=== PATIENT | male | born 1985 | race Caucasian/White ===

== ENCOUNTER 2018-03-02 07:46 | Inpatient (IN) | payer OTHER ==
[~2018-03-02] VITALS: Ht 165.1 cm; Wt 64.0 kg
--- NOTE | 2018-03-02 08:27 | ED GI/GU/ABDOMINAL COMPLAINT ---
See Addendum History of Present Illness General Chief Complaint: Abdominal Pain/Flank Pain Stated Complaint: L SIDED ABD PAIN X3DAYS Source: patient, family Exam Limitations: no limitations Vital Signs & Intake/Output Vital Signs & Intake/Output Vital Signs Date Time Temp Pulse Resp B/P B/P Pulse O2 O2 Flow FiO2 Mean Ox Delivery Rate 03/02 1228 98.3 106 18 120/83 98 Room Air 03/02 1059 98.7 95 18 128/74 98 Room Air 03/02 0846 98 Room Air 03/02 0748 98.8 126 18 140/91 95 Room Air Allergies Coded Allergies: NO KNOWN ALLERGIES (03/02/18) Reconcile Medications No Known Home Medications Triage Note: 32 YO MALE TO TRIAGE C/O L SIDED ABD PAIN X3 DAYS WITH +NVD. STATES HE IS A DAILY BEER DRINKER APPROX 6 BEERS. LBM THIS AM. DENIES URIANRY S/S. STATES HIS URINE HAS BEEN DARKER THEN USUAL. Triage Nurses Notes Reviewed? yes Onset: Abrupt Duration: week(s): Timing: recent history Quality/Severity: moderate, severe Location: epigastric, left lower quadrant Radiation: no radiation Activities at Onset: none HPI: 32-year-old male comes into the emergency room for further evaluation of upper abdominal pain that has now moved to the left side of his abdomen. He reports some excessive belching and burping and some associated vomiting. He reports that he drinks about 6 beers every other day. He reports that he's had some dark black stools recently. He denies any urinary symptoms. Denies any prior abdominal surgeries. Comes in for further evaluation. (Miguel Solitario) Past History Travel History Traveled to [place] past 21 day No Medical History Any Pertinent Medical History? see below for history Neurological: NONE EENT: NONE Cardiovascular: NONE Respiratory: NONE Gastrointestinal: NONE Hepatic: NONE Renal: NONE Musculoskeletal: NONE Psychiatric: NONE Endocrine: NONE Blood Disorders: NONE Cancer(s): NONE TURRET LATHE TENDER/Reproductive: NONE Surgical History Surgical History: NO ABDOMINAL SURGERIES Psychosocial History What is your primary language Macanese Tobacco Use: Current Daily Use Daily Tobacco Use Amount/Type: => 5 Cigarettes daily Family History Hx Contributory? No (Miguel Solitario) Review of Systems Review of Systems Constitutional: Reports: no symptoms. EENTM: Reports: no symptoms. Respiratory: Reports: no symptoms. Cardiovascular: Reports: no symptoms. GI: Reports: see HPI. Genitourinary: Reports: no symptoms. Musculoskeletal: Reports: no symptoms. Skin: Reports: no symptoms. Neurological/Psychological: Reports: no symptoms. Hematologic/Endocrine: Reports: no symptoms. Immunologic/Allergic: Reports: no symptoms. All Other Systems: Reviewed and Negative (Miguel Solitario) Physical Exam Physical Exam General Appearance: well developed/nourished, alert, awake, mild distress Head: atraumatic Eyes: Bilateral: normal appearance. Ears, Nose, Throat, Mouth: hearing grossly normal, moist mucous membrane Neck: normal inspection Respiratory: normal breath sounds, no respiratory distress Cardiovascular: regular rate/rhythm Gastrointestinal: soft, tenderness (LLQ) Rectal: heme positive stool, MINIMAL STOOL IN RECTAL VAULT BUT BLACKISH COLOR IN NATURE, Back: normal inspection Extremities: normal range of motion Neurologic/Psych: awake, alert, oriented x 3 Skin: intact, normal color Core Measures ACS in differential dx? No Sepsis Present: No Sepsis Focused Exam Completed? No (Miguel Solitario) Progress Differential Diagnosis: cholecystitis, diverticulitis, gastritis, hepatitis, pancreatitis, PUD/GERD, perforated viscous, ureterolithiasis Plan of Care: Orders Procedure Date/time Status Patient Data 03/02 1333 Active EKG 03/02 1254 Active Admit to inpatient 03/02 1248 Active LACTIC ACID 03/02 1125 Complete Add-on Test (ER Only) 03/02 0920 Active TRIGLYCERIDES 03/02 0852 Complete ETHANOL 03/02 0852 Complete MISTAKE 03/02 0832 Active URINE DRUGS OF ABUSE 03/02 0829 Complete URINALYSIS 03/02 0825 Complete LIPASE 03/02 0825 Complete LACTIC ACID 03/02 0825 Complete COMPREHENSIVE METABOLIC PANEL 03/02 0825 Complete CBC WITHOUT DIFFERENTIAL 03/02 0825 Complete AMYLASE 03/02 0825 Complete TYPE & SCREEN (NOT X-MATCH) 03/02 0825 Complete Current Medications Sig/Madelin Start time Last Medication Dose Stop Time Status Admin Lactated Ringer's 1,000 ML ONCE ONE 03/02 1230 AC 03/02 (Lactated Ringers) 03/02 1629 1228 Laboratory Tests 03/02/18 1204: Urine Opiates Screen 753.00, Methadone Screen < 40, Barbiturate Screen < 60, Ur Phencyclidine Scrn < 6.00, Amphetamines Screen < 100, U Benzodiazepines Scrn < 85, Urine Cocaine Screen < 50, Urine Cannabis Screen > 80.00 H, Urinalysis MOD H, Urine Color YEL, Urine Clarity HAZY H, Urine pH 6.0, Ur Specific [place] 1.010, Urine Protein TRACE H, Urine Ketones NEG, Urine Nitrite NEG, Urine Bilirubin POS@ICTO H, Urine Urobilinogen 1.0, Ur Leukocyte Esterase NEG, Ur Microscopic SEDIMENT EXAMINED, Urine RBC RARE, Urine WBC RARE, Ur Epithelial Cells FEW, Urine Bacteria FEW H, Granular Casts 1-3 H, Urine Mucus FEW, Urine Hemoglobin NEG, Urine Glucose NEG 03/02/18 1142: Lactic Acid 2.3 H 03/02/18 0852: Anion Gap 17 H, Estimated GFR > 60, BUN/Creatinine Ratio 15.7, Glucose 107 H, Lactic Acid 3.2 H, Calcium 5.7 *L, Total Bilirubin 3.4 H, AST 112 H, ALT 66, Alkaline Phosphatase 881 H, Total Protein 6.6, Albumin 2.8 L, Globulin 3.8, Albumin/Globulin Ratio 0.7 L, Triglycerides > 07247 H, Amylase 58, Lipase 1184 H, PT Cancelled, INR Cancelled, APTT Cancelled, CBC w Diff MAN DIFF ORDERED, RBC 3.70 L, MCV 101.3 H, MCH 35.0 H, MCHC 34.8, RDW 15.0 H, MPV 7.5, Segmented Neutrophils 71, Lymphocytes 24, Monocytes 5, Platelet Estimate VERIFIED BY SMEAR, Hypochromic-Microcytic 1+, Poikilocytosis 1+, Anisocytosis 1+ , Macrocytic Cells 1+, Target Cells FEW, Serum Alcohol 310.0 03/02/18 0829: Serum Alcohol Cancelled Diagnostic Imaging: Viewed by Me: CT Scan. Discussed w/RAD: CT Scan. Radiology Impression: PATIENT: ELIZABETH GUTIERRES PRESENT AGE: 32 PATIENT ACCOUNT NO: [id number] : 87 LOCATION: [facility] ORDERING PHYSICIAN: Miguel TRIPLETT SERVICE DATE: 03/02/18 EXAM TYPE: CAT - CT ABD & PELVIS W IV CONTRAST EXAMINATION: CT ABDOMEN AND PELVIS WITH CONTRAST CLINICAL INFORMATION: 32-year-old male patient with epigastric pain radiating to the left side of the abdomen. History of EtOH abuse. "Dark stool". COMPARISON: None available. TECHNIQUE: Multidetector volumetric imaging was performed of the abdomen and pelvis following IV administration of 95 mL of Optiray 320 intravenous contrast. Sagittal and coronal reformatted images were obtained on the technologist's workstation. DLP: 278 mGy-cm FINDINGS: Inspector Circuitry Negative: Gas filled loops of small and large bowel in the lower abdomen are consistent with an adynamic ileus. There is a paucity of gas in the left flank. LUNG BASES: The visualized lung bases are unremarkable. There are no pleural effusions. LIVER, GALLBLADDER, AND BILIARY TREE: There is normal in size and smooth in contour showing diffuse decrease in attenuation secondary to fatty infiltration. The bile ducts are not dilated. The gallbladder is unremarkable. PANCREAS: The significant findings are related to the pancreas. Pancreas is normal in size. However, a focal area of nonenhancement is located at the junction of the neck and body of the pancreas. This could represent a focal area of necrosis. There are significant peripancreatic effusions. A trace amount is seen in the lesser sac. Most of the pancreatic effusion dissects down the left anterior pararenal space to the left lower quadrant of the abdomen and lateral aspect of the pelvis. Gerota's fascia is intact resulting in the so-called "bare kidney" sign of acute pancreatitis. Some inflammatory reaction extends into the transverse mesocolon resulting in mild wall edema of the transverse colon. A trace amount of pancreatic effusion is located in the right pericolic gutter. Mild edema of the descending limb of the duodenum is a secondary effect of the acute pancreatitis. A small amount of pancreatic effusion is located in the right iliac fossa in communication with the pericolic gutter. SPLEEN: Unremarkable. ADRENAL GLANDS: Unremarkable. KIDNEYS AND URETERS: The kidneys are normal in size, shape, and attenuation. No hydronephrosis, hydroureter, or calculi seen. No perinephric stranding. BLADDER: Unremarkable. GASTROINTESTINAL TRACT: As mentioned above, there is mild wall edema of the transverse colon and mucosal enhancement of the descending limb the duodenum. The stomach is normal. The appendix is retrocecal in location and normal in appearance. ABDOMINAL WALL: No significant hernia is appreciated. LYMPH NODES: Normal. VASCULAR: The portal venous system is well patent. PELVIC VISCERA: Unremarkable. OSSEOUS STRUCTURES: Multiple Schmorl's nodes affect the vertebral bodies of the lower thoracic spine and L1-L2. Otherwise unremarkable. IMPRESSION: 1. Diffuse fatty infiltration of the liver. No biliary tract disease. 2. Acute pancreatitis associated with pancreatic enzymes/effusions primarily localized to the left anterior pararenal space. Secondary effects of the transverse colon and duodenum are appreciated. 3. Focal area of nonenhancement at the junction of the neck and body the pancreas could well represent early pancreatic necrosis. DICTATED BY: Balta Madrigal MD DATE/TIME DICTATED:03/02/181144 WELT EDGE ROUNDER:MOJGAN DATE/ TIME TRANSCRIBED:03/02/181144 CONFIDENTIAL, DO NOT COPY WITHOUT APPROPRIATE AUTHORIZATION. <Electronically signed in Other Vendor System> SIGNED BY: Balta Madrigal MD 03/02/18 1204 Initial ED EKG: normal sinus rhythm, rate (86) (Miguel Solitario) Comments: 03/02/2018 1:22:40 PM I have discussed this patient's case with Dr. Rizvi, covering the intensive care unit. He does not feel the patient requires ICU level care despite the low calcium level. I have notified Dr. Jimenez.. (Michelle MARTINEZ,Vinnie Jackson) Departure Departure Disposition: STILL A PATIENT Condition: Stable Clinical Impression Primary Impression: Acute pancreatitis Secondary Impressions: ETOH abuse, Hypertriglyceridemia, Hypocalcemia Referrals: Mike Smith DO (PCP/Family) Departure Forms: Customer Survey General Discharge Information Prescriptions: Current Visit Scripts No Known Home Medications Admission Note Spoke With: Tony MARTINEZ,Luisa Documentation of Exam: Documentation of any treatments & extenuating circumstances including Concerns Regarding Discharge (functional status, medication knowledge or non-compliance, living conditions, etc.) that warrant an admission rather than observation: IV fluids. IV pain control. GI consultation. Repeat labs. (Miguel Solitario) PA/REVENUE COORDINATOR Co-Sign Statement Statement: ED Attending supervision documentation- [X] I saw and evaluated the patient. I have also reviewed all the pertinent lab results and diagnostic results. I agree with the findings and the plan of care as documented in the PA's/REVENUE COORDINATOR's documentation. Patient presents for evaluation of worsening and severe abdominal pain. Physical examination reveals epigastric abdominal tenderness with brief voluntary guarding but no rebound. [] I have reviewed the ED Record and agree with the PA's/REVENUE COORDINATOR's documentation. [] Additions or exceptions (if any) to the PAs/REVENUE COORDINATOR's note and plan are summarized below: [] (Michelle MARTINEZ,Vinnie Jackson)
[2018-03-02 09:03] LABS: HEMATOCRIT 37.5 % (42-52); MEAN CORPUSCULAR VOLUME 101.3 FL (80.0-94.0); MEAN PLATELET VOLUME 7.5 FL (7.4-10.4); WHITE BLOOD CELL COUNT 7.7 /CUMM (4.8-10.8)
[2018-03-02 10:18] LABS: MEAN CORPUSCULAR HGB CONC 34.8 G/DL (33.0-37.0); PLATELET COUNT 141 /CUMM (130-400)
--- NOTE | 2018-03-02 12:04 | CT SCAN REPORT ---
EXAMINATION: CT ABDOMEN AND PELVIS WITH CONTRAST CLINICAL INFORMATION: 32-year-old male patient with epigastric pain radiating to the left side of the abdomen. History of EtOH abuse. "Dark stool". COMPARISON: None available. TECHNIQUE: Multidetector volumetric imaging was performed of the abdomen and pelvis following IV administration of 95 mL of Optiray 320 intravenous contrast. Sagittal and coronal reformatted images were obtained on the technologist's workstation. DLP: 278 mGy-cm FINDINGS: Car Groomer: Gas filled loops of small and large bowel in the lower abdomen are consistent with an adynamic ileus. There is a paucity of gas in the left flank. LUNG BASES: The visualized lung bases are unremarkable. There are no pleural effusions. LIVER, GALLBLADDER, AND BILIARY TREE: There is normal in size and smooth in contour showing diffuse decrease in attenuation secondary to fatty infiltration. The bile ducts are not dilated. The gallbladder is unremarkable. PANCREAS: The significant findings are related to the pancreas. Pancreas is normal in size. However, a focal area of nonenhancement is located at the junction of the neck and body of the pancreas. This could represent a focal area of necrosis. There are significant peripancreatic effusions. A trace amount is seen in the lesser sac. Most of the pancreatic effusion dissects down the left anterior pararenal space to the left lower quadrant of the abdomen and lateral aspect of the pelvis. Gerota's fascia is intact resulting in the so-called "bare kidney" sign of acute pancreatitis. Some inflammatory reaction extends into the transverse mesocolon resulting in mild wall edema of the transverse colon. A trace amount of pancreatic effusion is located in the right pericolic gutter. Mild edema of the descending limb of the duodenum is a secondary effect of the acute pancreatitis. A small amount of pancreatic effusion is located in the right iliac fossa in communication with the pericolic gutter. SPLEEN: Unremarkable. ADRENAL GLANDS: Unremarkable. KIDNEYS AND URETERS: The kidneys are normal in size, shape, and attenuation. No hydronephrosis, hydroureter, or calculi seen. No perinephric stranding. BLADDER: Unremarkable. GASTROINTESTINAL TRACT: As mentioned above, there is mild wall edema of the transverse colon and mucosal enhancement of the descending limb the duodenum. The stomach is normal. The appendix is retrocecal in location and normal in appearance. ABDOMINAL WALL: No significant hernia is appreciated. LYMPH NODES: Normal. VASCULAR: The portal venous system is well patent. PELVIC VISCERA: Unremarkable. OSSEOUS STRUCTURES: Multiple Schmorl's nodes affect the vertebral bodies of the lower thoracic spine and L1-L2. Otherwise unremarkable. IMPRESSION: 1. Diffuse fatty infiltration of the liver. No biliary tract disease. 2. Acute pancreatitis associated with pancreatic enzymes/effusions primarily localized to the left anterior pararenal space. Secondary effects of the transverse colon and duodenum are appreciated. 3. Focal area of nonenhancement at the junction of the neck and body the pancreas could well represent early pancreatic necrosis.
--- NOTE | 2018-03-02 13:52 | History & Physical ---
Jim MARTINEZ,[facility] 03/02/18 1351: General Information and HPI MD Statement: I have seen and personally examined ELIZABETH GUTIERRES and documented this H&P. The patient is a 32 year old M who presented with a patient stated chief complaint of [abdominal pain]. Source of Information: patient Exam Limitations: no limitations History of Present Illness: 32 yo M with no significant past medical history came in to the ED with complaints of severe abdominal pain for the past 2 days. The patient states that for the past 2 weeks he has been feeling ill. But for the past two days he has been experiencing periumbilical abdominal pain. This morning he woke up with severe pain in his abdomen localized to his left lower side of abdomen. He describes his pain as sharp, non-radiating, 10/10 in severity, aggravated with movement and improved with lying still. He has been experiencing nausea/vomiting with no hematemesis. Also been having dark loose stools for the past 3 days and denies any blood in stools. (Per ED data, the patient had heme positive dark stools) He is a heavy drinker using alcohol since he was 20. Consumes 6 beers or shots per night. Lately has been consuming rum. His last drink was last night. Smokes 1PPD for almost 15 years and occasionally uses marijuana. States his father has a lipid problem. Denies any similar problems in his siblings. Of note, he had an EGD with Dr Lea on which showed mild gastritis and duodenitis in 12/31 at [facility]. Allergies/Medications Allergies: Coded Allergies: NO KNOWN ALLERGIES (03/02/18) Home Med list No Known Home Medications Past History Travel History Traveled to [place] past 21 day No Medical History Neurological: NONE EENT: NONE Cardiovascular: NONE Respiratory: NONE Gastrointestinal: NONE Hepatic: NONE Renal: NONE Musculoskeletal: NONE Psychiatric: NONE Endocrine: NONE Blood Disorders: NONE Cancer(s): NONE JAIL GUARD/Reproductive: NONE Surgical History Surgical History: neck surgery, hernia repair Past Family/Social History Family History Relations & Conditions if any FATHER Relation not specified for: FH: hyperlipidemia Psychosocial History Smoking Status: Current Everyday Smoker ETOH Use: heavy use Illicit Drug Use: marijuana Review of Systems Review of Systems Constitutional: Reports: chills. Denies: fever. EENTM: Reports: no symptoms. Cardiovascular: Denies: chest pain. Respiratory: Denies: short of breath. GI: Reports: abdominal pain, diarrhea. Genitourinary: Reports: no symptoms. Musculoskeletal: Reports: no symptoms. Skin: Reports: no symptoms. Neurological/Psychological: Reports: no symptoms. Exam & Diagnostic Data Last 24 Hrs of Vital Signs/I&O Vital Signs Date Time Temp Pulse Resp B/P B/P Pulse O2 O2 Flow FiO2 Mean Ox Delivery Rate 03/02 1535 85 03/02 1412 98.0 104 18 116/77 96 Room Air 03/02 1228 98.3 106 18 120/83 98 Room Air 03/02 1059 98.7 95 18 128/74 98 Room Air 03/02 0846 98 Room Air 03/02 0748 98.8 126 18 140/91 95 Room Air Intake & Output 03/02 1600 03/02 0800 03/02 0000 Intake Total 2000 Output Total Balance 2000 Intake, IV 2000 Patient 120 lb Weight Weight Reported by Patient Measurement Method Physical Exam General Appearance Alert, Oriented X3, Cooperative, Moderate Distress Skin No Rashes, No Breakdown Skin Temp/Moisture Exam: Warm/Dry Sepsis Skin Exam (color): Normal for Ethnicity HEENT Atraumatic Cardiovascular Normal S1, Normal S2, No Murmurs Lungs Clear to Auscultation, Normal Air Movement Abdomen Soft, diffuse tenderness, rebound tenderness Neurological Normal Speech Extremities No Edema Last 24 Hrs of Labs/Fransico: Laboratory Tests 03/02/18 1557: Ionized Calcium Pending 03/02/18 1204: Urine Opiates Screen 753.00, Methadone Screen < 40, Barbiturate Screen < 60, Ur Phencyclidine Scrn < 6.00, Amphetamines Screen < 100, U Benzodiazepines Scrn < 85, Urine Cocaine Screen < 50, Urine Cannabis Screen > 80.00 H, Urinalysis MOD H, Urine Color YEL, Urine Clarity HAZY H, Urine pH 6.0, Ur Specific [place] 1.010, Urine Protein TRACE H, Urine Ketones NEG, Urine Nitrite NEG, Urine Bilirubin POS@ICTO H, Urine Urobilinogen 1.0, Ur Leukocyte Esterase NEG, Ur Microscopic SEDIMENT EXAMINED, Urine RBC RARE, Urine WBC RARE, Ur Epithelial Cells FEW, Urine Bacteria FEW H, Granular Casts 1-3 H, Urine Mucus FEW, Urine Hemoglobin NEG, Urine Glucose NEG 03/02/18 1142: Lactic Acid 2.3 H 03/02/18 0852: Anion Gap 17 H, Estimated GFR > 60, BUN/Creatinine Ratio 15.7, Glucose 107 H, Lactic Acid 3.2 H, Calcium 5.7 *L, Total Bilirubin 3.4 H, AST 112 H, ALT 66, Alkaline Phosphatase 881 H, Total Protein 6.6, Albumin 2.8 L, Globulin 3.8, Albumin/Globulin Ratio 0.7 L, Triglycerides > 43974 H, Amylase 58, Lipase 1184 H, PT Cancelled, INR Cancelled, APTT Cancelled, CBC w Diff MAN DIFF ORDERED, RBC 3.70 L, MCV 101.3 H, MCH 35.0 H, MCHC 34.8, RDW 15.0 H, MPV 7.5, Segmented Neutrophils 71, Lymphocytes 24, Monocytes 5, Platelet Estimate VERIFIED BY SMEAR, Hypochromic-Microcytic 1+, Poikilocytosis 1+, Anisocytosis 1+ , Macrocytic Cells 1+, Target Cells FEW, Serum Alcohol 310.0 03/02/18 0829: Serum Alcohol Cancelled Assessment/Plan Assessment: 32 yo M with no significant past medical history came in to the ED with complaints of severe abdominal pain for the past 2 days. Assessment: 1. Acute Pancreatitis with necrotizing features 2. Adynamic Ileus 3. Severe Hypertriglyceridemia 4. Alcohol Abuse 5. Cannabis Use 6. Severe Hypocalcemia 7. Elevated LFTs 8. Macrocytosis Plan: * Admit the patient to telemetry * Continue Lactated Ringers @150ml/hr. * Pain control with IV morphine 2mg q4. * Trend Lactic Acid * Monitor Electrolytes * Ionized Calcium level ordered - pending * Repeat TGs, Ca, Vit d, PTH. Will monitor TGs level. * IV 1g Calcium Gluconate x 1. * His Dallas score is 1, BISAP score of 0 and HAP of 1. * Ativan per CIWA * Banana bag * GI Consult. His ALP is elevated along with other liver enzymes. * Endo Consult * Diet: NPO * DVT Prophylaxis: SC Lovenox * Code Status: Full Code As Ranked By This Provider Problem List: 1. Acute pancreatitis Core Measures/Misc (07/10) Acute Coronary Syndrome ACS Diagnosis: No Congestive Heart Failure Congestive Heart Failure Diagnosis No Cerebrovascular Accident CVA/TIA Diagnosis: No VTE (View Protocol) VTE Risk Factors Age>40 No Mechanical VTE Prophylaxis d/t N/A MechProphylax Ordered No VTE Pharm Prophylaxis d/t NA PharmProphylax ordered Sepsis (View protocol) Sepsis Present: No Carmen MARTINEZ,[facility] 03/02/18 1436: General Information and HPI MD Statement: I have seen and personally examined ELIZABETH GUTIERRES and documented this H&P. The patient is a 32 year old M who presented with a patient stated chief complaint of []. Resident Review Statement Resident Statement: examined this patient, discussed with biology internship, agreed with biology internship Other Findings: 32-year-old male without significant PMHx and not on any medication, presented with severe epigastric abdominal pain. He start feeling sick about 2 weeks ago, but during last 2 days he develop progressive epigastric abdominal pain that was associated with nausea and vomiting. The pt has family hx of dyslipidemia. He reports drinking 6 beers or 6 shots every day. Assessment The patient presented with symptoms and signs suggestive of acute pancreatitis, he reports drinking since age 20, recently his binge drinking almost every day around 6 shots of vodka or rum. Triglyceride was found to be elevated up to 10, 500. He had a positive lactic acid and low calcium down to 6.2(corrected to albumin), which may indicate high risk of acute pancreatitis complication. CT showed pancreatitis with possible early signs of pancreatic necrosis. Problem list * Acute pancreatitis * Hypocalcemia * Hypertriglyceridemia * Macrocytic anemia * Alcohol use, marijuana use Plan * Admit to telemetry floor * Nothing by mouth * Continue ringer lactate at 200 * Morphine 2 mg every 4 when necessary * Zofran for nausea * Trend lactic acid * We'll order ionized calcium level * Order parathyroid hormone level * CIWA protocol, with Ativan as per protocol * We will start him on banana bag to be given at the same time with IV fluids * We'll repeat all blood workup including calcium and triglyceride * Consult endocrinology * Consult GI * Full code * DVT prophylaxis with subcutaneous heparin Jalyn Menchaca 03/02/18 1529: Attending MD Review Statement Attending Statement Attending MD Statement: examined this patient, discuss w/resident/PA/MEATCUTTER, agreed w/resident/PA/MEATCUTTER, discussed with family, reviewed EMR data (avail), discussed with nursing, discussed with case mgmt, reviewed images, amended to note Attending Assessment/Plan: Patient with pmh of alcohol abuse and hypertriglyceredemia comes with abdominal pain and acute pancreatitis with necrosis and hypocalcemia with lactic acidosis on admission with improvement. Patient hct 37. Patient received aggressive hydration in ER. Patient admit to inpatient medical services telemetry. Give aggressive hydration and keep him NPO, GI and endo consult. Pain control. IV thimaine, folic acid. CIWA protocol and iv ativan as per CIWA protocol. gi/dvt prophyalxis full code.
[2018-03-02 17:18] VITALS: BP 126/80
--- NOTE | 2018-03-02 19:15 | RADIOLOGY REPORT ---
EXAMINATION: XR PORTABLE CHEST CLINICAL INFORMATION: Effusion pancreatitis COMPARISON: Prior chest May 2008 TECHNIQUE: Portable frontal view of the chest was obtained. FINDINGS: No significant abnormality is noted involving the heart, lungs, mediastinum, bony thorax or soft tissues. Incidental note made of postsurgical changes across the cervical thoracic junction unchanged. IMPRESSION: No acute disease. No change no effusion
--- NOTE | 2018-03-02 19:23 | Cons- Endocrinology ---
See Addendum General Information and HPI Consulting Request Date of Consult: 03/02/18 Requested By: Medical team Reason for Consult: evaluation and management of severe hypertriglyeridemia and acute pancreatitis in the setting ETOH abuse and other substance abuse Source of Information: patient, old records Exam Limitations: no limitations History of Present Illness: 32 yo M with no significant past medical history came in to the ED with complaints of severe abdominal pain for the past 2 days. Patient stated that he was feeling ill for the past two weeks. In addition, he has been having nausea/vomiting. He eats fast food and has been drinking ETOH x 16 years. His last drink was last night. In addition, he occasionally uses marijuana. CT scan showed peripancreatic effusions, a focal areabof nonenhancement located at the junction of the neck and body of pancreas suggestive of a focal area of necrosis. Blood work on admission showed glucose 107, amylase 58, lipase 1184, calcium 5.7 , albumin 2.8 ( corrected calcium 6.6), TRIG > 35027, T.Bossman 3.4, ALKP 881, AST 112, ALT 66, ETOH level 310. Patient has been kept NPO and he is receiving LR 150 ml/hour. Repeat blood work done at 4 pm showed lipase 1409, calcium 5.2, TRIG 8970, PTH 165.1 and 25 OH vitamin D < 4.2. Allergies/Medications Allergies: Coded Allergies: NO KNOWN ALLERGIES (03/02/18) Home Med List: No Known Home Medications Review of Systems Review of Systems Constitutional: Reports: see HPI. Cardiovascular: Denies: chest pain. Respiratory: Denies: short of breath. GI: Reports: abdominal pain, nausea, vomiting. Genitourinary: Denies: dysuria. Hematologic/Endocrine: Denies: polyuria, polydipsia. Past History Travel History Traveled to [place] past 21 day No Medical History Neurological: NONE EENT: NONE Cardiovascular: NONE Respiratory: NONE Gastrointestinal: NONE Hepatic: NONE Renal: NONE Musculoskeletal: NONE Psychiatric: NONE Endocrine: NONE Blood Disorders: NONE Cancer(s): NONE COMPUTER ENGINEERING TECHNOLOGIST/Reproductive: NONE Surgical History Surgical History: neck surgery, hernia repair Family History Relations & Conditions If Any: FATHER Relation not specified for: FH: hyperlipidemia Psychosocial History Where Do You Live? Home Smoking Status: Current Everyday Smoker ETOH Use: heavy use Illicit Drug Use: marijuana Exam & Diagnostic Data Last 24 Hrs of Vital Signs/I&O Vital Signs Date Time Temp Pulse Resp B/P B/P Pulse O2 O2 Flow FiO2 Mean Ox Delivery Rate 03/02 1718 98.3 96 18 126/80 94 Room Air 03/02 1617 99.2 83 18 116/73 98 Room Air 03/02 1535 85 03/02 1412 98.0 104 18 116/77 96 Room Air 03/02 1228 98.3 106 18 120/83 98 Room Air 03/02 1059 98.7 95 18 128/74 98 Room Air 03/02 0846 98 Room Air 03/02 0748 98.8 126 18 140/91 95 Room Air Intake & Output 03/02 1600 03/02 0800 03/02 0000 Intake Total 2000 Output Total Balance 2000 Intake, IV 2000 Patient 120 lb Weight Weight Reported by Patient Measurement Method Physical Exam General Appearance: mild distress Neck: normal inspection Respiratory: lungs clear Cardiovascular: tachycardia (mild) Gastrointestinal: guarding, tenderness (LUQ) Extremities: no edema Labs/Fransico Results: Laboratory Tests 03/02 03/02 03/02 1607 1557 1204 Chemistry Sodium (137 - 145 mmol/L) 131 L Potassium (3.5 - 5.1 mmol/L) 4.3 Chloride (98 - 107 mmol/L) 99 Carbon Dioxide (22 - 30 mmol/L) 19 L Anion Gap (5 - 16) 13 BUN (9 - 20 mg/dL) 10 Creatinine (0.7 - 1.2 mg/dL) 0.6 L Estimated GFR (>60 ml/min) > 60 BUN/Creatinine Ratio (7 - 25 %) 16.7 Glucose (65 - 99 mg/dL) 76 Calcium (8.4 - 10.2 mg/dL) 5.2 *L Ionized Calcium Pending Lactate Dehydrogenase (313 - 618 U/L) 885 H Triglycerides (<150 mg/dL) 8970 H Amylase (30 - 110 U/L) 64 Lipase (23 - 300 U/L) 1409 H 25-OH Vitamin D Total (30 - 100 ng/ml) < 4.2 L PTH Intact (18.4 - 80.1 pg/ML) 165.1 H Toxicology Urine Opiates Screen (>2000 NG/ML) 753.00 Methadone Screen (>300 NG/ML) < 40 Barbiturate Screen (>200 NG/ML) < 60 Ur Phencyclidine Scrn (>25 NG/ML) < 6.00 Amphetamines Screen (>1000 NG/ML) < 100 U Benzodiazepines Scrn (>200 NG/ML) < 85 Urine Cocaine Screen (>300 NG/ML) < 50 Urine Cannabis Screen (>50 NG/ML) > 80.00 H Urines Urinalysis MOD H Urine Color (YEL,AMB,STR) YEL Urine Clarity (CLEAR) HAZY H Urine pH (5.0 - 8.0) 6.0 Ur Specific [place] (1.001 - 1.035) 1.010 Urine Protein (NEG,<30 MG/DL) TRACE H Urine Ketones (NEG) NEG Urine Nitrite (NEG) NEG Urine Bilirubin (NEG) POS@ICTO H Urine Urobilinogen (0.1 - 1.0 EU/dl) 1.0 Ur Leukocyte Esterase (NEG) NEG Ur Microscopic SEDIMENT EXAMINED Urine RBC (0 - 5 /HPF) RARE Urine WBC (0 - 2 /HPF) RARE Ur Epithelial Cells (NONE,FEW) FEW Urine Bacteria (NEG/NONE) FEW H Granular Casts (NONE /LPF) 1-3 H Urine Mucus (FEW,NONE) FEW Urine Hemoglobin (NEG) NEG Urine Glucose (N MG/DL) NEG 03/02 03/02 03/02 1142 0852 0829 Chemistry Sodium (137 - 145 mmol/L) 132 L Potassium (3.5 - 5.1 mmol/L) 4.1 Chloride (98 - 107 mmol/L) 97 L Carbon Dioxide (22 - 30 mmol/L) 18 L Anion Gap (5 - 16) 17 H BUN (9 - 20 mg/dL) 11 Creatinine (0.7 - 1.2 mg/dL) 0.7 Estimated GFR (>60 ml/min) > 60 BUN/Creatinine Ratio (7 - 25 %) 15.7 Glucose (65 - 99 mg/dL) 107 H Lactic Acid (0.7 - 2.1 mmol/L) 2.3 H 3.2 H Calcium (8.4 - 10.2 mg/dL) 5.7 *L Total Bilirubin (0.2 - 1.3 mg/dL) 3.4 H AST (17 - 59 U/L) 112 H ALT (21 - 72 U/L) 66 Alkaline Phosphatase (< 127 U/L) 881 H Total Protein (6.3 - 8.2 g/dL) 6.6 Albumin (3.5 - 5.0 g/dL) 2.8 L Globulin (1.9 - 4.2 gm/dL) 3.8 Albumin/Globulin Ratio (1.1 - 2.2 %) 0.7 L Triglycerides (<150 mg/dL) > 98486 H Amylase (30 - 110 U/L) 58 Lipase (23 - 300 U/L) 1184 H Coagulation PT Cancelled INR Cancelled APTT Cancelled Hematology CBC w Diff MAN DIFF ORDERED WBC (4.8 - 10.8 /CUMM) 7.7 RBC (4.70 - 6.10 /CUMM) 3.70 L Hgb (14.0 - 18.0 G/DL) 13.7 L Hct (42 - 52 %) 37.5 L MCV (80.0 - 94.0 FL) 101.3 H MCH (27.0 - 31.0 PG) 35.0 H MCHC (33.0 - 37.0 G/DL) 34.8 RDW (11.5 - 14.5 %) 15.0 H Plt Count (130 - 400 /CUMM) 141 MPV (7.4 - 10.4 FL) 7.5 Segmented Neutrophils (42.2 - 75.2 %) 71 Lymphocytes (20.5 - 51.1 %) 24 Monocytes (1.7 - 9.3 %) 5 Platelet Estimate (ADEQUATE) VERIFIED BY SMEAR Hypochromic-Microcytic 1+ Poikilocytosis 1+ Anisocytosis 1+ Macrocytic Cells 1+ Target Cells FEW Toxicology Serum Alcohol (<10 MG/DL) 310.0 Cancelled Assessment/Plan Assessment/Plan 32 y/o male hx of ETOH abuse, poor diet and other substance abuse, presented with abdominal pain x 2 weeks. It has been worse x 2 days. His TRIG on admission was > [address]. CT showed necrotizing acute pancreatitis. Blood work showed severe hypocalcemia. I have recommended that patient shoud be in ICU for close monitoring. 1. continue IVF; 2. keep patient NPO; 3. as his TRIG has been improving and his glucose level hasn't been elevated, I will hold off on insulin drip at this point; 4. continue monitoring TRIG level and glucose level; 5. recommend giving one dose of calcum gluconate; tele monitoring; repeat calcium level in 4 hours; might consider cacium drip at low rate if his calcium level remains low; 6. start calcitriol 0.5 mcg iv twice a day with first dose now; 7. will start oral vitamin D supplement if he is ready to take po medication. 8. continue monitoring electrolytes and vital signs; 9. continue other suportive treatment. will follow Consult Acknowledgment - Thank you for your consult request.
[2018-03-02 22:35] VITALS: BP 120/84; BP 158/98
[2018-03-03] VITALS (15 sets, daily range): BP systolic 123–156; BP diastolic 78–104
[2018-03-03 06:02] LABS: MEAN CORPUSCULAR VOLUME 101.2 FL (80.0-94.0); MEAN PLATELET VOLUME 7.8 FL (7.4-10.4); PLATELET COUNT 105 /CUMM (130-400); RBC DISTRIBUTION WIDTH 15.2 % (11.5-14.5); RED BLOOD CELL CT 2.93 /CUMM (4.70-6.10); WHITE BLOOD CELL COUNT 4.2 /CUMM (4.8-10.8)
[2018-03-03 06:28] LABS: HEMATOCRIT 29.6 % (42-52)
[2018-03-03 06:29] LABS: MEAN CORPUSCULAR HGB 33.5 PG (27.0-31.0); MEAN CORPUSCULAR HGB CONC 33.2 G/DL (33.0-37.0)
--- NOTE | 2018-03-03 08:34 | PN- Endocrinology ---
Assessment/Plan Endoscopy Assessment: 32 y/o male hx of ETOH abuse, poor diet and other substance abuse, presented with abdominal pain x 2 weeks. It has been worse x 2 days. His TRIG on admission was > [address]. CT showed necrotizing acute pancreatitis. Blood work showed severe hypocalcemia. His TRIG remained significantly elevated and calcium level remained low despite he received calcium gluconate 2 g iv overnight. Patient was transferred to the ICU. He was put on insulin drip. Mg was replaced. He was put on calcitriol 0.5 mcg iv twice a day. Currently he is on insulin drip at 2 units per hour, D5LR at 200 ml/hour. The most recent FSG was 202. Patient still has abdominal pain. His abdmen appears more distended this morning. Plan: 1. continue the current IVF and insulin drip for now; 2. monitor FSG every one hour; 3. adjust insulin drip rate according to the insulin drip protocol for non DKA patient to keep FSG between 140 and 180 mg/dl; 4. monitor vital signs, in and out and electrolytes; 5. initiate calcium drip ( 5 g calcium gluconate in NS of 500 ml) at 30 ml/hour; monitor calcium and albumin in 2 hours to look for a trend; then the calcium drip rate will be adjusted accordingly; I will recommend monitoring his calcium level every 4-6 hours while he is on the calcium drip; the target of corrected calcium is around 8.0 mg/dl. 6. continue calcitriol 0.5 mcg iv twice a day; 7. will start calcium oral supplement and vitamin D oral supplement when he is ready to take pills; 8. recommend GI consult. 9 continue other supportive treatment; will follow. please call if there are any questions. Subjective Subjective: He still has significant abdominal pain. Objective Last 24 Hrs of Vital Signs/I&O Vital Signs Date Time Temp Pulse Resp B/P B/P Pulse O2 O2 Flow FiO2 Mean Ox Delivery Rate 03/03 0600 102 17 137/88 03/03 0400 97.9 122 28 149/81 03/03 0400 98 Nasal 2.0L Cannula 03/03 0200 106 15 144/87 03/03 0130 99 25 154/94 03/03 0000 98.7 107 24 154/98 03/03 0000 94 Room Air Room Air 03/02 2235 98.7 80 22 158/98 94 Nasal 3.0L Cannula 03/02 2235 98.4 92 20 120/84 95 03/02 1718 98.3 96 18 126/80 94 Room Air 03/02 1617 99.2 83 18 116/73 98 Room Air 03/02 1535 85 03/02 1412 98.0 104 18 116/77 96 Room Air 03/02 1228 98.3 106 18 120/83 98 Room Air 03/02 1059 98.7 95 18 128/74 98 Room Air 03/02 0846 98 Room Air Intake & Output 03/03 1600 03/03 0800 03/03 0000 Intake Total 1200 1200 Output Total 250 200 Balance 950 1000 Intake, IV 1200 1200 Number 0 Bowel Movements Output, Urine 250 200 Patient 140 lb 144 lb Weight Weight Bed scale Bed scale Measurement Method Results Pertinent Lab/Fransico Results: Laboratory Tests 03/03 03/03 03/03 0600 0546 0546 Chemistry Sodium (137 - 145 mmol/L) 127 L Potassium (3.5 - 5.1 mmol/L) 3.6 Chloride (98 - 107 mmol/L) 98 Carbon Dioxide (22 - 30 mmol/L) 17 L Anion Gap (5 - 16) 13 BUN (9 - 20 mg/dL) 6 L Creatinine (0.7 - 1.2 mg/dL) 0.5 L Estimated GFR (>60 ml/min) > 60 Glucose (65 - 99 mg/dL) 155 H Lactic Acid (0.7 - 2.1 mmol/L) 2.5 H Calcium (8.4 - 10.2 mg/dL) Cancelled 5.4 *L Phosphorus (2.5 - 4.5 mg/dL) 2.5 Magnesium (1.6 - 2.3 mg/dL) Cancelled 1.9 Total Bilirubin (0.2 - 1.3 mg/dL) 3.8 H AST (17 - 59 U/L) 84 H ALT (21 - 72 U/L) 36 Albumin (3.5 - 5.0 g/dL) 2.3 L Triglycerides (<150 mg/dL) 7991 H Hematology CBC w Diff Cancelled MAN DIFF ORDERED WBC (4.8 - 10.8 /CUMM) Cancelled 4.2 L RBC (4.70 - 6.10 /CUMM) Cancelled 2.93 L Hgb (14.0 - 18.0 G/DL) Cancelled 9.9 L Hct (42 - 52 %) Cancelled 29.6 L MCV (80.0 - 94.0 FL) Cancelled 101.2 H MCH (27.0 - 31.0 PG) Cancelled 33.5 H MCHC (33.0 - 37.0 G/DL) Cancelled 33.2 RDW (11.5 - 14.5 %) Cancelled 15.2 H Plt Count (130 - 400 /CUMM) Cancelled 105 L MPV (7.4 - 10.4 FL) Cancelled 7.8 Segmented Neutrophils (42.2 - 75.2 %) 70 Band Neutrophils (0.0 - 5.0 %) 13 H Lymphocytes (20.5 - 51.1 %) 14 L Monocytes (1.7 - 9.3 %) 3 Platelet Estimate (ADEQUATE) ADEQUATE Polychromasia 1+ Anisocytosis 1+ Macrocytic Cells 1+ Ovalocytes FEW Other Body Source Fld Total RBCs Counted (%) 100 03/03 03/03 03/03 03/02 03/02 0043 0032 0032 2100 2100 Chemistry Sodium (137 - 145 mmol/L) 133 L Potassium (3.5 - 5.1 mmol/L) 4.0 Chloride (98 - 107 mmol/L) 100 Carbon Dioxide (22 - 30 mmol/L) 15 L Anion Gap (5 - 16) 18 H BUN (9 - 20 mg/dL) 8 L Creatinine (0.7 - 1.2 mg/dL) 0.5 L Estimated GFR (>60 ml/min) > 60 BUN/Creatinine Ratio (7 - 25 %) 16.0 Glucose (65 - 99 mg/dL) 77 Lactic Acid (0.7 - 2.1 mmol/L) 2.5 H 3.0 H Calcium (8.4 - 10.2 mg/dL) Cancelled 5.2 *L 5.2 *L Magnesium (1.6 - 2.3 mg/dL) 1.1 L Triglycerides (<150 mg/dL) 9397 H Amylase (30 - 110 U/L) 633 H Lipase (23 - 300 U/L) 1323 H 03/02 03/02 03/02 1607 1557 1204 Chemistry Sodium (137 - 145 mmol/L) 131 L Potassium (3.5 - 5.1 mmol/L) 4.3 Chloride (98 - 107 mmol/L) 99 Carbon Dioxide (22 - 30 mmol/L) 19 L Anion Gap (5 - 16) 13 BUN (9 - 20 mg/dL) 10 Creatinine (0.7 - 1.2 mg/dL) 0.6 L Estimated GFR (>60 ml/min) > 60 BUN/Creatinine Ratio (7 - 25 %) 16.7 Glucose (65 - 99 mg/dL) 76 Calcium (8.4 - 10.2 mg/dL) 5.2 *L Ionized Calcium Pending Lactate Dehydrogenase (313 - 618 U/L) 885 H Triglycerides (<150 mg/dL) 8970 H Amylase (30 - 110 U/L) 64 Lipase (23 - 300 U/L) 1409 H 25-OH Vitamin D Total (30 - 100 ng/ml) < 4.2 L PTH Intact (18.4 - 80.1 pg/ML) 165.1 H Toxicology Urine Opiates Screen (>2000 NG/ML) 753.00 Methadone Screen (>300 NG/ML) < 40 Barbiturate Screen (>200 NG/ML) < 60 Ur Phencyclidine Scrn (>25 NG/ML) < 6.00 Amphetamines Screen (>1000 NG/ML) < 100 U Benzodiazepines Scrn (>200 NG/ML) < 85 Urine Cocaine Screen (>300 NG/ML) < 50 Urine Cannabis Screen (>50 NG/ML) > 80.00 H Urines Urinalysis MOD H Urine Color (YEL,AMB,STR) YEL Urine Clarity (CLEAR) HAZY H Urine pH (5.0 - 8.0) 6.0 Ur Specific [place] (1.001 - 1.035) 1.010 Urine Protein (NEG,<30 MG/DL) TRACE H Urine Ketones (NEG) NEG Urine Nitrite (NEG) NEG Urine Bilirubin (NEG) POS@ICTO H Urine Urobilinogen (0.1 - 1.0 EU/dl) 1.0 Ur Leukocyte Esterase (NEG) NEG Ur Microscopic SEDIMENT EXAMINED Urine RBC (0 - 5 /HPF) RARE Urine WBC (0 - 2 /HPF) RARE Ur Epithelial Cells (NONE,FEW) FEW Urine Bacteria (NEG/NONE) FEW H Granular Casts (NONE /LPF) 1-3 H Urine Mucus (FEW,NONE) FEW Urine Hemoglobin (NEG) NEG Urine Glucose (N MG/DL) NEG 03/02 03/02 1142 0809 Chemistry Sodium (137 - 145 mmol/L) 132 L Potassium (3.5 - 5.1 mmol/L) 4.1 Chloride (98 - 107 mmol/L) 97 L Carbon Dioxide (22 - 30 mmol/L) 18 L Anion Gap (5 - 16) 17 H BUN (9 - 20 mg/dL) 11 Creatinine (0.7 - 1.2 mg/dL) 0.7 Estimated GFR (>60 ml/min) > 60 BUN/Creatinine Ratio (7 - 25 %) 15.7 Glucose (65 - 99 mg/dL) 107 H Lactic Acid (0.7 - 2.1 mmol/L) 2.3 H 3.2 H Calcium (8.4 - 10.2 mg/dL) 5.7 *L Total Bilirubin (0.2 - 1.3 mg/dL) 3.4 H AST (17 - 59 U/L) 112 H ALT (21 - 72 U/L) 66 Alkaline Phosphatase (< 127 U/L) 881 H Total Protein (6.3 - 8.2 g/dL) 6.6 Albumin (3.5 - 5.0 g/dL) 2.8 L Globulin (1.9 - 4.2 gm/dL) 3.8 Albumin/Globulin Ratio (1.1 - 2.2 %) 0.7 L Triglycerides (<150 mg/dL) > 67835 H Amylase (30 - 110 U/L) 58 Lipase (23 - 300 U/L) 1184 H Coagulation PT Cancelled INR Cancelled APTT Cancelled Hematology CBC w Diff MAN DIFF ORDERED WBC (4.8 - 10.8 /CUMM) 7.7 RBC (4.70 - 6.10 /CUMM) 3.70 L Hgb (14.0 - 18.0 G/DL) 13.7 L Hct (42 - 52 %) 37.5 L MCV (80.0 - 94.0 FL) 101.3 H MCH (27.0 - 31.0 PG) 35.0 H MCHC (33.0 - 37.0 G/DL) 34.8 RDW (11.5 - 14.5 %) 15.0 H Plt Count (130 - 400 /CUMM) 141 MPV (7.4 - 10.4 FL) 7.5 Segmented Neutrophils (42.2 - 75.2 %) 71 Lymphocytes (20.5 - 51.1 %) 24 Monocytes (1.7 - 9.3 %) 5 Platelet Estimate (ADEQUATE) VERIFIED BY SMEAR Hypochromic-Microcytic 1+ Poikilocytosis 1+ Anisocytosis 1+ Macrocytic Cells 1+ Target Cells FEW Toxicology Serum Alcohol (<10 MG/DL) 310.0
--- NOTE | 2018-03-03 08:43 | PN- Resident CRCU ---
Chucho MARTINEZ,[facility] 03/03/18 0842: Subjective HPI/CRCU Issues: Pt admitted to ICU for pancreatitis with ?necrosis secondary to hypertriglyceirdes/etoh. Pt has worsening edema/LLQ abd pain. Pt is constipated. SOB only when trying to sit up. Objective Vital Signs & I&O Last 8 Hrs of Vitals and I&O: Laboratory Tests 03/03 03/03 03/03 03/03 03/03 1053 0940 0940 0600 0546 Chemistry Lactic Acid (0.7 - 2.1 mmol/L) 3.0 H 2.5 H Calcium (8.4 - 10.2 mg/dL) 5.5 *L Cancelled Magnesium Cancelled Coagulation PT Pending INR Pending Hematology CBC w Diff Cancelled WBC Cancelled RBC Cancelled Hgb Cancelled Hct Cancelled MCV Cancelled MCH Cancelled MCHC Cancelled RDW Cancelled Plt Count Cancelled MPV Cancelled 03/03 03/03 03/03 0546 0043 0032 Chemistry Sodium (137 - 145 mmol/L) 127 L Potassium (3.5 - 5.1 mmol/L) 3.6 Chloride (98 - 107 mmol/L) 98 Carbon Dioxide (22 - 30 mmol/L) 17 L Anion Gap (5 - 16) 13 BUN (9 - 20 mg/dL) 6 L Creatinine (0.7 - 1.2 mg/dL) 0.5 L Estimated GFR (>60 ml/min) > 60 Glucose (65 - 99 mg/dL) 155 H Lactic Acid (0.7 - 2.1 mmol/L) 2.5 H Calcium (8.4 - 10.2 mg/dL) 5.4 *L Cancelled Phosphorus (2.5 - 4.5 mg/dL) 2.5 Magnesium (1.6 - 2.3 mg/dL) 1.9 Total Bilirubin (0.2 - 1.3 mg/dL) 3.8 H AST (17 - 59 U/L) 84 H ALT (21 - 72 U/L) 36 Albumin (3.5 - 5.0 g/dL) 2.3 L Triglycerides (<150 mg/dL) 7991 H Hematology CBC w Diff MAN DIFF ORDERED WBC (4.8 - 10.8 /CUMM) 4.2 L RBC (4.70 - 6.10 /CUMM) 2.93 L Hgb (14.0 - 18.0 G/DL) 9.9 L Hct (42 - 52 %) 29.6 L MCV (80.0 - 94.0 FL) 101.2 H MCH (27.0 - 31.0 PG) 33.5 H MCHC (33.0 - 37.0 G/DL) 33.2 RDW (11.5 - 14.5 %) 15.2 H Plt Count (130 - 400 /CUMM) 105 L MPV (7.4 - 10.4 FL) 7.8 Segmented Neutrophils (42.2 - 75.2 %) 70 Band Neutrophils (0.0 - 5.0 %) 13 H Lymphocytes (20.5 - 51.1 %) 14 L Monocytes (1.7 - 9.3 %) 3 Platelet Estimate (ADEQUATE) ADEQUATE Polychromasia 1+ Anisocytosis 1+ Macrocytic Cells 1+ Ovalocytes FEW Other Body Source Fld Total RBCs Counted (%) 100 03/03 03/02 03/02 03/02 03/02 0032 2100 2100 1607 1557 Chemistry Sodium (137 - 145 mmol/L) 133 L 131 L Potassium (3.5 - 5.1 mmol/L) 4.0 4.3 Chloride (98 - 107 mmol/L) 100 99 Carbon Dioxide (22 - 30 mmol/L) 15 L 19 L Anion Gap (5 - 16) 18 H 13 BUN (9 - 20 mg/dL) 8 L 10 Creatinine (0.7 - 1.2 mg/dL) 0.5 L 0.6 L Estimated GFR (>60 ml/min) > 60 > 60 BUN/Creatinine Ratio (7 - 25 %) 16.0 16.7 Glucose (65 - 99 mg/dL) 77 76 Lactic Acid (0.7 - 2.1 mmol/L) 3.0 H Calcium (8.4 - 10.2 mg/dL) 5.2 *L 5.2 *L 5.2 *L Ionized Calcium Pending Magnesium (1.6 - 2.3 mg/dL) 1.1 L Lactate Dehydrogenase (313 - 618 U/L) 885 H Triglycerides (<150 mg/dL) 9397 H 8970 H Amylase (30 - 110 U/L) 633 H 64 Lipase (23 - 300 U/L) 1323 H 1409 H 25-OH Vitamin D Total (30 - 100 ng/ml) < 4.2 L PTH Intact (18.4 - 80.1 pg/ML) 165.1 H 03/02 03/02 1204 1142 Chemistry Lactic Acid (0.7 - 2.1 mmol/L) 2.3 H Toxicology Urine Opiates Screen (>2000 NG/ML) 753.00 Methadone Screen (>300 NG/ML) < 40 Barbiturate Screen (>200 NG/ML) < 60 Ur Phencyclidine Scrn (>25 NG/ML) < 6.00 Amphetamines Screen (>1000 NG/ML) < 100 U Benzodiazepines Scrn (>200 NG/ML) < 85 Urine Cocaine Screen (>300 NG/ML) < 50 Urine Cannabis Screen (>50 NG/ML) > 80.00 H Urines Urinalysis MOD H Urine Color (YEL,AMB,STR) YEL Urine Clarity (CLEAR) HAZY H Urine pH (5.0 - 8.0) 6.0 Ur Specific [place] (1.001 - 1.035) 1.010 Urine Protein (NEG,<30 MG/DL) TRACE H Urine Ketones (NEG) NEG Urine Nitrite (NEG) NEG Urine Bilirubin (NEG) POS@ICTO H Urine Urobilinogen (0.1 - 1.0 EU/dl) 1.0 Ur Leukocyte Esterase (NEG) NEG Ur Microscopic SEDIMENT EXAMINED Urine RBC (0 - 5 /HPF) RARE Urine WBC (0 - 2 /HPF) RARE Ur Epithelial Cells (NONE,FEW) FEW Urine Bacteria (NEG/NONE) FEW H Granular Casts (NONE /LPF) 1-3 H Urine Mucus (FEW,NONE) FEW Urine Hemoglobin (NEG) NEG Urine Glucose (N MG/DL) NEG Vital Signs Date Time Temp Pulse Resp B/P B/P Pulse O2 O2 Flow FiO2 Mean Ox Delivery Rate 03/03 0600 102 17 137/88 03/03 0400 97.9 122 28 149/81 03/03 0400 98 Nasal 2.0L Cannula 03/03 0200 106 15 144/87 03/03 0130 99 25 154/94 03/03 0000 98.7 107 24 154/98 03/03 0000 94 Room Air Room Air 03/02 2235 98.7 80 22 158/98 94 Nasal 3.0L Cannula 03/02 2235 98.4 92 20 120/84 95 03/02 1718 98.3 96 18 126/80 94 Room Air 05 1617 99.2 83 18 116/73 98 Room Air 03/02 1535 85 05/ 1412 98.0 104 18 116/77 96 Room Air 03/02 1228 98.3 106 18 120/83 98 Room Air 03/02 1059 98.7 95 18 128/74 98 Room Air Intake & Output 03/03 1600 03/03 0800 03/03 0000 Intake Total 1200 1200 Output Total 250 200 Balance 950 1000 Intake, IV 1200 1200 Number 0 Bowel Movements Output, Urine 250 200 Patient 141 lb 140 lb 144 lb Weight Weight Bed scale Bed scale Measurement Method Intake & Output 03/03 1600 Intake Total Output Total Balance Patient 141 lb Weight Exam General Appearance: no apparent distress, alert, awake Neck: no JVD Respiratory: anterior chest sounds clear Cardiovascular: tachycardia Gastrointestinal: normal bowel sounds, distended abd. diffuse abd tenderness. worst in LLQ Extremities: 2+ radial pulses Skin: no bruising of abd or back Current Medications: Current Medications Sig/Madelin Start time Last Medication Dose Route Stop Time Status Admin Calcitriol 0.5 MCG BID 03/02 2100 AC 03/03 IV 0819 Calcium Gluconate 5 GM ONCE ONE 03/03 0715 AC 03/03 Sodium Chloride 450 ML IV 03/03 2354 0747 Calcium Gluconate 1 GM ONCE ONE 03/03 0100 DC 03/03 Sodium Chloride 100 ML IV 03/03 0159 0128 Calcium Gluconate 1 GM ONCE ONE 03/02 1700 DC 03/02 Sodium Chloride 100 ML IV 03/02 1759 2000 Chlordiazepoxide HCl 25 MG TID 03/03 1000 AC 03/03 PO 1031 Cyanocobalamin/ 1 BAG ONCE ONE 03/02 1700 DC 03/02 Thiamine/Pyridoxine IV 03/03 0059 2333 Dextrose/Water 1,000 ML Dextrose 25 GM ONCE ONE 03/03 0500 DC 03/03 IV 03/03 0501 0454 Dextrose/Lactated 1,000 ML Q6H 03/02 2345 AC 03/03 Ringer's IV 1012 Docusate Sodium 100 MG DAILY NEEDED PRN 03/03 1100 AC PO Heparin Sodium 5,000 UNIT Q8 03/02 2200 AC 03/03 (Porcine) SC 0624 Hydromorphone HCl 1 MG ONCE ONE 03/02 1230 DC 05/10 IV 03/02 1231 1228 Hydromorphone HCl 0 .STK-MED ONE 03/02 1228 DC .ROUTE Insulin Human Regular 100 UNIT Q24H 03/03 0100 AC 03/03 Sodium Chloride 100 ML IV 0123 Lactated Ringer's 1,000 ML .Q5H 03/02 1700 AC 03/02 IV 2000 Lactated Ringer's 1,000 ML ONCE ONE 03/02 1230 DC 03/02 IV 03/02 1629 1228 Lorazepam 0 Q1P PRN 03/02 1700 AC 03/03 IV 0951 Magnesium Sulfate 1 GM Q2H 03/03 0145 DC 03/03 Dextrose/Water 100 ML IV 03/03 0544 0400 Morphine Sulfate 1 MG ONCE ONE 03/03 0100 DC 03/03 IV 03/03 0101 0049 Morphine Sulfate 4 MG .STK-MED ONE 03/03 0047 DC IM 03/03 0048 Morphine Sulfate 0 .STK-MED ONE 03/02 1625 DC .ROUTE Morphine Sulfate 2 MG Q4P PRN 03/02 1600 AC 03/03 IV 0819 Morphine Sulfate 0 .STK-MED ONE 03/02 1109 DC .ROUTE Morphine Sulfate 4 MG ONCE ONE 03/02 1100 DC 03/02 IV 03/02 1101 1105 Polyethylene Glycol 17 GM DAILY NEEDED PRN 03/03 1100 AC PO Senna 187 MG AT BEDTIME NEED.. 03/03 1100 AC PO Sodium Chloride 500 ML .[id number] 03/03 0700 CAN IV Sodium Chloride 1,000 ML BOLUS ONE 03/02 1000 DC 03/02 IV 03/02 1059 1003 Impression/Plan Impression/Problem List Impression: A: 32 yo M with a past medical history of alcohol and cannabis abuse presenting to the ED for severe abdominal pain for 2 days found to have questionable necrotizing pancreatitis, hypertriglyceremia >10k and hypocalcemia. Problems: Respiratory: None Infection: #persistent lactic acidosis LA remains between 2.5 - 3.0 despite fluid resucitation. Patient is afebrile without leukocytosis. -WBC today 4.2 with bandermia. Unclear at this point but does not appear to be infectious. Contonue to monitor Cardiac: #tachycardia New onset tachycardia. Possibly due to pain or anxiety. Given lopressor 5mg IV before plasmapheresis -control anxiety with ativan and morphine for pain Heme onc: #H/H drop Initial H/H 13.7/37.5 Currently 9.9/29.6 -No acute signs of bleeding -Possibly due to dilution this patient has received 5+ L of fluids Metabolic: #hyponatremia Initial Na 132 -currently 127. Possibly diluation -continue monitor. #hypocalcemia Initial presenting calcium 5.7 Phos 2.5 Vitamin D <4.2 PTH elevated at 165.1 -current corrected calcium 6.96, f/u repeat triglycerides, icu bundle and calcium at 5pm -cont calcitrol -hypocalcemia probably secondary to saponifiaction of pancreatitis in addition to nutrition -contine calcium drip -cont endo recommendations #mag Pt presented with mag of 1.1 Given mag sulfate 1 g X2 -cont monitoring magnesium Alimentary: #Pancreatitis with ?necrotizing tissues more likley due to hypertriglycedemia vs etoh abuse The patient presented with severe abd pain x [address] abd revealed acute pancreatitis diffuse fatty infiltration of the liver with cocal area of nonenhancement at the junction of the neck and body the possibly representing early pancreatic necrosis. Initial labs triglycerides >10.5k, revealed lactic acid 3.2,calcium 5.7, albumin 2.3, phosphorus 2.5, magnesium 1.1, T bili 3.4, AST 112, ALT 36, ALP 881, LDH 885, albumin 2.8, amylase 58, lipase 1184, 25- hydroxy vit d <4.2, PTH 165.1. The patient received 2L NS, 2L LR, 1 banana bag thus far. -f/u workup : RUQ sono (although nl GB on CT). fractionated bilirubin, repeat alk phos with 5'NTD, hepatitis panel, HIV, MONIQUE, AMA, A1AT, ceruloplasmin, Fe, TIBC, ferritin, B12, RBC folate, & MMA. -Consider IR needle aspiration of pancreatic necrosis depending on clinical course -Monitor for signs of fluid overload and potential ARDS. Patinet may need echo for continued WARNER. Giving 10mg lasix trial (caution as it affects calcium) -cont monitoring lactic acid and triglycerides. Current triglycerides 7991 -cont monitoring amylase and lipase. currently amylase increased to 633, lipase increased to 1323 -Currently getting insulin drip for hypertriglycerides, monitor blood sugars and maintain 140-180 bloog sugar -will get nontunneled cath for plasmaphereisis -will obtain PICC line in anticipation of TPN -cont d5 LR -keep NPO #hepatitis with fatty liver dz on CT in the setting of etoh abuse, and pancreaitis Ast 112-> 84 ALT 66 -> 36 ALP 881 LDH 885 -cont to monitor and continue work up as stated above Neuro: None Psych: #hx of etoh abuse Utox positive for cannabis -Continue ativan prn agitation on CIWA and start on librium 25 TID -f/u psych and sw House keeping: NPO FULL CODE GETTING PICC AND CINTHIA LINE DVT prophylaxis - heparin subq Problem List: 1. Hepatitis 2. Necrotizing pancreatitis 3. Hypocalcemia 4. Hyponatremia 5. Anemia 6. Tachycardia 7. Lactic acidosis Pain Ratin Pain Location: abd Tomorrow's Labs & Rationales: crp lipid panel icu cbc mg ca Plan DVT/Prophylaxis: heparin Belkys MARTINEZ,[facility] 03/03/18 1303: Attending MD Review Statement Attending Sign Off Attending Cosign Statement: I have: examined this patient, reviewed [employer] [facility] EMR data, personally reviewd images, discussd w/resident/PA/SNOWSPORT INSTRUCTOR, discussed mgmt plan w/shiva, discussed mgmt plan w/CM, discussed mgmt plan w/pt, agreed w/resident/PA/SNOWSPORT INSTRUCTOR, amended to note. Other Findings: seen and examined This is a gentleman who is admitted to the ICU since last night with severe pancreatitis, significant alcoholism, cigarette smoker, previous history of multiple alcohol abuse, significant hypertriglyceridemia. Patient has been treated with intravenous insulin and D5 and his triglyceridemia still persists. Evaluation as above Issues include Significant pancreatitis with probable early necrosis, Westminster's criteria 1 elevated LDH. Severe hypertriglyceridemia needs apheresis which have arranged for after discussing with renal as he does not respond to insulin and D5 5 at this time Significant alcoholism pending DTs Alcoholic hepatitis probably with elevated bilirubin and altered LFTs Hypocalcemia being replaced Fatty liver Probable malnutrition from severe alcoholism RECOMMENDATION Due to significant hypertriglyceridemia I think it's important that he gets apheresis, I did discuss with Dr. Gutierrez fruit grader operator. And patient will be a good candidate for this and we will arrange for a Cuong catheter Continue intravenous fluid, get a PICC line in anticipation of aggressive care in the future Reduce IV fluids Ciwa protocol, banana bag, start chlordiazepoxide 25 every 8 DVT prophylaxis Replete electrolytes Hypocalcemia management per endocrine Intravenous PPI Further blood work per GI When necessary morphine Watch for fluid overload and ARDS NG tube in place abdominal distention were to get worse Patient is critically ill, discussed with all the attendings and house staff
--- NOTE | 2018-03-03 09:55 | Cons- Gastroenterology ---
See Addendum General Information and HPI Consulting Request Date of Consult: 03/03/18 Requested By: Jalyn Menchaca MD Reason for Consult: I was notified this morning of a request for a GI consult for pancreatitis (I took over the inpt GI service this a.m.). Source of Information: patient, old records Exam Limitations: no limitations History of Present Illness: 32 y/o male, non-HTN, non-DM, unaware of prior hx HLD (*subsequent admission 08/10: TG > 10.5K), 15 pk yr cigarette smoker, no illicit drugs or IVDA (except occasional cannabis), with long hx EtOH ("> 6 beers daily & occ shot of whiskey "), last drank 1 a.m. on 03/02/18, without known prior hx pancreatitis, PUD, or GBD (GB intact- no prior abdominal surgery except remote left groin hernia repair as child), who presented to the [place] ER 03/02/18 at 7:46 a.m., c/o diffuse left-sided abdominal pain for 3 days with nausea and vomiting, contents bilious. There was no hematemesis. He had mild GERD, without odynophagia or dysphagia. His stools were dark. He denied any rectal bleeding. There was minimal diarrhea, but no constipation, obstipation, or tenesmus. LBM on day of admission. He reportedly had OB+ stool on digital exam in the ER. Upon arrival, BP 140/91, P126, R 18, T 98.8 (Tm 99.2 in ER), O2 sat RA 95%. There was no positional component to his symptoms. There was perhaps minimal jaundice. His urine was slightly dark. He denied any light stools or pruritus. 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 He denied any chest pain or shortness of breath. There was some mild WARNER. He denied any history of DTs, seizures, or EtOH withdrawal. He denied any abdominal trauma, rash, or confusion. He denied any FHx GI Ca, GBD, PUD, inherited pancreatitis, additional GI disease, or inherited liver disease. He was not on any ASA, NSAIDS, Sulfa meds or thiazides. He denied any outpt rx meds, herbal meds, or OTC meds. 01/02/18: EGD per Dr. Lea for scant hematemesis- mild gastritis, duodenitis, with bxs: mild CAG/CFG. HP-neg. (The patient denied ever coming to the office for GI follow-up). He had never had a colonoscopy. The patient was given IV NS, MS, Dilaudid, f/b Ringer's Lactate in the ER (exact amount to be calculated-> reportedly + 5-6L overnight). His serum was lipemic. He was initially admitted to telemetry, but in view of multiple metabolic derangements, markedly elevated triglycerides, hypoCa2+, etc. he was transferred to the ICU for insulin drip, calcium gluconate infusion, and closer monitoring. Apparently, GI was called for an elective consult late in the afternoon on 03/02, but the GI service was never notifiied that the patient was transferred to the ICU. The patient was seen by critical care & endocrine. He is awaiting placement of additional lines & probable aphoresis for tx of his marked elevated TG. As of 03/03/18, the patient's abdominal pain was about the same. He had received narcotic analgesics a little over one hour prior to my initial exam. He was essentially NPO xc ice chips. He looked better clinically than his labs did. 03/02/18: 08:52- Admission labs- WBC 7.7 71S/24L/5M), H/H 13.7/37.5, MCV 101.3, RDW 15, PLT 141, glu 107, BUN/Cr 11/0.7, GFR > 60, Na 132, K 4.1, HCO3 18, AG 17 , lactate 3.2-> 2.3, amylase 58, lipase 1184, *Ca 5.7, albumin 2.8, globulin 3.8 , *TG > 10,500, TBil 3.4 (w/o fracs), *alk phos 881, AST 112, ALT 66, *[EtOH] 310 (*unable to do PT/PTT due to gross lipemia). 03/02/18: U/A- hazy, yellow, 1.010, 6.0, rare RBC, rare WBC, 1-3 gran casts, few bact, few epith mod amorph, + icto, 1.0 urobil 1.0, neg nitirite, neg esterase 03/02/18: Utox: + cannabis > 80. 03/02/18: 16:07- glu 76, BUN/Cr 10/0.6, GFR > 60, Na 131, K 4.3, HCO3 19, amylase 64, lipase 1409, *Ca 5.2, TG 8970, *LDH 885, PTH 165.1, Vit D 25OH < 4.2 03/02/18: 21:00- glu 77, BUN/Cr 8/0.5, GFR > 60, Na 133, K 4.0, HCO3 15, AG 18, amylase 633, lipase 1323, Mg 1.1, Ca 5.2, TG 9397 03/03/18: 05:46- WBC 4.2 (70S/13B/14L/3M), H/H 9.9/29.6, MCV 101.2, RDW 15.2, PLT 105, glu 155, BUN/Cr 6/0.5, GFR > 60, Na 127, K 3.6, HCO3 17, AG 13, Mg 1.9, *Ca 5.4, PO4 2.5, alb 2.3, TG 7991, TBil 3.8 (w/o fracs), AST 84, AST 36. 03/02/18: EKG- NSR @ 86, nl axis, nl int, flipped T in V1V2. 03/02/18: XRY-PORTABLE CHEST XRAY- No acute disease. No change. No effusion. Post C-fusion. 03/02/18: CT ABD & PELVIS W IV CONTRAST- 1. Diffuse fatty infiltration of the liver. No focal hepatic defect. No biliary tract disease. Normal GB. 2. Acute pancreatitis associated with pancreatic enzymes/effusions primarily localized to the left anterior pararenal space. Secondary effects of the transverse colon and duodenum are appreciated. 3. Focal 1 cm area of nonenhancement at the junction of the neck and body the pancreas could well represent early pancreatic necrosis. DICTATED BY: Balta Madrigal MD (*I personally reviewed the CT with Dr. Goldman, of [facility], on & a clinical/radiographic decision was made to defer needle aspirate of the focal region by IR for now to rule out infected necrosis, with consideration for repeat CT in short interval follow-up, depending on clinical course). Allergies/Medications Allergies: Coded Allergies: NO KNOWN ALLERGIES (03/02/18) Home Med List: No Known Home Medications Current Medications: Current Medications Sig/Madelin Start time Last Medication Dose Route Stop Time Status Admin Calcitriol 0.5 MCG BID 03/02 2100 AC 03/03 IV 0819 Calcium Gluconate 5 GM ONCE ONE 03/03 0715 AC 03/03 Sodium Chloride 450 ML IV 03/03 2354 0747 Calcium Gluconate 1 GM ONCE ONE 03/03 0100 ID 03/03 Sodium Chloride 100 ML IV 03/03 0159 0128 Calcium Gluconate 1 GM ONCE ONE 03/02 1700 ID 03/02 Sodium Chloride 100 ML IV 03/02 1759 2000 Chlordiazepoxide HCl 25 MG TID 03/03 1000 AC 03/03 PO 1031 Cyanocobalamin/ 1 BAG ONCE ONE 03/02 1700 ID 03/02 Thiamine/Pyridoxine IV 03/03 0059 2333 Dextrose/Water 1,000 ML Dextrose 25 GM ONCE ONE 03/03 0500 ID 03/03 IV 03/03 0501 0454 Dextrose/Lactated 1,000 ML Q6H 03/02 2345 03/03 Ringer's IV 1012 Docusate Sodium 100 MG DAILY NEEDED PRN 03/03 1100 AC PO Heparin Sodium 5,000 UNIT Q8 03/02 2200 AC 03/03 (Porcine) SC 0624 Hydromorphone HCl 1 MG ONCE ONE 03/02 1230 DC 03/02 IV 03/02 1231 1228 Hydromorphone HCl 0 .STK-MED ONE 03/02 1228 DC .ROUTE Insulin Human Regular 100 UNIT Q24H 03/03 0100 03/03 Sodium Chloride 100 ML IV 0123 Lactated Ringer's 1,000 ML .Q5H 03/02 1700 AC 03/02 IV 2000 Lactated Ringer's 1,000 ML ONCE ONE 03/02 1230 DC 03/02 IV 03/02 1629 1228 Lorazepam 0 Q1P PRN 03/02 1700 AC 03/03 IV 0951 Magnesium Sulfate 1 GM Q2H 03/03 0145 ID 03/03 Dextrose/Water 100 ML IV 03/03 0544 0400 Morphine Sulfate 1 MG ONCE ONE 03/03 0100 DC 03/03 IV 03/03 0101 0049 Morphine Sulfate 4 MG .STK-MED ONE 03/03 0047 DC IM 03/03 0048 Morphine Sulfate 0 .STK-MED ONE 03/02 1625 DC .ROUTE Morphine Sulfate 2 MG Q4P PRN 03/02 1600 AC 03/03 IV 1059 Morphine Sulfate 0 .STK-MED ONE 03/02 1109 DC .ROUTE Polyethylene Glycol 17 GM DAILY NEEDED PRN 03/03 1100 AC PO Senna 187 MG AT BEDTIME NEED.. 03/03 1100 AC PO Sodium Chloride 500 ML .[id number] 03/03 0700 CAN IV Past History Travel History Traveled to [place] past 21 day No Medical History Blood Transfusion Hx: No Neurological: NONE EENT: NONE Cardiovascular: NONE Respiratory: NONE Gastrointestinal: 01/02/10: EGD per Dr. Lea- HP-neg gastritis. Hepatic: fatty liver Renal: NONE Musculoskeletal: chronic neck pain post C-spine fusion Psychiatric: alcohol dependence Endocrine: NONE Blood Disorders: NONE Cancer(s): NONE DIRECTOR OF HOME ECONOMICS/Reproductive: NONE Surgical History Surgical History: C-spine fusion ; left groin hernia repair as child Family History Relations & Conditions If Any: FATHER (HLD). Age 54. MOTHER, , Age 50-60; Cause: Breast CA. Relation not specified for: FH: hyperlipidemia Psychosocial History Where Do You Live? Home Who Do You Live With? [facility] Services at Home: None Primary Language: Azeri Smoking Status: Current Everyday Smoker ETOH Use: alcoholic Illicit Drug Use: marijuana Living Will? no Power of Air Control/Anti Air Warfare Officer/HCP? no Other Social History: Single. Lives with [facility]. 1 son- 1 y/o & 1 dtr- 5 y/o; both [employer]. 15 pk yr cigarette smoker. > 6 beers & occ whiskey daily. + Cannabis. Denies other illicit drugs or IVDA. Old tattoos. Works in [employer]. Functional Ability ADLs Independent: dressing, eating, toileting, bathing. Ambulation: independent IADLs Independent: shopping, housework, finances, food prep, telephone, transportation , medication admin. Employment History Employment: Employed Profession/Employer: [employer] Review of Systems Review of Systems: Full 14 point review of systems otherwise noncontributory, and as above. Review of Systems Constitutional: Denies: chills, diaphoresis, fever, malaise, weakness, unexplained weight loss. EENTM: Reports: icterus. Denies: blurred vision, double vision, visual changes, eye pain, eye drainage, eye tearing, ear discharge, ear pain, ear redness, hearing changes, nasal congestion, epistaxis, nasal pain, throat pain, throat swelling, mouth pain, tooth pain. Cardiovascular: Denies: chest pain, edema, orthopena, palpitations, peripheral edema, syncope. Respiratory: Reports: short of breath (minimal WARNER). Denies: cough, hemoptysis, orthopnea, sputum production, stridor, wheezing. GI: Reports: abdominal pain, melena (possible-> OB+ in ER), nausea, vomiting. Denies: bloating, constipation, diarrhea, distention, bowel incontinence, bloody stool, changes in stool, steatorrhea. Genitourinary: Denies: discharge, dysuria, frequency, hematuria, hesitation, nocturia, pain, urgency. Musculoskeletal: Reports: neck pain (chronic post C-spine fusion). Denies: back pain, gout, joint pain, joint swelling, muscle pain, muscle stiffness. Skin: Reports: jaundice (minimal). Denies: cysts, change in skin color, change in hair/nails, dryness, erythema, lesions, lymphangitis, lumps, moles, rash. Neurological/Psychological: Denies: anxiety, ataxia, cognitive dysfunction, confusion, depressed, dementia, emotional problems, headache, numbness, paresthesia, pre-existing deficit, petit mal seizures, tingling, tremors, tonic-clonic seizures, unable to move lower ext , unable to move upper ext, weakness. Hematologic/Endocrine: Denies: bruising, bleeding, polyuria, polydipsia. Immunologic/Allergic: Denies: splenectomy, HIV/AIDS, lymphadenopathy. All Other Systems: Reviewed and Negative Exam & Diagnostic Data Vital Signs and I&O Vital Signs Date Time Temp Pulse Resp B/P B/P Pulse O2 O2 Flow FiO2 Mean Ox Delivery Rate 03/03 0600 102 17 137/88 03/03 040 97.9 122 28 149/81 03/03 0400 98 Nasal 2.0L Cannula 03/03 0200 106 15 144/87 03/03 0130 99 25 154/94 03/03 0000 98.7 107 24 154/98 03/03 0000 94 Room Air Room Air 05/10 2235 98.7 80 22 158/98 94 Nasal 3.0L Cannula 03/02 2235 98.4 92 20 120/84 95 03/02 1718 98.3 96 18 126/80 94 Room Air 03/02 1617 99.2 83 18 116/73 98 Room Air 03/02 1535 85 03/02 1412 98.0 104 18 116/77 96 Room Air 03/02 1228 98.3 106 18 120/83 98 Room Air Intake & Output 03/03 1600 03/03 0400 03/02 1600 03/02 0400 03/01 1600 03/01 0400 Intake Total 1200 1200 2000 Output Total 250 200 Balance 950 1000 2000 Intake, IV 1200 1200 2000 Number 0 Bowel Movements Output, Urine 250 200 Patient 141 lb 144 lb 120 lb Weight Weight Bed scale Bed scale Reported by Patient Measurement Method Physical Exam: Well-developed, well-nourished thin male, in no apparent distress. Sclera mildly icteric. Conjunctiva pink. Oropharynx clear. No oral thrush. No aphthous ulcers. Dry mucus membranes. There is no adenopathy, thyromegaly, JVD, or HJR. No peripheral stigmata of inflammatory bowel disease or chronic liver disease on exam. No spiders on the anterior chest wall. No gynecomastia. No CVA tenderness. No spine tenderness except mild chronic tenderness post C-sppine fusion (post scar) Lungs: clear to A&P. No wheezing, rales, or rhonchi. Heart exam: regular rate rhythm, S1 and S2, without any murmur. Abdominal exam: hypoactive bowel sounds, mildly distended belly, mild L-mid/LLQtenderness, without guarding or rebound. No mass. No organomegaly. No fluid shift. No pulsatile mass. No epigastric bruit. Digital rectal exam: reportedly OB+ in ER 03/02/18 (repeat digital exam deferred by pt). Extremities: without C, C, or E. No palpable cords. Multiple tattoos. No rash. No acute arthropathy. Distal pulses 2+ bilaterally. DTRs 2+ bilaterally. No palmar erythema. No Duuytren's contractures. Alert and oriented x 3. Motor 5/5 B/L. No tremor. No asterixis. Results Pertinent Lab Results: Laboratory Tests 03/03 03/03 03/03 03/03 03/03 1053 0940 0940 0600 0546 Chemistry Lactic Acid (0.7 - 2.1 mmol/L) 3.0 H 2.5 H Calcium (8.4 - 10.2 mg/dL) 5.5 *L Cancelled Magnesium Cancelled Coagulation PT (9.4 - 12.5 SEC) 11.4 INR (0.90 - 1.17) 1.05 Hematology CBC w Diff Cancelled WBC Cancelled RBC Cancelled Hgb Cancelled Hct Cancelled MCV Cancelled MCH Cancelled MCHC Cancelled RDW Cancelled Plt Count Cancelled MPV Cancelled 03/03 03/03 03/03 0546 0043 0032 Chemistry Sodium (137 - 145 mmol/L) 127 L Potassium (3.5 - 5.1 mmol/L) 3.6 Chloride (98 - 107 mmol/L) 98 Carbon Dioxide (22 - 30 mmol/L) 17 L Anion Gap (5 - 16) 13 BUN (9 - 20 mg/dL) 6 L Creatinine (0.7 - 1.2 mg/dL) 0.5 L Estimated GFR (>60 ml/min) > 60 Glucose (65 - 99 mg/dL) 155 H Lactic Acid (0.7 - 2.1 mmol/L) 2.5 H Calcium (8.4 - 10.2 mg/dL) 5.4 *L Cancelled Phosphorus (2.5 - 4.5 mg/dL) 2.5 Magnesium (1.6 - 2.3 mg/dL) 1.9 Total Bilirubin (0.2 - 1.3 mg/dL) 3.8 H AST (17 - 59 U/L) 84 H ALT (21 - 72 U/L) 36 Albumin (3.5 - 5.0 g/dL) 2.3 L Triglycerides (<150 mg/dL) 7991 H Hematology CBC w Diff MAN DIFF ORDERED WBC (4.8 - 10.8 /CUMM) 4.2 L RBC (4.70 - 6.10 /CUMM) 2.93 L Hgb (14.0 - 18.0 G/DL) 9.9 L Hct (42 - 52 %) 29.6 L MCV (80.0 - 94.0 FL) 101.2 H MCH (27.0 - 31.0 PG) 33.5 H MCHC (33.0 - 37.0 G/DL) 33.2 RDW (11.5 - 14.5 %) 15.2 H Plt Count (130 - 400 /CUMM) 105 L MPV (7.4 - 10.4 FL) 7.8 Segmented Neutrophils (42.2 - 75.2 %) 70 Band Neutrophils (0.0 - 5.0 %) 13 H Lymphocytes (20.5 - 51.1 %) 14 L Monocytes (1.7 - 9.3 %) 3 Platelet Estimate (ADEQUATE) ADEQUATE Polychromasia 1+ Anisocytosis 1+ Macrocytic Cells 1+ Ovalocytes FEW Other Body Source Fld Total RBCs Counted (%) 100 03/03 03/02 03/02 03/02 03/02 0032 2100 2100 1607 1557 Chemistry Sodium (137 - 145 mmol/L) 133 L 131 L Potassium (3.5 - 5.1 mmol/L) 4.0 4.3 Chloride (98 - 107 mmol/L) 100 99 Carbon Dioxide (22 - 30 mmol/L) 15 L 19 L Anion Gap (5 - 16) 18 H 13 BUN (9 - 20 mg/dL) 8 L 10 Creatinine (0.7 - 1.2 mg/dL) 0.5 L 0.6 L Estimated GFR (>60 ml/min) > 60 > 60 BUN/Creatinine Ratio (7 - 25 %) 16.0 16.7 Glucose (65 - 99 mg/dL) 77 76 Lactic Acid (0.7 - 2.1 mmol/L) 3.0 H Calcium (8.4 - 10.2 mg/dL) 5.2 *L 5.2 *L 5.2 *L Ionized Calcium Pending Magnesium (1.6 - 2.3 mg/dL) 1.1 L Lactate Dehydrogenase (313 - 618 U/L) 885 H Triglycerides (<150 mg/dL) 9397 H 8970 H Amylase (30 - 110 U/L) 633 H 64 Lipase (23 - 300 U/L) 1323 H 1409 H 25-OH Vitamin D Total (30 - 100 ng/ml) < 4.2 L PTH Intact (18.4 - 80.1 pg/ML) 165.1 H 03/02 03/02 1204 1142 Chemistry Lactic Acid (0.7 - 2.1 mmol/L) 2.3 H Toxicology Urine Opiates Screen (>2000 NG/ML) 753.00 Methadone Screen (>300 NG/ML) < 40 Barbiturate Screen (>200 NG/ML) < 60 Ur Phencyclidine Scrn (>25 NG/ML) < 6.00 Amphetamines Screen (>1000 NG/ML) < 100 U Benzodiazepines Scrn (>200 NG/ML) < 85 Urine Cocaine Screen (>300 NG/ML) < 50 Urine Cannabis Screen (>50 NG/ML) > 80.00 H Urines Urinalysis MOD H Urine Color (YEL,AMB,STR) YEL Urine Clarity (CLEAR) HAZY H Urine pH (5.0 - 8.0) 6.0 Ur Specific Chandler (1.001 - 1.035) 1.010 Urine Protein (NEG,<30 MG/DL) TRACE H Urine Ketones (NEG) NEG Urine Nitrite (NEG) NEG Urine Bilirubin (NEG) POS@ICTO H Urine Urobilinogen (0.1 - 1.0 EU/dl) 1.0 Ur Leukocyte Esterase (NEG) NEG Ur Microscopic SEDIMENT EXAMINED Urine RBC (0 - 5 /HPF) RARE Urine WBC (0 - 2 /HPF) RARE Ur Epithelial Cells (NONE,FEW) FEW Urine Bacteria (NEG/NONE) FEW H Granular Casts (NONE /LPF) 1-3 H Urine Mucus (FEW,NONE) FEW Urine Hemoglobin (NEG) NEG Urine Glucose (N MG/DL) NEG 03/02 03/02 0852 0829 Chemistry Sodium (137 - 145 mmol/L) 132 L Potassium (3.5 - 5.1 mmol/L) 4.1 Chloride (98 - 107 mmol/L) 97 L Carbon Dioxide (22 - 30 mmol/L) 18 L Anion Gap (5 - 16) 17 H BUN (9 - 20 mg/dL) 11 Creatinine (0.7 - 1.2 mg/dL) 0.7 Estimated GFR (>60 ml/min) > 60 BUN/Creatinine Ratio (7 - 25 %) 15.7 Glucose (65 - 99 mg/dL) 107 H Lactic Acid (0.7 - 2.1 mmol/L) 3.2 H Calcium (8.4 - 10.2 mg/dL) 5.7 *L Total Bilirubin (0.2 - 1.3 mg/dL) 3.4 H AST (17 - 59 U/L) 112 H ALT (21 - 72 U/L) 66 Alkaline Phosphatase (< 127 U/L) 881 H Total Protein (6.3 - 8.2 g/dL) 6.6 Albumin (3.5 - 5.0 g/dL) 2.8 L Globulin (1.9 - 4.2 gm/dL) 3.8 Albumin/Globulin Ratio (1.1 - 2.2 %) 0.7 L Triglycerides (<150 mg/dL) > 44409 H Amylase (30 - 110 U/L) 58 Lipase (23 - 300 U/L) 1184 H Coagulation PT Cancelled INR Cancelled APTT Cancelled Hematology CBC w Diff MAN DIFF ORDERED WBC (4.8 - 10.8 /CUMM) 7.7 RBC (4.70 - 6.10 /CUMM) 3.70 L Hgb (14.0 - 18.0 G/DL) 13.7 L Hct (42 - 52 %) 37.5 L MCV (80.0 - 94.0 FL) 101.3 H MCH (27.0 - 31.0 PG) 35.0 H MCHC (33.0 - 37.0 G/DL) 34.8 RDW (11.5 - 14.5 %) 15.0 H Plt Count (130 - 400 /CUMM) 141 MPV (7.4 - 10.4 FL) 7.5 Segmented Neutrophils (42.2 - 75.2 %) 71 Lymphocytes (20.5 - 51.1 %) 24 Monocytes (1.7 - 9.3 %) 5 Platelet Estimate (ADEQUATE) VERIFIED BY SMEAR Hypochromic-Microcytic 1+ Poikilocytosis 1+ Anisocytosis 1+ Macrocytic Cells 1+ Target Cells FEW Toxicology Serum Alcohol (<10 MG/DL) 310.0 Cancelled Imaging/Other Studies: 03/02/18: EKG- NSR @ 86, nl axis, nl int, flipped T in V1V2. 03/02/18: XRY-PORTABLE CHEST XRAY- No acute disease. No change. No effusion. Post C-fusion. 03/02/18: CT ABD & PELVIS W IV CONTRAST- 1. Diffuse fatty infiltration of the liver. No focal hepatic defect. No biliary tract disease. Normal GB. 2. Acute pancreatitis associated with pancreatic enzymes/effusions primarily localized to the left anterior pararenal space. Secondary effects of the transverse colon and duodenum are appreciated. 3. Focal 1 cm area of nonenhancement at the junction of the neck and body the pancreas could well represent early pancreatic necrosis. DICTATED BY: Balta Madrigal MD (*I personally reviewed the CT with Dr. Goldman, of [facility], on & a clinical/radiographic decision was made to defer needle aspirate of the focal region by IR for now to rule out infected necrosis, with consideration for repeat CT in short interval follow-up, depending on clinical course). Assessment/Plan Assessment/Recommendations: 32 y/o male, non-HTN, non-DM, unaware of prior hx HLD (*subsequent admission 08/10: TG > 10.5K), 15 pk yr cigarette smoker, no illicit drugs or IVDA (except occasional cannabis), with long hx EtOH ("> 6 beers daily & occ shot of whiskey "), last drank 1 a.m. on 03/02/18, without known prior hx pancreatitis, PUD, or GBD (GB intact- no prior abdominal surgery except remote left groin hernia repair as child), who presented to the [place] ER 03/02/18 at 7:46 a.m., c/o diffuse left-sided abdominal pain for 3 days with nausea and vomiting, contents bilious. There was no hematemesis. He had mild GERD, without odynophagia or dysphagia. His stools were dark. He denied any rectal bleeding. There was minimal diarrhea, but no constipation, obstipation, or tenesmus. LBM on day of admission. He reportedly had OB+ stool on digital exam in the ER. Upon arrival, BP 140/91, P126, R 18, T 98.8 (Tm 99.2 in ER), O2 sat RA 95%. There was no positional component to his symptoms. There was perhaps minimal jaundice. His urine was slightly dark. He denied any light stools or pruritus. 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 He denied any chest pain or shortness of breath. There was some mild WARNER. He denied any history of DTs, seizures, or EtOH withdrawal. He denied any abdominal trauma, rash, or confusion. He denied any FHx GI Ca, GBD, PUD, inherited pancreatitis, additional GI disease, or inherited liver disease. He was not on any ASA, NSAIDS, Sulfa meds or thiazides. He denied any outpt rx meds, herbal meds, or OTC meds. 01/02/18: EGD per Dr. Lea for scant hematemesis- mild gastritis, duodenitis, with bxs: mild CAG/CFG. HP-neg. (The patient denied ever coming to the office for GI follow-up). He had never had a colonoscopy. The patient was given IV NS, MS, Dilaudid, f/b Ringer's Lactate in the ER (exact amount to be calculated-> reportedly + 5-6L overnight). His serum was lipemic. He was initially admitted to telemetry, but in view of multiple metabolic derangements, markedly elevated triglycerides, hypoCa2+, etc. he was transferred to the ICU for insulin drip, calcium gluconate infusion, and closer monitoring. Apparently, GI was called for an elective consult late in the afternoon on 03/02, but the GI service was never notifiied that the patient was transferred to the ICU. The patient was seen by critical care & endocrine. He is awaiting placement of additional lines & probable aphoresis for tx of his marked elevated TG. As of 03/03/18, the patient's abdominal pain was about the same. He had received narcotic analgesics a little over one hour prior to my initial exam. He was essentially NPO xc ice chips. He looked better clinically than his labs did. 03/02/18: 08:52- Admission labs- WBC 7.7 71S/24L/5M), H/H 13.7/37.5, MCV 101.3, RDW 15, PLT 141, glu 107, BUN/Cr 11/0.7, GFR > 60, Na 132, K 4.1, HCO3 18, AG 17 , lactate 3.2-> 2.3, amylase 58, lipase 1184, *Ca 5.7, albumin 2.8, globulin 3.8 , *TG > 10,500, TBil 3.4 (w/o fracs), *alk phos 881, AST 112, ALT 66, *[EtOH] 310 (*unable to do PT/PTT due to gross lipemia). 03/02/18: U/A- hazy, yellow, 1.010, 6.0, rare RBC, rare WBC, 1-3 gran casts, few bact, few epith mod amorph, + icto, 1.0 urobil 1.0, neg nitirite, neg esterase 03/02/18: Utox: + cannabis > 80. 03/02/18: 16:07- glu 76, BUN/Cr 10/0.6, GFR > 60, Na 131, K 4.3, HCO3 19, amylase 64, lipase 1409, *Ca 5.2, TG 8970, *LDH 885, PTH 165.1, Vit D 25OH < 4.2 03/02/18: 21:00- glu 77, BUN/Cr 8/0.5, GFR > 60, Na 133, K 4.0, HCO3 15, AG 18, amylase 633, lipase 1323, Mg 1.1, Ca 5.2, TG 9397 03/03/18: 05:46- WBC 4.2 (70S/13B/14L/3M), H/H 9.9/29.6, MCV 101.2, RDW 15.2, PLT 105, glu 155, BUN/Cr 6/0.5, GFR > 60, Na 127, K 3.6, HCO3 17, AG 13, Mg 1.9, *Ca 5.4, PO4 2.5, alb 2.3, TG 7991, TBil 3.8 (w/o fracs), AST 84, AST 36. 03/02/18: EKG- NSR @ 86, nl axis, nl int, flipped T in V1V2. 03/02/18: XRY-PORTABLE CHEST XRAY- No acute disease. No change. No effusion. Post C-fusion. 03/02/18: CT ABD & PELVIS W IV CONTRAST- 1. Diffuse fatty infiltration of the liver. No focal hepatic defect. No biliary tract disease. Normal GB. 2. Acute pancreatitis associated with pancreatic enzymes/effusions primarily localized to the left anterior pararenal space. Secondary effects of the transverse colon and duodenum are appreciated. 3. Focal 1 cm area of nonenhancement at the junction of the neck and body the pancreas could well represent early pancreatic necrosis. DICTATED BY: Balta Madrigal MD (*I personally reviewed the CT with Dr. Goldman, of [facility], on & a clinical/radiographic decision was made to defer needle aspirate of the focal region by IR for now to rule out infected necrosis, with consideration for repeat CT in short interval follow-up, depending on clinical course). *As of 03/03/18, the patient looked better clinically than his labs did. His pancreatitis was undoubtedly from his markedly elevated TG (> 10.5K on 03/02/18: admission labs), superimposed on EtOH (actively drinking up until admission) & cigarette smoking. His LFTs were somewhat atypical for fatty liver, with a markedly elevated alkaline phosphatase. The gallbladder appeared normal on CT. There was a 1 cm region at the body/neck of pancreas that was suspicious for possible necrosis. He was somewhat malnourished. Although the liver did not look cirrhotic on CT, he had thrombocytopenia and reversal of albumin:globulin ratio, which could imply cirrhosis. His pancytopenia was probably secondary to bone marrow suppression from EtOH. He reportedly had dark, OB positive stool in the ER, it was not actively bleeding. He remotely had HP-negative gastritis on 01/02/10: EGD per Dr. Lea, without any varices or portal gastropathy then. On admission, 1 grave sign by Venita criteria (elevated LDH) & 1 grave sign by BiSAP criteria (+SIRS). There were no pleural effusions. *SUGGEST: NPO for now. Await PICC line. Follow-up with endocrine & ICU. Await renal input regarding fluid status & *aphoresis for hyperTG. Strict I/O's. Insulin drip and IV calcium gluconate drip per endocrine. Replete other lytes (i.e.- Mg). Current IVF: D5RL @ 200 cc/hr. If increased WARNER, consider echocardiogram (r/o EtOH cardiomyopathy). O2 prn. Banana bag (IV thiamine, B12, folate). CIWA protocol. Watch for impending DTs. Ativan as needed. Eventual tx of hyperTG with Lopid, etc, per endocrine, when po intake resumes. Eventual Vit E 800 IU po daily. Unless patient's clinical status changes, would wait [address] abdomen with pancreatic protocol to reassess area suspicious for necrosis (* depending on clinical course, may need needle aspirate by IR to r/o infxd necrosis). Check PT/PTT as lipemic serum allows. DVT prophylaxis. Watch for hemoconcentration (i.e.- rising Hgb or BUN, despite IVF), which would be a poor prognostic sign. Zofran as needed. Narcotic analgesics as needed. Defer PPI for now, with low Mg. No plans for endoscopic workup of OB positive stool at present, unless patient actively bleeds (multifactorial anemia & EtOH BM suppression), but the patient was given my office number for potential outpt EGD & possible colonoscopy. RUQ sono (although nl GB on CT). Please fractionate bilirubin, repeat alk phos with 5'NTD, check full Hep A, B, & C serologies, HIV, MONIQUE, AMA, A1AT, ceruloplasmin, Fe, TIBC, ferritin, B12, RBC folate, & MMA. The patient was told that further alcohol abuse could result in his . He was made aware of the fact that he was critically ill. Advise psych & SW input. The above was discussed with the medical house staff & with Dr. Rizvi. Further GI recommendations to follow, depending on clinical course. 80 minutes of ICU care was spent on the patient. Problem List: 1. Acute pancreatitis 2. ETOH abuse 3. Hypertriglyceridemia 4. Hypocalcemia 5. Abnormal LFTs 6. Malnutrition 7. Fatty liver 8. Guaiac positive stools 9. Pancytopenia Copies To: Bernarda MARTINEZ,Jalyn; Belkys MARTINEZ,Jonathan Cueto; Rigo MARTINEZ,Yesika; Mike Smith DO. Consult Acknowledgment - Thank you for your consult request.
[2018-03-03 11:11] LABS: PT 11.4 SEC (9.4-12.5)
--- NOTE | 2018-03-03 12:29 | Cons- Nephrology ---
General Information and HPI Consulting Request Date of Consult: 03/03/18 Requested By: Jalyn Menchaca MD History of Present Illness: Asked to see this 32 yo gentleman with hypertriglyceridemia for lipid pheresis. Mr. Becerra is a 32 yo gentleman with long ETOH history drinking. He has been drinking > 6 beers/day but has recently beend driking hard liquor (rum).He developed worsening abdominal pain for the past 2 days and was diagnosed with pancreatitis. Triglycerides were elevated at > 10,000. He was treated with IVF and insulin but triglycerides are still 8000 and I am asked to see him for pheresis. He is here with his fiance. Allergies/Medications Allergies: Coded Allergies: NO KNOWN ALLERGIES (03/02/18) Home Med List: No Known Home Medications Review of Systems Review of Systems: As in HPI abdominal and back pain now for 3 days Nausea/vomiting for same time periods Dark stools but no erasto blood (heme positve by ER) No SOB, CP Ohter systems negative. Past History Travel History Traveled to [place] past 21 day No Medical History Blood Transfusion Hx: No Neurological: NONE EENT: NONE Cardiovascular: NONE Respiratory: NONE Gastrointestinal: 01/02/10: EGD per Dr. Lea- HP-neg gastritis. Hepatic: fatty liver Renal: NONE Musculoskeletal: chronic neck pain post C-spine fusion Psychiatric: alcohol dependence Endocrine: NONE Blood Disorders: NONE Cancer(s): NONE LEADING FIREFIGHTER/Reproductive: NONE Surgical History Surgical History: C-spine fusion ; left groin hernia repair as child Family History Relations & Conditions If Any: FATHER (HLD). Age 54. MOTHER, , Age 50-60; Cause: Breast CA. Relation not specified for: FH: hyperlipidemia Psychosocial History Where Do You Live? Home Who Do You Live With? fiancee Services at Home: None Primary Language: Swedish Smoking Status: Current Everyday Smoker ETOH Use: alcoholic Illicit Drug Use: marijuana Living Will? no Power of Stained Glass Installer/HCP? no Other Social History: Single. Lives with eugenia. 1 son- 1 y/o & 1 dtr- 5 y/o; both A&W. 15 pk yr cigarette smoker. > 6 beers & occ whiskey daily. + Cannabis. Denies other illicit drugs or IVDA. Old tattoos. Works in [employer]. Functional Ability ADLs Independent: dressing, eating, toileting, bathing. Ambulation: independent IADLs Independent: shopping, housework, finances, food prep, telephone, transportation , medication admin. Employment History Employment: Employed Profession/Employer: [employer] Exam & Diagnostic Data Vital Signs and I&O Young M in ICU 134/80 114 98.9 Skin neg rash Eyes anicteric ENT moist LUngs clear Cor RRR Abd distended.positve ascites, mild tender to palp Ext 1-2+edema Results Pertinent Lab Results: Ca 5.5 127 / 98 /6 / 3.6 / 17 / 0.6] Hg 9.9 Plt 105 WBC 4.2 Initial Triglyceride > 10,500 , 7991 this morning. Amylase 55 -> 633 Lipase 1184 ->1323 Assessment/Plan Assessment/Recommendations Assessment: Asked by Dr. Rizvi to see patient for lipid pheresis for markedly elevated triglycerides in setting of severe pancreatitis. I spoke with patient about the procedure and spoke with Dr. Pedraza (IR) who kindly will arrange urgent placement of a dialysis/pheresis catheter. The patient is agreeable and I will arrange a 4L pheresis treatment today (1.5 plasma volumes) with the goal of decreasing triglycerides. This in theory would drop the triglycerides by about 75-80% but in practice may be a bit lower. Will reassess in AM for additional pheresis need. Please call our service ([phone]) with AM triglyceride level for Dr. Palacios who will be covering over the weekend. Would continue IVF/ calcium and support as you are doing. Mr. Becerra is critically ill. Will follow with you. Vania Gutierrez MD. Recommendations: .
--- NOTE | 2018-03-03 12:41 | RADIOLOGY REPORT ---
EXAMINATION: XR PORTABLE CHEST CLINICAL INFORMATION: PICC placement. COMPARISON: Chest radiograph 03/02/2018. TECHNIQUE: Portable frontal view of the chest was obtained. FINDINGS: There has been interval placement of right-sided PICC line which terminates approximately 2 to 3 cm below the terence, located within the distal SVC. The lungs are clear. No pleural effusion. Cardiomediastinal silhouette and pulmonary vasculature are within normal limits. Partially visualized posterior spinal fusion hardware in the lower cervical and upper thoracic spine. IMPRESSION: Right-sided PICC terminates in the distal SVC in satisfactory position.
[2018-03-03 15:06] LABS: PTT 63 SEC (25-37)
--- NOTE | 2018-03-03 16:14 | ULTRASOUND REPORT ---
PROCEDURE: ULTRASOUND AND FLUOROSCOPICALLY GUIDED RIGHT INTERNAL JUGULAR VEIN TEMPORARY HEMODIALYSIS CATHETER PLACEMENT INTERVENTIONAL RADIOLOGIST: Martin Pedraza M.D. CLINICAL HISTORY: 32-year-old male requiring tunneled hemodialysis catheter for emergent plasmapheresis. COMPARISON: Same day chest x-ray MEDICATION: 1% lidocaine was used for local anesthetic. FLUOROSCOPY TIME: 1.8 minutes DOSE AREA PRODUCT: 17.7 mGy-m2 (milligray-meter squared) TECHNIQUE: Informed consent was obtained from the patient prior to the procedure. During this process, the procedure and potential alternatives were explained along with the intended outcome and benefits. The risks of the procedure, including the possibility of an unsuccessful procedure, as well as the risk of not doing the procedure were discussed. The patient was given the opportunity to ask questions regarding the procedure and appeared competent to make medical decisions. A signed consent form which documents this discussion was placed in the medical record. A timeout procedure was performed. Following informed consent the patient was placed supine on the fluoroscopic table. The right neck and chest were prepped and draped in usual sterile fashion. All elements of maximal sterile barrier technique were followed including use of cap, mask, sterile gown, sterile gloves, a sterile full body drape and hand hygiene. The skin was prepared with 2% chlorhexidine for cutaneous antisepsis and sterile ultrasound preparation with sterile gel and probe cover was performed when applicable. Using ultrasound guidance the right internal jugular vein was localized. Ultrasound was utilized to assess the vascular structures for access. A standard puncture into the right internal jugular vein was performed with a Micro-Stick system. Over the wire dilatation was performed and a temporary hemodialysis catheter was advanced over the wire. Catheter terminates in the right atrium. Silk suture was utilized for catheter securement. Both lumens aspirated and flushed easily. The patient tolerated the procedure well. The patient was transferred back to the floor in stable condition. ULTRASOUND-GUIDED VASCULAR ACCESS: Ultrasound was used to identify the right internal jugular vein. The right internal jugular vein was confirmed to be patent. Real time imaging confirmed needle access into the right internal jugular vein. An image was saved for permanent recording in PACS. IMPRESSION: Successful placement of temporary hemodialysis catheter via the right internal jugular vein. Catheter ready to use at this time.
[2018-03-04] VITALS (14 sets, daily range): BP systolic 112–153; BP diastolic 70–91
[2018-03-04 04:54] LABS: ABSOLUTE BASOPHIL COUNT 0 /CUMM (0.0-0.2); ABSOLUTE EOSINOPHIL COUNT 0.1 /CUMM (0.0-0.7); ABSOLUTE GRANULOCYTE CT 3.9 /CUMM (1.4-6.5); ABSOLUTE LYMPH COUNT 0.8 /CUMM (1.2-3.4); ABSOLUTE MONOCYTE COUNT 0.2 /CUMM (0.10-0.60); BASOPHIL % 0.5 % (0.0-2.0); EOSINOPHIL % 1.3 % (0-5); GRANULOCYTE % 78.4 % (42.2-75.2); HEMATOCRIT 25.4 % (42-52); MEAN CORPUSCULAR HGB 34.3 PG (27.0-31.0); MEAN CORPUSCULAR HGB CONC 33.6 G/DL (33.0-37.0); MEAN CORPUSCULAR VOLUME 102.1 FL (80.0-94.0); MEAN PLATELET VOLUME 9.9 FL (7.4-10.4); RBC DISTRIBUTION WIDTH 15.8 % (11.5-14.5); RED BLOOD CELL CT 2.48 /CUMM (4.70-6.10); WHITE BLOOD CELL COUNT 4.9 /CUMM (4.8-10.8)
[2018-03-04 05:33] LABS: PLATELET COUNT 54 /CUMM (130-400)
--- NOTE | 2018-03-04 08:10 | PN- Nephrology ---
Assessment/Plan Nephrology Assessment: Alcoholic pancreatitis. Triglycerides now down to 387. No more need for plasmapheresis Supportive care as you are doing. Ok to D/C arabella catheter. I will sign off. call with questions. Lane Gutierrez MD Suggestion: . Subjective Subjective: s/p pheresis yesterday. plasma was milky from the triglycerides but cleared significantly by the end of Rx. Triglycerides down to 384. Objective Vital Signs and I&Os M comfortable 100.1 126 129/74 Lungs clear cor RRR Abd distended mild tender Ext 1+edema Results Pertinent Lab Results: 135 / 105 / <2 / 4.0 / 21 / 0.5\ Ca 7.7 Triglyceride 387
--- NOTE | 2018-03-04 08:16 | PN- Resident CRCU ---
Subjective HPI/CRCU Issues: Patient received plasmapheresis history. Mild grade fever Tmax 100.3. Continue speech tachycardic. Currently off calcium and insulin drip. Complaining of cough. States that he has abdominal pain with cough and movement. Objective Vital Signs & I&O Last 8 Hrs of Vitals and I&O: Laboratory Tests 03/04/18 0350: Anion Gap 8, Estimated GFR > 60, Glucose 120 H, Calcium 7.7 L, Phosphorus 1.5 L, Magnesium 1.7, Total Bilirubin 4.4 H, AST 56, ALT 34, C-Reactive Prot, Quant 7.5 H, C-React Prot High Sens , Albumin 2.9 L, Triglycerides 387 H, CBC w Diff NO MAN DIFF REQ, RBC 2.48 L, MCV 102.1 H, MCH 34.3 H, MCHC 33.6, RDW 15.8 H, MPV 9.9, Gran % 78.4 H, Lymphocytes % 16.6 L, Monocytes % 3.2, Eosinophils % 1.3, Basophils % 0.5, Absolute Granulocytes 3.9, Absolute Lymphocytes 0.8 L, Absolute Monocytes 0.2, Absolute Eosinophils 0.1, Absolute Basophils 0 03/03/18 1828: Troponin I 0.02 03/03/18 1828: Anion Gap 10, Estimated GFR > 60, Glucose 129 H, Calcium 8.0 L, Phosphorus 1.8 L, Magnesium 1.7, Total Bilirubin 2.9 H, AST 22, ALT 22, Albumin 3.4 L, Triglycerides 394 H 03/03/18 1800: Triglycerides Cancelled 03/03/18 1520: Iron 74, TIBC 106 L, Ferritin > 1000.0 H, Total Bilirubin 4.7 H, Direct Bilirubin 3.6 H, Alkaline Phosphatase 585 H, C-Reactive Prot, Quant 4.4 H, C- React Prot High Sens > 15.0 H, Vitamin B12 965 H, MONIQUE Titer Pending, Anti- Nuclear Antibody Pending 03/03/18 1520: [id number] Pending, Ceruloplasmin Pending, 5'-Nucleotidase Pending, Methylmalonic Acid Pending, RBC Folate Pending, Anti-Mitochondrial Ab Pending, Hepatitis A IgM Ab NONREACTIVE, Hep Bs Antigen NONREACTIVE, Hep B Core IgM Ab Conf NONREACTIVE, Hepatitis C Antibody NONREACTIVE, HIV 1&2 Ab Western Blot NONREACTIVE Vital Signs Date Time Temp Pulse Resp B/P B/P Pulse O2 O2 Flow FiO2 Mean Ox Delivery Rate 03/04 1147 99.3 122 20 138/82 03/04 1127 118 138/90 03/04 0800 99.1 130 20 136/76 05/ 0800 99.1 130 20 136/76 97 Room Air 03/04 0600 100.1 126 18 129/74 / 0400 Room Air 03/04 0400 100.1 132 14 126/74 03/04 0200 100.3 122 18 116/74 / 0144 100.3 154 28 153/81 05 0000 Room Air 03/04 0000 100.3 114 20 124/82 05 0000 100.3 116 20 124/82 98 Room Air 03/03 2200 99.1 124 18 123/80 03/03 2000 99.1 116 20 130/80 03/03 2000 98 Room Air 03/03 1800 110 22 133/80 03/03 1600 100.2 122 16 136/86 03/03 1600 95 Nasal 2.0L Cannula 03/03 1600 100.2 122 16 140/78 95 Nasal 2.0L Cannula 03/03 6735 117 9025/96 03/03 1400 130 22 134/95 Intake & Output 03/04 1600 03/04 0800 05 0000 Intake Total 1800 1265 Output Total 400 950 Balance 1400 315 Intake, IV 1800 1145 Intake, Oral 120 Number 2 1 Bowel Movements Output, Urine 400 950 Exam General Appearance: alert, awake Respiratory: clear anterior lung sounds Cardiovascular: tachycardia Gastrointestinal: distended abdomen, left lower quadrant pain Extremities: 2+ radial pulses, 1+ lower extremity edema Current Medications: Current Medications Sig/Madelin Start time Last Medication Dose Route Stop Time Status Admin Albumin Human 200 GM ONCE ONE 03/03 1430 DC 03/03 IV 03/03 1431 1820 Calcitriol 0.25 MCG BID 03/04 0900 AC IV Calcitriol 0.5 MCG BID 03/02 2100 DC 03/04 IV 0846 Calcium Gluconate 8 GM ONCE ONE 03/03 1430 DC 03/03 Sodium Chloride 170 ML IV 03/03 1431 1820 Calcium Gluconate 5 GM ONCE ONE 03/03 0715 DC 03/03 Sodium Chloride 450 ML IV 03/03 2354 0747 Chlordiazepoxide HCl 25 MG TID 03/03 1000 AC 03/04 PO 1330 Dextrose/Lactated 1,000 ML Q13H 03/04 1100 AC 03/04 Ringer's IV 1128 Dextrose/Lactated 1,000 ML Q6H 03/02 2345 DC 03/04 Ringer's IV 0848 Docusate Sodium 100 MG DAILY NEEDED PRN 03/03 1100 AC PO Folic Acid 1 MG DAILY 03/04 1058 AC 03/04 PO 1127 Furosemide 20 MG ONCE ONE 03/04 1100 DC 03/04 IV 03/04 1101 1126 Furosemide 10 MG ONCE ONE 03/03 1415 DC 03/03 IV 03/03 1416 1425 Heparin Sodium 5,000 UNIT Q8 03/02 2200 AC 03/03 (Porcine) SC 2126 Insulin Human Regular 100 UNIT Q24H 03/03 0100 DC 03/03 Sodium Chloride 100 ML IV 0123 Lactated Ringer's 1,000 ML .Q5H 03/02 1700 DC 05 IV 2000 Lorazepam 0 Q1P PRN 03/02 1700 03/04 IV 1143 Magnesium Sulfate 1 GM ONCE ONE 03/04 1415 UNVr Dextrose/Water 100 ML IV 03/04 1814 Magnesium Sulfate 1 GM ONCE ONE 03/04 1115 AC 03/04 Dextrose/Water 100 ML IV 03/04 1514 1127 Magnesium Sulfate 1 GM ONCE ONE 03/03 1245 DC 03/03 Dextrose/Water 100 ML IV 03/03 1644 1425 Metoprolol Tartrate 12.5 MG BID 03/04 1056 AC 03/04 PO 1127 Metoprolol Tartrate 5 MG ONCE ONE 03/03 1530 DC 03/03 IV 03/03 1531 1535 Morphine Sulfate 2 MG Q4P PRN 03/02 1600 AC 03/04 IV 1143 Pantoprazole Sodium 40 MG DAILY 03/04 1055 DC 03/04 IV 1127 Phosphate 250 MG PC AND AT BEDTIME 03/04 1300 AC 03/04 PO 03/04 2101 1330 Polyethylene Glycol 17 GM DAILY NEEDED PRN 03/03 1100 DC 03/03 PO 1425 Potassium Chloride 20 MEQ ONCE ONE 03/04 1115 DC 03/04 PO 03/04 1116 1127 Potassium Chloride 40 MEQ ONCE ONE 03/03 1445 DC 03/03 PO 03/03 1446 1755 Potassium Phosphate 15 mMol ONE ONE 05/11 2100 DC 03/03 Dextrose/Water 250 ML IV 03/04 0104 2150 Senna 187 MG AT BEDTIME NEED.. 03/03 1100 AC 03/03 PO 1426 Thiamine HCl 100 MG DAILY 03/04 1058 AC 03/04 PO 1127 Impression/Plan Impression/Problem List Impression: A: 32 yo M with a past medical history of alcohol and cannabis abuse presenting to the ED for severe abdominal pain for 2 days found to have questionable necrotizing pancreatitis, hypertriglyceremia >10k and hypocalcemia. Problems: Respiratory: None Infection: #lactic acidosis - resolved LA 2.5 - 3.0 and resolved after fluid resucitation. Continues to have mild fever -Monitor for signs of infection, possibly due to necrotic pancreas Cardiac: #tachycardia New onset tachycardia. Possibly due to pain or anxiety. Given lopressor 5mg IV before plasmapheresis -Well's score for PE: 1.5. Watch clinical signs and assess for possible PE -Start metoprololl 12.5 mg twice a day, can increase to 25 if needed -f/u tsh, free t4 -f/u echocardiogram -control anxiety with ativan and morphine for pain Heme onc: #Pancytopenia with ?GI bleed Initial H/H 13.7/37.5 Currently 8.5/25.4, plt 54 MCV>100 No acute signs of bleeding DIC panel reavealed: PTT 48 and D-dimer 2357, normal fibrinogen activity -elevated d-dimer but well's PE score 1.5. Will monitor for now. -Mostly multifactorial due to dilution 2/2 fluids and possibly BM alcoholic bone marrow suppression -Hemmooccult: positive with loose dark stools. Metabolic: #hyponatremia Initial Na 132 Currently: 135 -possibly dilutional -continue monitor. #hypocalcemia Initial presenting calcium 5.7 Phos 2.5 Vitamin D <4.2 PTH elevated at 165.1 -current corrected calcium 8.6 -reduce calcitrol to .25 BID -hypocalcemia probably secondary to saponifiaction of pancreatitis in addition to nutrition -STOPPED calcium drip -cont endo recommendations #hypomag Pt presented with mag of 1.1 Given mag sulfate 1 g X2 -cont monitoring magnesium and replnish as needed #hypophosphatemia Currently 1.7 -replenish as needed Alimentary: #Pancreatitis with ?necrotizing tissues more likley due to hypertriglycedemia vs etoh abuse The patient presented with severe abd pain x [address] abd revealed acute pancreatitis diffuse fatty infiltration of the liver with cocal area of nonenhancement at the junction of the neck and body the possibly representing early pancreatic necrosis. Initial labs triglycerides >10.5k, revealed lactic acid 3.2,calcium 5.7, albumin 2.3, phosphorus 2.5, magnesium 1.1, T bili 3.4, AST 112, ALT 36, ALP 881, LDH 885, albumin 2.8, amylase 58, lipase 1184, 25- hydroxy vit d <4.2, PTH 165.1. Patient received plasmapheresis yesterday. Triglycerides improved to 387. Currently off insulin drip. Repeat CRP increased from 4.4->7.5 B12 elevated 965, HIV negative, iron normal, TIBC 106, ferritin >1000, HIV negative T bili 4.4, Direct bili 3.6 -ok to dc barbara -f/u workup : RUQ sono (although nl GB on CT). repeat alk phos with 5'NTD, hepatitis panel, MONIQUE, AMA, A1AT, ceruloplasmin, RBC folate, & MMA. -Consider IR needle aspiration of pancreatic necrosis depending on clinical course -Monitor for signs of fluid overload and potential ARDS. Given 10mg lasix yday. -GIve 20mg lasix today. will check 4pm labs. keep K>4.5 -cont monitoring lactic acid and triglycerides. Current triglycerides 387 -Continue monitoring blood sugars. Once over 200 and restart insulin drip at 1 unit per hour -cont monitoring amylase and lipase. currently amylase increased to 633, lipase increased to 1323 -cont d5 LR. reduce from 200 to 75ml/hr -keep NPO, will need fibrate when he begins to eat -will hold off PPI until Mg replnished #hepatitis with fatty liver dz on CT in the setting of etoh abuse, and pancreaitis Ast 112-> 84 -> 50 ALT 66 -> 36 -> 34 ALP 881 LDH 885 -LFTs have normalized with treatment of pancreatitis -HIV negative -cont to monitor and continue work up as stated above Neuro: None Psych: #hx of etoh abuse Utox positive for cannabis -Continue ativan prn agitation on CIWA and librium 25 TID -nicotine patch -f/u psych and sw -cont thiamine and folate House keeping: NPO FULL CODE PICC LINE, BARBARA LINE DVT prophylaxis - holding heparin for low plt and pancytopnia Problem List: 1. Alcohol abuse 2. Alcoholic hepatitis 3. Hepatitis 4. Necrotizing pancreatitis 5. Hyponatremia 6. Hypocalcemia 7. Anemia 8. Tachycardia 9. Pancytopenia Pain Ratin Tomorrow's Labs & Rationales: icu bundle cbc Plan DVT/Prophylaxis: heparin
--- NOTE | 2018-03-04 08:47 | ULTRASOUND REPORT ---
EXAMINATION: US ABDOMEN LIMITED CLINICAL INFORMATION: Abnormal liver function tests. Pancreatitis. COMPARISON: CT scan of 03/02/18. TECHNIQUE: Real-time imaging of the right upper quadrant abdominal viscera. FINDINGS: PANCREAS: The pancreas is completely obscured by overlying bowel gas and not visible. LIVER: There is diffusely increased echogenicity consistent with pelvic steatosis. Visualization is otherwise limited. No focal lesion or other abnormality is demonstrated. GALLBLADDER: Normal. The gallbladder is physiologically distended without evidence of stones, sludge, polyps, wall thickening or pericholecystic fluid. COMMON BILE DUCT: Normal in caliber measuring 0.3 cm in diameter. RIGHT KIDNEY: Normal. No hydronephrosis. No renal calculi or focal parenchymal lesions. The kidney measures 10.5 cm in maximum dimension. FREE FLUID: None. IMPRESSION: 1. The pancreas is obscured and not assessed. 2. Stable appearance of hepatic steatosis. 3. No cholelithiasis.
--- NOTE | 2018-03-04 08:56 | PN- Endocrinology ---
Assessment/Plan Endoscopy Assessment: The patient still has abdominal pain. He is on lactated Ringer's. He underwent plasmapheresis yesterday. He received a calcium load prior to plasmapheresis. His labs this morning show that his triglycerides are down to 387. Serum calcium is 7.7 phosphorus 1.5 magnesium 1.7 and albumin 2.9. Corrected calcium is 8.4. The patient's blood sugars have been in a good range. Plan: Suggest decrease calcitriol to 0.25 mcg twice a day. We can check a fingerstick blood sugar every 6 hours to make sure his blood sugars are staying normal.. The patient needs no further intravenous calcium at this time but would continue to monitor his calcium albumin and magnesium as part of his blood work. The patient's triglycerides will stay down because he is n.p.o. When he begins a diet we will have to place him on a fibrate to help maintain his triglycerides in a normal range. Subjective Subjective: Complains of abdominal pain. Review of Systems Constitutional: Denies: chills. Cardiovascular: Denies: chest pain. Respiratory: Denies: short of breath. Gastrointestinal: Reports: abdominal pain, bloating. Genitourinary: Denies: dysuria. Skin: Reports: no symptoms. Objective Last 24 Hrs of Vital Signs/I&O Vital Signs Date Time Temp Pulse Resp B/P B/P Pulse O2 O2 Flow FiO2 Mean Ox Delivery Rate 03/04 0600 100.1 126 18 129/74 03/04 0400 Room Air 03/04 0400 100.1 132 14 126/74 03/04 0200 100.3 122 18 116/74 03/04 0144 100.3 154 28 153/81 03/04 0000 Room Air 03/04 0000 100.3 114 20 124/82 03/04 0000 100.3 116 20 124/82 98 Room Air 03/03 2200 99.1 124 18 123/80 03/03 2000 99.1 116 20 130/80 03/03 2000 98 Room Air 03/03 1800 110 22 133/80 03/03 1600 100.2 122 16 136/86 03/03 1600 95 Nasal 2.0L Cannula 03/03 1600 100.2 122 16 140/78 95 Nasal 2.0L Cannula 03/03 9123 919 8571/96 03/03 1400 130 22 134/95 05/11 1300 130 18 149/104 03/03 1200 99.6 128 20 139/85 03/03 1200 97 Nasal 2.0L Cannula 03/03 1100 99.6 144 18 155/97 03/03 1000 126 22 156/100 Intake & Output 03/04 1600 03/04 0800 03/04 0000 Intake Total 1800 1265 Output Total 400 950 Balance 1400 315 Intake, IV 1800 1145 Intake, Oral 120 Number 2 1 Bowel Movements Output, Urine 400 950 Vital Signs Date Time Temp Pulse Resp B/P B/P Pulse O2 O2 Flow FiO2 Mean Ox Delivery Rate 03/04 0600 100.1 126 18 129/74 03/04 0400 Room Air 03/04 0400 100.1 132 14 126/74 03/04 0200 100.3 122 18 116/74 03/04 0144 100.3 154 28 153/81 03/04 0000 Room Air 03/04 0000 100.3 114 20 124/82 03/04 0000 100.3 116 20 124/82 98 Room Air 03/03 2200 99.1 124 18 123/80 03/03 2000 99.1 116 20 130/80 03/03 2000 98 Room Air 03/03 1800 110 22 133/80 03/03 1600 100.2 122 16 136/86 03/03 1600 95 Nasal 2.0L Cannula 03/03 1600 100.2 122 16 140/78 95 Nasal 2.0L Cannula 03/03 0510 406 7830/96 03/03 1400 130 22 134/95 03/03 1300 130 18 149/104 03/03 1200 99.6 128 20 139/85 03/03 1200 97 Nasal 2.0L Cannula 03/03 1100 99.6 144 18 155/97 03/03 1000 126 22 156/100 Intake & Output 03/04 1600 03/04 0800 05 0000 Intake Total 1800 1265 Output Total 400 950 Balance 1400 315 Intake, IV 1800 1145 Intake, Oral 120 Number 2 1 Bowel Movements Output, Urine 400 950 Physical Exam General Appearance: alert, awake Head: normal appearance Cardiovascular: regular rate/rhythm Abdomen: distention, tenderness Extremities: normal inspection Current Medications: Current Medications Sig/Madelin Start time Last Medication Dose Route Stop Time Status Admin Albumin Human 200 GM ONCE ONE 03/03 1430 DC 03/03 IV 03/03 1431 1820 Calcitriol 0.5 MCG BID 03/02 2100 AC 05/12 IV 0846 Calcium Gluconate 8 GM ONCE ONE 03/03 1430 DC 03/03 Sodium Chloride 170 ML IV 03/03 1431 1820 Calcium Gluconate 5 GM ONCE ONE 03/03 0715 DC 03/03 Sodium Chloride 450 ML IV 03/03 2354 0747 Chlordiazepoxide HCl 25 MG TID 03/03 1000 AC 03/04 PO 0846 Dextrose/Lactated 1,000 ML Q6H 03/02 2345 AC 03/04 Ringer's IV 0848 Docusate Sodium 100 MG DAILY NEEDED PRN 03/03 1100 AC PO Furosemide 10 MG ONCE ONE 03/03 1415 DC 03/03 IV 03/03 1416 1425 Heparin Sodium 0 .STK-MED ONE 03/03 1254 DC (Porcine) IV Heparin Sodium 5,000 UNIT Q8 03/02 2200 AC 03/03 (Porcine) SC 2126 Insulin Human Regular 100 UNIT Q24H 03/03 0100 DC 03/03 Sodium Chloride 100 ML IV 0123 Lactated Ringer's 1,000 ML .Q5H 03/02 1700 KS 03/02 IV 2000 Lidocaine 0 .STK-MED ONE 03/03 1254 DC .ROUTE Lorazepam 0 Q1P PRN 03/02 1700 03/04 IV 0141 Magnesium Sulfate 1 GM ONCE ONE 03/03 1245 DC 03/03 Dextrose/Water 100 ML IV 03/03 1644 1425 Metoprolol Tartrate 5 MG ONCE ONE 03/03 1530 DC 03/03 IV 03/03 1531 1535 Morphine Sulfate 2 MG Q4P PRN 03/02 1600 AC 03/04 IV 0653 Polyethylene Glycol 17 GM DAILY NEEDED PRN 03/03 1100 AC 03/03 PO 1425 Potassium Chloride 40 MEQ ONCE ONE 03/03 1445 DC 03/03 PO 03/03 1446 1755 Potassium Phosphate 15 mMol ONE ONE 03/03 2100 DC 03/03 Dextrose/Water 250 ML IV 03/04 0104 2150 Senna 187 MG AT BEDTIME NEED.. 03/03 1100 AC 03/03 PO 1426 Laboratory Tests 03/04 03/03 03/03 0350 1828 1828 Chemistry Sodium (137 - 145 mmol/L) 135 L 135 L Potassium (3.5 - 5.1 mmol/L) 4.0 3.7 Chloride (98 - 107 mmol/L) 105 105 Carbon Dioxide (22 - 30 mmol/L) 21 L 20 L Anion Gap (5 - 16) 8 10 BUN (9 - 20 mg/dL) < 2 L 3 L Creatinine (0.7 - 1.2 mg/dL) 0.5 L 0.5 L Estimated GFR (>60 ml/min) > 60 > 60 Glucose (65 - 99 mg/dL) 120 H 129 H Calcium (8.4 - 10.2 mg/dL) 7.7 L 8.0 L Phosphorus (2.5 - 4.5 mg/dL) 1.5 L 1.8 L Magnesium (1.6 - 2.3 mg/dL) 1.7 1.7 Total Bilirubin (0.2 - 1.3 mg/dL) 4.4 H 2.9 H AST (17 - 59 U/L) 56 22 ALT (21 - 72 U/L) 34 22 Troponin I (<0.11 ng/ml) 0.02 C-Reactive Prot, Quant (<1.0 mg/dL) 7.5 H C-React Prot High Sens (1.0 - 3.0 mg/L) Albumin (3.5 - 5.0 g/dL) 2.9 L 3.4 L Triglycerides (<150 mg/dL) 387 H 394 H Hematology CBC w Diff NO MAN DIFF REQ WBC (4.8 - 10.8 /CUMM) 4.9 RBC (4.70 - 6.10 /CUMM) 2.48 L Hgb (14.0 - 18.0 G/DL) 8.5 L Hct (42 - 52 %) 25.4 L MCV (80.0 - 94.0 FL) 102.1 H MCH (27.0 - 31.0 PG) 34.3 H MCHC (33.0 - 37.0 G/DL) 33.6 RDW (11.5 - 14.5 %) 15.8 H Plt Count (130 - 400 /CUMM) 54 L MPV (7.4 - 10.4 FL) 9.9 Gran % (42.2 - 75.2 %) 78.4 H Lymphocytes % (20.5 - 51.1 %) 16.6 L Monocytes % (1.7 - 9.3 %) 3.2 Eosinophils % (0 - 5 %) 1.3 Basophils % (0.0 - 2.0 %) 0.5 Absolute Granulocytes (1.4 - 6.5 /CUMM) 3.9 Absolute Lymphocytes (1.2 - 3.4 /CUMM) 0.8 L Absolute Monocytes (0.10 - 0.60 /CUMM) 0.2 Absolute Eosinophils (0.0 - 0.7 /CUMM) 0.1 Absolute Basophils (0.0 - 0.2 /CUMM) 0 03/03 03/03 03/03 1800 1520 1520 Chemistry Iron (49 - 181 ug/dL) 74 TIBC (261 - 462 ug/dL) 106 L Ferritin (17.9 - 464 ng/mL) > 1000.0 H Total Bilirubin (0.2 - 1.3 mg/dL) 4.7 H Direct Bilirubin (< 0.4 mg/dL) 3.6 H Alkaline Phosphatase (< 127 U/L) 585 H C-Reactive Prot, Quant (<1.0 mg/dL) 4.4 H C-React Prot High Sens (1.0 - 3.0 mg/L) > 15.0 H [id number] Pending Ceruloplasmin Pending Triglycerides Cancelled 5'-Nucleotidase Pending Vitamin B12 (239 - 931 pg/mL) 965 H Methylmalonic Acid Pending RBC Folate Pending Immunology MONIQUE Titer Pending Anti-Nuclear Antibody Pending Anti-Mitochondrial Ab Pending Serology Hepatitis A IgM Ab (NONREACTIVE) Pending Hep Bs Antigen (NONREACTIVE) Pending Hep B Core IgM Ab Conf (NONREACTIVE) Pending Hepatitis C Antibody (NONREACTIVE) Pending HIV 1&2 Ab Western Blot (NONREACTIVE) NONREACTIVE 03/03 03/03 03/03 03/03 03/03 1257 1206 1206 1053 0940 Chemistry Lactic Acid (0.7 - 2.1 mmol/L) 1.5 3.0 H Calcium (8.4 - 10.2 mg/dL) 5.6 *L Triglycerides (<150 mg/dL) 6209 H Coagulation PT (9.4 - 12.5 SEC) 11.4 INR (0.90 - 1.17) 1.05 APTT (25 - 37 SEC) Cancelled 63 H 03/03 03/03 03/03 0940 0600 0546 Chemistry Lactic Acid (0.7 - 2.1 mmol/L) 2.5 H Calcium (8.4 - 10.2 mg/dL) 5.5 *L Cancelled Magnesium Cancelled Hematology CBC w Diff Cancelled WBC Cancelled RBC Cancelled Hgb Cancelled Hct Cancelled MCV Cancelled MCH Cancelled MCHC Cancelled RDW Cancelled Plt Count Cancelled MPV Cancelled 03/03 03/03 03/03 0546 0043 0032 Chemistry Sodium (137 - 145 mmol/L) 127 L Potassium (3.5 - 5.1 mmol/L) 3.6 Chloride (98 - 107 mmol/L) 98 Carbon Dioxide (22 - 30 mmol/L) 17 L Anion Gap (5 - 16) 13 BUN (9 - 20 mg/dL) 6 L Creatinine (0.7 - 1.2 mg/dL) 0.5 L Estimated GFR (>60 ml/min) > 60 Glucose (65 - 99 mg/dL) 155 H Lactic Acid (0.7 - 2.1 mmol/L) 2.5 H Calcium (8.4 - 10.2 mg/dL) 5.4 *L Cancelled Phosphorus (2.5 - 4.5 mg/dL) 2.5 Magnesium (1.6 - 2.3 mg/dL) 1.9 Total Bilirubin (0.2 - 1.3 mg/dL) 3.8 H AST (17 - 59 U/L) 84 H ALT (21 - 72 U/L) 36 Albumin (3.5 - 5.0 g/dL) 2.3 L Triglycerides (<150 mg/dL) 7991 H Hematology CBC w Diff MAN DIFF ORDERED WBC (4.8 - 10.8 /CUMM) 4.2 L RBC (4.70 - 6.10 /CUMM) 2.93 L Hgb (14.0 - 18.0 G/DL) 9.9 L Hct (42 - 52 %) 29.6 L MCV (80.0 - 94.0 FL) 101.2 H MCH (27.0 - 31.0 PG) 33.5 H MCHC (33.0 - 37.0 G/DL) 33.2 RDW (11.5 - 14.5 %) 15.2 H Plt Count (130 - 400 /CUMM) 105 L MPV (7.4 - 10.4 FL) 7.8 Segmented Neutrophils (42.2 - 75.2 %) 70 Band Neutrophils (0.0 - 5.0 %) 13 H Lymphocytes (20.5 - 51.1 %) 14 L Monocytes (1.7 - 9.3 %) 3 Platelet Estimate (ADEQUATE) ADEQUATE Polychromasia 1+ Anisocytosis 1+ Macrocytic Cells 1+ Ovalocytes FEW Other Body Source Fld Total RBCs Counted (%) 100 03/03 03/02 03/02 03/02 03/02 0032 2100 2100 1607 1557 Chemistry Sodium (137 - 145 mmol/L) 133 L 131 L Potassium (3.5 - 5.1 mmol/L) 4.0 4.3 Chloride (98 - 107 mmol/L) 100 99 Carbon Dioxide (22 - 30 mmol/L) 15 L 19 L Anion Gap (5 - 16) 18 H 13 BUN (9 - 20 mg/dL) 8 L 10 Creatinine (0.7 - 1.2 mg/dL) 0.5 L 0.6 L Estimated GFR (>60 ml/min) > 60 > 60 BUN/Creatinine Ratio (7 - 25 %) 16.0 16.7 Glucose (65 - 99 mg/dL) 77 76 Lactic Acid (0.7 - 2.1 mmol/L) 3.0 H Calcium (8.4 - 10.2 mg/dL) 5.2 *L 5.2 *L 5.2 *L Ionized Calcium Pending Magnesium (1.6 - 2.3 mg/dL) 1.1 L Lactate Dehydrogenase (313 - 618 U/L) 885 H Triglycerides (<150 mg/dL) 9397 H 8970 H Amylase (30 - 110 U/L) 633 H 64 Lipase (23 - 300 U/L) 1323 H 1409 H 25-OH Vitamin D Total (30 - 100 ng/ml) < 4.2 L PTH Intact (18.4 - 80.1 pg/ML) 165.1 H 03/02 03/02 1204 1142 Chemistry Lactic Acid (0.7 - 2.1 mmol/L) 2.3 H Toxicology Urine Opiates Screen (>2000 NG/ML) 753.00 Methadone Screen (>300 NG/ML) < 40 Barbiturate Screen (>200 NG/ML) < 60 Ur Phencyclidine Scrn (>25 NG/ML) < 6.00 Amphetamines Screen (>1000 NG/ML) < 100 U Benzodiazepines Scrn (>200 NG/ML) < 85 Urine Cocaine Screen (>300 NG/ML) < 50 Urine Cannabis Screen (>50 NG/ML) > 80.00 H Urines Urinalysis MOD H Urine Color (YEL,AMB,STR) YEL Urine Clarity (CLEAR) HAZY H Urine pH (5.0 - 8.0) 6.0 Ur Specific Stryker (1.001 - 1.035) 1.010 Urine Protein (NEG,<30 MG/DL) TRACE H Urine Ketones (NEG) NEG Urine Nitrite (NEG) NEG Urine Bilirubin (NEG) POS@ICTO H Urine Urobilinogen (0.1 - 1.0 EU/dl) 1.0 Ur Leukocyte Esterase (NEG) NEG Ur Microscopic SEDIMENT EXAMINED Urine RBC (0 - 5 /HPF) RARE Urine WBC (0 - 2 /HPF) RARE Ur Epithelial Cells (NONE,FEW) FEW Urine Bacteria (NEG/NONE) FEW H Granular Casts (NONE /LPF) 1-3 H Urine Mucus (FEW,NONE) FEW Urine Hemoglobin (NEG) NEG Urine Glucose (N MG/DL) NEG Results Pertinent Lab/Fransico Results: Laboratory Tests 03/04 03/03 03/03 0350 1828 1828 Chemistry Sodium (137 - 145 mmol/L) 135 L 135 L Potassium (3.5 - 5.1 mmol/L) 4.0 3.7 Chloride (98 - 107 mmol/L) 105 105 Carbon Dioxide (22 - 30 mmol/L) 21 L 20 L Anion Gap (5 - 16) 8 10 BUN (9 - 20 mg/dL) < 2 L 3 L Creatinine (0.7 - 1.2 mg/dL) 0.5 L 0.5 L Estimated GFR (>60 ml/min) > 60 > 60 Glucose (65 - 99 mg/dL) 120 H 129 H Calcium (8.4 - 10.2 mg/dL) 7.7 L 8.0 L Phosphorus (2.5 - 4.5 mg/dL) 1.5 L 1.8 L Magnesium (1.6 - 2.3 mg/dL) 1.7 1.7 Total Bilirubin (0.2 - 1.3 mg/dL) 4.4 H 2.9 H AST (17 - 59 U/L) 56 22 ALT (21 - 72 U/L) 34 22 Troponin I (<0.11 ng/ml) 0.02 C-Reactive Prot, Quant (<1.0 mg/dL) 7.5 H C-React Prot High Sens (1.0 - 3.0 mg/L) Albumin (3.5 - 5.0 g/dL) 2.9 L 3.4 L Triglycerides (<150 mg/dL) 387 H 394 H Hematology CBC w Diff NO MAN DIFF REQ WBC (4.8 - 10.8 /CUMM) 4.9 RBC (4.70 - 6.10 /CUMM) 2.48 L Hgb (14.0 - 18.0 G/DL) 8.5 L Hct (42 - 52 %) 25.4 L MCV (80.0 - 94.0 FL) 102.1 H MCH (27.0 - 31.0 PG) 34.3 H MCHC (33.0 - 37.0 G/DL) 33.6 RDW (11.5 - 14.5 %) 15.8 H Plt Count (130 - 400 /CUMM) 54 L MPV (7.4 - 10.4 FL) 9.9 Gran % (42.2 - 75.2 %) 78.4 H Lymphocytes % (20.5 - 51.1 %) 16.6 L Monocytes % (1.7 - 9.3 %) 3.2 Eosinophils % (0 - 5 %) 1.3 Basophils % (0.0 - 2.0 %) 0.5 Absolute Granulocytes (1.4 - 6.5 /CUMM) 3.9 Absolute Lymphocytes (1.2 - 3.4 /CUMM) 0.8 L Absolute Monocytes (0.10 - 0.60 /CUMM) 0.2 Absolute Eosinophils (0.0 - 0.7 /CUMM) 0.1 Absolute Basophils (0.0 - 0.2 /CUMM) 0 03/03 03/03 03/03 1800 1520 1520 Chemistry Iron (49 - 181 ug/dL) 74 TIBC (261 - 462 ug/dL) 106 L Ferritin (17.9 - 464 ng/mL) > 1000.0 H Total Bilirubin (0.2 - 1.3 mg/dL) 4.7 H Direct Bilirubin (< 0.4 mg/dL) 3.6 H Alkaline Phosphatase (< 127 U/L) 585 H C-Reactive Prot, Quant (<1.0 mg/dL) 4.4 H C-React Prot High Sens (1.0 - 3.0 mg/L) > 15.0 H [id number] Pending Ceruloplasmin Pending Triglycerides Cancelled 5'-Nucleotidase Pending Vitamin B12 (239 - 931 pg/mL) 965 H Methylmalonic Acid Pending RBC Folate Pending Immunology MONIQUE Titer Pending Anti-Nuclear Antibody Pending Anti-Mitochondrial Ab Pending Serology Hepatitis A IgM Ab (NONREACTIVE) Pending Hep Bs Antigen (NONREACTIVE) Pending Hep B Core IgM Ab Conf (NONREACTIVE) Pending Hepatitis C Antibody (NONREACTIVE) Pending HIV 1&2 Ab Western Blot (NONREACTIVE) NONREACTIVE 03/03 03/03 03/03 03/03 03/03 1257 1206 1206 1053 0940 Chemistry Lactic Acid (0.7 - 2.1 mmol/L) 1.5 3.0 H Calcium (8.4 - 10.2 mg/dL) 5.6 *L Triglycerides (<150 mg/dL) 6209 H Coagulation PT (9.4 - 12.5 SEC) 11.4 INR (0.90 - 1.17) 1.05 APTT (25 - 37 SEC) Cancelled 63 H 03/03 03/03 03/03 0940 0600 0546 Chemistry Lactic Acid (0.7 - 2.1 mmol/L) 2.5 H Calcium (8.4 - 10.2 mg/dL) 5.5 *L Cancelled Magnesium Cancelled Hematology CBC w Diff Cancelled WBC Cancelled RBC Cancelled Hgb Cancelled Hct Cancelled MCV Cancelled MCH Cancelled MCHC Cancelled RDW Cancelled Plt Count Cancelled MPV Cancelled 03/03 03/03 03/03 0546 0043 0032 Chemistry Sodium (137 - 145 mmol/L) 127 L Potassium (3.5 - 5.1 mmol/L) 3.6 Chloride (98 - 107 mmol/L) 98 Carbon Dioxide (22 - 30 mmol/L) 17 L Anion Gap (5 - 16) 13 BUN (9 - 20 mg/dL) 6 L Creatinine (0.7 - 1.2 mg/dL) 0.5 L Estimated GFR (>60 ml/min) > 60 Glucose (65 - 99 mg/dL) 155 H Lactic Acid (0.7 - 2.1 mmol/L) 2.5 H Calcium (8.4 - 10.2 mg/dL) 5.4 *L Cancelled Phosphorus (2.5 - 4.5 mg/dL) 2.5 Magnesium (1.6 - 2.3 mg/dL) 1.9 Total Bilirubin (0.2 - 1.3 mg/dL) 3.8 H AST (17 - 59 U/L) 84 H ALT (21 - 72 U/L) 36 Albumin (3.5 - 5.0 g/dL) 2.3 L Triglycerides (<150 mg/dL) 7991 H Hematology CBC w Diff MAN DIFF ORDERED WBC (4.8 - 10.8 /CUMM) 4.2 L RBC (4.70 - 6.10 /CUMM) 2.93 L Hgb (14.0 - 18.0 G/DL) 9.9 L Hct (42 - 52 %) 29.6 L MCV (80.0 - 94.0 FL) 101.2 H MCH (27.0 - 31.0 PG) 33.5 H MCHC (33.0 - 37.0 G/DL) 33.2 RDW (11.5 - 14.5 %) 15.2 H Plt Count (130 - 400 /CUMM) 105 L MPV (7.4 - 10.4 FL) 7.8 Segmented Neutrophils (42.2 - 75.2 %) 70 Band Neutrophils (0.0 - 5.0 %) 13 H Lymphocytes (20.5 - 51.1 %) 14 L Monocytes (1.7 - 9.3 %) 3 Platelet Estimate (ADEQUATE) ADEQUATE Polychromasia 1+ Anisocytosis 1+ Macrocytic Cells 1+ Ovalocytes FEW Other Body Source Fld Total RBCs Counted (%) 100 03/03 03/02 03/02 03/02 03/02 0032 2100 2100 1607 1557 Chemistry Sodium (137 - 145 mmol/L) 133 L 131 L Potassium (3.5 - 5.1 mmol/L) 4.0 4.3 Chloride (98 - 107 mmol/L) 100 99 Carbon Dioxide (22 - 30 mmol/L) 15 L 19 L Anion Gap (5 - 16) 18 H 13 BUN (9 - 20 mg/dL) 8 L 10 Creatinine (0.7 - 1.2 mg/dL) 0.5 L 0.6 L Estimated GFR (>60 ml/min) > 60 > 60 BUN/Creatinine Ratio (7 - 25 %) 16.0 16.7 Glucose (65 - 99 mg/dL) 77 76 Lactic Acid (0.7 - 2.1 mmol/L) 3.0 H Calcium (8.4 - 10.2 mg/dL) 5.2 *L 5.2 *L 5.2 *L Ionized Calcium Pending Magnesium (1.6 - 2.3 mg/dL) 1.1 L Lactate Dehydrogenase (313 - 618 U/L) 885 H Triglycerides (<150 mg/dL) 9397 H 8970 H Amylase (30 - 110 U/L) 633 H 64 Lipase (23 - 300 U/L) 1323 H 1409 H 25-OH Vitamin D Total (30 - 100 ng/ml) < 4.2 L PTH Intact (18.4 - 80.1 pg/ML) 165.1 H 0510 05 1204 1142 Chemistry Lactic Acid (0.7 - 2.1 mmol/L) 2.3 H Toxicology Urine Opiates Screen (>2000 NG/ML) 753.00 Methadone Screen (>300 NG/ML) < 40 Barbiturate Screen (>200 NG/ML) < 60 Ur Phencyclidine Scrn (>25 NG/ML) < 6.00 Amphetamines Screen (>1000 NG/ML) < 100 U Benzodiazepines Scrn (>200 NG/ML) < 85 Urine Cocaine Screen (>300 NG/ML) < 50 Urine Cannabis Screen (>50 NG/ML) > 80.00 H Urines Urinalysis MOD H Urine Color (YEL,AMB,STR) YEL Urine Clarity (CLEAR) HAZY H Urine pH (5.0 - 8.0) 6.0 Ur Specific Stryker (1.001 - 1.035) 1.010 Urine Protein (NEG,<30 MG/DL) TRACE H Urine Ketones (NEG) NEG Urine Nitrite (NEG) NEG Urine Bilirubin (NEG) POS@ICTO H Urine Urobilinogen (0.1 - 1.0 EU/dl) 1.0 Ur Leukocyte Esterase (NEG) NEG Ur Microscopic SEDIMENT EXAMINED Urine RBC (0 - 5 /HPF) RARE Urine WBC (0 - 2 /HPF) RARE Ur Epithelial Cells (NONE,FEW) FEW Urine Bacteria (NEG/NONE) FEW H Granular Casts (NONE /LPF) 1-3 H Urine Mucus (FEW,NONE) FEW Urine Hemoglobin (NEG) NEG Urine Glucose (N MG/DL) NEG
--- NOTE | 2018-03-04 09:42 | PN- CRCU ---
Subjective HPI/Critical Care Issues: Doing a little better Did undergo aphoresis yesterday States feels a little better Mildly tachypneic and significantly tachycardic, on room air saturating 97%. Does have mild abdominal discomfort. No nausea or vomiting. Patient did have a bowel movement yesterday. All the data reviewed Patient has had adequate urine output Positive for more than 3 L. SIGNIFICANT DATA BUN less than 2 creatinine 0.5 bicarbonate was increased to 21 and anion gap is normal lactic acid is normal amylase lipase pending Magnesium was low at 1.7 Phosphorus was low Calcium was up to 7.7 Total bilirubin continues to rise now at 4.4 Alkaline phosphatase is reduced from 81-585 AST ALT is within normal limits hepatitis panel pending ferritin level was significantly elevated at more than 1000 this needs to be repeated in the future PTH was appropriately elevated at 165 probably from his hypo-calcemic HIV was negative urine tox screen was positive for cannabis white count now down to 4.9 hemoglobin has dropped significantly to 8.5 patient has been positive by many liters he has 13% bands from yesterday INR was 1.05 the serologies pending B12 level was elevated His triglyceride was 387 down from more than 10,000 Objective Current Medications: Current Medications Sig/Madelin Start time Last Medication Dose Route Stop Time Status Admin Albumin Human 200 GM ONCE ONE 03/03 1430 DC 03/03 IV 03/03 1431 1820 Calcitriol 0.25 MCG BID 03/04 0900 AC IV Calcitriol 0.5 MCG BID 03/02 2100 DC 03/04 IV 0846 Calcium Gluconate 8 GM ONCE ONE 03/03 1430 DC 03/03 Sodium Chloride 170 ML IV 03/03 1431 1820 Calcium Gluconate 5 GM ONCE ONE 03/03 0715 DC 03/03 Sodium Chloride 450 ML IV 03/03 2354 0747 Chlordiazepoxide HCl 25 MG TID 03/03 1000 AC 03/04 PO 0846 Dextrose/Lactated 1,000 ML Q6H 03/02 2345 AC 03/04 Ringer's IV 0848 Docusate Sodium 100 MG DAILY NEEDED PRN 03/03 1100 AC PO Furosemide 10 MG ONCE ONE 03/03 1415 DC 03/03 IV 03/03 1416 1425 Heparin Sodium 0 .STK-MED ONE 03/03 1254 DC (Porcine) IV Heparin Sodium 5,000 UNIT Q8 03/02 2200 AC 03/03 (Porcine) SC 2126 Insulin Human Regular 100 UNIT Q24H 03/03 0100 DC 03/03 Sodium Chloride 100 ML IV 0123 Lactated Ringer's 1,000 ML .Q5H 03/02 1700 DC 03/02 IV 2000 Lidocaine 0 .STK-MED ONE 03/03 1254 DC .ROUTE Lorazepam 0 Q1P PRN 03/02 1700 AC 03/04 IV 0141 Magnesium Sulfate 1 GM ONCE ONE 03/03 1245 DC 03/03 Dextrose/Water 100 ML IV 03/03 1644 1425 Metoprolol Tartrate 5 MG ONCE ONE 03/03 1530 DC 03/03 IV 03/03 1531 1535 Morphine Sulfate 2 MG Q4P PRN 03/02 1600 AC 03/04 IV 0653 Polyethylene Glycol 17 GM DAILY NEEDED PRN 03/03 1100 AC 03/03 PO 1425 Potassium Chloride 40 MEQ ONCE ONE 03/03 1445 DC 03/03 PO 03/03 1446 1755 Potassium Phosphate 15 mMol ONE ONE 03/03 2100 DC 03/03 Dextrose/Water 250 ML IV 03/04 0104 2150 Senna 187 MG AT BEDTIME NEED.. 03/03 1100 AC 03/03 PO 1426 Vital Signs & I&O Last 24 Hrs of Vitals and I&O: Vital Signs Date Time Temp Pulse Resp B/P B/P Pulse O2 O2 Flow FiO2 Mean Ox Delivery Rate 03/04 0800 99.1 130 20 136/76 05/ 0800 99.1 130 20 136/76 97 Room Air 03/04 0600 100.1 126 18 129/74 / 0400 Room Air 03/04 0400 100.1 132 14 126/74 / 0200 100.3 122 18 116/74 / 0144 100.3 154 28 153/81 05 0000 Room Air 03/04 0000 100.3 114 20 124/82 05 0000 100.3 116 20 124/82 98 Room Air 03/03 2200 99.1 124 18 123/80 03/03 2000 99.1 116 20 130/80 05 2000 98 Room Air 03/03 1800 110 22 133/80 05 1600 100.2 122 16 136/86 03/03 1600 95 Nasal 2.0L Cannula 03/03 1600 100.2 122 16 140/78 95 Nasal 2.0L Cannula 03/03 9580 287 2945/96 03/03 1400 130 22 134/95 03/03 1300 130 18 149/104 03/03 1200 99.6 128 20 139/85 03/03 1200 97 Nasal 2.0L Cannula 03/03 1100 99.6 144 18 155/97 03/03 1000 126 22 156/100 Intake & Output 03/04 1600 03/04 0800 03/04 0000 Intake Total 1800 1265 Output Total 400 950 Balance 1400 315 Intake, IV 1800 1145 Intake, Oral 120 Number 2 1 Bowel Movements Output, Urine 400 950 Impression/Plan Impression/Plan Impression/Plan: This is a gentleman who is admitted to the ICU since last night with severe pancreatitis, significant alcoholism, cigarette smoker, previous history of multiple alcohol abuse, significant hypertriglyceridemia. Patient has been treated with intravenous insulin and D5 and subsequently plasma apheresis and his triglyceridemia is much better. His hypocalcemia is improving Issues include Significant pancreatitis with probable early necrosis, [place]'s criteria 1 elevated LDH upon admission Resolved Severe hypertriglyceridemia s/p apheresis, and now better Significant alcoholism pending DTs Alcoholic hepatitis probably with elevated bilirubin and altered LFTs Hypocalcemia being replaced now improving Fatty liver Probable malnutrition from severe alcoholism RECOMMENDATION Reduce ivf to 75 cc per hour Cont calcitriol per endo Cont chlordiazepoxide today Lasix 20 mg iv now Check lytes this pm and replace potassium to 4.5 Po kcl today Po neutraphos 2 packets today start metoprolol 12.5 mg bid po and can increase to 25 bid Check tsh and free t4 [place] protocol Po thiamine DVT prophylaxis IV mag one gram Hypocalcemia management per endocrine Intravenous PPI When necessary morphine Watch for fluid overload and ARDS Can hold miralax and cont kaylynn and docusate if needed Patient is critically ill, tts 36 mins Pt counselled Can kiah bell
--- NOTE | 2018-03-04 13:17 | PN- Gastroenterology ---
Assessment/Plan GI Assessment/Recommendations: 32 y/o male, non-HTN, non-DM, unaware of prior hx HLD (*subsequent admission 08/10: TG > 10.5K), 15 pk yr cigarette smoker, no illicit drugs or IVDA (except occasional cannabis), with long hx EtOH ("> 6 beers daily & occ shot of whiskey "), last drank 1 a.m. on 03/02/18, without known prior hx pancreatitis, PUD, or GBD (GB intact- no prior abdominal surgery except remote left groin hernia repair as child), who presented to the [facility] 03/02/18 at 7:46 a.m., c/o diffuse left-sided abdominal pain for 3 days with nausea and vomiting, contents bilious. There was no hematemesis. He had mild GERD, without odynophagia or dysphagia. His stools were dark. He denied any rectal bleeding. There was minimal diarrhea, but no constipation, obstipation, or tenesmus. LBM on day of admission. He reportedly had OB+ stool on digital exam in the ER. Upon arrival, BP 140/91, P126, R 18, T 98.8 (Tm 99.2 in ER), O2 sat RA 95%. There was no positional component to his symptoms. There was perhaps minimal jaundice. His urine was slightly dark. He denied any light stools or pruritus. He had decreased po intake x 2d [employer]. He denied any chest pain or shortness of breath. There was some mild WARNER. He denied any history of DTs, seizures, or EtOH withdrawal. He denied any abdominal trauma, rash, or confusion. He denied any FHx GI Ca, GBD, PUD, inherited pancreatitis, additional GI disease, or inherited liver disease. He was not on any ASA, NSAIDS, Sulfa meds or thiazides. He denied any outpt rx meds, herbal meds, or OTC meds. 01/02/18: EGD per Dr. Lea for scant hematemesis- mild gastritis, duodenitis, with bxs: mild CAG/CFG. HP-neg. (The patient denied ever coming to the office for GI follow-up). He had never had a colonoscopy. The patient was given IV NS, MS, Dilaudid, f/b Ringer's Lactate in the ER (exact amount to be calculated-> reportedly + 5-6L overnight). His serum was lipemic. He was initially admitted to telemetry, but in view of multiple metabolic derangements, markedly elevated triglycerides, hypoCa2+, etc. he was transferred to the ICU for insulin drip, calcium gluconate infusion, and closer monitoring. Apparently, GI was called for an elective consult late in the afternoon on 03/02, but the GI service was never notifiied that the patient was transferred to the ICU. The patient was seen by critical care & endocrine. He is awaiting placement of additional lines & probable aphoresis for tx of his marked elevated TG. As of 03/03/18, the patient's abdominal pain was about the same. He had received narcotic analgesics a little over one hour prior to my initial exam. He was essentially NPO xc ice chips. He looked better clinically than his labs did. 03/02/18: 08:52- Admission labs- WBC 7.7 71S/24L/5M), H/H 13.7/37.5, MCV 101.3, RDW 15, PLT 141, glu 107, BUN/Cr 11/0.7, GFR > 60, Na 132, K 4.1, HCO3 18, AG 17 , lactate 3.2-> 2.3, amylase 58, lipase 1184, *Ca 5.7, albumin 2.8, globulin 3.8 , *TG > 10,500, TBil 3.4 (w/o fracs), *alk phos 881, AST 112, ALT 66, *[EtOH] 310 (*unable to do PT/PTT due to gross lipemia). 03/02/18: U/A- hazy, yellow, 1.010, 6.0, rare RBC, rare WBC, 1-3 gran casts, few bact, few epith mod amorph, + icto, 1.0 urobil 1.0, neg nitirite, neg esterase 03/02/18: Utox: + cannabis > 80. 03/02/18: 16:07- glu 76, BUN/Cr 10/0.6, GFR > 60, Na 131, K 4.3, HCO3 19, amylase 64, lipase 1409, *Ca 5.2, TG 8970, *LDH 885, PTH 165.1, Vit D 25OH < 4.2 03/02/18: 21:00- glu 77, BUN/Cr 8/0.5, GFR > 60, Na 133, K 4.0, HCO3 15, AG 18, amylase 633, lipase 1323, Mg 1.1, Ca 5.2, TG 9397 03/03/18: 05:46- WBC 4.2 (70S/13B/14L/3M), H/H 9.9/29.6, MCV 101.2, RDW 15.2, PLT 105, glu 155, BUN/Cr 6/0.5, GFR > 60, Na 127, K 3.6, HCO3 17, AG 13, Mg 1.9, *Ca 5.4, PO4 2.5, alb 2.3, TG 7991, TBil 3.8 (w/o fracs), AST 84, AST 36. 03/02/18: EKG- NSR @ 86, nl axis, nl int, flipped T in V1V2. 03/02/18: XRY-PORTABLE CHEST XRAY- No acute disease. No change. No effusion. Post C-fusion. 03/02/18: CT ABD & PELVIS W IV CONTRAST- 1. Diffuse fatty infiltration of the liver. No focal hepatic defect. No biliary tract disease. Normal GB. 2. Acute pancreatitis associated with pancreatic enzymes/effusions primarily localized to the left anterior pararenal space. Secondary effects of the transverse colon and duodenum are appreciated. 3. Focal 1 cm area of nonenhancement at the junction of the neck and body the pancreas could well represent early pancreatic necrosis. DICTATED BY: Balta Madrigal MD (*I personally reviewed the CT with Dr. Goldman, of [facility], on & a clinical/radiographic decision was made to defer needle aspirate of the focal region by IR for now to rule out infected necrosis, with consideration for repeat CT in short interval follow-up, depending on clinical course). *As of 03/03/18, the patient looked better clinically than his labs did. His pancreatitis was undoubtedly from his markedly elevated TG (> 10.5K on 03/02/18: admission labs), superimposed on EtOH (actively drinking up until admission) & cigarette smoking. His LFTs were somewhat atypical for fatty liver, with a markedly elevated alkaline phosphatase. The gallbladder appeared normal on CT. There was a 1 cm region at the body/neck of pancreas that was suspicious for possible necrosis. He was somewhat malnourished. Although the liver did not look cirrhotic on CT, he had thrombocytopenia and reversal of albumin:globulin ratio, which could imply cirrhosis. His pancytopenia was probably secondary to bone marrow suppression from EtOH. He reportedly had dark, OB positive stool in the ER, it was not actively bleeding. He remotely had HP-negative gastritis on 01/02/10: EGD per Dr. Lea, without any varices or portal gastropathy then. On admission, 1 grave sign by [place] criteria (elevated LDH) & 1 grave sign by BiSAP criteria (+SIRS). There were no pleural effusions. 03/03/18: XRY-PORTABLE CHEST XRAY- Right-sided PICC terminates in the distal SVC in satisfactory position. Spinal fusion hardware in the lower cervical & upper thoracic spine. 03/03/18: ULTRASOUND AND FLUOROSCOPICALLY GUIDED RIGHT INTERNAL JUGULAR VEIN TEMPORARY HEMODIALYSIS CATHETER PLACEMENT- Successful placement of temporary hemodialysis catheter via the right internal jugular vein. Catheter ready to use at this time. 03/04/18: *US-LIMITED (RUQ) ABDOMEN- 1. The pancreas is obscured and not assessed. 2. Stable appearance of hepatic steatosis. No focal hepatic lesion. 3. No cholelithiasis. Normal GB. CBD 3 mm. No free fluid. 03/03/18: 1520: *Hep A Ab, Hep Bs Ag, Hep C Ab, & Hep B core Ab- all neg; *HIV- neg; TBil 4.7, DBil 3.6, alk phos 585, troponin .02, *CRP 4.4, Fe 74, TIBC 106, *Fe sat 69.8%, *ferritin > 1000 (? acute phase rx/EtOH > HHC), B12 965 03/03/18: *MONIQUE, AMA, ceruloplasmin, A1AT, 5'NTD, RBC folate, MMA- all pending. 03/03/18: glu 129, BUN/Cr 3/0.5, GFR > 60, Na 135, K 3.7, HCO3 20, AG 10, Mg 1.7 , Ca 8.0, *PO4 1.8, alb 3.4, TG 394, TBil 2.9, AST 22, ALT 22 03/03/18: PT 11.4, INR 1.05, PTT 63 (*serum still lipemic then) 03/04/18: 0350: WBC 4.9, H/H 8.5/25.4, MCV 102.1, RDW 15.8, PLT 54, glu 120, BUN /Cr < 2/0.5, GFR > 60, Na 135, K 4.0, HCO3 21, AG 8, Mg 1.7, Ca 7.7, PO4 1.5, alb 2.9, *TG 387, TBil 4.4 (*w/o fracs), AST 56, ALT 34, *CRP 7.5 *As of 03/04/18, the patient was seen by numerous consultants, including ICU, nephrology & endocrine. He had an urgent placement of dialysis/pheresis catheter by IR on 03/03/18. *Lipid pheresis was performed 03/03/18, with marked improvement in triglyceride levels, down to 387, from > 10.5K!! The patient remained in the ICU. Right neck Cuong catheter is to be D/C. His calcium, phosphorus, magnesium, insulin drip & glucose were monitored by endocrine & the ICU team. He was rxd Calcitriol. His fluid balance was + > 3L. There was no evidence of hemoconcentration. His anemia was multifactorial & in part, dilutional. His IVF were switched to D5 Lactated Ringers at 75 cc/hr. He did get Lasix prn. The IV banana bag was switched to po folate & thiamine. His insulin drip was DC'd. Toprol was added for tachycardia. He was awaiting an echocardiogram. At present, BP 138/82, P 122, R 20, T 99.3 (Tm 100.3), O2 sat RA 97%. He was mildly jaundiced. His abdominal pain was improved. He denied any nausea or vomiting, and was hungry. He was on ice chips, but was otherwise NPO. He had a BM today. He denied any fevers or chills. He had a mild cough. He denied any CP or SOB, but had mild WARNER. There was no overt GI bleeding, hematemesis, or melena. He noted minimal confusion, but was A & O x 3. *SUGGEST: NPO for now xc ice chips. Follow-up with endocrine, renal (post lipid pheresis) & ICU. Strict I/O's. Calcitriol & elctrolyte management per endocrine. Replete other lytes (i.e.- Mg). Current IVF: D5RL @ 75 cc/hr. Await echocardiogram (r/o EtOH cardiomyopathy)-> Toprol rx for tachycardia. O2 prn. Thiamine 100 mg po daily & folate. CIWA protocol. Watch for impending DTs. Ativan as needed. Eventual tx of hyperTG with Lopid, etc, per endocrine, when po intake resumes. Eventual Vit E 800 IU po daily. Unless patient's clinical status changes, would wait until tomorrow for repeat CT abdomen with pancreatic protocol to reassess area suspicious for necrosis (*depending on clinical course, may need needle aspirate by IR to r/o infxd necrosis). DVT prophylaxis. Continue to watch for hemoconcentration (i.e.- rising Hgb or BUN, despite IVF), which would be a poor prognostic sign. However, the pancytopenia is probably multifactorial (i.e.- EtOH effects on BM, malnutrition, dilutional, etc.). Consider DIC panel. Zofran as needed. Narcotic analgesics as needed. Defer PPI for now, with low Mg. No plans for endoscopic workup of OB positive stool at present, unless patient actively bleeds (multifactorial anemia & EtOH BM suppression), but the patient was given my office number for potential outpt EGD & possible colonoscopy. Await 5'NTD, MONIQUE, AMA, A1AT, ceruloplasmin, RBC folate, & MMA. *Elevated Fe sat/ ferritin probably acute phase rx, but *consider genetic markers for HHC. The patient & his fiancee were told on 03/04/18 that further alcohol abuse could result in his . They were made aware of the fact that he was critically ill. Advise psych & SW input. Further tx per ICU team.The above was discussed with the medical house staff & with Dr. Rizvi. Further GI recommendations to follow, depending on clinical course. 30 minutes of ICU care was spent on the patient. Problem List: 1. Acute pancreatitis 2. ETOH abuse 3. Hypertriglyceridemia 4. Hypocalcemia 5. Abnormal LFTs 6. Malnutrition 7. Fatty liver 8. Guaiac positive stools 9. Pancytopenia 10. Alcoholic hepatitis Subjective Subjective: 03/03/18: XRY-PORTABLE CHEST XRAY- Right-sided PICC terminates in the distal SVC in satisfactory position. Spinal fusion hardware in the lower cervical & upper thoracic spine. 03/03/18: ULTRASOUND AND FLUOROSCOPICALLY GUIDED RIGHT INTERNAL JUGULAR VEIN TEMPORARY HEMODIALYSIS CATHETER PLACEMENT- Successful placement of temporary hemodialysis catheter via the right internal jugular vein. Catheter ready to use at this time. 03/04/18: *US-LIMITED (RUQ) ABDOMEN- 1. The pancreas is obscured and not assessed. 2. Stable appearance of hepatic steatosis. No focal hepatic lesion. 3. No cholelithiasis. Normal GB. CBD 3 mm. No free fluid. 03/03/18: 1520: *Hep A Ab, Hep Bs Ag, Hep C Ab, & Hep B core Ab- all neg; *HIV- neg; TBil 4.7, DBil 3.6, alk phos 585, troponin .02, *CRP 4.4, Fe 74, TIBC 106, *Fe sat 69.8%, *ferritin > 1000 (? acute phase rx/EtOH > HHC), B12 965 03/03/18: *MONIQUE, AMA, ceruloplasmin, A1AT, 5'NTD, RBC folate, MMA- all pending. 03/03/18: glu 129, BUN/Cr 3/0.5, GFR > 60, Na 135, K 3.7, HCO3 20, AG 10, Mg 1.7 , Ca 8.0, *PO4 1.8, alb 3.4, TG 394, TBil 2.9, AST 22, ALT 22 03/03/18: PT 11.4, INR 1.05, PTT 63 (*serum still lipemic then) 03/04/18: 0350: WBC 4.9, H/H 8.5/25.4, MCV 102.1, RDW 15.8, PLT 54, glu 120, BUN /Cr < 2/0.5, GFR > 60, Na 135, K 4.0, HCO3 21, AG 8, Mg 1.7, Ca 7.7, PO4 1.5, alb 2.9, *TG 387, TBil 4.4 (*w/o fracs), AST 56, ALT 34, *CRP 7.5 *As of 03/04/18, the patient was seen by numerous consultants, including ICU, nephrology & endocrine. He had an urgent placement of dialysis/pheresis catheter by IR on 03/03/18. *Lipid pheresis was performed 03/03/18, with marked improvement in triglyceride levels, down to 387, from > 10.5K!! The patient remained in the ICU. Right neck Cuong catheter is to be D/C. His calcium, phosphorus, magnesium, insulin drip & glucose were monitored by endocrine & the ICU team. He was rxd Calcitriol. His fluid balance was + > 3L. There was no evidence of hemoconcentration. His anemia was multifactorial & in part, dilutional. His IVF were switched to D5 Lactated Ringers at 75 cc/hr. He did get Lasix prn. The IV banana bag was switched to po folate & thiamine. His insulin drip was DC'd. Toprol was added for tachycardia. He was awaiting an echocardiogram. At present, BP 138/82, P 122, R 20, T 99.3 (Tm 100.3), O2 sat RA 97%. He was mildly jaundiced. His abdominal pain was improved. He denied any nausea or vomiting, and was hungry. He was on ice chips, but was otherwise NPO. He had a BM today. He denied any fevers or chills. He had a mild cough. He denied any CP or SOB, but had mild WARNER. There was no overt GI bleeding, hematemesis, or melena. He noted minimal confusion, but was A & O x 3. Review of Systems: Full 14 point review of systems otherwise noncontributory, and as above. Review of Systems Constitutional: Denies: chills, diaphoresis, fever, malaise, weakness, unexplained weight loss. EENTM: Reports: icterus. Denies: blurred vision, double vision, visual changes, eye pain, eye drainage, eye tearing, ear discharge, ear pain, ear redness, hearing changes, nasal congestion, epistaxis, nasal pain, throat pain, throat swelling, mouth pain, tooth pain. Cardiovascular: Denies: chest pain, edema, orthopena, palpitations, peripheral edema, syncope. Respiratory: Reports: short of breath (minimal WARNER), mild dry cough. Denies: hemoptysis, orthopnea, sputum production, stridor, wheezing. GI: Reports: abdominal pain-> improving, melena-> resolved (possible-> OB+ in ER), nausea & vomiting-> resolved. Denies: bloating, constipation, diarrhea, distention, bowel incontinence, bloody stool, changes in stool, steatorrhea. Genitourinary: Denies: discharge, dysuria, frequency, hematuria, hesitation, nocturia, pain, urgency. Musculoskeletal: Reports: chronic neck pain (chronic post C-spine fusion). Denies: back pain, gout, joint pain, joint swelling, muscle pain, muscle stiffness. Skin: Reports: jaundice (minimal). Denies: cysts, change in skin color, change in hair/nails, dryness, erythema, lesions, lymphangitis, lumps, moles, rash. Neurological/Psychological: Denies: anxiety, ataxia, cognitive dysfunction, confusion, depressed, dementia, emotional problems, headache, numbness, paresthesia, pre-existing deficit, petit mal seizures, tingling, tremors, tonic-clonic seizures, unable to move lower ext , unable to move upper ext, weakness. Hematologic/Endocrine: Denies: bruising, bleeding, polyuria, polydipsia. Immunologic/Allergic: Denies: splenectomy, HIV/AIDS, lymphadenopathy. All Other Systems: Reviewed and Negative Objective Vital Signs and I&Os Vital Signs Date Time Temp Pulse Resp B/P B/P Pulse O2 O2 Flow FiO2 Mean Ox Delivery Rate 03/04 1147 99.3 122 20 138/82 03/04 1127 118 138/90 03/04 0800 99.1 130 20 136/76 05/ 0800 99.1 130 20 136/76 97 Room Air 03/04 0600 100.1 126 18 129/74 / 0400 Room Air 03/04 0400 100.1 132 14 126/74 03/04 0200 100.3 122 18 116/74 03/04 0144 100.3 154 28 153/81 05/ 0000 Room Air 03/04 0000 100.3 114 20 124/82 / 0000 100.3 116 20 124/82 98 Room Air 03/03 2200 99.1 124 18 123/80 03/03 2000 99.1 116 20 130/80 05/11 2000 98 Room Air 03/03 1800 110 22 133/80 03/03 1600 100.2 122 16 136/86 03/03 1600 95 Nasal 2.0L Cannula 03/03 1600 100.2 122 16 140/78 95 Nasal 2.0L Cannula 03/03 0177 352 2779/96 03/03 1400 130 22 134/95 03/03 1300 130 18 149/104 Intake & Output 03/04 0400 03/03 0400 03/02 0400 Intake Total 1800 1265 3162 1200 2000 Output Total 400 950 650 200 Balance 0524 210 7483 1000 1999 Intake, IV 1800 1145 3042 1200 1999 Intake, Oral 120 120 Number 2 1 1 Bowel Movements Output, Urine 400 950 650 200 Patient 141 lb 144 lb 120 lb Weight Weight Bed scale Bed scale Reported by Patient Measurement Method Physical Exam: Well-developed, well-nourished, thin male, in no apparent distress. Sclera mildly icteric. Conjunctiva pink. Oropharynx clear. No oral thrush. No aphthous ulcers. Dry mucus membranes. There is no adenopathy, thyromegaly, JVD, or HJR. Cuong cath site right neck-> clean. No peripheral stigmata of inflammatory bowel disease or chronic liver disease on exam. No spiders on the anterior chest wall. No gynecomastia. No CVA tenderness. No spine tenderness, except mild chronic tenderness post C-spine fusion (post scar) Lungs: clear to A&P. No wheezing, rales, or rhonchi. Heart exam: regular rate rhythm, S1 and S2, without any murmur. Abdominal exam: hypoactive bowel sounds, mildly distended belly, mild L-mid/epigastric tenderness, without guarding or rebound. No mass. No organomegaly. No fluid shift. No pulsatile mass. No epigastric bruit. Digital rectal exam: reportedly OB+ in ER 03/02/18 (repeat digital exam deferred by pt). Extremities: without C, C, or E. No palpable cords. Multiple tattoos. No rash. No acute arthropathy. Distal pulses 2+ bilaterally. DTRs 2+ bilaterally. No palmar erythema. No Duuytren's contractures. Alert and oriented x 3. Motor 5/5 B/L. No tremor. No asterixis. Current Medications: Current Medications Sig/Madelin Start time Last Medication Dose Route Stop Time Status Admin Albumin Human 200 GM ONCE ONE 03/03 1430 DC 03/03 IV 03/03 1431 1820 Calcitriol 0.25 MCG BID 03/04 0900 AC IV Calcitriol 0.5 MCG BID 03/02 2100 DC 03/04 IV 0846 Calcium Gluconate 8 GM ONCE ONE 03/03 1430 DC 03/03 Sodium Chloride 170 ML IV 03/03 1431 1820 Calcium Gluconate 5 GM ONCE ONE 03/03 0715 LA 03/03 Sodium Chloride 450 ML IV 03/03 2354 0747 Chlordiazepoxide HCl 25 MG TID 03/03 1000 03/04 PO 0846 Dextrose/Lactated 1,000 ML Q13H 03/04 1100 AC 03/04 Ringer's IV 1128 Dextrose/Lactated 1,000 ML Q6H 03/02 2345 LA 03/04 Ringer's IV 0848 Docusate Sodium 100 MG DAILY NEEDED PRN 03/03 1100 PO Folic Acid 1 MG DAILY 03/04 1058 03/04 PO 1127 Furosemide 20 MG ONCE ONE 03/04 1100 DC 03/04 IV 03/04 1101 1126 Furosemide 10 MG ONCE ONE 03/03 1415 DC 03/03 IV 03/03 1416 1425 Heparin Sodium 5,000 UNIT Q8 03/02 2200 03/03 (Porcine) SC 2126 Insulin Human Regular 100 UNIT Q24H 03/03 0100 LA 03/03 Sodium Chloride 100 ML IV 0123 Lactated Ringer's 1,000 ML .Q5H 03/02 1700 LA 03/02 IV 2000 Lorazepam 0 Q1P PRN 03/02 1700 03/04 IV 1143 Magnesium Sulfate 1 GM ONCE ONE 03/04 1115 03/04 Dextrose/Water 100 ML IV 03/04 1514 1127 Magnesium Sulfate 1 GM ONCE ONE 03/03 1245 LA 03/03 Dextrose/Water 100 ML IV 03/03 1644 1425 Metoprolol Tartrate 12.5 MG BID 03/04 1056 03/04 PO 1127 Metoprolol Tartrate 5 MG ONCE ONE 03/03 1530 DC 03/03 IV 03/03 1531 1535 Morphine Sulfate 2 MG Q4P PRN 03/02 1600 03/04 IV 1143 Pantoprazole Sodium 40 MG DAILY 03/04 1055 AC 03/04 IV 1127 Phosphate 250 MG PC AND AT BEDTIME 03/04 1300 AC PO 03/04 210 Polyethylene Glycol 17 GM DAILY NEEDED PRN 03/03 1100 DC 03/03 PO 1425 Potassium Chloride 20 MEQ ONCE ONE 03/04 1115 DC 03/04 PO 03/04 111 1127 Potassium Chloride 40 MEQ ONCE ONE 03/03 1445 DC 03/03 PO 03/03 1446 1755 Potassium Phosphate 15 mMol ONE ONE 03/03 2100 DC 03/03 Dextrose/Water 250 ML IV 03/04 0104 2150 Senna 187 MG AT BEDTIME NEED.. 03/03 1100 AC 03/03 PO 1426 Thiamine HCl 100 MG DAILY 03/04 1058 AC 03/04 PO 1127 Results Pertinent Lab Results: Laboratory Tests 03/04 03/03 03/03 0350 1828 1828 Chemistry Sodium (137 - 145 mmol/L) 135 L 135 L Potassium (3.5 - 5.1 mmol/L) 4.0 3.7 Chloride (98 - 107 mmol/L) 105 105 Carbon Dioxide (22 - 30 mmol/L) 21 L 20 L Anion Gap (5 - 16) 8 10 BUN (9 - 20 mg/dL) < 2 L 3 L Creatinine (0.7 - 1.2 mg/dL) 0.5 L 0.5 L Estimated GFR (>60 ml/min) > 60 > 60 Glucose (65 - 99 mg/dL) 120 H 129 H Calcium (8.4 - 10.2 mg/dL) 7.7 L 8.0 L Phosphorus (2.5 - 4.5 mg/dL) 1.5 L 1.8 L Magnesium (1.6 - 2.3 mg/dL) 1.7 1.7 Total Bilirubin (0.2 - 1.3 mg/dL) 4.4 H 2.9 H AST (17 - 59 U/L) 56 22 ALT (21 - 72 U/L) 34 22 Troponin I (<0.11 ng/ml) 0.02 C-Reactive Prot, Quant (<1.0 mg/dL) 7.5 H C-React Prot High Sens (1.0 - 3.0 mg/L) Albumin (3.5 - 5.0 g/dL) 2.9 L 3.4 L Triglycerides (<150 mg/dL) 387 H 394 H Hematology CBC w Diff NO MAN DIFF REQ WBC (4.8 - 10.8 /CUMM) 4.9 RBC (4.70 - 6.10 /CUMM) 2.48 L Hgb (14.0 - 18.0 G/DL) 8.5 L Hct (42 - 52 %) 25.4 L MCV (80.0 - 94.0 FL) 102.1 H MCH (27.0 - 31.0 PG) 34.3 H MCHC (33.0 - 37.0 G/DL) 33.6 RDW (11.5 - 14.5 %) 15.8 H Plt Count (130 - 400 /CUMM) 54 L MPV (7.4 - 10.4 FL) 9.9 Gran % (42.2 - 75.2 %) 78.4 H Lymphocytes % (20.5 - 51.1 %) 16.6 L Monocytes % (1.7 - 9.3 %) 3.2 Eosinophils % (0 - 5 %) 1.3 Basophils % (0.0 - 2.0 %) 0.5 Absolute Granulocytes (1.4 - 6.5 /CUMM) 3.9 Absolute Lymphocytes (1.2 - 3.4 /CUMM) 0.8 L Absolute Monocytes (0.10 - 0.60 /CUMM) 0.2 Absolute Eosinophils (0.0 - 0.7 /CUMM) 0.1 Absolute Basophils (0.0 - 0.2 /CUMM) 0 03/03 03/03 03/03 1800 1520 1520 Chemistry Iron (49 - 181 ug/dL) 74 TIBC (261 - 462 ug/dL) 106 L Ferritin (17.9 - 464 ng/mL) > 1000.0 H Total Bilirubin (0.2 - 1.3 mg/dL) 4.7 H Direct Bilirubin (< 0.4 mg/dL) 3.6 H Alkaline Phosphatase (< 127 U/L) 585 H C-Reactive Prot, Quant (<1.0 mg/dL) 4.4 H C-React Prot High Sens (1.0 - 3.0 mg/L) > 15.0 H [id number] Pending Ceruloplasmin Pending Triglycerides Cancelled 5'-Nucleotidase Pending Vitamin B12 (239 - 931 pg/mL) 965 H Methylmalonic Acid Pending RBC Folate Pending Immunology MONIQUE Titer Pending Anti-Nuclear Antibody Pending Anti-Mitochondrial Ab Pending Serology Hepatitis A IgM Ab (NONREACTIVE) NONREACTIVE Hep Bs Antigen (NONREACTIVE) NONREACTIVE Hep B Core IgM Ab Conf (NONREACTIVE) NONREACTIVE Hepatitis C Antibody (NONREACTIVE) NONREACTIVE HIV 1&2 Ab Western Blot (NONREACTIVE) NONREACTIVE 03/03 03/03 03/03 03/03 03/03 1257 1206 1206 1053 0940 Chemistry Lactic Acid (0.7 - 2.1 mmol/L) 1.5 3.0 H Calcium (8.4 - 10.2 mg/dL) 5.6 *L Triglycerides (<150 mg/dL) 6209 H Coagulation PT (9.4 - 12.5 SEC) 11.4 INR (0.90 - 1.17) 1.05 APTT (25 - 37 SEC) Cancelled 63 H 03/03 03/03 03/03 0940 0600 0546 Chemistry Lactic Acid (0.7 - 2.1 mmol/L) 2.5 H Calcium (8.4 - 10.2 mg/dL) 5.5 *L Cancelled Magnesium Cancelled Hematology CBC w Diff Cancelled WBC Cancelled RBC Cancelled Hgb Cancelled Hct Cancelled MCV Cancelled MCH Cancelled MCHC Cancelled RDW Cancelled Plt Count Cancelled MPV Cancelled 03/03 03/03 03/03 0546 0043 0032 Chemistry Sodium (137 - 145 mmol/L) 127 L Potassium (3.5 - 5.1 mmol/L) 3.6 Chloride (98 - 107 mmol/L) 98 Carbon Dioxide (22 - 30 mmol/L) 17 L Anion Gap (5 - 16) 13 BUN (9 - 20 mg/dL) 6 L Creatinine (0.7 - 1.2 mg/dL) 0.5 L Estimated GFR (>60 ml/min) > 60 Glucose (65 - 99 mg/dL) 155 H Lactic Acid (0.7 - 2.1 mmol/L) 2.5 H Calcium (8.4 - 10.2 mg/dL) 5.4 *L Cancelled Phosphorus (2.5 - 4.5 mg/dL) 2.5 Magnesium (1.6 - 2.3 mg/dL) 1.9 Total Bilirubin (0.2 - 1.3 mg/dL) 3.8 H AST (17 - 59 U/L) 84 H ALT (21 - 72 U/L) 36 Albumin (3.5 - 5.0 g/dL) 2.3 L Triglycerides (<150 mg/dL) 7991 H Hematology CBC w Diff MAN DIFF ORDERED WBC (4.8 - 10.8 /CUMM) 4.2 L RBC (4.70 - 6.10 /CUMM) 2.93 L Hgb (14.0 - 18.0 G/DL) 9.9 L Hct (42 - 52 %) 29.6 L MCV (80.0 - 94.0 FL) 101.2 H MCH (27.0 - 31.0 PG) 33.5 H MCHC (33.0 - 37.0 G/DL) 33.2 RDW (11.5 - 14.5 %) 15.2 H Plt Count (130 - 400 /CUMM) 105 L MPV (7.4 - 10.4 FL) 7.8 Segmented Neutrophils (42.2 - 75.2 %) 70 Band Neutrophils (0.0 - 5.0 %) 13 H Lymphocytes (20.5 - 51.1 %) 14 L Monocytes (1.7 - 9.3 %) 3 Platelet Estimate (ADEQUATE) ADEQUATE Polychromasia 1+ Anisocytosis 1+ Macrocytic Cells 1+ Ovalocytes FEW Other Body Source Fld Total RBCs Counted (%) 100 03/03 03/02 03/02 03/02 03/02 0032 2100 2100 1607 1557 Chemistry Sodium (137 - 145 mmol/L) 133 L 131 L Potassium (3.5 - 5.1 mmol/L) 4.0 4.3 Chloride (98 - 107 mmol/L) 100 99 Carbon Dioxide (22 - 30 mmol/L) 15 L 19 L Anion Gap (5 - 16) 18 H 13 BUN (9 - 20 mg/dL) 8 L 10 Creatinine (0.7 - 1.2 mg/dL) 0.5 L 0.6 L Estimated GFR (>60 ml/min) > 60 > 60 BUN/Creatinine Ratio (7 - 25 %) 16.0 16.7 Glucose (65 - 99 mg/dL) 77 76 Lactic Acid (0.7 - 2.1 mmol/L) 3.0 H Calcium (8.4 - 10.2 mg/dL) 5.2 *L 5.2 *L 5.2 *L Ionized Calcium Pending Magnesium (1.6 - 2.3 mg/dL) 1.1 L Lactate Dehydrogenase (313 - 618 U/L) 885 H Triglycerides (<150 mg/dL) 9397 H 8970 H Amylase (30 - 110 U/L) 633 H 64 Lipase (23 - 300 U/L) 1323 H 1409 H 25-OH Vitamin D Total (30 - 100 ng/ml) < 4.2 L PTH Intact (18.4 - 80.1 pg/ML) 165.1 H 03/02 03/02 1204 1142 Chemistry Lactic Acid (0.7 - 2.1 mmol/L) 2.3 H Toxicology Urine Opiates Screen (>2000 NG/ML) 753.00 Methadone Screen (>300 NG/ML) < 40 Barbiturate Screen (>200 NG/ML) < 60 Ur Phencyclidine Scrn (>25 NG/ML) < 6.00 Amphetamines Screen (>1000 NG/ML) < 100 U Benzodiazepines Scrn (>200 NG/ML) < 85 Urine Cocaine Screen (>300 NG/ML) < 50 Urine Cannabis Screen (>50 NG/ML) > 80.00 H Urines Urinalysis MOD H Urine Color (YEL,AMB,STR) YEL Urine Clarity (CLEAR) HAZY H Urine pH (5.0 - 8.0) 6.0 Ur Specific [place] (1.001 - 1.035) 1.010 Urine Protein (NEG,<30 MG/DL) TRACE H Urine Ketones (NEG) NEG Urine Nitrite (NEG) NEG Urine Bilirubin (NEG) POS@ICTO H Urine Urobilinogen (0.1 - 1.0 EU/dl) 1.0 Ur Leukocyte Esterase (NEG) NEG Ur Microscopic SEDIMENT EXAMINED Urine RBC (0 - 5 /HPF) RARE Urine WBC (0 - 2 /HPF) RARE Ur Epithelial Cells (NONE,FEW) FEW Urine Bacteria (NEG/NONE) FEW H Granular Casts (NONE /LPF) 1-3 H Urine Mucus (FEW,NONE) FEW Urine Hemoglobin (NEG) NEG Urine Glucose (N MG/DL) NEG 03/02 03/02 0852 0829 Chemistry Sodium (137 - 145 mmol/L) 132 L Potassium (3.5 - 5.1 mmol/L) 4.1 Chloride (98 - 107 mmol/L) 97 L Carbon Dioxide (22 - 30 mmol/L) 18 L Anion Gap (5 - 16) 17 H BUN (9 - 20 mg/dL) 11 Creatinine (0.7 - 1.2 mg/dL) 0.7 Estimated GFR (>60 ml/min) > 60 BUN/Creatinine Ratio (7 - 25 %) 15.7 Glucose (65 - 99 mg/dL) 107 H Lactic Acid (0.7 - 2.1 mmol/L) 3.2 H Calcium (8.4 - 10.2 mg/dL) 5.7 *L Total Bilirubin (0.2 - 1.3 mg/dL) 3.4 H AST (17 - 59 U/L) 112 H ALT (21 - 72 U/L) 66 Alkaline Phosphatase (< 127 U/L) 881 H Total Protein (6.3 - 8.2 g/dL) 6.6 Albumin (3.5 - 5.0 g/dL) 2.8 L Globulin (1.9 - 4.2 gm/dL) 3.8 Albumin/Globulin Ratio (1.1 - 2.2 %) 0.7 L Triglycerides (<150 mg/dL) > 12167 H Amylase (30 - 110 U/L) 58 Lipase (23 - 300 U/L) 1184 H Coagulation PT Cancelled INR Cancelled APTT Cancelled Hematology CBC w Diff MAN DIFF ORDERED WBC (4.8 - 10.8 /CUMM) 7.7 RBC (4.70 - 6.10 /CUMM) 3.70 L Hgb (14.0 - 18.0 G/DL) 13.7 L Hct (42 - 52 %) 37.5 L MCV (80.0 - 94.0 FL) 101.3 H MCH (27.0 - 31.0 PG) 35.0 H MCHC (33.0 - 37.0 G/DL) 34.8 RDW (11.5 - 14.5 %) 15.0 H Plt Count (130 - 400 /CUMM) 141 MPV (7.4 - 10.4 FL) 7.5 Segmented Neutrophils (42.2 - 75.2 %) 71 Lymphocytes (20.5 - 51.1 %) 24 Monocytes (1.7 - 9.3 %) 5 Platelet Estimate (ADEQUATE) VERIFIED BY SMEAR Hypochromic-Microcytic 1+ Poikilocytosis 1+ Anisocytosis 1+ Macrocytic Cells 1+ Target Cells FEW Toxicology Serum Alcohol (<10 MG/DL) 310.0 Cancelled Imaging/Other Studies: 03/02/18: EKG- NSR @ 86, nl axis, nl int, flipped T in V1V2. 03/02/18: XRY-PORTABLE CHEST XRAY- No acute disease. No change. No effusion. Post C-fusion. 03/02/18: CT ABD & PELVIS W IV CONTRAST- 1. Diffuse fatty infiltration of the liver. No focal hepatic defect. No biliary tract disease. Normal GB. 2. Acute pancreatitis associated with pancreatic enzymes/effusions primarily localized to the left anterior pararenal space. Secondary effects of the transverse colon and duodenum are appreciated. 3. Focal 1 cm area of nonenhancement at the junction of the neck and body the pancreas could well represent early pancreatic necrosis. DICTATED BY: Balta Madrigal MD (*I personally reviewed the CT with Dr. Goldman, of [facility], on & a clinical/radiographic decision was made to defer needle aspirate of the focal region by IR for now to rule out infected necrosis, with consideration for repeat CT in short interval follow-up, depending on clinical course). 03/03/18: XRY-PORTABLE CHEST XRAY- Right-sided PICC terminates in the distal SVC in satisfactory position. Spinal fusion hardware in the lower cervical & upper thoracic spine. 03/03/18: ULTRASOUND AND FLUOROSCOPICALLY GUIDED RIGHT INTERNAL JUGULAR VEIN TEMPORARY HEMODIALYSIS CATHETER PLACEMENT- Successful placement of temporary hemodialysis catheter via the right internal jugular vein. Catheter ready to use at this time. 03/04/18: *US-LIMITED (RUQ) ABDOMEN- 1. The pancreas is obscured and not assessed. 2. Stable appearance of hepatic steatosis. No focal hepatic lesion. 3. No cholelithiasis. Normal GB. CBD 3 mm. No free fluid.
[2018-03-04 17:24] LABS: PTT 48 SEC (25-37)
[2018-03-05] VITALS (11 sets, daily range): BP systolic 111–148; BP diastolic 65–88
[2018-03-05 04:42] LABS: ABSOLUTE BASOPHIL COUNT 0 /CUMM (0.0-0.2); ABSOLUTE EOSINOPHIL COUNT 0.1 /CUMM (0.0-0.7); ABSOLUTE GRANULOCYTE CT 4.7 /CUMM (1.4-6.5); ABSOLUTE LYMPH COUNT 1.2 /CUMM (1.2-3.4); ABSOLUTE MONOCYTE COUNT 0.2 /CUMM (0.10-0.60); BASOPHIL % 0.1 % (0.0-2.0); EOSINOPHIL % 1.1 % (0-5); GRANULOCYTE % 76.3 % (42.2-75.2); HEMATOCRIT 23.6 % (42-52); MEAN CORPUSCULAR HGB 34.3 PG (27.0-31.0); MEAN CORPUSCULAR HGB CONC 33.4 G/DL (33.0-37.0); MEAN CORPUSCULAR VOLUME 102.8 FL (80.0-94.0); MEAN PLATELET VOLUME 9.6 FL (7.4-10.4); RBC DISTRIBUTION WIDTH 15.4 % (11.5-14.5); RED BLOOD CELL CT 2.29 /CUMM (4.70-6.10); WHITE BLOOD CELL COUNT 6.1 /CUMM (4.8-10.8)
[2018-03-05 05:18] LABS: PLATELET COUNT 42 /CUMM (130-400)
--- NOTE | 2018-03-05 08:16 | PN- Resident CRCU ---
Subjective HPI/CRCU Issues: 1. Pancreatic necrosis 2. Severe hypertriglyceridemia status post pheresis - TG today 387 3. Hypo-calcemia - calcium today 8.7 (corrected alb-3) 4. Severe alcohol abuse 5. Alcohol hepatitis with elevated bilirubin 6. Macrocytic anemia 24 Hour Events: Patient remained stable overnight. Abdominal pain reduced and feels better. He had a single bowel movement. CIWA 0-16 overnight. (According for tremors, anxiety, sweating) Meds Started on D5 normal saline, Calcitriol reduced to once a day 0.25mcg daily, Metoprolol 12.5mg bid. Vital signs T-max 99.8, heart rate 110-120, blood pressure 110-140/80-90 mmHg, saturating well on room air. Significant lab data H&H 7.9/23.6, MCV 102, platelets 42. Total bilirubin 9.5, AST/ALT 100/47. Calcium 8.4, triglycerides 387, phosphorus 1.[address] abdomen and pelvis with contrast 1. Pancreatitis with increased pancreatic edema. Persistent small area of hypoattenuation at the neck of the pancreas undetermined significance. This could represent a small area of necrosis. Prior trauma is possible. There is increasing edema extending into the anterior pararenal space. Persistent mild edema in the transverse mesocolon. Associated secondary inflammatory changes in the duodenum. No walled off collection. Objective Vital Signs & I&O Last 8 Hrs of Vitals and I&O: Vital Signs Date Time Temp Pulse Resp B/P B/P Pulse O2 O2 Flow FiO2 Mean Ox Delivery Rate 03/05 0844 113 143/89 03/05 0800 99.4 110 20 132/78 03/05 0800 99.4 110 20 132/78 98 Room Air 03/05 0600 99.8 110 17 111/72 03/05 0400 99.8 104 26 122/78 03/05 0400 98 Room Air 03/05 0200 98.7 110 20 115/65 03/05 0000 98.7 108 21 126/88 03/05 0000 96 Room Air 03/05 0000 98.7 108 21 126/88 96 Room Air 03/04 2200 99.1 106 18 114/72 03/04 2046 110 117/79 03/04 2000 99.1 110 24 118/74 03/04 2000 97 Room Air 05/12 1800 98.4 116 20 122/70 03/04 1800 98.4 116 20 122/70 97 Room Air 03/04 1600 98.4 116 20 112/70 03/04 1400 138 18 146/86 03/04 1300 140 20 129/87 Intake & Output 03/05 1600 03/05 0800 03/05 0000 Intake Total 587 799 Output Total 800 600 Balance -213 199 Intake, IV 587 599 Intake, Oral 200 Number 3 2 Bowel Movements Output, Urine 800 600 Exam General Appearance: alert, awake, comfortable Head: atraumatic, normal appearance Ears, Nose, Throat: normal pharynx, normal ENT inspection, icteric sclera Neck: normal inspection, supple, full range of motion Respiratory: normal breath sounds, chest non-tender, no respiratory distress, quiet respiration, lungs clear Cardiovascular: regular rate/rhythm, normal peripheral pulses, tachycardia Gastrointestinal: normal bowel sounds, no organomegaly, distention, tenderness Extremities: normal inspection, normal capillary refill, normal range of motion, no edema Cranial Nerves: normal hearing, normal speech, PERRL Skin: intact, warm/dry, jaundice Skin Temp/Moisture Exam: Warm/Dry Sepsis Skin Exam (color): Normal for Ethnicity Back: normal inspection IV Drips IV Drips: D5NS @ 75ml/hr Nutrition Nutrition: NPO Current Medications: Current Medications Sig/Madelin Start time Last Medication Dose Route Stop Time Status Admin Calcitriol 0.25 MCG DAILY 03/06 0900 AC IV Calcitriol 0.25 MCG BID 03/04 0900 DC 03/05 IV 0844 Chlordiazepoxide HCl 25 MG BID 03/06 0900 AC PO Chlordiazepoxide HCl 25 MG TID 03/03 1000 AC 03/05 PO 03/05 2300 0844 Dextrose/Lactated 1,000 ML Q13H 03/04 1100 DC 03/05 Ringer's IV 1037 Dextrose/Sodium 1,000 ML Q13H 03/05 1100 AC 03/05 Chloride IV 1128 Docusate Sodium 100 MG DAILY NEEDED PRN 03/03 1100 AC PO Folic Acid 1 MG DAILY 03/04 1058 AC 03/05 PO 0844 Heparin Sodium 5,000 UNIT Q8 03/02 2200 DC 03/03 (Porcine) SC 2126 Lorazepam 0 Q1P PRN 03/02 1700 AC 03/05 IV 0755 Magnesium Sulfate 1 GM ONCE ONE 03/05 1115 AC 03/05 Dextrose/Water 100 ML IV 03/05 1514 1128 Magnesium Sulfate 1 GM ONCE ONE 03/04 1415 DC 03/04 Dextrose/Water 100 ML IV 03/04 1814 1428 Magnesium Sulfate 1 GM ONCE ONE 03/04 1115 DC 03/04 Dextrose/Water 100 ML IV 03/04 1514 1127 Metoprolol Tartrate 12.5 MG BID 03/04 1056 03/05 PO 0844 Morphine Sulfate 2 MG Q4P PRN 03/02 1600 AC 03/05 IV 0939 Nicotine 21 MG DAILY 03/04 1845 AC 03/05 TOP 0844 Pantoprazole Sodium 40 MG DAILY 03/04 1055 DC 03/04 IV 1127 Phosphate 250 MG BID 03/05 1059 AC PO Phosphate 500 MG ONCE ONE 03/04 1745 CAN PO 03/04 1746 Phosphate 250 MG PC AND AT BEDTIME 03/04 1300 DC 03/04 PO 03/04 2101 2045 Potassium Chloride 20 MEQ Q1H 03/04 1800 DC 03/04 IV 03/04 1901 1955 Potassium Chloride 40 MEQ ONCE ONE 03/04 1745 CAN PO 03/04 1746 Potassium Chloride 80 MEQ ONCE ONE 03/04 1745 CAN PO 03/04 1746 Senna 187 MG AT BEDTIME NEED.. 03/03 1100 03/03 PO 1426 Thiamine HCl 100 MG DAILY 03/04 1058 03/05 PO 0844 Antibiotics Antibiotics? none EKG Findings: Sinus tachycardia CT Scan Findings: IMPRESSION: 1. Pancreatitis with increased pancreatic edema. Persistent small area of hypoattenuation at the neck of the pancreas undetermined significance. This could represent a small area of necrosis. Prior trauma is possible. There is increasing edema extending into the anterior pararenal space. Persistent mild edema in the transverse mesocolon. Associated secondary inflammatory changes in the duodenum. No walled off collection. 2. Stable appearance of hepatic steatosis. Impression/Plan Impression/Problem List Impression: Patient is a young 32 yo M with a PMH significant for alcohol and cannabis abuse presenting to the ED with severe abdominal pain for the past few days [employer]. He is found to have pancreatic necrosis on CT scan, severe hypertriglyceridemia & hypocalcemia admitted [facility], transferred to ICU. Problems 1. Pancreatitis with early pancreatic necrosis 2. Severe hypertriglyceridemia status post pheresis - TG today 387 3. Hypo-calcemia - calcium today 8.7 (corrected) 4. Severe alcohol abuse 5. Alcohol hepatitis with elevated bilirubin 6. Macrocytic/Inflammatory anemia plan Continue in ICU Respiratory Stable on room air Infectious Pancreatic necrosis Tmax of 99.8 white count of 6.9. No signs of infection so far. Patient spiked a Temp of 100.3 a day ago. So far stable. High suspicion for infection if any spikes of fever. we will closely monitor for now. Cardiovascular Sinus tachycardia Patient remains at 110-120. Probable withdrawl related or adrenergic drive or Intravenous volume depletion. Free T4 elevated to 4.5 yesterday, returned to normal. * ECHO to rule out alcohol cardiomyopathy or tachy induced cardiomyopathy * Metoprolol 12.5mg bid -- can go upto 25mg bid if persistently high. * Thyroid funciton normal today. * Continue aggressive hydration. Hematology/Oncology Anemia - Macrocytic and Inflammatory Work up - MCV 102, H&H of 13.7/37 -->7.9/23. Ferritin >1000, TIBC - 106, Fe - 74. It is consistent with both alcohol intake and inflammation. MMA pending. Not symptomatic. * Cotinue to monitor. * Drop in H&H could be dilutional / inflammation related. * Treating pancreatic injury might help with inflammatory response. Thrombocytopenia Plt count of 141 at presentation dropping presistently - 42 today. DIC panel was negative except for elevated D-Dimer. Possibly dilutional. Low to begin with due to alcohol. * Continue to monitor * No blood thinner * No need to transfuse unless <20. * Lower extremity doppler to rule out clots - negative Metabolic Hypertriglyceridemia Not known to be HLD, no family history as well. It could be secondary to alcohol and diet. Intial level is 10.500 dropped down to 300's after apheresis. * TG today 387, likely remain low till NPO * Monitor for now * Needs to be started on fibrates once starts feeding. Hypocalcemia in the setting of vitamin D deficiency and acute pancreatitis Calcium - 5.2 at admission with elvated PTH 165, low vitamin D <4.2. Schmorl's nodes evident on imaging. Intially started on IV calcitriol (active vitamin D) and calcium drip. Improved now. * Corrected calcium today is 8.7 * Continue calcitriol 0.25mcg daily for now * Once starts feeding can start on with vitamin D high dose and calcium Hyponatremia Na of 127 at admission - hypertonic secondary to 10K TGs. Improved with apheresis. * Na today is 132 * Changed fluids to D5NS * continue to monitor Hypomagnesemia Mag 2.0 today Hypophosphatemia Persistent low phosphate levels - secondary to low vitamin D levels and malnutrition. Phos today is 1.7. * Continue neutraphos powder twice a day Alimentary Pancreatitis with early necrosis Patient did have elevated LDH with SIRS at presentation. He is improving but CT scan did show worseining of edema. Likley insults are alcohol and Triglycerides. Underwent pharesis of TG's. Intially on insulin and calcium drip, discontinued after apheresis and improved calcium levels. * NPO for now * Continue fluids * IV protonix * Awaiting immunologic work up like MONIQUE, AMA. Alcohol hepatitis in the setting of EtOH abuse and pancreatitis Patient drinks around 6 beers/day. AST/ALT improved from 112/66 to 100/47. ALP improved from 885/585, however 5'nucleotidase which differentiates bone vs liver related ALP is pending. Total bili elevated to 9.5 with elevated direct bili to 6.9. * Continue to monitor, not a candidate for steroids Neurology Alcohol withdrawl CIWA 0-16 and received 6mg ativan since yesterday. Currently on librium 25mg TID. * reduce librium to 25mg bid from tomorrow * continue CIWA * Social work consult DVT prophylaxis ALPS - thrombocytopenic ambulating Code status Full code Problem List: 1. Acute pancreatitis 2. Hypocalcemia 3. ETOH abuse 4. Hypertriglyceridemia 5. Abnormal LFTs 6. Malnutrition 7. Tachycardia 8. Hyponatremia Pain Ratin Tomorrow's Labs & Rationales: ICU bundle, CBC, LFTs Plan DVT/Prophylaxis: mechanical, early ambulation low risk
--- NOTE | 2018-03-05 08:48 | PN- Gastroenterology ---
Assessment/Plan GI Assessment/Recommendations: 32 y/o male, non-HTN, non-DM, unaware of prior hx HLD (*subsequent admission 08/10: TG > 10.5K), 15 pk yr cigarette smoker, no illicit drugs or IVDA (except occasional cannabis), with long hx EtOH ("> 6 beers daily & occ shot of whiskey "), last drank 1 a.m. on 03/02/18, without known prior hx pancreatitis, PUD, or GBD (GB intact- no prior abdominal surgery except remote left groin hernia repair as child), who presented to the [facility] ER 03/02/18 at 7:46 a.m., c/o diffuse left-sided abdominal pain for 3 days with nausea and vomiting, contents bilious. There was no hematemesis. He had mild GERD, without odynophagia or dysphagia. His stools were dark. He denied any rectal bleeding. There was minimal diarrhea, but no constipation, obstipation, or tenesmus. LBM on day of admission. He reportedly had OB+ stool on digital exam in the ER. Upon arrival, BP 140/91, P126, R 18, T 98.8 (Tm 99.2 in ER), O2 sat RA 95%. There was no positional component to his symptoms. There was perhaps minimal jaundice. His urine was slightly dark. He denied any light stools or pruritus. 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 He denied any chest pain or shortness of breath. There was some mild WARNER. He denied any history of DTs, seizures, or EtOH withdrawal. He denied any abdominal trauma, rash, or confusion. He denied any FHx GI Ca, GBD, PUD, inherited pancreatitis, additional GI disease, or inherited liver disease. He was not on any ASA, NSAIDS, Sulfa meds or thiazides. He denied any outpt rx meds, herbal meds, or OTC meds. 01/02/18: EGD per Dr. Lea for scant hematemesis- mild gastritis, duodenitis, with bxs: mild CAG/CFG. HP-neg. (The patient denied ever coming to the office for GI follow-up). He had never had a colonoscopy. The patient was given IV NS, MS, Dilaudid, f/b Ringer's Lactate in the ER (exact amount to be calculated-> reportedly + 5-6L overnight). His serum was lipemic. He was initially admitted to telemetry, but in view of multiple metabolic derangements, markedly elevated triglycerides, hypoCa2+, etc. he was transferred to the ICU for insulin drip, calcium gluconate infusion, and closer monitoring. Apparently, GI was called for an elective consult late in the afternoon on 03/02, but the GI service was never notifiied that the patient was transferred to the ICU. The patient was seen by critical care & endocrine. He is awaiting placement of additional lines & probable aphoresis for tx of his marked elevated TG. As of 03/03/18, the patient's abdominal pain was about the same. He had received narcotic analgesics a little over one hour prior to my initial exam. He was essentially NPO xc ice chips. He looked better clinically than his labs did. 03/02/18: 08:52- Admission labs- WBC 7.7 71S/24L/5M), H/H 13.7/37.5, MCV 101.3, RDW 15, PLT 141, glu 107, BUN/Cr 11/0.7, GFR > 60, Na 132, K 4.1, HCO3 18, AG 17 , lactate 3.2-> 2.3, amylase 58, lipase 1184, *Ca 5.7, albumin 2.8, globulin 3.8 , *TG > 10,500, TBil 3.4 (w/o fracs), *alk phos 881, AST 112, ALT 66, *[EtOH] 310 (*unable to do PT/PTT due to gross lipemia). 03/02/18: U/A- hazy, yellow, 1.010, 6.0, rare RBC, rare WBC, 1-3 gran casts, few bact, few epith mod amorph, + icto, 1.0 urobil 1.0, neg nitirite, neg esterase 03/02/18: Utox: + cannabis > 80. 03/02/18: 16:07- glu 76, BUN/Cr 10/0.6, GFR > 60, Na 131, K 4.3, HCO3 19, amylase 64, lipase 1409, *Ca 5.2, TG 8970, *LDH 885, PTH 165.1, Vit D 25OH < 4.2 03/02/18: 21:00- glu 77, BUN/Cr 8/0.5, GFR > 60, Na 133, K 4.0, HCO3 15, AG 18, amylase 633, lipase 1323, Mg 1.1, Ca 5.2, TG 9397 03/03/18: 05:46- WBC 4.2 (70S/13B/14L/3M), H/H 9.9/29.6, MCV 101.2, RDW 15.2, PLT 105, glu 155, BUN/Cr 6/0.5, GFR > 60, Na 127, K 3.6, HCO3 17, AG 13, Mg 1.9, *Ca 5.4, PO4 2.5, alb 2.3, TG 7991, TBil 3.8 (w/o fracs), AST 84, AST 36. 03/02/18: EKG- NSR @ 86, nl axis, nl int, flipped T in V1V2. 03/02/18: XRY-PORTABLE CHEST XRAY- No acute disease. No change. No effusion. Post C-fusion. 03/02/18: CT ABD & PELVIS W IV CONTRAST- 1. Diffuse fatty infiltration of the liver. No focal hepatic defect. No biliary tract disease. Normal GB. 2. Acute pancreatitis associated with pancreatic enzymes/effusions primarily localized to the left anterior pararenal space. Secondary effects of the transverse colon and duodenum are appreciated. 3. Focal 1 cm area of nonenhancement at the junction of the neck and body the pancreas could well represent early pancreatic necrosis. DICTATED BY: Balta Madrigal MD (*I personally reviewed the CT with Dr. Goldman, of [facility], on & a clinical/radiographic decision was made to defer needle aspirate of the focal region by IR for now to rule out infected necrosis, with consideration for repeat CT in short interval follow-up, depending on clinical course). *As of 03/03/18, the patient looked better clinically than his labs did. His pancreatitis was undoubtedly from his markedly elevated TG (> 10.5K on 03/02/18: admission labs), superimposed on EtOH (actively drinking up until admission) & cigarette smoking. His LFTs were somewhat atypical for fatty liver, with a markedly elevated alkaline phosphatase. The gallbladder appeared normal on CT. There was a 1 cm region at the body/neck of pancreas that was suspicious for possible necrosis. He was somewhat malnourished. Although the liver did not look cirrhotic on CT, he had thrombocytopenia and reversal of albumin:globulin ratio, which could imply cirrhosis. His pancytopenia was probably secondary to bone marrow suppression from EtOH. He reportedly had dark, OB positive stool in the ER, it was not actively bleeding. He remotely had HP-negative gastritis on 01/02/10: EGD per Dr. Lea, without any varices or portal gastropathy then. On admission, 1 grave sign by Le Mars criteria (elevated LDH) & 1 grave sign by BiSAP criteria (+SIRS). There were no pleural effusions. 03/03/18: XRY-PORTABLE CHEST XRAY- Right-sided PICC terminates in the distal SVC in satisfactory position. Spinal fusion hardware in the lower cervical & upper thoracic spine. 03/03/18: ULTRASOUND AND FLUOROSCOPICALLY GUIDED RIGHT INTERNAL JUGULAR VEIN TEMPORARY HEMODIALYSIS CATHETER PLACEMENT- Successful placement of temporary hemodialysis catheter via the right internal jugular vein. Catheter ready to use at this time. 03/04/18: *US-LIMITED (RUQ) ABDOMEN- 1. The pancreas is obscured and not assessed. 2. Stable appearance of hepatic steatosis. No focal hepatic lesion. 3. No cholelithiasis. Normal GB. CBD 3 mm. No free fluid. 03/03/18: 1520: *Hep A Ab, Hep Bs Ag, Hep C Ab, & Hep B core Ab- all neg; *HIV- neg; TBil 4.7, DBil 3.6, alk phos 585, troponin .02, *CRP 4.4, Fe 74, TIBC 106, *Fe sat 69.8%, *ferritin > 1000 (? acute phase rx/EtOH > HHC), B12 965 03/03/18: *MONIQUE, AMA, ceruloplasmin, A1AT, 5'NTD, RBC folate, MMA- all pending. 03/03/18: glu 129, BUN/Cr 3/0.5, GFR > 60, Na 135, K 3.7, HCO3 20, AG 10, Mg 1.7 , Ca 8.0, *PO4 1.8, alb 3.4, TG 394, TBil 2.9, AST 22, ALT 22 03/03/18: PT 11.4, INR 1.05, PTT 63 (*serum still lipemic then) 03/04/18: 0350: WBC 4.9, H/H 8.5/25.4, MCV 102.1, RDW 15.8, PLT 54, glu 120, BUN /Cr < 2/0.5, GFR > 60, Na 135, K 4.0, HCO3 21, AG 8, Mg 1.7, Ca 7.7, PO4 1.5, alb 2.9, *TG 387, TBil 4.4 (*w/o fracs), AST 56, ALT 34, *CRP 7.5 *As of 03/04/18, the patient was seen by numerous consultants, including ICU, nephrology & endocrine. He had an urgent placement of dialysis/pheresis catheter by IR on 03/03/18. *Lipid pheresis was performed 03/03/18, with marked improvement in triglyceride levels, down to 387, from > 10.5K!! The patient remained in the ICU. Right neck Cuong catheter is to be D/C. His calcium, phosphorus, magnesium, insulin drip & glucose were monitored by endocrine & the ICU team. He was rxd Calcitriol. His fluid balance was + > 3L. There was no evidence of hemoconcentration. His anemia was multifactorial & in part, dilutional. His IVF were switched to D5 Lactated Ringers at 75 cc/hr. He did get Lasix prn. The IV banana bag was switched to po folate & thiamine. His insulin drip was DC'd. Toprol was added for tachycardia. He was awaiting an echocardiogram. At present, BP 138/82, P 122, R 20, T 99.3 (Tm 100.3), O2 sat RA 97%. He was mildly jaundiced. His abdominal pain was improved. He denied any nausea or vomiting, and was hungry. He was on ice chips, but was otherwise NPO. He had a BM today. He denied any fevers or chills. He had a mild cough. He denied any CP or SOB, but had mild WARNER. There was no overt GI bleeding, hematemesis, or melena. He noted minimal confusion, but was A & O x 3. 03/04/18: 1620: glu 111, BUN/Cr < 2/0.5, Na 134, K 3.7, HCO3 27, AG 8, Mg 2.2, Ca 7.7, PO4 1.7, albn 2.8, TBil 6.5, AST 80, ALT 34, PT 12.0, INR 1.10, PTT 48, *elevated d-Dimer 2357, fibrinogen 275 (? no FDP sent). 03/05/18: 0405: WBC 6.1, H/H 7.9/23.6, MCV 102.8, RDW 15.4, PLT 42, glu 92, BUN/ Cr < 2/0.5, GFR > 60, Na 132, K 4.1, HCO3 26, AG 7, Mg 2.0, Ca 7.9, PO4 1.9, * TBil 9.5 (w/o fracs), AST 100, ALT 47. *As of 03/05/18, the patient was normotensive, but still somewhat tachycardic, despite Toprol, with Tm 99.8 & O2 sat RA 98%. He was NPO xc ice chips & awaiting a repeat CT AP with pancreatic protocol to follow up on the suspected area of necrosis & to rule out any hemorrhagic component. IVF: D% Lactated Ringers @ 75 cc/hr. He was known to have OB positive stool on admission, but his anemia was multifactorial, including bone marrow suppression from EtOH, with worsening thrombocytopenia & intermittent leukopenia. His LFTs worsened. There was no overt GI bleeding or hematemesis. He had a dark brown, OB+ BM the p.m. of 03/04/18, without fresh blood or melena. His abdominal pain was improving. There was minimal nausea, but no vomiting. He denied any CP or SOB. He denied any chills or sx UTI. He had a minimal dry cough. The elevated d-Dimer from yesterday afternoon, 03/04/18, was noted. CIWA have ranged anywhere from 0-16 over the past 24 hrs, most recently 4. 03/05/18: *CT ABDOMEN AND PELVIS WITHOUT AND WITH IV CONTRAST- 1. Pancreatitis with increased pancreatic edema. Persistent small area of hypoattenuation at the neck of the pancreas undetermined significance. This could represent a small area of necrosis. Prior trauma is possible. There is increasing edema extending into the anterior pararenal space. Persistent mild edema in the transverse mesocolon. Associated secondary inflammatory changes in the duodenum. No walled off collection. 2. Stable appearance of hepatic steatosis. No focal hepatic defects. No dilated ducts. Normal GB. 3. Small bilateral pleural effusions, L > R, with bibasilar atelectasis. *SUGGEST: NPO for now xc ice chips. Follow-up with endocrine, renal (post lipid pheresis) & ICU. Strict I/O's. Calcitriol & elctrolyte management per endocrine. Replete other lytes (i.e.- Mg/PO4). Current IVF: D5RL @ 75 cc/hr. *Await echocardiogram (r/o EtOH cardiomyopathy)-> Toprol rx for tachycardia. O2 prn. Thiamine 100 mg po daily & folate. CIWA protocol. Watch for impending DTs. Ativan as needed. Eventual tx of hyperTG with Lopid, etc, per endocrine, when po intake resumes. Eventual Vit E 800 IU po daily. *Await results of 03/05/18: repeat CT abdomen with pancreatic protocol to reassess area suspicious for necrosis (*depending on clinical course, may need needle aspirate by IR to r/o infxd necrosis); doubt hemorrhagic component to pancreatitis. Continue DVT prophylaxis with mechanical ALPS. Continue to watch for hemoconcentration (i.e.- rising Hgb or BUN, despite IVF), which would be a poor prognostic sign. However, the pancytopenia is probably multifactorial (i.e.- EtOH effects on BM, malnutrition, dilutional, etc.), plus probable minor component of OB+ stool. Zofran as needed. *Check FDP (fibin split products), but these can be elevated in liver disease. *Consider CTA chest regarding elevated d-Dimer (? if the latter was erroneously rxd in the first place). Repeat full LFTs, including alk phos & fractionate bilirubin. * Check haptoblobin & peripheral smear. Narcotic analgesics as needed. *Resume Protonix 40 mg IV daily, with the caveat that his low Mg is carefully followed on PPI. No plans for endoscopic workup of OB positive stool at present, unless patient actively bleeds (multifactorial anemia & EtOH BM suppression), but the patient was given my office number for potential outpt EGD & possible colonoscopy. Await 5'NTD, MONIQUE, AMA, A1AT, ceruloplasmin, RBC folate, & MMA. * Elevated Fe sat/ferritin probably acute phase rx, but *consider genetic markers for HHC. The patient & his fiancee were told on 03/04/18 that further alcohol abuse could result in his . They were made aware of the fact that he was critically ill. Advise psych & SW input. Further tx per ICU team.The above was again discussed with the medical house staff & with Dr. Rizvi. Further GI recommendations to follow, depending on clinical course. *30 minutes of ICU care was spent on the patient. *At the conclusion of my note, the 03/05/18: CT AP with pancreatic protocol report came back (*see above)- slightly worsening pancreatitis, but can try sips of clears, based on his abdominal exam. Problem List: 1. Acute pancreatitis 2. ETOH abuse 3. Hypertriglyceridemia 4. Hypocalcemia 5. Abnormal LFTs 6. Malnutrition 7. Fatty liver 8. Guaiac positive stools 9. Pancytopenia 10. Alcoholic hepatitis Subjective Subjective: 03/04/18: 1620: glu 111, BUN/Cr < 2/0.5, Na 134, K 3.7, HCO3 27, AG 8, Mg 2.2, Ca 7.7, PO4 1.7, albn 2.8, TBil 6.5, AST 80, ALT 34, PT 12.0, INR 1.10, PTT 48, *elevated d-Dimer 2357, fibrinogen 275 (? no FDP sent). 03/05/18: 0405: WBC 6.1, H/H 7.9/23.6, MCV 102.8, RDW 15.4, PLT 42, glu 92, BUN/ Cr < 2/0.5, GFR > 60, Na 132, K 4.1, HCO3 26, AG 7, Mg 2.0, Ca 7.9, PO4 1.9, * TBil 9.5 (w/o fracs), AST 100, ALT 47. *As of 03/05/18, the patient was normotensive, but still somewhat tachycardic, despite Toprol, with Tm 99.8 & O2 sat RA 98%. He was NPO xc ice chips & awaiting a repeat CT AP with pancreatic protocol to follow up on the suspected area of necrosis & to rule out any hemorrhagic component. IVF: D% Lactated Ringers @ 75 cc/hr. He was known to have OB positive stool on admission, but his anemia was multifactorial, including bone marrow suppression from EtOH, with worsening thrombocytopenia & intermittent leukopenia. His LFTs worsened. There was no overt GI bleeding or hematemesis. He had a dark brown, OB+ BM the p.m. of 03/04/18, without fresh blood or melena. His abdominal pain was improving. There was minimal nausea, but no vomiting. He denied any CP or SOB. He denied any chills or sx UTI. He had a minimal dry cough. The elevated d-Dimer from yesterday afternoon, 03/04/18, was noted. CIWA have ranged anywhere from 0-16 over the past 24 hrs, most recently 4. 03/05/18: CT ABDOMEN AND PELVIS WITHOUT AND WITH IV CONTRAST- 1. Pancreatitis with increased pancreatic edema. Persistent small area of hypoattenuation at the neck of the pancreas undetermined significance. This could represent a small area of necrosis. Prior trauma is possible. There is increasing edema extending into the anterior pararenal space. Persistent mild edema in the transverse mesocolon. Associated secondary inflammatory changes in the duodenum. No walled off collection. 2. Stable appearance of hepatic steatosis. No focal hepatic defects. No dilated ducts. Normal GB. 3. Small bilateral pleural effusions, L > R, with bibasilar atelectasis. Review of Systems: Full 14 point review of systems otherwise noncontributory, and as above. Review of Systems Constitutional: Denies: chills, diaphoresis, fever, malaise, weakness, unexplained weight loss. EENTM: Reports: icterus. Denies: blurred vision, double vision, visual changes, eye pain, eye drainage, eye tearing, ear discharge, ear pain, ear redness, hearing changes, nasal congestion, epistaxis, nasal pain, throat pain, throat swelling, mouth pain, tooth pain. Cardiovascular: Denies: chest pain, edema, orthopena, palpitations, peripheral edema, syncope. Respiratory: Reports: short of breath (minimal WARNER), mild dry cough. Denies: hemoptysis, orthopnea, sputum production, stridor, wheezing. GI: Reports: abdominal pain-> improving, ? melena-> resolved (OB+ in ER), nausea & vomiting-> resolved. Denies: bloating, constipation, diarrhea, distention, bowel incontinence, bloody stool, changes in stool, steatorrhea. Genitourinary: Denies: discharge, dysuria, frequency, hematuria, hesitation, nocturia, pain, urgency. Musculoskeletal: Reports: chronic neck pain (chronic post C-spine fusion). Denies: back pain, gout, joint pain, joint swelling, muscle pain, muscle stiffness. Skin: Reports: jaundice. Denies: cysts, change in skin color, change in hair/nails, dryness, erythema, lesions, lymphangitis, lumps, moles, rash. Neurological/Psychological: Denies: anxiety, ataxia, cognitive dysfunction, confusion, depressed, dementia, emotional problems, headache, numbness, paresthesia, pre-existing deficit, petit mal seizures, tingling, tremors, tonic-clonic seizures, unable to move lower ext , unable to move upper ext, weakness. Hematologic/Endocrine: Denies: bruising, bleeding, polyuria, polydipsia. Immunologic/Allergic: Denies: splenectomy, HIV/AIDS, lymphadenopathy. All Other Systems: Reviewed and Negative Objective Vital Signs and I&Os Vital Signs Date Time Temp Pulse Resp B/P B/P Pulse O2 O2 Flow FiO2 Mean Ox Delivery Rate 03/05 0844 113 143/89 03/05 0600 99.8 110 17 111/72 03/05 0400 99.8 104 26 122/78 03/05 0400 98 Room Air 03/05 0200 98.7 110 20 115/65 03/05 0000 98.7 108 21 126/88 03/05 0000 96 Room Air 03/05 0000 98.7 108 21 126/88 96 Room Air 03/04 2200 99.1 106 18 114/72 03/04 2046 110 117/79 03/04 2000 99.1 110 24 118/74 03/04 2000 97 Room Air 03/04 1800 98.4 116 20 122/70 03/04 1800 98.4 116 20 122/70 97 Room Air 03/04 1600 98.4 116 20 112/70 03/04 1400 138 18 146/86 03/04 1300 140 20 129/87 03/04 1147 99.3 122 20 138/82 03/04 1127 118 138/90 03/04 1000 140 18 143/91 Intake & Output 03/05 1600 03/05 0400 03/04 04003/03 040 Intake Total 892 700 7739 1265 3162 1200 Output Total 713 693 9778 950 650 200 Balance -489 639 0861 315 2512 1000 Intake, IV 801 193 4184 1145 3042 1200 Intake, Oral 200 240 120 120 Number 3 2 2 1 1 Bowel Movements Output, Urine 510 668 1842 950 650 200 Patient 141 lb 144 lb Weight Weight Bed scale Bed scale Measurement Method Physical Exam: Well-developed, well-nourished, thin male, in no apparent distress. Sclera * icteric. Conjunctiva slightly pale. Oropharynx clear. No oral thrush. No aphthous ulcers. Dry mucus membranes. There is no adenopathy, thyromegaly, JVD, or HJR. Cuong cath site right neck-> clean. No peripheral stigmata of inflammatory bowel disease or chronic liver disease on exam. No spiders on the anterior chest wall. No gynecomastia. No CVA tenderness. No spine tenderness, except mild chronic tenderness post C-spine fusion (post scar) Lungs: clear to A &P, with slight decreased BS at the bases B/L. No wheezing, rales, or rhonchi. Heart exam: regular rate rhythm, S1 and S2, without any murmur. Abdominal exam: slightly hypoactive bowel sounds, less distended belly, mild LUQ tenderness, without guarding or rebound. No mass. No organomegaly. No fluid shift. No pulsatile mass. No epigastric bruit. Digital rectal exam: reportedly OB+ in ER 03/02/18(dark broen, OB+ stool on p.m. of 03/04/18). Extremities: without C, C, or E. No palpable cords. Multiple tattoos. No rash. No acute arthropathy. Distal pulses 2+ bilaterally. DTRs 2+ bilaterally. No palmar erythema. No Duuytren's contractures. Alert and oriented x 3. Motor 5/5 B/L. No tremor. No asterixis. Current Medications: Current Medications Sig/Madelin Start time Last Medication Dose Route Stop Time Status Admin Calcitriol 0.25 MCG BID 03/04 0900 AC 03/05 IV 0844 Chlordiazepoxide HCl 25 MG TID 03/03 1000 AC 03/05 PO 0844 Dextrose/Lactated 1,000 ML Q13H 03/04 1100 AC 03/04 Ringer's IV 1128 Dextrose/Lactated 1,000 ML Q6H 03/02 2345 DC 03/04 Ringer's IV 0848 Docusate Sodium 100 MG DAILY NEEDED PRN 03/03 1100 AC PO Folic Acid 1 MG DAILY 03/04 1058 AC 03/05 PO 0844 Furosemide 20 MG ONCE ONE 03/04 1100 DC 03/04 IV 03/04 1101 1126 Heparin Sodium 5,000 UNIT Q8 03/02 2200 DC 03/03 (Porcine) SC 2126 Lorazepam 0 Q1P PRN 03/02 1700 AC 03/05 IV 0755 Magnesium Sulfate 1 GM ONCE ONE 03/04 1415 DC 03/04 Dextrose/Water 100 ML IV 03/04 1814 1428 Magnesium Sulfate 1 GM ONCE ONE 03/04 1115 DC 03/04 Dextrose/Water 100 ML IV 03/04 1514 1127 Metoprolol Tartrate 12.5 MG BID 03/04 1056 AC 03/05 PO 0844 Morphine Sulfate 2 MG Q4P PRN 03/02 1600 AC 03/05 IV 0524 Nicotine 21 MG DAILY 03/04 1845 AC 03/05 TOP 0844 Pantoprazole Sodium 40 MG DAILY 03/04 1055 DC 03/04 IV 1127 Phosphate 500 MG ONCE ONE 03/04 1745 CAN PO 03/04 1746 Phosphate 250 MG PC AND AT BEDTIME 03/04 1300 DC 03/04 PO 03/04 2101 2045 Polyethylene Glycol 17 GM DAILY NEEDED PRN 03/03 1100 DC 03/03 PO 1425 Potassium Chloride 20 MEQ Q1H 03/04 1800 DC 03/04 IV 03/04 1901 1955 Potassium Chloride 40 MEQ ONCE ONE 03/04 1745 CAN PO 03/04 1746 Potassium Chloride 80 MEQ ONCE ONE 03/04 1745 CAN PO 03/04 1746 Potassium Chloride 20 MEQ ONCE ONE 03/04 1115 DC 03/04 PO 03/04 1116 1127 Senna 187 MG AT BEDTIME NEED.. 03/03 1100 AC 03/03 PO 1426 Thiamine HCl 100 MG DAILY 03/04 1058 AC 03/05 PO 0844 Results Pertinent Lab Results: Laboratory Tests 03/05 03/04 0405 1620 Chemistry Sodium (137 - 145 mmol/L) 132 L 134 L Potassium (3.5 - 5.1 mmol/L) 4.1 3.7 Chloride (98 - 107 mmol/L) 99 99 Carbon Dioxide (22 - 30 mmol/L) 26 27 Anion Gap (5 - 16) 7 8 BUN (9 - 20 mg/dL) < 2 L < 2 L Creatinine (0.7 - 1.2 mg/dL) 0.5 L 0.5 L Estimated GFR (>60 ml/min) > 60 > 60 Glucose (65 - 99 mg/dL) 92 111 H Calcium (8.4 - 10.2 mg/dL) 7.9 L 7.7 L Phosphorus (2.5 - 4.5 mg/dL) 1.9 L 1.7 L Magnesium (1.6 - 2.3 mg/dL) 2.0 2.2 Total Bilirubin (0.2 - 1.3 mg/dL) 9.5 H 6.5 H AST (17 - 59 U/L) 100 H 80 H ALT (21 - 72 U/L) 47 34 Albumin (3.5 - 5.0 g/dL) 3.0 L 2.8 L Coagulation PT (9.4 - 12.5 SEC) 12.0 INR (0.90 - 1.17) 1.10 APTT (25 - 37 SEC) 48 H Fibrinogen Activity (200 - 393 MG/DL) 275 D-Dimer High Sensitivty (0 - 243 ng/ml) 2357 H Hematology CBC w Diff NO MAN DIFF REQ WBC (4.8 - 10.8 /CUMM) 6.1 RBC (4.70 - 6.10 /CUMM) 2.29 L Hgb (14.0 - 18.0 G/DL) 7.9 L Hct (42 - 52 %) 23.6 L MCV (80.0 - 94.0 FL) 102.8 H MCH (27.0 - 31.0 PG) 34.3 H MCHC (33.0 - 37.0 G/DL) 33.4 RDW (11.5 - 14.5 %) 15.4 H Plt Count (130 - 400 /CUMM) 42 L MPV (7.4 - 10.4 FL) 9.6 Gran % (42.2 - 75.2 %) 76.3 H Lymphocytes % (20.5 - 51.1 %) 19.1 L Monocytes % (1.7 - 9.3 %) 3.4 Eosinophils % (0 - 5 %) 1.1 Basophils % (0.0 - 2.0 %) 0.1 Absolute Granulocytes (1.4 - 6.5 /CUMM) 4.7 Absolute Lymphocytes (1.2 - 3.4 /CUMM) 1.2 Absolute Monocytes (0.10 - 0.60 /CUMM) 0.2 Absolute Eosinophils (0.0 - 0.7 /CUMM) 0.1 Absolute Basophils (0.0 - 0.2 /CUMM) 0 03/04 03/03 03/03 0350 1828 1828 Chemistry Sodium (137 - 145 mmol/L) 135 L 135 L Potassium (3.5 - 5.1 mmol/L) 4.0 3.7 Chloride (98 - 107 mmol/L) 105 105 Carbon Dioxide (22 - 30 mmol/L) 21 L 20 L Anion Gap (5 - 16) 8 10 BUN (9 - 20 mg/dL) < 2 L 3 L Creatinine (0.7 - 1.2 mg/dL) 0.5 L 0.5 L Estimated GFR (>60 ml/min) > 60 > 60 Glucose (65 - 99 mg/dL) 120 H 129 H Calcium (8.4 - 10.2 mg/dL) 7.7 L 8.0 L Phosphorus (2.5 - 4.5 mg/dL) 1.5 L 1.8 L Magnesium (1.6 - 2.3 mg/dL) 1.7 1.7 Total Bilirubin (0.2 - 1.3 mg/dL) 4.4 H 2.9 H AST (17 - 59 U/L) 56 22 ALT (21 - 72 U/L) 34 22 Troponin I (<0.11 ng/ml) 0.02 C-Reactive Prot, Quant (<1.0 mg/dL) 7.5 H C-React Prot High Sens (1.0 - 3.0 mg/L) Albumin (3.5 - 5.0 g/dL) 2.9 L 3.4 L Triglycerides (<150 mg/dL) 387 H 394 H TSH (0.270 - 4.200 uIU/mL) 3.510 Free T4 (0.79 - 2.35 ng/dL) 4.05 H Hematology CBC w Diff NO MAN DIFF REQ WBC (4.8 - 10.8 /CUMM) 4.9 RBC (4.70 - 6.10 /CUMM) 2.48 L Hgb (14.0 - 18.0 G/DL) 8.5 L Hct (42 - 52 %) 25.4 L MCV (80.0 - 94.0 FL) 102.1 H MCH (27.0 - 31.0 PG) 34.3 H MCHC (33.0 - 37.0 G/DL) 33.6 RDW (11.5 - 14.5 %) 15.8 H Plt Count (130 - 400 /CUMM) 54 L MPV (7.4 - 10.4 FL) 9.9 Gran % (42.2 - 75.2 %) 78.4 H Lymphocytes % (20.5 - 51.1 %) 16.6 L Monocytes % (1.7 - 9.3 %) 3.2 Eosinophils % (0 - 5 %) 1.3 Basophils % (0.0 - 2.0 %) 0.5 Absolute Granulocytes (1.4 - 6.5 /CUMM) 3.9 Absolute Lymphocytes (1.2 - 3.4 /CUMM) 0.8 L Absolute Monocytes (0.10 - 0.60 /CUMM) 0.2 Absolute Eosinophils (0.0 - 0.7 /CUMM) 0.1 Absolute Basophils (0.0 - 0.2 /CUMM) 0 03/03 03/03 03/03 1800 1520 1520 Chemistry Iron (49 - 181 ug/dL) 74 TIBC (261 - 462 ug/dL) 106 L Ferritin (17.9 - 464 ng/mL) > 1000.0 H Total Bilirubin (0.2 - 1.3 mg/dL) 4.7 H Direct Bilirubin (< 0.4 mg/dL) 3.6 H Alkaline Phosphatase (< 127 U/L) 585 H C-Reactive Prot, Quant (<1.0 mg/dL) 4.4 H C-React Prot High Sens (1.0 - 3.0 mg/L) > 15.0 H Wdekf-[id number]-Akvwdttduke Pending Ceruloplasmin Pending Triglycerides Cancelled 5'-Nucleotidase Pending Vitamin B12 (239 - 931 pg/mL) 965 H Methylmalonic Acid Pending RBC Folate Pending Immunology MONIQUE Titer Pending Anti-Nuclear Antibody Pending Anti-Mitochondrial Ab Pending Serology Hepatitis A IgM Ab (NONREACTIVE) NONREACTIVE Hep Bs Antigen (NONREACTIVE) NONREACTIVE Hep B Core IgM Ab Conf (NONREACTIVE) NONREACTIVE Hepatitis C Antibody (NONREACTIVE) NONREACTIVE HIV 1&2 Ab Western Blot (NONREACTIVE) NONREACTIVE 03/03 03/03 03/03 03/03 03/03 1257 1206 1206 1053 0940 Chemistry Lactic Acid (0.7 - 2.1 mmol/L) 1.5 3.0 H Calcium (8.4 - 10.2 mg/dL) 5.6 *L Triglycerides (<150 mg/dL) 6209 H Coagulation PT (9.4 - 12.5 SEC) 11.4 INR (0.90 - 1.17) 1.05 APTT (25 - 37 SEC) Cancelled 63 H 03/03 03/03 03/03 0940 0600 0546 Chemistry Lactic Acid (0.7 - 2.1 mmol/L) 2.5 H Calcium (8.4 - 10.2 mg/dL) 5.5 *L Cancelled Magnesium Cancelled Hematology CBC w Diff Cancelled WBC Cancelled RBC Cancelled Hgb Cancelled Hct Cancelled MCV Cancelled MCH Cancelled MCHC Cancelled RDW Cancelled Plt Count Cancelled MPV Cancelled 03/03 03/03 03/03 0546 0043 0032 Chemistry Sodium (137 - 145 mmol/L) 127 L Potassium (3.5 - 5.1 mmol/L) 3.6 Chloride (98 - 107 mmol/L) 98 Carbon Dioxide (22 - 30 mmol/L) 17 L Anion Gap (5 - 16) 13 BUN (9 - 20 mg/dL) 6 L Creatinine (0.7 - 1.2 mg/dL) 0.5 L Estimated GFR (>60 ml/min) > 60 Glucose (65 - 99 mg/dL) 155 H Lactic Acid (0.7 - 2.1 mmol/L) 2.5 H Calcium (8.4 - 10.2 mg/dL) 5.4 *L Cancelled Phosphorus (2.5 - 4.5 mg/dL) 2.5 Magnesium (1.6 - 2.3 mg/dL) 1.9 Total Bilirubin (0.2 - 1.3 mg/dL) 3.8 H AST (17 - 59 U/L) 84 H ALT (21 - 72 U/L) 36 Albumin (3.5 - 5.0 g/dL) 2.3 L Triglycerides (<150 mg/dL) 7991 H Hematology CBC w Diff MAN DIFF ORDERED WBC (4.8 - 10.8 /CUMM) 4.2 L RBC (4.70 - 6.10 /CUMM) 2.93 L Hgb (14.0 - 18.0 G/DL) 9.9 L Hct (42 - 52 %) 29.6 L MCV (80.0 - 94.0 FL) 101.2 H MCH (27.0 - 31.0 PG) 33.5 H MCHC (33.0 - 37.0 G/DL) 33.2 RDW (11.5 - 14.5 %) 15.2 H Plt Count (130 - 400 /CUMM) 105 L MPV (7.4 - 10.4 FL) 7.8 Segmented Neutrophils (42.2 - 75.2 %) 70 Band Neutrophils (0.0 - 5.0 %) 13 H Lymphocytes (20.5 - 51.1 %) 14 L Monocytes (1.7 - 9.3 %) 3 Platelet Estimate (ADEQUATE) ADEQUATE Polychromasia 1+ Anisocytosis 1+ Macrocytic Cells 1+ Ovalocytes FEW Other Body Source Fld Total RBCs Counted (%) 100 0503/02 0032 2100 2100 1607 1557 Chemistry Sodium (137 - 145 mmol/L) 133 L 131 L Potassium (3.5 - 5.1 mmol/L) 4.0 4.3 Chloride (98 - 107 mmol/L) 100 99 Carbon Dioxide (22 - 30 mmol/L) 15 L 19 L Anion Gap (5 - 16) 18 H 13 BUN (9 - 20 mg/dL) 8 L 10 Creatinine (0.7 - 1.2 mg/dL) 0.5 L 0.6 L Estimated GFR (>60 ml/min) > 60 > 60 BUN/Creatinine Ratio (7 - 25 %) 16.0 16.7 Glucose (65 - 99 mg/dL) 77 76 Lactic Acid (0.7 - 2.1 mmol/L) 3.0 H Calcium (8.4 - 10.2 mg/dL) 5.2 *L 5.2 *L 5.2 *L Ionized Calcium Pending Magnesium (1.6 - 2.3 mg/dL) 1.1 L Lactate Dehydrogenase (313 - 618 U/L) 885 H Triglycerides (<150 mg/dL) 9397 H 8970 H Amylase (30 - 110 U/L) 633 H 64 Lipase (23 - 300 U/L) 1323 H 1409 H 25-OH Vitamin D Total (30 - 100 ng/ml) < 4.2 L PTH Intact (18.4 - 80.1 pg/ML) 165.1 H 03/02 03/02 1204 1142 Chemistry Lactic Acid (0.7 - 2.1 mmol/L) 2.3 H Toxicology Urine Opiates Screen (>2000 NG/ML) 753.00 Methadone Screen (>300 NG/ML) < 40 Barbiturate Screen (>200 NG/ML) < 60 Ur Phencyclidine Scrn (>25 NG/ML) < 6.00 Amphetamines Screen (>1000 NG/ML) < 100 U Benzodiazepines Scrn (>200 NG/ML) < 85 Urine Cocaine Screen (>300 NG/ML) < 50 Urine Cannabis Screen (>50 NG/ML) > 80.00 H Urines Urinalysis MOD H Urine Color (YEL,AMB,STR) YEL Urine Clarity (CLEAR) HAZY H Urine pH (5.0 - 8.0) 6.0 Ur Specific [place] (1.001 - 1.035) 1.010 Urine Protein (NEG,<30 MG/DL) TRACE H Urine Ketones (NEG) NEG Urine Nitrite (NEG) NEG Urine Bilirubin (NEG) POS@ICTO H Urine Urobilinogen (0.1 - 1.0 EU/dl) 1.0 Ur Leukocyte Esterase (NEG) NEG Ur Microscopic SEDIMENT EXAMINED Urine RBC (0 - 5 /HPF) RARE Urine WBC (0 - 2 /HPF) RARE Ur Epithelial Cells (NONE,FEW) FEW Urine Bacteria (NEG/NONE) FEW H Granular Casts (NONE /LPF) 1-3 H Urine Mucus (FEW,NONE) FEW Urine Hemoglobin (NEG) NEG Urine Glucose (N MG/DL) NEG Imaging/Other Studies: 03/02/18: EKG- NSR @ 86, nl axis, nl int, flipped T in V1V2. 03/02/18: XRY-PORTABLE CHEST XRAY- No acute disease. No change. No effusion. Post C-fusion. 03/02/18: CT ABD & PELVIS W IV CONTRAST- 1. Diffuse fatty infiltration of the liver. No focal hepatic defect. No biliary tract disease. Normal GB. 2. Acute pancreatitis associated with pancreatic enzymes/effusions primarily localized to the left anterior pararenal space. Secondary effects of the transverse colon and duodenum are appreciated. 3. Focal 1 cm area of nonenhancement at the junction of the neck and body the pancreas could well represent early pancreatic necrosis. DICTATED BY: Balta Madrigal MD (*I personally reviewed the CT with Dr. Goldman, of [facility], on & a clinical/radiographic decision was made to defer needle aspirate of the focal region by IR for now to rule out infected necrosis, with consideration for repeat CT in short interval follow-up, depending on clinical course). 03/03/18: XRY-PORTABLE CHEST XRAY- Right-sided PICC terminates in the distal SVC in satisfactory position. Spinal fusion hardware in the lower cervical & upper thoracic spine. 03/03/18: ULTRASOUND AND FLUOROSCOPICALLY GUIDED RIGHT INTERNAL JUGULAR VEIN TEMPORARY HEMODIALYSIS CATHETER PLACEMENT- Successful placement of temporary hemodialysis catheter via the right internal jugular vein. Catheter ready to use at this time. 03/04/18: *US-LIMITED (RUQ) ABDOMEN- 1. The pancreas is obscured and not assessed. 2. Stable appearance of hepatic steatosis. No focal hepatic lesion. 3. No cholelithiasis. Normal GB. CBD 3 mm. No free fluid. 03/05/18: CT ABDOMEN AND PELVIS WITHOUT AND WITH IV CONTRAST- 1. Pancreatitis with increased pancreatic edema. Persistent small area of hypoattenuation at the neck of the pancreas undetermined significance. This could represent a small area of necrosis. Prior trauma is possible. There is increasing edema extending into the anterior pararenal space. Persistent mild edema in the transverse mesocolon. Associated secondary inflammatory changes in the duodenum. No walled off collection. 2. Stable appearance of hepatic steatosis. No focal hepatic defects. No dilated ducts. Normal GB. 3. Small bilateral pleural effusions, L > R, with bibasilar atelectasis.
--- NOTE | 2018-03-05 09:01 | PN- Endocrinology ---
Assessment/Plan Endoscopy Assessment: The patient feels a little better this morning. He had a bowel movement. He went down for CT scan of the abdomen and we are awaiting the results. The patient's blood sugars have been in a good range. In addition his corrected serum calcium is 8.64. Plan: Suggest reduce the calcitriol to 0.25 mcg once a day. Continue to monitor his calcium, albumin, magnesium, BUN/creatinine and electrolytes. Subjective Subjective: Feels a little better Review of Systems Constitutional: Denies: chills, fever. Cardiovascular: Denies: chest pain. Respiratory: Denies: cough, short of breath. Gastrointestinal: Reports: abdominal pain, bloating. Skin: Reports: no symptoms. Objective Last 24 Hrs of Vital Signs/I&O Vital Signs Date Time Temp Pulse Resp B/P B/P Pulse O2 O2 Flow FiO2 Mean Ox Delivery Rate 03/05 0844 113 143/89 03/05 0600 99.8 110 17 111/72 03/05 0400 99.8 104 26 122/78 03/05 0400 98 Room Air 03/05 0200 98.7 110 20 115/65 03/05 0000 98.7 108 21 126/88 03/05 0000 96 Room Air 03/05 0000 98.7 108 21 126/88 96 Room Air 03/04 2200 99.1 106 18 114/72 03/04 2046 110 117/79 03/04 2000 99.1 110 24 118/74 03/04 2000 97 Room Air 03/04 1800 98.4 116 20 122/70 03/04 1800 98.4 116 20 122/70 97 Room Air 03/04 1600 98.4 116 20 112/70 03/04 1400 138 18 146/86 03/04 1300 140 20 129/87 03/04 1147 99.3 122 20 138/82 03/04 1127 118 138/90 03/04 1000 140 18 143/91 Intake & Output 03/05 1600 03/05 0800 03/05 0000 Intake Total 587 799 Output Total 800 600 Balance -213 199 Intake, IV 587 599 Intake, Oral 200 Number 3 2 Bowel Movements Output, Urine 800 600 Vital Signs Date Time Temp Pulse Resp B/P B/P Pulse O2 O2 Flow FiO2 Mean Ox Delivery Rate 03/05 0844 113 143/89 03/05 0600 99.8 110 17 111/72 03/05 0400 99.8 104 26 122/78 03/05 0400 98 Room Air 03/05 0200 98.7 110 20 115/65 03/05 0000 98.7 108 21 126/88 03/05 0000 96 Room Air 03/05 0000 98.7 108 21 126/88 96 Room Air 03/04 2200 99.1 106 18 114/72 03/04 2046 110 117/79 03/04 2000 99.1 110 24 118/74 03/04 2000 97 Room Air 03/04 1800 98.4 116 20 122/70 03/04 1800 98.4 116 20 122/70 97 Room Air 03/04 1600 98.4 116 20 112/70 03/04 1400 138 18 146/86 03/04 1300 140 20 129/87 03/04 1147 99.3 122 20 138/82 03/04 1127 118 138/90 03/04 1000 140 18 143/91 Intake & Output 03/05 1600 03/05 0800 03/05 0000 Intake Total 587 799 Output Total 800 600 Balance -213 199 Intake, IV 587 599 Intake, Oral 200 Number 3 2 Bowel Movements Output, Urine 800 600 Physical Exam General Appearance: alert, awake, comfortable Head: normal appearance Neck: normal inspection Respiratory: normal breath sounds Cardiovascular: regular rate/rhythm Abdomen: normal bowel sounds Extremities: normal inspection Current Medications: Current Medications Sig/Madelin Start time Last Medication Dose Route Stop Time Status Admin Calcitriol 0.25 MCG BID 03/04 0900 AC 03/05 IV 0844 Calcitriol 0.5 MCG BID 03/02 2100 DC 03/04 IV 0846 Chlordiazepoxide HCl 25 MG TID 03/03 1000 AC 03/05 PO 0844 Dextrose/Lactated 1,000 ML Q13H 03/04 1100 AC 03/04 Ringer's IV 1128 Dextrose/Lactated 1,000 ML Q6H 03/02 2345 DC 03/04 Ringer's IV 0848 Docusate Sodium 100 MG DAILY NEEDED PRN 03/03 1100 AC PO Folic Acid 1 MG DAILY 03/04 1058 AC 03/05 PO 0844 Furosemide 20 MG ONCE ONE 03/04 1100 DC 03/04 IV 03/04 1101 1126 Heparin Sodium 5,000 UNIT Q8 03/02 2200 DC 03/03 (Porcine) SC 2126 Lorazepam 0 Q1P PRN 03/02 1700 AC 03/05 IV 0755 Magnesium Sulfate 1 GM ONCE ONE 03/04 1415 DC 03/04 Dextrose/Water 100 ML IV 03/04 1814 1428 Magnesium Sulfate 1 GM ONCE ONE 03/04 1115 DC 03/04 Dextrose/Water 100 ML IV 03/04 1514 1127 Metoprolol Tartrate 12.5 MG BID 03/04 1056 AC 03/05 PO 0844 Morphine Sulfate 2 MG Q4P PRN 03/02 1600 AC 03/05 IV 0524 Nicotine 21 MG DAILY 03/04 1845 AC 03/05 TOP 0844 Pantoprazole Sodium 40 MG DAILY 03/04 1055 DC 03/04 IV 1127 Phosphate 500 MG ONCE ONE 03/04 1745 CAN PO 03/04 1746 Phosphate 250 MG PC AND AT BEDTIME 03/04 1300 DC 03/04 PO 03/04 2101 2045 Polyethylene Glycol 17 GM DAILY NEEDED PRN 03/03 1100 DC 03/03 PO 1425 Potassium Chloride 20 MEQ Q1H 03/04 1800 DC 03/04 IV 03/04 1901 1955 Potassium Chloride 40 MEQ ONCE ONE 03/04 1745 CAN PO 03/04 1746 Potassium Chloride 80 MEQ ONCE ONE 03/04 1745 CAN PO 03/04 1746 Potassium Chloride 20 MEQ ONCE ONE 03/04 1115 DC 03/04 PO 03/04 1116 1127 Senna 187 MG AT BEDTIME NEED.. 03/03 1100 AC 03/03 PO 1426 Thiamine HCl 100 MG DAILY 03/04 1058 AC 03/05 PO 0844 Results Pertinent Lab/Fransico Results: Laboratory Tests 03/05 03/04 0405 1620 Chemistry Sodium (137 - 145 mmol/L) 132 L 134 L Potassium (3.5 - 5.1 mmol/L) 4.1 3.7 Chloride (98 - 107 mmol/L) 99 99 Carbon Dioxide (22 - 30 mmol/L) 26 27 Anion Gap (5 - 16) 7 8 BUN (9 - 20 mg/dL) < 2 L < 2 L Creatinine (0.7 - 1.2 mg/dL) 0.5 L 0.5 L Estimated GFR (>60 ml/min) > 60 > 60 Glucose (65 - 99 mg/dL) 92 111 H Calcium (8.4 - 10.2 mg/dL) 7.9 L 7.7 L Phosphorus (2.5 - 4.5 mg/dL) 1.9 L 1.7 L Magnesium (1.6 - 2.3 mg/dL) 2.0 2.2 Total Bilirubin (0.2 - 1.3 mg/dL) 9.5 H 6.5 H AST (17 - 59 U/L) 100 H 80 H ALT (21 - 72 U/L) 47 34 Albumin (3.5 - 5.0 g/dL) 3.0 L 2.8 L Coagulation PT (9.4 - 12.5 SEC) 12.0 INR (0.90 - 1.17) 1.10 APTT (25 - 37 SEC) 48 H Fibrinogen Activity (200 - 393 MG/DL) 275 D-Dimer High Sensitivty (0 - 243 ng/ml) 2357 H Hematology CBC w Diff NO MAN DIFF REQ WBC (4.8 - 10.8 /CUMM) 6.1 RBC (4.70 - 6.10 /CUMM) 2.29 L Hgb (14.0 - 18.0 G/DL) 7.9 L Hct (42 - 52 %) 23.6 L MCV (80.0 - 94.0 FL) 102.8 H MCH (27.0 - 31.0 PG) 34.3 H MCHC (33.0 - 37.0 G/DL) 33.4 RDW (11.5 - 14.5 %) 15.4 H Plt Count (130 - 400 /CUMM) 42 L MPV (7.4 - 10.4 FL) 9.6 Gran % (42.2 - 75.2 %) 76.3 H Lymphocytes % (20.5 - 51.1 %) 19.1 L Monocytes % (1.7 - 9.3 %) 3.4 Eosinophils % (0 - 5 %) 1.1 Basophils % (0.0 - 2.0 %) 0.1 Absolute Granulocytes (1.4 - 6.5 /CUMM) 4.7 Absolute Lymphocytes (1.2 - 3.4 /CUMM) 1.2 Absolute Monocytes (0.10 - 0.60 /CUMM) 0.2 Absolute Eosinophils (0.0 - 0.7 /CUMM) 0.1 Absolute Basophils (0.0 - 0.2 /CUMM) 0 03/04 03/03 03/03 0350 1828 1828 Chemistry Sodium (137 - 145 mmol/L) 135 L 135 L Potassium (3.5 - 5.1 mmol/L) 4.0 3.7 Chloride (98 - 107 mmol/L) 105 105 Carbon Dioxide (22 - 30 mmol/L) 21 L 20 L Anion Gap (5 - 16) 8 10 BUN (9 - 20 mg/dL) < 2 L 3 L Creatinine (0.7 - 1.2 mg/dL) 0.5 L 0.5 L Estimated GFR (>60 ml/min) > 60 > 60 Glucose (65 - 99 mg/dL) 120 H 129 H Calcium (8.4 - 10.2 mg/dL) 7.7 L 8.0 L Phosphorus (2.5 - 4.5 mg/dL) 1.5 L 1.8 L Magnesium (1.6 - 2.3 mg/dL) 1.7 1.7 Total Bilirubin (0.2 - 1.3 mg/dL) 4.4 H 2.9 H AST (17 - 59 U/L) 56 22 ALT (21 - 72 U/L) 34 22 Troponin I (<0.11 ng/ml) 0.02 C-Reactive Prot, Quant (<1.0 mg/dL) 7.5 H C-React Prot High Sens (1.0 - 3.0 mg/L) Albumin (3.5 - 5.0 g/dL) 2.9 L 3.4 L Triglycerides (<150 mg/dL) 387 H 394 H TSH (0.270 - 4.200 uIU/mL) 3.510 Free T4 (0.79 - 2.35 ng/dL) 4.05 H Hematology CBC w Diff NO MAN DIFF REQ WBC (4.8 - 10.8 /CUMM) 4.9 RBC (4.70 - 6.10 /CUMM) 2.48 L Hgb (14.0 - 18.0 G/DL) 8.5 L Hct (42 - 52 %) 25.4 L MCV (80.0 - 94.0 FL) 102.1 H MCH (27.0 - 31.0 PG) 34.3 H MCHC (33.0 - 37.0 G/DL) 33.6 RDW (11.5 - 14.5 %) 15.8 H Plt Count (130 - 400 /CUMM) 54 L MPV (7.4 - 10.4 FL) 9.9 Gran % (42.2 - 75.2 %) 78.4 H Lymphocytes % (20.5 - 51.1 %) 16.6 L Monocytes % (1.7 - 9.3 %) 3.2 Eosinophils % (0 - 5 %) 1.3 Basophils % (0.0 - 2.0 %) 0.5 Absolute Granulocytes (1.4 - 6.5 /CUMM) 3.9 Absolute Lymphocytes (1.2 - 3.4 /CUMM) 0.8 L Absolute Monocytes (0.10 - 0.60 /CUMM) 0.2 Absolute Eosinophils (0.0 - 0.7 /CUMM) 0.1 Absolute Basophils (0.0 - 0.2 /CUMM) 0 03/03 03/03 03/03 1800 1520 1520 Chemistry Iron (49 - 181 ug/dL) 74 TIBC (261 - 462 ug/dL) 106 L Ferritin (17.9 - 464 ng/mL) > 1000.0 H Total Bilirubin (0.2 - 1.3 mg/dL) 4.7 H Direct Bilirubin (< 0.4 mg/dL) 3.6 H Alkaline Phosphatase (< 127 U/L) 585 H C-Reactive Prot, Quant (<1.0 mg/dL) 4.4 H C-React Prot High Sens (1.0 - 3.0 mg/L) > 15.0 H Xnasv-[id number]-[id number] Pending Ceruloplasmin Pending Triglycerides Cancelled 5'-Nucleotidase Pending Vitamin B12 (239 - 931 pg/mL) 965 H Methylmalonic Acid Pending RBC Folate Pending Immunology MONIQUE Titer Pending Anti-Nuclear Antibody Pending Anti-Mitochondrial Ab Pending Serology Hepatitis A IgM Ab (NONREACTIVE) NONREACTIVE Hep Bs Antigen (NONREACTIVE) NONREACTIVE Hep B Core IgM Ab Conf (NONREACTIVE) NONREACTIVE Hepatitis C Antibody (NONREACTIVE) NONREACTIVE HIV 1&2 Ab Western Blot (NONREACTIVE) NONREACTIVE 03/03 03/03 03/03 03/03 03/03 1257 1206 1206 1053 0940 Chemistry Lactic Acid (0.7 - 2.1 mmol/L) 1.5 3.0 H Calcium (8.4 - 10.2 mg/dL) 5.6 *L Triglycerides (<150 mg/dL) 6209 H Coagulation PT (9.4 - 12.5 SEC) 11.4 INR (0.90 - 1.17) 1.05 APTT (25 - 37 SEC) Cancelled 63 H 03/03 0940 Chemistry Calcium (8.4 - 10.2 mg/dL) 5.5 *L
--- NOTE | 2018-03-05 09:05 | CT SCAN REPORT ---
EXAMINATION: CT ABDOMEN AND PELVIS WITHOUT AND WITH CONTRAST CLINICAL INFORMATION: Pancreatitis. COMPARISON: 03/02/18. TECHNIQUE: Multidetector volumetric imaging was performed of the abdomen and pelvis before and following IV administration of 95 mL of Optiray 320 intravenous contrast. Sagittal and coronal reformatted images were obtained on the technologist's workstation. DLP: 543.60 mGy-cm FINDINGS: LUNG BASES: There are small bilateral pleural effusions larger on the left with associated dependent atelectasis. LIVER, GALLBLADDER, AND BILIARY TREE: The liver shows diffuse low-attenuation consistent with hepatic steatosis unchanged from previous. No focal lesion is demonstrated. There is no intrahepatic ductal dilatation. Relatively high attenuation the gallbladder is consistent with excretion of contrast from the prior CT scan. No wall thickening or other abnormality is seen. PANCREAS: The pancreas is slightly more edematous than seen on the prior examination. A small focal area of decreased enhancement at the neck is unchanged. Peripancreatic fluid is again demonstrated with slightly increased fluid in the anterior pararenal space. Mild edema in the transverse mesocolon is unchanged. No walled off collection is demonstrated. SPLEEN: Unremarkable. ADRENAL GLANDS: Unremarkable. KIDNEYS AND URETERS: The kidneys are normal in size, shape, and attenuation. No hydronephrosis, hydroureter, or calculi seen. No perinephric stranding. BLADDER: Unremarkable. GASTROINTESTINAL TRACT: Secondary inflammatory changes in the duodenum are unchanged. The stomach and duodenum are otherwise unremarkable. There is mild prominence of small bowel loops with no obstruction demonstrated. There is mild gaseous distention of the transverse colon with no obstruction. The colon otherwise is decompressed and unremarkable. The appendix is normal. ABDOMINAL WALL: There is increasing edema in the abdominal wall. No hernia. LYMPH NODES: Normal. VASCULAR: Unremarkable. There is normal enhancement of the portal and splenic vein. PELVIC VISCERA: Unremarkable. OSSEOUS STRUCTURES: Schmorl's nodes are again seen at multiple levels in the lower thoracic and upper lumbar spine. Otherwise unremarkable. IMPRESSION: 1. Pancreatitis with increased pancreatic edema. Persistent small area of hypoattenuation at the neck of the pancreas undetermined significance. This could represent a small area of necrosis. Prior trauma is possible. There is increasing edema extending into the anterior pararenal space. Persistent mild edema in the transverse mesocolon. Associated secondary inflammatory changes in the duodenum. No walled off collection. 2. Stable appearance of hepatic steatosis.
--- NOTE | 2018-03-05 10:15 | PN- CRCU ---
Subjective HPI/Critical Care Issues: The patient feels a little better this morning. He had a bowel movement. He went down for CT scan of the abdomen IMPRESSION: 1. Pancreatitis with increased pancreatic edema. Persistent small area of hypoattenuation at the neck of the pancreas undetermined significance. This could represent a small area of necrosis. Prior trauma is possible. There is increasing edema extending into the anterior pararenal space. Persistent mild edema in the transverse mesocolon. Associated secondary inflammatory changes in the duodenum. No walled off collection. 2. Stable appearance of hepatic steatosis. corrected serum calcium is 8.64. Subjective Subjective: Feels a little better Review of Systems Constitutional: Denies: chills, fever. Cardiovascular: Denies: chest pain. Respiratory: Denies: cough, short of breath. Gastrointestinal: Reports: abdominal pain, bloating. Skin: Reports: no symptoms. Objective Current Medications: Current Medications Sig/Madelin Start time Last Medication Dose Route Stop Time Status Admin Calcitriol 0.25 MCG BID 03/04 0900 03/05 IV 0844 Chlordiazepoxide HCl 25 MG TID 03/03 1000 AC 03/05 PO 0844 Dextrose/Lactated 1,000 ML Q13H 03/04 1100 AC 03/04 Ringer's IV 1128 Dextrose/Lactated 1,000 ML Q6H 03/02 2345 DC 03/04 Ringer's IV 0848 Docusate Sodium 100 MG DAILY NEEDED PRN 03/03 1100 AC PO Folic Acid 1 MG DAILY 03/04 1058 AC 03/05 PO 0844 Furosemide 20 MG ONCE ONE 03/04 1100 DC 03/04 IV 03/04 1101 1126 Heparin Sodium 5,000 UNIT Q8 03/02 2200 DC 03/03 (Porcine) SC 2126 Lorazepam 0 Q1P PRN 03/02 1700 AC 03/05 IV 0755 Magnesium Sulfate 1 GM ONCE ONE 03/04 1415 DC 03/04 Dextrose/Water 100 ML IV 03/04 1814 1428 Magnesium Sulfate 1 GM ONCE ONE 03/04 1115 DC / Dextrose/Water 100 ML IV 03/04 1514 1127 Metoprolol Tartrate 12.5 MG BID 03/04 1056 AC 03/05 PO 0844 Morphine Sulfate 2 MG Q4P PRN 03/02 1600 03/05 IV 0524 Nicotine 21 MG DAILY 03/04 1845 05/13 TOP 0844 Pantoprazole Sodium 40 MG DAILY 03/04 1055 DC 03/04 IV 1127 Phosphate 500 MG ONCE ONE 03/04 1745 CAN PO 03/04 1746 Phosphate 250 MG PC AND AT BEDTIME 03/04 1300 DC 03/04 PO 03/04 210 204 Polyethylene Glycol 17 GM DAILY NEEDED PRN 03/03 1100 DC 03/03 PO 1425 Potassium Chloride 20 MEQ Q1H 03/04 1800 DC 03/04 IV 03/04 1901 1955 Potassium Chloride 40 MEQ ONCE ONE 03/04 1745 CAN PO 03/04 1746 Potassium Chloride 80 MEQ ONCE ONE 03/04 1745 CAN PO 03/04 1746 Potassium Chloride 20 MEQ ONCE ONE 03/04 1115 DC 03/04 PO 03/04 1116 1127 Senna 187 MG AT BEDTIME NEED.. 03/03 1100 AC 03/03 PO 1426 Thiamine HCl 100 MG DAILY 03/04 1058 AC 03/05 PO 0844 Vital Signs & I&O Last 24 Hrs of Vitals and I&O: Vital Signs Date Time Temp Pulse Resp B/P B/P Pulse O2 O2 Flow FiO2 Mean Ox Delivery Rate 03/05 0844 113 143/89 03/05 0600 99.8 110 17 111/72 03/05 0400 99.8 104 26 122/78 03/05 0400 98 Room Air 03/05 0200 98.7 110 20 115/65 03/05 0000 98.7 108 21 126/88 03/05 0000 96 Room Air 03/05 0000 98.7 108 21 126/88 96 Room Air 03/04 2200 99.1 106 18 114/72 03/04 2046 110 117/79 03/04 2000 99.1 110 24 118/74 03/04 2000 97 Room Air 03/04 1800 98.4 116 20 122/70 03/04 1800 98.4 116 20 122/70 97 Room Air 03/04 1600 98.4 116 20 112/70 03/04 1400 138 18 146/86 03/04 1300 140 20 129/87 03/04 1147 99.3 122 20 138/82 03/04 1127 118 138/90 03/04 1000 140 18 143/91 Intake & Output 03/05 1600 03/05 0800 03/05 0000 Intake Total 587 799 Output Total 800 600 Balance -213 199 Intake, IV 587 599 Intake, Oral 200 Number 3 2 Bowel Movements Output, Urine 800 600 Laboratory Tests 03/05 03/04 0405 1620 Chemistry Sodium (137 - 145 mmol/L) 132 L 134 L Potassium (3.5 - 5.1 mmol/L) 4.1 3.7 Chloride (98 - 107 mmol/L) 99 99 Carbon Dioxide (22 - 30 mmol/L) 26 27 Anion Gap (5 - 16) 7 8 BUN (9 - 20 mg/dL) < 2 L < 2 L Creatinine (0.7 - 1.2 mg/dL) 0.5 L 0.5 L Estimated GFR (>60 ml/min) > 60 > 60 Glucose (65 - 99 mg/dL) 92 111 H Calcium (8.4 - 10.2 mg/dL) 7.9 L 7.7 L Phosphorus (2.5 - 4.5 mg/dL) 1.9 L 1.7 L Magnesium (1.6 - 2.3 mg/dL) 2.0 2.2 Total Bilirubin (0.2 - 1.3 mg/dL) 9.5 H 6.5 H AST (17 - 59 U/L) 100 H 80 H ALT (21 - 72 U/L) 47 34 Albumin (3.5 - 5.0 g/dL) 3.0 L 2.8 L Coagulation PT (9.4 - 12.5 SEC) 12.0 INR (0.90 - 1.17) 1.10 APTT (25 - 37 SEC) 48 H Fibrinogen Activity (200 - 393 MG/DL) 275 D-Dimer High Sensitivty (0 - 243 ng/ml) 2357 H Hematology CBC w Diff NO MAN DIFF REQ WBC (4.8 - 10.8 /CUMM) 6.1 RBC (4.70 - 6.10 /CUMM) 2.29 L Hgb (14.0 - 18.0 G/DL) 7.9 L Hct (42 - 52 %) 23.6 L MCV (80.0 - 94.0 FL) 102.8 H MCH (27.0 - 31.0 PG) 34.3 H MCHC (33.0 - 37.0 G/DL) 33.4 RDW (11.5 - 14.5 %) 15.4 H Plt Count (130 - 400 /CUMM) 42 L MPV (7.4 - 10.4 FL) 9.6 Gran % (42.2 - 75.2 %) 76.3 H Lymphocytes % (20.5 - 51.1 %) 19.1 L Monocytes % (1.7 - 9.3 %) 3.4 Eosinophils % (0 - 5 %) 1.1 Basophils % (0.0 - 2.0 %) 0.1 Absolute Granulocytes (1.4 - 6.5 /CUMM) 4.7 Absolute Lymphocytes (1.2 - 3.4 /CUMM) 1.2 Absolute Monocytes (0.10 - 0.60 /CUMM) 0.2 Absolute Eosinophils (0.0 - 0.7 /CUMM) 0.1 Absolute Basophils (0.0 - 0.2 /CUMM) 0 03/04 03/03 03/03 0350 1828 1828 Chemistry Sodium (137 - 145 mmol/L) 135 L 135 L Potassium (3.5 - 5.1 mmol/L) 4.0 3.7 Chloride (98 - 107 mmol/L) 105 105 Carbon Dioxide (22 - 30 mmol/L) 21 L 20 L Anion Gap (5 - 16) 8 10 BUN (9 - 20 mg/dL) < 2 L 3 L Creatinine (0.7 - 1.2 mg/dL) 0.5 L 0.5 L Estimated GFR (>60 ml/min) > 60 > 60 Glucose (65 - 99 mg/dL) 120 H 129 H Calcium (8.4 - 10.2 mg/dL) 7.7 L 8.0 L Phosphorus (2.5 - 4.5 mg/dL) 1.5 L 1.8 L Magnesium (1.6 - 2.3 mg/dL) 1.7 1.7 Total Bilirubin (0.2 - 1.3 mg/dL) 4.4 H 2.9 H AST (17 - 59 U/L) 56 22 ALT (21 - 72 U/L) 34 22 Troponin I (<0.11 ng/ml) 0.02 C-Reactive Prot, Quant (<1.0 mg/dL) 7.5 H C-React Prot High Sens (1.0 - 3.0 mg/L) Albumin (3.5 - 5.0 g/dL) 2.9 L 3.4 L Triglycerides (<150 mg/dL) 387 H 394 H TSH (0.270 - 4.200 uIU/mL) 3.510 Free T4 (0.79 - 2.35 ng/dL) 4.05 H Hematology CBC w Diff NO MAN DIFF REQ WBC (4.8 - 10.8 /CUMM) 4.9 RBC (4.70 - 6.10 /CUMM) 2.48 L Hgb (14.0 - 18.0 G/DL) 8.5 L Hct (42 - 52 %) 25.4 L MCV (80.0 - 94.0 FL) 102.1 H MCH (27.0 - 31.0 PG) 34.3 H MCHC (33.0 - 37.0 G/DL) 33.6 RDW (11.5 - 14.5 %) 15.8 H Plt Count (130 - 400 /CUMM) 54 L MPV (7.4 - 10.4 FL) 9.9 Gran % (42.2 - 75.2 %) 78.4 H Lymphocytes % (20.5 - 51.1 %) 16.6 L Monocytes % (1.7 - 9.3 %) 3.2 Eosinophils % (0 - 5 %) 1.3 Basophils % (0.0 - 2.0 %) 0.5 Absolute Granulocytes (1.4 - 6.5 /CUMM) 3.9 Absolute Lymphocytes (1.2 - 3.4 /CUMM) 0.8 L Absolute Monocytes (0.10 - 0.60 /CUMM) 0.2 Absolute Eosinophils (0.0 - 0.7 /CUMM) 0.1 Absolute Basophils (0.0 - 0.2 /CUMM) 0 03/03 03/03 03/03 1800 1520 1520 Chemistry Iron (49 - 181 ug/dL) 74 TIBC (261 - 462 ug/dL) 106 L Ferritin (17.9 - 464 ng/mL) > 1000.0 H Total Bilirubin (0.2 - 1.3 mg/dL) 4.7 H Direct Bilirubin (< 0.4 mg/dL) 3.6 H Alkaline Phosphatase (< 127 U/L) 585 H C-Reactive Prot, Quant (<1.0 mg/dL) 4.4 H C-React Prot High Sens (1.0 - 3.0 mg/L) > 15.0 H [id number] Pending Ceruloplasmin Pending Triglycerides Cancelled 5'-Nucleotidase Pending Vitamin B12 (239 - 931 pg/mL) 965 H Methylmalonic Acid Pending RBC Folate Pending Immunology MONIQUE Titer Pending Anti-Nuclear Antibody Pending Anti-Mitochondrial Ab Pending Serology Hepatitis A IgM Ab (NONREACTIVE) NONREACTIVE Hep Bs Antigen (NONREACTIVE) NONREACTIVE Hep B Core IgM Ab Conf (NONREACTIVE) NONREACTIVE Hepatitis C Antibody (NONREACTIVE) NONREACTIVE HIV 1&2 Ab Western Blot (NONREACTIVE) NONREACTIVE 03/03 03/03 03/03 03/03 03/03 1257 1206 1206 1053 0940 Chemistry Lactic Acid (0.7 - 2.1 mmol/L) 1.5 3.0 H Calcium (8.4 - 10.2 mg/dL) 5.6 *L Triglycerides (<150 mg/dL) 6209 H Coagulation PT (9.4 - 12.5 SEC) 11.4 INR (0.90 - 1.17) 1.05 APTT (25 - 37 SEC) Cancelled 63 H 03/03 0940 Chemistry Calcium (8.4 - 10.2 mg/dL) 5.5 *L Microbiology Date/Time Procedure - Status Source Growth 03/03 0022 Surveillance Culture - RES UPPER RESP Impression/Plan Impression/Plan Impression/Plan: General Appearance: alert, awake Respiratory: clear anterior lung sounds Cardiovascular: tachycardia Gastrointestinal: distended abdomen, left lower quadrant pain Extremities: 2+ radial pulses, 1+ lower extremity edema This is a gentleman who is admitted to the ICU since last night with severe pancreatitis, significant alcoholism, cigarette smoker, previous history of multiple alcohol abuse, significant hypertriglyceridemia. Patient has been treated with intravenous insulin and D5 and subsequently plasma apheresis and his triglyceridemia is much better. His hypocalcemia is improving Issues include Significant pancreatitis with probable early necrosis, Venita's criteria 1 elevated LDH upon admission Resolved Severe hypertriglyceridemia s/p apheresis, and now better Significant alcoholism pending DTs Alcoholic hepatitis probably with elevated bilirubin and altered LFTs Hypocalcemia now better Fatty liver Probable malnutrition from severe alcoholism Anemia multifactorial and mild heme positive stool with hemodilution aswell Sinus tachy will need to rule out VTE later RECOMMENDATION Cont ivf change to d5 normal saline Cont calcitriol per endo Cont chlordiazepoxide today and reduce to bid in am Neutraphos 2 packets Metoprolol 12.5 mg bid Check free t4 again Po thiamine DVT prophylaxis IV mag one gram Hypocalcemia management per endocrine Intravenous PPI When necessary morphine Lower ext doppler/ to rule out dvt/ unlikely vte and his d-dimer is due to sig inflammatory process Can hold miralax and cont kaylynn and docusate Patient is critically ill, tts 36 mins Pt counselled Can kiah bell
--- NOTE | 2018-03-05 15:28 | ULTRASOUND REPORT ---
EXAMINATION: US TRIPLEX OF LOWER EXTREMITIES, BILATERAL CLINICAL INFORMATION: Lower extremity pain and swelling. Pancreatitis. Evaluate for deep vein thrombosis. COMPARISON: None TECHNIQUE: Color-flow triplex imaging with spectral analysis and compression Doppler were performed on the lower extremities. FINDINGS: The common femoral vein is compressible and exhibits a normal phasic waveform, bilaterally; this suggests that the iliac veins are widely patent above. Within each proximal thigh, the visualized profunda femoris vein is patent. The visualized greater saphenous veins and saphenofemoral junctions are normal. Superficial femoral vein is patent in the proximal, mid and distal aspect of each thigh. Popliteal vein appears normal to the level of the trifurcation, bilaterally, and the visualized calf veins are unremarkable. No evidence of Morillo's cyst. IMPRESSION: No evidence of deep vein thrombosis in either lower extremity.
[2018-03-06] VITALS (8 sets, daily range): BP systolic 100–132; BP diastolic 57–80
[2018-03-06 05:32] LABS: ABSOLUTE BASOPHIL COUNT 0 /CUMM (0.0-0.2); ABSOLUTE EOSINOPHIL COUNT 0.1 /CUMM (0.0-0.7); ABSOLUTE LYMPH COUNT 1.2 /CUMM (1.2-3.4); ABSOLUTE MONOCYTE COUNT 0.5 /CUMM (0.10-0.60); BASOPHIL % 0.4 % (0.0-2.0); EOSINOPHIL % 1.1 % (0-5); GRANULOCYTE % 69.4 % (42.2-75.2); HEMATOCRIT 20.5 % (42-52); MEAN CORPUSCULAR HGB 35.2 PG (27.0-31.0); MEAN CORPUSCULAR VOLUME 103.5 FL (80.0-94.0); MEAN PLATELET VOLUME 8.8 FL (7.4-10.4); PLATELET COUNT 54 /CUMM (130-400); RBC DISTRIBUTION WIDTH 15.8 % (11.5-14.5); RED BLOOD CELL CT 1.98 /CUMM (4.70-6.10); WHITE BLOOD CELL COUNT 5.8 /CUMM (4.8-10.8)
--- NOTE | 2018-03-06 07:31 | PN- Resident CRCU ---
Subjective HPI/CRCU Issues: No acute events overnight. Patient states that his pain is improved in the RLQ. Continues to have LLQ pain upond palpation and movement. Objective Vital Signs & I&O Last 8 Hrs of Vitals and I&O: Laboratory Tests 03/06/18 0511: Anion Gap 8, Estimated GFR > 60, Glucose 98, Calcium 7.8 L, Phosphorus 2.7, Magnesium 2.0, Total Bilirubin 11.0 H, Direct Bilirubin 8.9 H, AST 79 H, ALT 45, Alkaline Phosphatase 131 H, Total Protein 5.2 L, Albumin 2.7 L, Triglycerides 460 H, CBC w Diff MAN DIFF ORDERED, RBC 1.98 L, MCV 103.5 H, MCH 35.2 H, MCHC 34.0, RDW 15.8 H, MPV 8.8, Gran % 69.4, Lymphocytes % 20.2 L , Monocytes % 8.9, Eosinophils % 1.1, Basophils % 0.4, Absolute Granulocytes 4.0 , Segmented Neutrophils 70, Band Neutrophils 1, Absolute Lymphocytes 1.2, Lymphocytes 20 L, Monocytes 8, Absolute Monocytes 0.5, Absolute Eosinophils 0.1 , Basophils 1, Absolute Basophils 0, Platelet Estimate DECREASED, Polychromasia 1+, Poikilocytosis 1+, Anisocytosis 1+, Macrocytic Cells 1+, Ovalocytes FEW, Stomatocytes 1+, Retic Count Pending, Fld Total RBCs Counted 100 Vital Signs Date Time Temp Pulse Resp B/P B/P Pulse O2 O2 Flow FiO2 Mean Ox Delivery Rate 03/06 0800 99.1 114 20 132/76 03/06 0800 93 Room Air 03/06 0800 99.1 114 20 132/76 93 Room Air 03/06 0400 95 Room Air Exam General Appearance: no apparent distress, alert, awake Respiratory: normal breath sounds Cardiovascular: tachycardia Gastrointestinal: distended abdomen, decreased bowel sounds, diffuse abdominal pain worse in the left lower quadrant Extremities: 1+ LE edema b/l Skin: diffuse jaundice Current Medications: Current Medications Sig/Madelin Start time Last Medication Dose Route Stop Time Status Admin Calcitriol 0.25 MCG DAILY 03/06 900 AC IV Calcitriol 0.25 MCG BID 03/04 09 DC 03/05 IV 0844 Chlordiazepoxide HCl 25 MG BID 03/06 09 AC PO Chlordiazepoxide HCl 25 MG TID 03/03 1000 DC 03/05 PO 03/05 2300 2035 Dextrose/Lactated 1,000 ML Q13H 03/04 1100 DC 03/05 Ringer's IV 1037 Dextrose/Sodium 1,000 ML Q13H 03/05 1100 AC 03/06 Chloride IV 0105 Docusate Sodium 100 MG DAILY NEEDED PRN 03/03 1100 AC PO Folic Acid 1 MG DAILY 03/04 1058 AC 03/05 PO 0844 Lorazepam 0 Q1P PRN 03/02 1700 AC 03/06 IV 0304 Magnesium Sulfate 1 GM ONCE ONE 03/05 1115 DC 03/05 Dextrose/Water 100 ML IV 03/05 1514 1128 Metoprolol Tartrate 12.5 MG BID 03/04 1056 AC 03/05 PO 2035 Morphine Sulfate 2 MG Q4P PRN 03/02 1600 AC 03/06 IV 0615 Nicotine 21 MG DAILY 03/04 1845 AC 03/05 TOP 0844 Pantoprazole Sodium 40 MG DAILY 03/05 1815 AC 03/05 IV 1838 Phosphate 250 MG BID 03/05 1059 AC 03/05 PO 2035 Senna 187 MG AT BEDTIME NEED.. 03/03 1100 AC 03/03 PO 1426 Thiamine HCl 100 MG DAILY 03/04 1058 AC 03/05 PO 0844 Impression/Plan Impression/Problem List Impression: A: 32 yo M with a past medical history of alcohol and cannabis abuse presenting to the ED for severe abdominal pain for 2 days found to have questionable necrotizing pancreatitis, hypertriglyceremia >10k and hypocalcemia. Problems: Respiratory: None Infection: #lactic acidosis - resolved LA 2.5 - 3.0 and resolved after fluid resucitation. Continues to have mild fever -Monitor for signs of infection, possibly due to necrotic pancreas Cardiac: #tachycardia New onset tachycardia. Possibly due to pain or anxiety. Given lopressor 5mg IV before plasmapheresis Free t4 elevated with normal tsh which returned to normal Echocardiogram is normal -Well's score for PE: 1.5. Watch clinical signs and assess for possible PE -DVT negative -Start metoprololl 12.5 mg twice a day, can increase to 25 if needed -control anxiety with ativan and morphine for pain Heme onc: #Pancytopenia with ?GI bleed Initial H/H 13.7/37.5 Currently 8.5/25.4, plt 54 MCV>100 No acute signs of bleeding DIC panel reavealed: PTT 48 and D-dimer 2357, normal fibrinogen activity Retic count elevated 2.98 -Transfused 1 unit. monitor cbc -elevated d-dimer but well's PE score 1.5. Will monitor for now. -Mostly multifactorial due to dilution 2/2 fluids and possibly BM alcoholic bone marrow suppression -Hemmooccult: positive with loose dark stools. Metabolic: #hyponatremia Initial Na 132 Currently: 132 -possibly dilutional -continue monitor. #hypocalcemia Initial presenting calcium 5.7 Phos 2.5 Vitamin D <4.2 PTH elevated at 165.1 -current corrected calcium 8.8 -switch from calcitrol to po ergocalciferol 50kunits weekly once tolerating po -hypocalcemia probably secondary to saponifiaction of pancreatitis in addition to nutrition -STOPPED calcium drip -cont endo recommendations #hypomag Pt presented with mag of 1.1 -cont monitoring magnesium and replnish as needed #hypophosphatemia Currently 2.7 -replenish with neutraphos as needed Alimentary: #Pancreatitis with ?necrotizing tissues more likley due to hypertriglycedemia vs etoh abuse The patient presented with severe abd pain x [address] abd revealed acute pancreatitis diffuse fatty infiltration of the liver with cocal area of nonenhancement at the junction of the neck and body the possibly representing early pancreatic necrosis. Initial labs triglycerides >10.5k, revealed lactic acid 3.2,calcium 5.7, albumin 2.3, phosphorus 2.5, magnesium 1.1, T bili 3.4, AST 112, ALT 36, ALP 881, LDH 885, albumin 2.8, amylase 58, lipase 1184, 25- hydroxy vit d <4.2, PTH 165.1. Patient received plasmapheresis yesterday. Triglycerides improved to 460. Currently off insulin drip. Repeat CRP increased from 4.4->7.5. Gave lasix for fluid overload RUQ: US no gallstones Repeat ct abd: Pancreatitis with increased pancreatic edema. Persistent small area of hypoattenuation at the neck of the pancreas undetermined significance. Could represent a small area of necrosis. increasing edema extending into the anterior pararenal space. B12 elevated 965, HIV negative, iron normal, TIBC 106, ferritin >1000, HIV negative, Hepatitis panel negative T bili 11, Direct bili 8.9, -f/u workup : repeat alk phos with 5'NTD, MONIQUE, AMA, A1AT, ceruloplasmin, RBC folate, & MMA. -Consider IR needle aspiration of pancreatic necrosis depending on clinical course -Monitor for signs of fluid overload and potential ARDS -cont monitoring lactic acid and triglycerides. Current triglycerides 387 -Continue monitoring blood sugars. Once over 200 and restart insulin drip at 1 unit per hour -cont monitoring amylase and lipase. currently amylase increased to 633, lipase increased to 1323 -switched from d5 LR to D5NS @50ml/hr -will start full liquid diet, start fibrate when he begins to eat -cont IV PPI #hepatitis with fatty liver dz on CT in the setting of etoh abuse, and pancreaitis Ast 112-> 84 -> 50 -> 79 ALT 66 -> 36 -> 34 -> 79 ALP 881 -> 131 LDH 885 Tbili elevated 11.0, Direct 8.9 -?johnathan malinda vs rotor syndrome? -LFTs have normalized with treatment of pancreatitis -HIV negative -cont to monitor and continue work up as stated above Neuro: None Psych: #hx of etoh abuse Utox positive for cannabis -Continue ativan prn agitation on CIWA and librium 25 TID -nicotine patch -f/u psych and sw -cont thiamine and folate House keeping: FULL LIQUID DIET FULL CODE PICC LINE, DC'ed BARBARA LINE DVT prophylaxis - holding heparin for low plt and pancytopnia Problem List: 1. Alcoholic hepatitis 2. Hepatitis 3. Necrotizing pancreatitis 4. Hypocalcemia 5. Hyponatremia 6. Anemia 7. Tachycardia 8. Alcohol abuse 9. Guaiac positive stools Pain Ratin Tomorrow's Labs & Rationales: icu cbc Plan DVT/Prophylaxis: mechanical, early ambulation low risk
--- NOTE | 2018-03-06 08:08 | PN- Endocrinology ---
Assessment/Plan Endoscopy Assessment: 32 y/o male hx of ETOH abuse, poor diet and other substance abuse, presented with abdominal pain x 2 weeks. It was worse x 2 days. His TRIG on admission was > [address]. CT showed necrotizing acute pancreatitis. Blood work showed severe hypocalcemia. He was admitted for severe pancreatitis. He was treated with intravenous insulin and dextrose, calcium drip, intravenous calcitriol and subsequently plasma apheresis. His triglyceride level has been improving and hypocalcemia resolved. Currently he is still kept NPO; he is receiving D5NS at 75 ml/hour and calcitriol 0.25 mcg iv daily. He feels better. But he is slightly shaky and tachyardic, which could be due to ETOH withdrawal. His FSGs were 111, 104, 118 and 116. The am lab showed calcium 7.8, albumin 2.7, corrected calcium 8.8; T Bossman 11.0 and D. Bossman 8.9, TRIG 460. Plan: continue the current treatment monitor FSGs, electrolytes, calcium; will follow. Subjective Subjective: He still has abdominal pain. Objective Last 24 Hrs of Vital Signs/I&O Vital Signs Date Time Temp Pulse Resp B/P B/P Pulse O2 O2 Flow FiO2 Mean Ox Delivery Rate 03/06 0800 99.1 114 20 132/76 03/06 0800 93 Room Air 03/06 0800 99.1 114 20 132/76 93 Room Air 03/06 0400 95 Room Air 03/06 0000 96 Room Air 03/05 2300 99.5 109 17 148/88 96 Room Air 03/05 2035 117 123/76 03/05 2000 95 Room Air 03/05 1624 99.6 102 14 111/69 96 Room Air 03/05 1400 102 18 114/69 03/05 1200 99.5 105 18 126/74 03/05 1000 118 16 138/80 03/05 0900 112 18 121/83 03/05 0844 113 143/89 Intake & Output 03/06 1600 03/06 0800 03/06 0000 Intake Total 600 720 Output Total 1750 600 Balance -1150 120 Intake, IV 600 600 Intake, Oral 120 Number 1 Bowel Movements Output, Urine 1750 600 Results Pertinent Lab/Fransico Results: Laboratory Tests 03/06 0511 Chemistry Sodium (137 - 145 mmol/L) 132 L Potassium (3.5 - 5.1 mmol/L) 3.9 Chloride (98 - 107 mmol/L) 98 Carbon Dioxide (22 - 30 mmol/L) 26 Anion Gap (5 - 16) 8 BUN (9 - 20 mg/dL) < 2 L Creatinine (0.7 - 1.2 mg/dL) 0.6 L Estimated GFR (>60 ml/min) > 60 Glucose (65 - 99 mg/dL) 98 Calcium (8.4 - 10.2 mg/dL) 7.8 L Phosphorus (2.5 - 4.5 mg/dL) 2.7 Magnesium (1.6 - 2.3 mg/dL) 2.0 Total Bilirubin (0.2 - 1.3 mg/dL) 11.0 H Direct Bilirubin (< 0.4 mg/dL) 8.9 H AST (17 - 59 U/L) 79 H ALT (21 - 72 U/L) 45 Alkaline Phosphatase (< 127 U/L) 131 H Total Protein (6.3 - 8.2 g/dL) 5.2 L Albumin (3.5 - 5.0 g/dL) 2.7 L Triglycerides (<150 mg/dL) 460 H Hematology CBC w Diff MAN DIFF ORDERED WBC (4.8 - 10.8 /CUMM) 5.8 RBC (4.70 - 6.10 /CUMM) 1.98 L Hgb (14.0 - 18.0 G/DL) 7.0 *L Hct (42 - 52 %) 20.5 L MCV (80.0 - 94.0 FL) 103.5 H MCH (27.0 - 31.0 PG) 35.2 H MCHC (33.0 - 37.0 G/DL) 34.0 RDW (11.5 - 14.5 %) 15.8 H Plt Count (130 - 400 /CUMM) 54 L MPV (7.4 - 10.4 FL) 8.8 Gran % (42.2 - 75.2 %) 69.4 Lymphocytes % (20.5 - 51.1 %) 20.2 L Monocytes % (1.7 - 9.3 %) 8.9 Eosinophils % (0 - 5 %) 1.1 Basophils % (0.0 - 2.0 %) 0.4 Absolute Granulocytes (1.4 - 6.5 /CUMM) 4.0 Segmented Neutrophils (42.2 - 75.2 %) 70 Band Neutrophils (0.0 - 5.0 %) 1 Absolute Lymphocytes (1.2 - 3.4 /CUMM) 1.2 Lymphocytes (20.5 - 51.1 %) 20 L Monocytes (1.7 - 9.3 %) 8 Absolute Monocytes (0.10 - 0.60 /CUMM) 0.5 Absolute Eosinophils (0.0 - 0.7 /CUMM) 0.1 Basophils (0.0 - 2.0 %) 1 Absolute Basophils (0.0 - 0.2 /CUMM) 0 Platelet Estimate (ADEQUATE) DECREASED Polychromasia 1+ Poikilocytosis 1+ Anisocytosis 1+ Macrocytic Cells 1+ Ovalocytes FEW Stomatocytes 1+ Retic Count (0.5 - 2.0 %) Pending Other Body Source Fld Total RBCs Counted (%) 100
--- NOTE | 2018-03-06 09:40 | ECHOCARDIOGRAM REPORT ---
ELIZABETH GUTIERRES Age: 32 : 1985 Gender: M Exam Date: 03/05/2018 09:36 Exam Location: [facility] Ht (in): 65 Wt (lb): 141 BSA: 1.72 BP: 111 / 72 Ordering Physician: Gaby Rojas MD Referring Physician: Gaby Rojas MD Technologist: Chikis Logan SHAYNA Room Number: 106 Indications: SUPRAVENTRICULAR TACHYCARDIA Rhythm: Sinus Technical Quality: Good FINDINGS Left Ventricle Normal left ventricular size, wall thickness and systolic function with no obvious regional wall motion abnormalities. Normal left ventricular diastolic filling pattern for age. The ejection fraction is visually estimated at >65 %. Right Ventricle The right ventricle is normal in size and function. Right Atrium The right atrium is normal in size. Left Atrium The left atrium is normal in size. The interatrial septum is intact. Mitral Valve The mitral valve is normal in structure and function. There is trace mitral regurgitation. Aortic Valve Structurally normal aortic valve without significant sclerosis or stenosis. There is no aortic regurgitation. Tricuspid Valve The tricuspid valve is normal in structure and function. There is trace tricuspid regurgitation. Unable to estimate the right ventricular systolic pressure. Pulmonic Valve Structurally normal pulmonic valve. There is no pulmonic regurgitation. Pericardium Normal pericardium without effusion. No pleural effusion. Great Vessels Normal aortic root dimension. The aortic arch and great vessels are well seen and are normal. CONCLUSIONS No significant chamber abnormalities. No significant valve abnormalities. Normal transthoracic echocardiogram. Physiologic valvular regurgitation. Tachycardia noted throughout. Carlo Alcantara M.D. (Electronically Signed) Final Date: 06 Mar 2018 09:39 MEASUREMENTS (Male / Female) Normal Values 2D ECHO LV Diastolic Diameter PLAX 4.2 cm 4.2 - 5.9 / 3.9 - 5.3 cm LV Systolic Diameter PLAX 3.2 cm 2.1 - 4.0 cm LV Fractional Shortening PLAX 23.8 % 25 - 46 % LV Ejection Fraction 2D Teich 47.9 % IVS Diastolic Thickness 0.9 cm LVPW Diastolic Thickness 0.9 cm LV Relative Wall Thickness 0.4 RV Internal Dim ED PLAX 3.3 cm 1.9 - 3.8 cm LVOT Diameter 1.7 cm Aortic Root Diameter 2.4 cm LA Systolic Diameter LX 2.8 cm 3.0 - 4.0 / 2.7 - 3.8 cm LA Volume 30.0 cm 18 - 58 / 22 - 52 cm Ascending Aorta Diameter 2.4 cm DOPPLER AV Peak Velocity 152.0 cm/s AV Peak Gradient 9.2 mmHg AV Mean Velocity 109.0 cm/s AV Mean Gradient 5.0 mmHg AV Velocity Time Integral 23.9 cm LVOT Peak Velocity 126.0 cm/s LVOT Peak Gradient 6.4 mmHg LVOT Mean Velocity 87.8 cm/s LVOT Mean Gradient 4.0 mmHg LVOT Velocity Time Integral 20.2 cm LVOT Stroke Volume 45.9 cm AV Area Cont Eq vti 1.9 cm AV Area Cont Eq pk 1.9 cm MV Peak Velocity 95.0 cm/s MV Peak Gradient 3.6 mmHg MV Mean Velocity 60.9 cm/s MV Mean Gradient 2.0 mmHg Mitral E Point Velocity 80.0 cm/s Mitral A Point Velocity 67.6 cm/s Mitral E to A Ratio 1.2 MV PHT Velocity 99.9 cm/s MV Deceleration Porter 313.0 cm/s MV Pressure Half Time 95.8 ms MV Area PHT 2.3 cm MV Deceleration Time 174.0 ms PV Peak Velocity 148.0 cm/s PV Peak Gradient 8.8 mmHg PV Mean Velocity 88.7 cm/s PV Mean Gradient 4.0 mmHg PV Velocity Time Integral 21.3 cm LV E' Lateral Velocity 15.6 cm/s Mitral E to LV E' Lateral Ratio 5.1 LV E' Septal Velocity 10.9 cm/s Mitral E to LV E' Septal Ratio 7.3
--- NOTE | 2018-03-06 10:12 | PN- CRCU ---
Subjective HPI/Critical Care Issues: Doing well Less pain Hungry Wishes to eat Fatigue Objective Current Medications: Current Medications Sig/Madelin Start time Last Medication Dose Route Stop Time Status Admin Calcitriol 0.25 MCG DAILY 03/06 0900 03/06 IV 0839 Calcitriol 0.25 MCG BID 03/04 0900 DC 03/05 IV 0844 Chlordiazepoxide HCl 25 MG BID 03/06 0900 AC 03/06 PO 0835 Chlordiazepoxide HCl 25 MG TID 03/03 1000 DC 03/05 PO 03/05 2300 2035 Dextrose/Lactated 1,000 ML Q13H 03/04 1100 DC 03/05 Ringer's IV 1037 Dextrose/Sodium 1,000 ML Q13H 03/05 1100 AC 03/06 Chloride IV 0105 Docusate Sodium 100 MG DAILY NEEDED PRN 03/03 1100 AC PO Folic Acid 1 MG DAILY 03/04 1058 AC 03/06 PO 0837 Lorazepam 0 Q1P PRN 03/02 1700 AC 03/06 IV 0304 Magnesium Sulfate 1 GM ONCE ONE 03/05 1115 DC 03/05 Dextrose/Water 100 ML IV 03/05 1514 1128 Metoprolol Tartrate 12.5 MG BID 03/04 1056 03/06 PO 0838 Morphine Sulfate 2 MG Q4P PRN 03/02 1600 AC 03/06 IV 0615 Nicotine 21 MG DAILY 03/04 1845 03/06 TOP 0838 Pantoprazole Sodium 40 MG DAILY 03/05 1815 03/06 IV 0835 Phosphate 250 MG BID 03/05 1059 AC 03/06 PO 0836 Senna 187 MG AT BEDTIME NEED.. 03/03 1100 AC 03/03 PO 1426 Thiamine HCl 100 MG DAILY 03/04 1058 03/06 PO 0837 Vital Signs & I&O Last 24 Hrs of Vitals and I&O: Vital Signs Date Time Temp Pulse Resp B/P B/P Pulse O2 O2 Flow FiO2 Mean Ox Delivery Rate 03/06 0838 116 128/72 03/06 0800 99.1 114 20 132/76 03/06 0800 93 Room Air 03/06 0800 99.1 114 20 132/76 93 Room Air 03/06 0400 95 Room Air 03/06 0000 96 Room Air 03/05 2300 99.5 109 17 148/88 96 Room Air 03/05 2035 117 123/76 03/05 2000 95 Room Air 03/05 1624 99.6 102 14 111/69 96 Room Air 03/05 1400 102 18 114/69 03/05 1200 99.5 105 18 126/74 Intake & Output 03/06 1600 03/06 0800 03/06 0000 Intake Total 600 720 Output Total 1750 600 Balance -1150 120 Intake, IV 600 600 Intake, Oral 120 Number 1 Bowel Movements Output, Urine 1750 600 Laboratory Tests 03/06 03/05 0511 0405 Chemistry Sodium (137 - 145 mmol/L) 132 L Potassium (3.5 - 5.1 mmol/L) 3.9 Chloride (98 - 107 mmol/L) 98 Carbon Dioxide (22 - 30 mmol/L) 26 Anion Gap (5 - 16) 8 BUN (9 - 20 mg/dL) < 2 L Creatinine (0.7 - 1.2 mg/dL) 0.6 L Estimated GFR (>60 ml/min) > 60 Glucose (65 - 99 mg/dL) 98 Calcium (8.4 - 10.2 mg/dL) 7.8 L Phosphorus (2.5 - 4.5 mg/dL) 2.7 Magnesium (1.6 - 2.3 mg/dL) 2.0 Total Bilirubin (0.2 - 1.3 mg/dL) 11.0 H Direct Bilirubin (< 0.4 mg/dL) 8.9 H AST (17 - 59 U/L) 79 H ALT (21 - 72 U/L) 45 Alkaline Phosphatase (< 127 U/L) 131 H Total Protein (6.3 - 8.2 g/dL) 5.2 L Albumin (3.5 - 5.0 g/dL) 2.7 L Triglycerides (<150 mg/dL) 460 H Hematology CBC w Diff MAN DIFF ORDERED WBC (4.8 - 10.8 /CUMM) 5.8 RBC (4.70 - 6.10 /CUMM) 1.98 L Hgb (14.0 - 18.0 G/DL) 7.0 *L Hct (42 - 52 %) 20.5 L MCV (80.0 - 94.0 FL) 103.5 H MCH (27.0 - 31.0 PG) 35.2 H MCHC (33.0 - 37.0 G/DL) 34.0 RDW (11.5 - 14.5 %) 15.8 H Plt Count (130 - 400 /CUMM) 54 L MPV (7.4 - 10.4 FL) 8.8 Gran % (42.2 - 75.2 %) 69.4 Lymphocytes % (20.5 - 51.1 %) 20.2 L Monocytes % (1.7 - 9.3 %) 8.9 Eosinophils % (0 - 5 %) 1.1 Basophils % (0.0 - 2.0 %) 0.4 Absolute Granulocytes (1.4 - 6.5 /CUMM) 4.0 Segmented Neutrophils (42.2 - 75.2 %) 70 Band Neutrophils (0.0 - 5.0 %) 1 Absolute Lymphocytes (1.2 - 3.4 /CUMM) 1.2 Lymphocytes (20.5 - 51.1 %) 20 L Monocytes (1.7 - 9.3 %) 8 Absolute Monocytes (0.10 - 0.60 /CUMM) 0.5 Absolute Eosinophils (0.0 - 0.7 /CUMM) 0.1 Basophils (0.0 - 2.0 %) 1 Absolute Basophils (0.0 - 0.2 /CUMM) 0 Platelet Estimate (ADEQUATE) DECREASED Polychromasia 1+ Poikilocytosis 1+ Anisocytosis 1+ Macrocytic Cells 1+ Ovalocytes FEW Stomatocytes 1+ Retic Count (0.5 - 2.0 %) Pending Haptoglobin Pending Other Body Source Fld Total RBCs Counted (%) 100 03/05 05 0405 1620 Chemistry Sodium (137 - 145 mmol/L) 132 L 134 L Potassium (3.5 - 5.1 mmol/L) 4.1 3.7 Chloride (98 - 107 mmol/L) 99 99 Carbon Dioxide (22 - 30 mmol/L) 26 27 Anion Gap (5 - 16) 7 8 BUN (9 - 20 mg/dL) < 2 L < 2 L Creatinine (0.7 - 1.2 mg/dL) 0.5 L 0.5 L Estimated GFR (>60 ml/min) > 60 > 60 Glucose (65 - 99 mg/dL) 92 111 H Calcium (8.4 - 10.2 mg/dL) 7.9 L 7.7 L Phosphorus (2.5 - 4.5 mg/dL) 1.9 L 1.7 L Magnesium (1.6 - 2.3 mg/dL) 2.0 2.2 Total Bilirubin (0.2 - 1.3 mg/dL) 9.5 H 6.5 H Direct Bilirubin (< 0.4 mg/dL) 6.9 H AST (17 - 59 U/L) 100 H 80 H ALT (21 - 72 U/L) 47 34 Alkaline Phosphatase (< 127 U/L) 148 H Lactate Dehydrogenase (313 - 618 U/L) 799 H Albumin (3.5 - 5.0 g/dL) 3.0 L 2.8 L Free T4 (0.79 - 2.35 ng/dL) 1.52 Coagulation PT (9.4 - 12.5 SEC) 12.0 INR (0.90 - 1.17) 1.10 APTT (25 - 37 SEC) 48 H Fibrinogen Activity (200 - 393 MG/DL) 275 D-Dimer High Sensitivty (0 - 243 ng/ml) 2357 H Hematology CBC w Diff NO MAN DIFF REQ WBC (4.8 - 10.8 /CUMM) 6.1 RBC (4.70 - 6.10 /CUMM) 2.29 L Hgb (14.0 - 18.0 G/DL) 7.9 L Hct (42 - 52 %) 23.6 L MCV (80.0 - 94.0 FL) 102.8 H MCH (27.0 - 31.0 PG) 34.3 H MCHC (33.0 - 37.0 G/DL) 33.4 RDW (11.5 - 14.5 %) 15.4 H Plt Count (130 - 400 /CUMM) 42 L MPV (7.4 - 10.4 FL) 9.6 Gran % (42.2 - 75.2 %) 76.3 H Lymphocytes % (20.5 - 51.1 %) 19.1 L Monocytes % (1.7 - 9.3 %) 3.4 Eosinophils % (0 - 5 %) 1.1 Basophils % (0.0 - 2.0 %) 0.1 Absolute Granulocytes (1.4 - 6.5 /CUMM) 4.7 Absolute Lymphocytes (1.2 - 3.4 /CUMM) 1.2 Absolute Monocytes (0.10 - 0.60 /CUMM) 0.2 Absolute Eosinophils (0.0 - 0.7 /CUMM) 0.1 Absolute Basophils (0.0 - 0.2 /CUMM) 0 Impression/Plan Impression/Plan Impression/Plan: General Appearance: alert, awake Respiratory: clear anterior lung sounds Cardiovascular: tachycardia Gastrointestinal: distended abdomen, left lower quadrant pain Extremities: 2+ radial pulses, 1+ lower extremity edema This is a gentleman admitted with severe pancreatitis, significant alcoholism, cigarette smoker, previous history of multiple alcohol abuse, significant hypertriglyceridemia, hypocalcemia, DT, Sinus tachy, Etoh hepatitits Issues include Significant pancreatitis with probable early necrosis, little better Resolved Severe hypertriglyceridemia s/p apheresis, and initially rx with insulin and glucose. Now better Significant alcoholism with mild DTs Alcoholic hepatitis probably with elevated bilirubin and altered LFTs Hypocalcemia now better Fatty liver Malnutrition from severe alcoholism Anemia multifactorial and mild heme positive stool with hemodilution aswell Sinus tachy improving Thrombocytopenia due to etoh RECOMMENDATION Full liquid diet and advance as cristóbal today Cont ivf and reduce rate to 50 cc Cont calcitriol per endo Cont chlordiazepoxide bid Dc neutrophos after today Metoprolol 12.5 mg bid Po thiamine DVT prophylaxis IV mag one gram Hypocalcemia management per endocrine Intravenous PPI When necessary morphine Venodyne boots and oob to chair (thrombocytopenia and will hold heparin) PRbc one unit target hgb 7.5 g Patient is critically ill, tts 36 mins Pt counselled OOB to chair Reduce nicotine to 7 grams
[2018-03-06 14:55] LABS: ABSOLUTE BASOPHIL COUNT 0 /CUMM (0.0-0.2); ABSOLUTE EOSINOPHIL COUNT 0.1 /CUMM (0.0-0.7); ABSOLUTE GRANULOCYTE CT 4.7 /CUMM (1.4-6.5); ABSOLUTE LYMPH COUNT 0.9 /CUMM (1.2-3.4); ABSOLUTE MONOCYTE COUNT 0.8 /CUMM (0.10-0.60); BASOPHIL % 0.1 % (0.0-2.0); EOSINOPHIL % 0.9 % (0-5); GRANULOCYTE % 73.1 % (42.2-75.2); MEAN CORPUSCULAR HGB 33.2 PG (27.0-31.0); MEAN CORPUSCULAR HGB CONC 33.4 G/DL (33.0-37.0); MEAN CORPUSCULAR VOLUME 99.4 FL (80.0-94.0); MEAN PLATELET VOLUME 9.2 FL (7.4-10.4); PLATELET COUNT 69 /CUMM (130-400); RBC DISTRIBUTION WIDTH 19.5 % (11.5-14.5); WHITE BLOOD CELL COUNT 6.5 /CUMM (4.8-10.8)
[2018-03-06 14:58] LABS: RED BLOOD CELL CT 2.71 /CUMM (4.70-6.10)
--- NOTE | 2018-03-06 18:06 | PN- Gastroenterology ---
Assessment/Plan GI Assessment/Recommendations: 32 y/o male, non-HTN, non-DM, unaware of prior hx HLD (*subsequent admission 08/10: TG > 10.5K), 15 pk yr cigarette smoker, no illicit drugs or IVDA (except occasional cannabis), with long hx EtOH ("> 6 beers daily & occ shot of whiskey "), last drank 1 a.m. on 03/02/18, without known prior hx pancreatitis, PUD, or GBD (GB intact- no prior abdominal surgery except remote left groin hernia repair as child), who presented to the [place] ER 03/02/18 at 7:46 a.m., c/o diffuse left-sided abdominal pain for 3 days with nausea and vomiting, contents bilious. There was no hematemesis. He had mild GERD, without odynophagia or dysphagia. His stools were dark. He denied any rectal bleeding. There was minimal diarrhea, but no constipation, obstipation, or tenesmus. LBM on day of admission. He reportedly had OB+ stool on digital exam in the ER. Upon arrival, BP 140/91, P126, R 18, T 98.8 (Tm 99.2 in ER), O2 sat RA 95%. There was no positional component to his symptoms. There was perhaps minimal jaundice. His urine was slightly dark. He denied any light stools or pruritus. He had decreased po intake x 2d [employer]. He denied any chest pain or shortness of breath. There was some mild WARNER. He denied any history of DTs, seizures, or EtOH withdrawal. He denied any abdominal trauma, rash, or confusion. He denied any FHx GI Ca, GBD, PUD, inherited pancreatitis, additional GI disease, or inherited liver disease. He was not on any ASA, NSAIDS, Sulfa meds or thiazides. He denied any outpt rx meds, herbal meds, or OTC meds. 01/02/18: EGD per Dr. Lea for scant hematemesis- mild gastritis, duodenitis, with bxs: mild CAG/CFG. HP-neg. (The patient denied ever coming to the office for GI follow-up). He had never had a colonoscopy. The patient was given IV NS, MS, Dilaudid, f/b Ringer's Lactate in the ER (exact amount to be calculated-> reportedly + 5-6L overnight). His serum was lipemic. He was initially admitted to telemetry, but in view of multiple metabolic derangements, markedly elevated triglycerides, hypoCa2+, etc. he was transferred to the ICU for insulin drip, calcium gluconate infusion, and closer monitoring. Apparently, GI was called for an elective consult late in the afternoon on 03/02, but the GI service was never notifiied that the patient was transferred to the ICU. The patient was seen by critical care & endocrine. He is awaiting placement of additional lines & probable aphoresis for tx of his marked elevated TG. As of 03/03/18, the patient's abdominal pain was about the same. He had received narcotic analgesics a little over one hour prior to my initial exam. He was essentially NPO xc ice chips. He looked better clinically than his labs did. 03/02/18: 08:52- Admission labs- WBC 7.7 71S/24L/5M), H/H 13.7/37.5, MCV 101.3, RDW 15, PLT 141, glu 107, BUN/Cr 11/0.7, GFR > 60, Na 132, K 4.1, HCO3 18, AG 17 , lactate 3.2-> 2.3, amylase 58, lipase 1184, *Ca 5.7, albumin 2.8, globulin 3.8 , *TG > 10,500, TBil 3.4 (w/o fracs), *alk phos 881, AST 112, ALT 66, *[EtOH] 310 (*unable to do PT/PTT due to gross lipemia). 03/02/18: U/A- hazy, yellow, 1.010, 6.0, rare RBC, rare WBC, 1-3 gran casts, few bact, few epith mod amorph, + icto, 1.0 urobil 1.0, neg nitirite, neg esterase 03/02/18: Utox: + cannabis > 80. 03/02/18: 16:07- glu 76, BUN/Cr 10/0.6, GFR > 60, Na 131, K 4.3, HCO3 19, amylase 64, lipase 1409, *Ca 5.2, TG 8970, *LDH 885, PTH 165.1, Vit D 25OH < 4.2 03/02/18: 21:00- glu 77, BUN/Cr 8/0.5, GFR > 60, Na 133, K 4.0, HCO3 15, AG 18, amylase 633, lipase 1323, Mg 1.1, Ca 5.2, TG 9397 03/03/18: 05:46- WBC 4.2 (70S/13B/14L/3M), H/H 9.9/29.6, MCV 101.2, RDW 15.2, PLT 105, glu 155, BUN/Cr 6/0.5, GFR > 60, Na 127, K 3.6, HCO3 17, AG 13, Mg 1.9, *Ca 5.4, PO4 2.5, alb 2.3, TG 7991, TBil 3.8 (w/o fracs), AST 84, AST 36. 03/02/18: EKG- NSR @ 86, nl axis, nl int, flipped T in V1V2. 03/02/18: XRY-PORTABLE CHEST XRAY- No acute disease. No change. No effusion. Post C-fusion. 03/02/18: CT ABD & PELVIS W IV CONTRAST- 1. Diffuse fatty infiltration of the liver. No focal hepatic defect. No biliary tract disease. Normal GB. 2. Acute pancreatitis associated with pancreatic enzymes/effusions primarily localized to the left anterior pararenal space. Secondary effects of the transverse colon and duodenum are appreciated. 3. Focal 1 cm area of nonenhancement at the junction of the neck and body the pancreas could well represent early pancreatic necrosis. DICTATED BY: Balta Madrigal MD (*I personally reviewed the CT with Dr. Goldman, of [facility], on & a clinical/radiographic decision was made to defer needle aspirate of the focal region by IR for now to rule out infected necrosis, with consideration for repeat CT in short interval follow-up, depending on clinical course). *As of 03/03/18, the patient looked better clinically than his labs did. His pancreatitis was undoubtedly from his markedly elevated TG (> 10.5K on 03/02/18: admission labs), superimposed on EtOH (actively drinking up until admission) & cigarette smoking. His LFTs were somewhat atypical for fatty liver, with a markedly elevated alkaline phosphatase. The gallbladder appeared normal on CT. There was a 1 cm region at the body/neck of pancreas that was suspicious for possible necrosis. He was somewhat malnourished. Although the liver did not look cirrhotic on CT, he had thrombocytopenia and reversal of albumin:globulin ratio, which could imply cirrhosis. His pancytopenia was probably secondary to bone marrow suppression from EtOH. He reportedly had dark, OB positive stool in the ER, it was not actively bleeding. He remotely had HP-negative gastritis on 01/02/10: EGD per Dr. Lea, without any varices or portal gastropathy then. On admission, 1 grave sign by Pennock criteria (elevated LDH) & 1 grave sign by BiSAP criteria (+SIRS). There were no pleural effusions. 03/03/18: XRY-PORTABLE CHEST XRAY- Right-sided PICC terminates in the distal SVC in satisfactory position. Spinal fusion hardware in the lower cervical & upper thoracic spine. 03/03/18: ULTRASOUND AND FLUOROSCOPICALLY GUIDED RIGHT INTERNAL JUGULAR VEIN TEMPORARY HEMODIALYSIS CATHETER PLACEMENT- Successful placement of temporary hemodialysis catheter via the right internal jugular vein. Catheter ready to use at this time. 03/04/18: *US-LIMITED (RUQ) ABDOMEN- 1. The pancreas is obscured and not assessed. 2. Stable appearance of hepatic steatosis. No focal hepatic lesion. 3. No cholelithiasis. Normal GB. CBD 3 mm. No free fluid. 03/03/18: 1520: *Hep A Ab, Hep Bs Ag, Hep C Ab, & Hep B core Ab- all neg; *HIV- neg; TBil 4.7, DBil 3.6, alk phos 585, troponin .02, *CRP 4.4, Fe 74, TIBC 106, *Fe sat 69.8%, *ferritin > 1000 (? acute phase rx/EtOH > HHC), B12 965 03/03/18: *MONIQUE, AMA, ceruloplasmin, A1AT, 5'NTD, RBC folate, MMA- all pending. 03/03/18: glu 129, BUN/Cr 3/0.5, GFR > 60, Na 135, K 3.7, HCO3 20, AG 10, Mg 1.7 , Ca 8.0, *PO4 1.8, alb 3.4, TG 394, TBil 2.9, AST 22, ALT 22 03/03/18: PT 11.4, INR 1.05, PTT 63 (*serum still lipemic then) 03/04/18: 0350: WBC 4.9, H/H 8.5/25.4, MCV 102.1, RDW 15.8, PLT 54, glu 120, BUN /Cr < 2/0.5, GFR > 60, Na 135, K 4.0, HCO3 21, AG 8, Mg 1.7, Ca 7.7, PO4 1.5, alb 2.9, *TG 387, TBil 4.4 (*w/o fracs), AST 56, ALT 34, *CRP 7.5 *As of 03/04/18, the patient was seen by numerous consultants, including ICU, nephrology & endocrine. He had an urgent placement of dialysis/pheresis catheter by IR on 03/03/18. *Lipid pheresis was performed 03/03/18, with marked improvement in triglyceride levels, down to 387, from > 10.5K!! The patient remained in the ICU. Right neck Cuong catheter is to be D/C. His calcium, phosphorus, magnesium, insulin drip & glucose were monitored by endocrine & the ICU team. He was rxd Calcitriol. His fluid balance was + > 3L. There was no evidence of hemoconcentration. His anemia was multifactorial & in part, dilutional. His IVF were switched to D5 Lactated Ringers at 75 cc/hr. He did get Lasix prn. The IV banana bag was switched to po folate & thiamine. His insulin drip was DC'd. Toprol was added for tachycardia. He was awaiting an echocardiogram. At present, BP 138/82, P 122, R 20, T 99.3 (Tm 100.3), O2 sat RA 97%. He was mildly jaundiced. His abdominal pain was improved. He denied any nausea or vomiting, and was hungry. He was on ice chips, but was otherwise NPO. He had a BM today. He denied any fevers or chills. He had a mild cough. He denied any CP or SOB, but had mild WARNER. There was no overt GI bleeding, hematemesis, or melena. He noted minimal confusion, but was A & O x 3. 03/04/18: 1620: glu 111, BUN/Cr < 2/0.5, Na 134, K 3.7, HCO3 27, AG 8, Mg 2.2, Ca 7.7, PO4 1.7, albn 2.8, TBil 6.5, AST 80, ALT 34, PT 12.0, INR 1.10, PTT 48, *elevated d-Dimer 2357, fibrinogen 275 (? no FDP sent). 03/05/18: 0405: WBC 6.1, H/H 7.9/23.6, MCV 102.8, RDW 15.4, PLT 42, glu 92, BUN/ Cr < 2/0.5, GFR > 60, Na 132, K 4.1, HCO3 26, AG 7, Mg 2.0, Ca 7.9, PO4 1.9, * TBil 9.5 (w/o fracs), AST 100, ALT 47. *As of 03/05/18, the patient was normotensive, but still somewhat tachycardic, despite Toprol, with Tm 99.8 & O2 sat RA 98%. He was NPO xc ice chips & awaiting a repeat CT AP with pancreatic protocol to follow up on the suspected area of necrosis & to rule out any hemorrhagic component. IVF: D% Lactated Ringers @ 75 cc/hr. He was known to have OB positive stool on admission, but his anemia was multifactorial, including bone marrow suppression from EtOH, with worsening thrombocytopenia & intermittent leukopenia. His LFTs worsened. There was no overt GI bleeding or hematemesis. He had a dark brown, OB+ BM the p.m. of 03/04/18, without fresh blood or melena. His abdominal pain was improving. There was minimal nausea, but no vomiting. He denied any CP or SOB. He denied any chills or sx UTI. He had a minimal dry cough. The elevated d-Dimer from yesterday afternoon, 03/04/18, was noted. CIWA have ranged anywhere from 0-16 over the past 24 hrs, most recently 4. At the conclusion of my note, the 03/05: CT AP with pancreatic protocol report came back (*see below)- slightly worsening pancreatitis, but can try sips of clears, based on his abdominal exam. 03/05/18: *CT ABDOMEN AND PELVIS WITHOUT AND WITH IV CONTRAST- 1. Pancreatitis with increased pancreatic edema. Persistent small area of hypoattenuation at the neck of the pancreas undetermined significance. This could represent a small area of necrosis. Prior trauma is possible. There is increasing edema extending into the anterior pararenal space. Persistent mild edema in the transverse mesocolon. Associated secondary inflammatory changes in the duodenum. No walled off collection. 2. Stable appearance of hepatic steatosis. No focal hepatic defects. No dilated ducts. Normal GB. 3. Small bilateral pleural effusions, L > R, with bibasilar atelectasis. 03/03/18: ECHOCARDIOGRAM- CONCLUSIONS: LVEF > 65%. No significant chamber abnormalities. No significant valve abnormalities. Normal transthoracic echocardiogram. Physiologic valvular regurgitation. Tachycardia noted throughout. Carlo Alcantara M.D. 03/05/18: US TRIPLEX OF LOWER EXTREMITIES, BILATERAL- No evidence of deep vein thrombosis in either lower extremity. 03/03/18: *MONIQUE- neg 1:40. 03/06/18: 0511: WBC 5.8(70S/1B/20L/8M/1Baso), H/H 7.0/20.5 MCV 103.5, RDW 15.8, PLT 54, glu 98, BUN/Cr < 2/0.6, GFR > 60, Na 132, K 3.9, HCO3 26, AG 8, Mg 2.0, Ca 7.8, PO4 2.7, alb 2.7, glob 2.5, TBil 11, DBil 8.9, alk phos 131, AST 79, ALT 45, TG 460. 03/06/18: 1400: WBC 6.5, H/H 9.0/27, PLT 69 (*post 1u PRBC earlier that a.m.) *As of 03/06/18, the patient was hemodynamically stable and only borderline tachycardic, with O2 sat RA 95% & Tm 99.6. IVF: D5NS @ 50cc/hr. He was tolerating full liquids po. He received 1u PRBC on 03/06/18 for jimenez H/H 7.0/ 20.5 (multifactorial anemia, thrombocytopenia, & borderline leukopenia-> EtOH BM suppression, nutritional, dilutional, & OB+ brown stool). Endocrine, ICU, & medical notes appreciated. A CTA chest was deferred per the ICU team, as his elevated d-Dimer was clinically felt to be an acute phase reactant. 03/05/18: * Doppler LE B/L- neg DVT. His electrolytes were being repleted. Corrected serum Ca2+ was 8.64. His abdominal pain was improving. He denied any nausea or vomiting. He had a loose brown BM just now. *Tricor 145 mg po daily was rxd on 03/06/18. His CIWA scores were 0-1 today, but he was sleeping most of the time. He was currently moderately tremulous. He remained yellow. He denied any fevers, chills, or confusion. His Cuong catheter was pulled from his right neck. *SUGGEST: Full liquids po as tolerated. Follow-up with endocrine, renal (post lipid pheresis) & ICU. Strict I/O's. Calcitriol & electrolyte management per endocrine. Replete other lytes (i.e.- Mg/PO4). Current IVF: D5NS @ 50 cc/hr. Echocardiogram without EtOH cardiomyopathy-> Toprol rx for tachycardia. O2 prn. Thiamine 100 mg po daily & folate. CIWA protocol. Watch for impending DTs. Ativan as needed. Tx of hyperTG with Tricor 145 mg daily, per endocrine (post lipid apheresis). Eventual Vit E 800 IU po daily. *Depending on clinical course , may need needle aspirate by IR to r/o infxd necrosis, but would defer at present. Continue DVT prophylaxis with mechanical ALPS. Continue to watch for hemoconcentration (i.e.- rising Hgb or BUN, despite IVF), which would be a poor prognostic sign. However, the pancytopenia is probably multifactorial (i.e.- EtOH effects on BM, malnutrition, dilutional, etc.), plus probable minor component of OB+ stool. Zofran as needed. *Check FDP (fibin split products), but these can be elevated in liver disease.*Repeat CBC, CMP, & PT with INR to calculate Maddrey score/discriminant function, but Prednisolone &/or Trental have fallen out of favor for EtOH hepatitis. *Await 03/05/18: haptoblobin & check peripheral smear. Narcotic analgesics as needed. *Resume Protonix 40 mg IV daily, with the caveat that his low Mg is carefully followed on PPI. No plans for endoscopic workup of OB positive stool at present, unless patient actively bleeds (multifactorial anemia & EtOH BM suppression), but the patient was given my office number for potential outpt EGD & possible colonoscopy. Await 03/03/18: 5'NTD, AMA, A1AT, ceruloplasmin, RBC folate, & MMA. *Elevated Fe sat/ferritin probably acute phase rx, but consider genetic markers for HHC. The patient & his fiancee were told on 03/04/18 that further alcohol abuse could result in his . They were made aware of the fact that he was critically ill. Advise psych & SW input. Further tx per ICU team.The above was again discussed with the medical house staff & previously with Dr. Rizvi. Further GI recommendations to follow, depending on clinical course. *30 minutes of ICU care was spent on the patient. Problem List: 1. Acute pancreatitis 2. Hypertriglyceridemia 3. ETOH abuse 4. Hypocalcemia 5. Abnormal LFTs 6. Malnutrition 7. Fatty liver 8. Guaiac positive stools 9. Pancytopenia 10. Alcoholic hepatitis Subjective Subjective: 03/03/18: ECHOCARDIOGRAM- CONCLUSIONS: LVEF > 65%. No significant chamber abnormalities. No significant valve abnormalities. Normal transthoracic echocardiogram. Physiologic valvular regurgitation. Tachycardia noted throughout. Carlo Alcantara M.D. 03/05/18: US TRIPLEX OF LOWER EXTREMITIES, BILATERAL- No evidence of deep vein thrombosis in either lower extremity. 03/03/18: *MONIQUE- neg 1:40. 03/06/18: 0511: WBC 5.8(70S/1B/20L/8M/1Baso), H/H 7.0/20.5 MCV 103.5, RDW 15.8, PLT 54, glu 98, BUN/Cr < 2/0.6, GFR > 60, Na 132, K 3.9, HCO3 26, AG 8, Mg 2.0, Ca 7.8, PO4 2.7, alb 2.7, glob 2.5, TBil 11, DBil 8.9, alk phos 131, AST 79, ALT 45, TG 460. 03/06/18: 1400: WBC 6.5, H/H 9.0/27, PLT 69 (*post 1u PRBC earlier that a.m.) *As of 03/06/18, the patient was hemodynamically stable and only borderline tachycardic, with O2 sat RA 95% & Tm 99.6. IVF: D5NS @ 50cc/hr. He was tolerating full liquids po. He received 1u PRBC on 03/06/18 for jimenez H/H 7.0/ 20.5 (multifactorial anemia, thrombocytopenia, & borderline leukopenia-> EtOH BM suppression, nutritional, dilutional, & OB+ brown stool). Endocrine, ICU, & medical notes appreciated. A CTA chest was deferred per the ICU team, as his elevated d-Dimer was clinically felt to be an acute phase reactant. 03/05/18: * Doppler LE B/L- neg DVT. His electrolytes were being repleted. Corrected serum Ca2+ was 8.64. His abdominal pain was improving. He denied any nausea or vomiting. He had a loose brown BM just now. *Tricor 145 mg po daily was rxd on 03/06/18. His CIWA scores were 0-1 today, but he was sleeping most of the time. He was currently moderately tremulous. He remained yellow. He denied any fevers, chills, or confusion. His Cuong catheter was pulled from his right neck. Review of Systems: Full 14 point review of systems otherwise noncontributory, and as above. Review of Systems Constitutional: Denies: chills, diaphoresis, fever, malaise, weakness, unexplained weight loss. EENTM: Reports: icterus. Denies: blurred vision, double vision, visual changes, eye pain, eye drainage, eye tearing, ear discharge, ear pain, ear redness, hearing changes, nasal congestion, epistaxis, nasal pain, throat pain, throat swelling, mouth pain, tooth pain. Cardiovascular: Denies: chest pain, edema, orthopena, palpitations, peripheral edema, syncope. Respiratory: Reports: short of breath (minimal WARNER), mild dry cough. Denies: hemoptysis, orthopnea, sputum production, stridor, wheezing. GI: Reports: abdominal pain-> improving, ? melena-> resolved (OB+ in ER), nausea & vomiting-> resolved. Denies: bloating, constipation, diarrhea, distention, bowel incontinence, bloody stool, changes in stool, steatorrhea. Genitourinary: Denies: discharge, dysuria, frequency, hematuria, hesitation, nocturia, pain, urgency. Musculoskeletal: Reports: chronic neck pain (chronic post C-spine fusion). Denies: back pain, gout, joint pain, joint swelling, muscle pain, muscle stiffness. Skin: Reports: jaundice. Denies: cysts, change in skin color, change in hair/nails, dryness, erythema, lesions, lymphangitis, lumps, moles, rash. Neurological/Psychological: Denies: anxiety, ataxia, cognitive dysfunction, confusion, depressed, dementia, emotional problems, headache, numbness, paresthesia, pre-existing deficit, petit mal seizures, tingling, tremors, tonic-clonic seizures, unable to move lower ext , unable to move upper ext, weakness. Hematologic/Endocrine: Denies: bruising, bleeding, polyuria, polydipsia. Immunologic/Allergic: Denies: splenectomy, HIV/AIDS, lymphadenopathy. All Other Systems: Reviewed and Negative Objective Vital Signs and I&Os Vital Signs Date Time Temp Pulse Resp B/P B/P Pulse O2 O2 Flow FiO2 Mean Ox Delivery Rate 03/06 1800 104 18 110/57 03/06 1600 99.6 102 18 110/70 03/06 1600 95 Room Air 03/06 1600 99.6 102 18 110/70 95 Room Air 03/06 1400 104 20 126/71 03/06 1200 103 20 102/60 03/06 1200 96 Room Air 03/06 1000 104 16 117/62 03/06 0838 116 128/72 03/06 0800 99.1 114 20 132/76 03/06 0800 93 Room Air 03/06 0800 99.1 114 20 132/76 93 Room Air 03/06 0400 95 Room Air 03/06 0000 96 Room Air 03/05 2300 99.5 109 17 148/88 96 Room Air 03/05 2035 117 123/76 03/05 2000 95 Room Air Intake & Output 03/06 1600 03/06 0400 03/05 1600 03/05 0400 03/04 1600 03/04 0400 Intake Total 4689 815 1245 799 3536 1265 Output Total 3200 600 2300 600 2050 950 Balance -1420 120 -202 076 0997 315 Intake, Blood 350 Product Intake, IV 9837 825 6677 599 3296 1145 Intake, Oral 400 120 120 200 240 120 Number 1 1 4 2 2 1 Bowel Movements Output, Urine 3200 600 2300 600 2050 950 Physical Exam: Well-developed, well-nourished, thin male, in no apparent distress. Sclera * icteric. Conjunctiva less pale, post transfx. Oropharynx clear. No oral thrush. No aphthous ulcers. Dry mucus membranes. There is no adenopathy, thyromegaly, JVD, or HJR. Cuong cath-> pulled from right neck. No peripheral stigmata of inflammatory bowel disease or chronic liver disease on exam. No spiders on the anterior chest wall. No gynecomastia. No CVA tenderness. No spine tenderness, except mild chronic tenderness post C-spine fusion (post scar) Lungs: clear to A &P, with slight decreased BS at the bases B/L. No wheezing, rales, or rhonchi. Heart exam: regular rate rhythm, S1 and S2, without any murmur. Abdominal exam: slightly hypoactive bowel sounds, mildly distended belly, mild LUQ tenderness, without guarding or rebound. No mass. No organomegaly. No fluid shift. No pulsatile mass. No epigastric bruit. Digital rectal exam: reportedly OB+ in ER 03/02/18(dark brown, OB+ stool on p.m. of 03/04/18). Extremities: without C, C, or E. No palpable cords. Multiple tattoos. No rash. No acute arthropathy. Distal pulses 2+ bilaterally. DTRs 2+ bilaterally. No palmar erythema. No Duuytren's contractures. Alert and oriented x 3. Motor 5/5 B/L. Mild tremor. No asterixis. Current Medications: Current Medications Sig/Madelin Start time Last Medication Dose Route Stop Time Status Admin Calcitriol 0.25 MCG DAILY 03/06 0900 DC 03/06 IV 0839 Chlordiazepoxide HCl 25 MG BID 03/06 0900 AC 03/06 PO 0835 Chlordiazepoxide HCl 25 MG TID 03/03 1000 DC 03/05 PO 03/05 2300 2035 Dextrose/Sodium 1,000 ML Q20H 03/06 1045 AC Chloride IV Dextrose/Sodium 1,000 ML Q13H 03/05 1100 DC 03/06 Chloride IV 0105 Docusate Sodium 100 MG DAILY NEEDED PRN 03/03 1100 AC PO Ergocalciferol 50,000 IU Q168 03/06 1445 AC 03/06 PO 1641 Fenofibrate 145 MG DAILY 03/06 1445 AC 03/06 PO 1641 Fenofibrate 145 MG DAILY 03/06 1015 CAN PO Folic Acid 1 MG DAILY 03/04 1058 AC 03/06 PO 0837 Lorazepam 0 Q1P PRN 03/02 1700 AC 03/06 IV 0304 Magnesium Sulfate 1 GM ONCE ONE 03/06 1045 DC 03/06 Dextrose/Water 100 ML IV 03/06 1444 1315 Metoprolol Tartrate 12.5 MG BID 03/04 1056 AC 03/06 PO 0838 Morphine Sulfate 2 MG Q4P PRN 03/02 1600 AC 03/06 IV 1411 Nicotine 7 MG DAILY 03/07 0900 AC TOP Nicotine 21 MG DAILY 03/04 1845 DC 03/06 TOP 0838 Pantoprazole Sodium 40 MG DAILY 03/05 1815 AC 03/06 IV 0835 Phosphate 250 MG BID 03/05 1059 AC 03/06 PO 03/06 2300 0836 Senna 187 MG AT BEDTIME NEED.. 03/03 1100 AC 03/03 PO 1426 Thiamine HCl 100 MG DAILY 03/04 1058 AC 03/06 PO 0837 Results Pertinent Lab Results: Laboratory Tests 03/06 03/06 1400 0511 Chemistry Sodium (137 - 145 mmol/L) 132 L Potassium (3.5 - 5.1 mmol/L) 3.9 Chloride (98 - 107 mmol/L) 98 Carbon Dioxide (22 - 30 mmol/L) 26 Anion Gap (5 - 16) 8 BUN (9 - 20 mg/dL) < 2 L Creatinine (0.7 - 1.2 mg/dL) 0.6 L Estimated GFR (>60 ml/min) > 60 Glucose (65 - 99 mg/dL) 98 Calcium (8.4 - 10.2 mg/dL) 7.8 L Phosphorus (2.5 - 4.5 mg/dL) 2.7 Magnesium (1.6 - 2.3 mg/dL) 2.0 Total Bilirubin (0.2 - 1.3 mg/dL) 11.0 H Direct Bilirubin (< 0.4 mg/dL) 8.9 H AST (17 - 59 U/L) 79 H ALT (21 - 72 U/L) 45 Alkaline Phosphatase (< 127 U/L) 131 H Total Protein (6.3 - 8.2 g/dL) 5.2 L Albumin (3.5 - 5.0 g/dL) 2.7 L Triglycerides (<150 mg/dL) 460 H Hematology CBC w Diff NO MAN DIFF REQ MAN DIFF ORDERED WBC (4.8 - 10.8 /CUMM) 6.5 5.8 RBC (4.70 - 6.10 /CUMM) 2.71 L 1.98 L Hgb (14.0 - 18.0 G/DL) 9.0 L 7.0 *L Hct (42 - 52 %) 27.0 L 20.5 L MCV (80.0 - 94.0 FL) 99.4 H 103.5 H MCH (27.0 - 31.0 PG) 33.2 H 35.2 H MCHC (33.0 - 37.0 G/DL) 33.4 34.0 RDW (11.5 - 14.5 %) 19.5 H 15.8 H Plt Count (130 - 400 /CUMM) 69 L 54 L MPV (7.4 - 10.4 FL) 9.2 8.8 Gran % (42.2 - 75.2 %) 73.1 69.4 Lymphocytes % (20.5 - 51.1 %) 14.0 L 20.2 L Monocytes % (1.7 - 9.3 %) 11.9 H 8.9 Eosinophils % (0 - 5 %) 0.9 1.1 Basophils % (0.0 - 2.0 %) 0.1 0.4 Absolute Granulocytes (1.4 - 6.5 /CUMM) 4.7 4.0 Segmented Neutrophils (42.2 - 75.2 %) 70 Band Neutrophils (0.0 - 5.0 %) 1 Absolute Lymphocytes (1.2 - 3.4 /CUMM) 0.9 L 1.2 Lymphocytes (20.5 - 51.1 %) 20 L Monocytes (1.7 - 9.3 %) 8 Absolute Monocytes (0.10 - 0.60 /CUMM) 0.8 H 0.5 Absolute Eosinophils (0.0 - 0.7 /CUMM) 0.1 0.1 Basophils (0.0 - 2.0 %) 1 Absolute Basophils (0.0 - 0.2 /CUMM) 0 0 Platelet Estimate (ADEQUATE) DECREASED Polychromasia 1+ Poikilocytosis 1+ Anisocytosis 1+ Macrocytic Cells 1+ Ovalocytes FEW Stomatocytes 1+ Retic Count (0.5 - 2.0 %) 2.98 H Other Body Source Fld Total RBCs Counted (%) 100 03/05 03/05 03/04 0405 0405 1620 Chemistry Sodium (137 - 145 mmol/L) 132 L 134 L Potassium (3.5 - 5.1 mmol/L) 4.1 3.7 Chloride (98 - 107 mmol/L) 99 99 Carbon Dioxide (22 - 30 mmol/L) 26 27 Anion Gap (5 - 16) 7 8 BUN (9 - 20 mg/dL) < 2 L < 2 L Creatinine (0.7 - 1.2 mg/dL) 0.5 L 0.5 L Estimated GFR (>60 ml/min) > 60 > 60 Glucose (65 - 99 mg/dL) 92 111 H Calcium (8.4 - 10.2 mg/dL) 7.9 L 7.7 L Phosphorus (2.5 - 4.5 mg/dL) 1.9 L 1.7 L Magnesium (1.6 - 2.3 mg/dL) 2.0 2.2 Total Bilirubin (0.2 - 1.3 mg/dL) 9.5 H 6.5 H Direct Bilirubin (< 0.4 mg/dL) 6.9 H AST (17 - 59 U/L) 100 H 80 H ALT (21 - 72 U/L) 47 34 Alkaline Phosphatase (< 127 U/L) 148 H Lactate Dehydrogenase (313 - 618 U/L) 799 H Albumin (3.5 - 5.0 g/dL) 3.0 L 2.8 L Free T4 (0.79 - 2.35 ng/dL) 1.52 Coagulation PT (9.4 - 12.5 SEC) 12.0 INR (0.90 - 1.17) 1.10 APTT (25 - 37 SEC) 48 H Fibrinogen Activity (200 - 393 MG/DL) 275 D-Dimer High Sensitivty (0 - 243 ng/ml) 2357 H Hematology CBC w Diff NO MAN DIFF REQ WBC (4.8 - 10.8 /CUMM) 6.1 RBC (4.70 - 6.10 /CUMM) 2.29 L Hgb (14.0 - 18.0 G/DL) 7.9 L Hct (42 - 52 %) 23.6 L MCV (80.0 - 94.0 FL) 102.8 H MCH (27.0 - 31.0 PG) 34.3 H MCHC (33.0 - 37.0 G/DL) 33.4 RDW (11.5 - 14.5 %) 15.4 H Plt Count (130 - 400 /CUMM) 42 L MPV (7.4 - 10.4 FL) 9.6 Gran % (42.2 - 75.2 %) 76.3 H Lymphocytes % (20.5 - 51.1 %) 19.1 L Monocytes % (1.7 - 9.3 %) 3.4 Eosinophils % (0 - 5 %) 1.1 Basophils % (0.0 - 2.0 %) 0.1 Absolute Granulocytes (1.4 - 6.5 /CUMM) 4.7 Absolute Lymphocytes (1.2 - 3.4 /CUMM) 1.2 Absolute Monocytes (0.10 - 0.60 /CUMM) 0.2 Absolute Eosinophils (0.0 - 0.7 /CUMM) 0.1 Absolute Basophils (0.0 - 0.2 /CUMM) 0 Haptoglobin Pending 03/04 0350 Chemistry Sodium (137 - 145 mmol/L) 135 L Potassium (3.5 - 5.1 mmol/L) 4.0 Chloride (98 - 107 mmol/L) 105 Carbon Dioxide (22 - 30 mmol/L) 21 L Anion Gap (5 - 16) 8 BUN (9 - 20 mg/dL) < 2 L Creatinine (0.7 - 1.2 mg/dL) 0.5 L Estimated GFR (>60 ml/min) > 60 Glucose (65 - 99 mg/dL) 120 H Calcium (8.4 - 10.2 mg/dL) 7.7 L Phosphorus (2.5 - 4.5 mg/dL) 1.5 L Magnesium (1.6 - 2.3 mg/dL) 1.7 Total Bilirubin (0.2 - 1.3 mg/dL) 4.4 H AST (17 - 59 U/L) 56 ALT (21 - 72 U/L) 34 C-Reactive Prot, Quant (<1.0 mg/dL) 7.5 H C-React Prot High Sens (1.0 - 3.0 mg/L) Albumin (3.5 - 5.0 g/dL) 2.9 L Triglycerides (<150 mg/dL) 387 H TSH (0.270 - 4.200 uIU/mL) 3.510 Free T4 (0.79 - 2.35 ng/dL) 4.05 H Hematology CBC w Diff NO MAN DIFF REQ WBC (4.8 - 10.8 /CUMM) 4.9 RBC (4.70 - 6.10 /CUMM) 2.48 L Hgb (14.0 - 18.0 G/DL) 8.5 L Hct (42 - 52 %) 25.4 L MCV (80.0 - 94.0 FL) 102.1 H MCH (27.0 - 31.0 PG) 34.3 H MCHC (33.0 - 37.0 G/DL) 33.6 RDW (11.5 - 14.5 %) 15.8 H Plt Count (130 - 400 /CUMM) 54 L MPV (7.4 - 10.4 FL) 9.9 Gran % (42.2 - 75.2 %) 78.4 H Lymphocytes % (20.5 - 51.1 %) 16.6 L Monocytes % (1.7 - 9.3 %) 3.2 Eosinophils % (0 - 5 %) 1.3 Basophils % (0.0 - 2.0 %) 0.5 Absolute Granulocytes (1.4 - 6.5 /CUMM) 3.9 Absolute Lymphocytes (1.2 - 3.4 /CUMM) 0.8 L Absolute Monocytes (0.10 - 0.60 /CUMM) 0.2 Absolute Eosinophils (0.0 - 0.7 /CUMM) 0.1 Absolute Basophils (0.0 - 0.2 /CUMM) 0 Imaging/Other Studies: 03/02/18: EKG- NSR @ 86, nl axis, nl int, flipped T in V1V2. 03/02/18: XRY-PORTABLE CHEST XRAY- No acute disease. No change. No effusion. Post C-fusion. 03/02/18: CT ABD & PELVIS W IV CONTRAST- 1. Diffuse fatty infiltration of the liver. No focal hepatic defect. No biliary tract disease. Normal GB. 2. Acute pancreatitis associated with pancreatic enzymes/effusions primarily localized to the left anterior pararenal space. Secondary effects of the transverse colon and duodenum are appreciated. 3. Focal 1 cm area of nonenhancement at the junction of the neck and body the pancreas could well represent early pancreatic necrosis. DICTATED BY: Balta Madrigal MD (*I personally reviewed the CT with Dr. Goldman, of [facility], on & a clinical/radiographic decision was made to defer needle aspirate of the focal region by IR for now to rule out infected necrosis, with consideration for repeat CT in short interval follow-up, depending on clinical course). 03/03/18: XRY-PORTABLE CHEST XRAY- Right-sided PICC terminates in the distal SVC in satisfactory position. Spinal fusion hardware in the lower cervical & upper thoracic spine. 03/03/18: ULTRASOUND AND FLUOROSCOPICALLY GUIDED RIGHT INTERNAL JUGULAR VEIN TEMPORARY HEMODIALYSIS CATHETER PLACEMENT- Successful placement of temporary hemodialysis catheter via the right internal jugular vein. Catheter ready to use at this time. 03/04/18: *US-LIMITED (RUQ) ABDOMEN- 1. The pancreas is obscured and not assessed. 2. Stable appearance of hepatic steatosis. No focal hepatic lesion. 3. No cholelithiasis. Normal GB. CBD 3 mm. No free fluid. 03/05/18: CT ABDOMEN AND PELVIS WITHOUT AND WITH IV CONTRAST- 1. Pancreatitis with increased pancreatic edema. Persistent small area of hypoattenuation at the neck of the pancreas undetermined significance. This could represent a small area of necrosis. Prior trauma is possible. There is increasing edema extending into the anterior pararenal space. Persistent mild edema in the transverse mesocolon. Associated secondary inflammatory changes in the duodenum. No walled off collection. 2. Stable appearance of hepatic steatosis. No focal hepatic defects. No dilated ducts. Normal GB. 3. Small bilateral pleural effusions, L > R, with bibasilar atelectasis. 03/03/18: ECHOCARDIOGRAM- CONCLUSIONS: LVEF > 65%. No significant chamber abnormalities. No significant valve abnormalities. Normal transthoracic echocardiogram. Physiologic valvular regurgitation. Tachycardia noted throughout. Carlo Alcantara M.D. 03/05/18: US TRIPLEX OF LOWER EXTREMITIES, BILATERAL- No evidence of deep vein thrombosis in either lower extremity.
[2018-03-07] VITALS (10 sets, daily range): BP systolic 93–1127; BP diastolic 53–78
[2018-03-07 04:22] LABS: ABSOLUTE BASOPHIL COUNT 0 /CUMM (0.0-0.2); ABSOLUTE EOSINOPHIL COUNT 0 /CUMM (0.0-0.7); ABSOLUTE GRANULOCYTE CT 3.9 /CUMM (1.4-6.5); ABSOLUTE LYMPH COUNT 1.2 /CUMM (1.2-3.4); ABSOLUTE MONOCYTE COUNT 0.8 /CUMM (0.10-0.60); BASOPHIL % 0.3 % (0.0-2.0); EOSINOPHIL % 0.6 % (0-5); GRANULOCYTE % 64.9 % (42.2-75.2); HEMATOCRIT 24.2 % (42-52); MEAN CORPUSCULAR HGB 33.6 PG (27.0-31.0); MEAN CORPUSCULAR HGB CONC 33.8 G/DL (33.0-37.0); MEAN CORPUSCULAR VOLUME 99.2 FL (80.0-94.0); MEAN PLATELET VOLUME 8.8 FL (7.4-10.4); PLATELET COUNT 79 /CUMM (130-400); RBC DISTRIBUTION WIDTH 20.1 % (11.5-14.5); RED BLOOD CELL CT 2.44 /CUMM (4.70-6.10); WHITE BLOOD CELL COUNT 5.9 /CUMM (4.8-10.8)
[2018-03-07 04:28] LABS: PT 11.7 SEC (9.4-12.5)
--- NOTE | 2018-03-07 07:28 | PN- Resident CRCU ---
Chucho MARTINEZ,[facility] 03/07/18 0727: Subjective HPI/CRCU Issues: No acute events overnight. Tolerating full liquid diet well. Continues to have abd with movement. Complains of back pain Objective Vital Signs & I&O Last 8 Hrs of Vitals and I&O: Laboratory Tests 03/07/18 0400: Anion Gap 11, Estimated GFR > 60, Glucose 98, Calcium 7.9 L, Phosphorus 4.2, Magnesium 2.2, Total Bilirubin 12.2 H, Direct Bilirubin 9.8 H, AST 71 H, ALT 42, Albumin 2.9 L, PT 11.7, INR 1.07, D-Dimer High Sensitivty 2213 H, CBC w Diff NO MAN DIFF REQ, RBC 2.44 L, MCV 99.2 H, MCH 33.6 H, MCHC 33.8, RDW 20.1 H, MPV 8.8, Gran % 64.9, Lymphocytes % 20.8, Monocytes % 13.4 H, Eosinophils % 0.6, Basophils % 0.3, Absolute Granulocytes 3.9, Absolute Lymphocytes 1.2, Absolute Monocytes 0.8 H, Absolute Eosinophils 0, Absolute Basophils 0 03/06/18 1400: CBC w Diff NO MAN DIFF REQ, RBC 2.71 L, MCV 99.4 H, MCH 33.2 H, MCHC 33.4, RDW 19.5 H, MPV 9.2, Gran % 73.1, Lymphocytes % 14.0 L, Monocytes % 11.9 H, Eosinophils % 0.9, Basophils % 0.1, Absolute Granulocytes 4.7, Absolute Lymphocytes 0.9 L, Absolute Monocytes 0.8 H, Absolute Eosinophils 0.1, Absolute Basophils 0 Vital Signs Date Time Temp Pulse Resp B/P B/P Pulse O2 O2 Flow FiO2 Mean Ox Delivery Rate 03/07 08 99.0 102 18 118/70 03/07 0800 97 Room Air 03/07 0800 99.0 102 18 118/70 97 Room Air 03/07 0600 99.8 112 14 112/59 03/07 0400 Room Air 03/07 0400 99.8 96 22 120/74 03/07 0200 98.8 92 13 124/76 Exam General Appearance: no apparent distress, alert, awake Respiratory: clear anterior breath sounds Cardiovascular: tachycardia Gastrointestinal: normal bowel sounds, diffuse abd pain to palpation worst in LLQ Extremities: 2+ radial pulses Current Medications: Current Medications Sig/Madelin Start time Last Medication Dose Route Stop Time Status Admin Calcitriol 0.25 MCG DAILY 03/06 0900 DC 03/06 IV 0839 Chlordiazepoxide HCl 25 MG BID 03/06 0900 AC 03/06 PO 2109 Dextrose/Sodium 1,000 ML Q20H 03/06 1045 AC 03/06 Chloride IV 2223 Dextrose/Sodium 1,000 ML Q13H 03/05 1100 DC 03/06 Chloride IV 0105 Docusate Sodium 100 MG DAILY NEEDED PRN 03/03 1100 AC PO Ergocalciferol 50,000 IU Q168 03/06 1445 AC 03/06 PO 1641 Fenofibrate 145 MG DAILY 03/06 1445 AC 03/06 PO 1641 Fenofibrate 145 MG DAILY 03/06 1015 CAN PO Folic Acid 1 MG DAILY 03/04 1058 AC 03/06 PO 0837 Lorazepam 0 Q1P PRN 03/02 1700 AC 03/06 IV 0304 Magnesium Sulfate 1 GM ONCE ONE 03/06 1045 DC 03/06 Dextrose/Water 100 ML IV 03/06 1444 1315 Metoprolol Tartrate 25 MG BID 03/07 0900 AC PO Metoprolol Tartrate 12.5 MG BID 03/04 1056 DC 03/06 PO 2108 Morphine Sulfate 2 MG ONCE ONE 03/06 2130 DC 03/06 IV 03/06 2131 2118 Morphine Sulfate 2 MG Q4P PRN 03/02 1600 AC 03/07 IV 0805 Nicotine 7 MG DAILY 03/07 0900 03/07 TOP 0809 Nicotine 21 MG DAILY 03/04 1845 DC 03/06 TOP 0838 Pantoprazole Sodium 40 MG DAILY 03/05 1815 AC 03/06 IV 0835 Phosphate 250 MG BID 03/05 1059 DC 03/06 PO 03/06 2300 2108 Potassium Chloride 40 MEQ ONCE ONE 03/07 0830 DC PO 03/07 0831 Senna 187 MG AT BEDTIME NEED.. 03/03 1100 AC 03/03 PO 1426 Thiamine HCl 100 MG DAILY 03/04 1058 AC 03/06 PO 0837 Vitamin E 800 IU DAILY 03/06 1910 AC 03/06 PO 2108 Impression/Plan Impression/Problem List Impression: A: 32 yo M with a past medical history of alcohol and cannabis abuse presenting to the ED for severe abdominal pain for 2 days found to have questionable necrotizing pancreatitis, hypertriglyceremia >10k and hypocalcemia. Problems: Respiratory: None Infection: #lactic acidosis - resolved LA 2.5 - 3.0 and resolved after fluid resucitation. Continues to have mild fever -Monitor for signs of infection, possibly due to necrotic pancreas Cardiac: #tachycardia New onset tachycardia. Possibly due to pain or anxiety. Given lopressor 5mg IV before plasmapheresis Free t4 elevated with normal tsh which returned to normal Echocardiogram is normal DVT negative Well's score for PE: 1.5. Watch clinical signs and assess for possible PE -Started metoprololl 12.5 mg BID. Increased to 25mg BID -control anxiety with ativan and morphine for pain Heme onc: #Pancytopenia with ?GI bleed Initial H/H 13.7/37.5 MCV>100 No acute signs of bleeding but hemooccult + DIC panel reavealed: PTT 48 and High sensitivity D-dimer 2357, normal fibrinogen activity Retic count elevated 2.98 Current H/H 8.2/24.2 Transfused 1 unit Fibrin split products not availible. Repeat D-Dimer high sensitivity 2213. -f/u haptoglobin, peripheral smear -Mostly multifactorial due to dilution 2/2 fluids and possibly BM alcoholic bone marrow suppression Metabolic: #hyponatremia Initial Na 132 Currently: 136 -continue monitor. #hypocalcemia Initial presenting calcium 5.7. Was started on calcium drip. Phos 2.5 Vitamin D <4.2 PTH elevated at 165.1 -current corrected calcium 8.8 -switch from calcitrol to po ergocalciferol 50kunits weekly -hypocalcemia probably secondary to saponifiaction of pancreatitis in addition to nutrition -cont endo recommendations #hypomag Currently 2.2 -cont monitoring magnesium and replnish as needed #hypophosphatemia Currently 4.2 -monitor replenish with neutraphos as needed Alimentary: #Pancreatitis with ?necrotizing tissues more likley due to hypertriglycedemia vs etoh abuse The patient presented with severe abd pain x [address] abd revealed acute pancreatitis diffuse fatty infiltration of the liver with cocal area of nonenhancement at the junction of the neck and body the possibly representing early pancreatic necrosis. Initial labs triglycerides >10.5k, revealed lactic acid 3.2,calcium 5.7, albumin 2.3, phosphorus 2.5, magnesium 1.1, T bili 3.4, AST 112, ALT 36, ALP 881, LDH 885, albumin 2.8, amylase 58, lipase 1184, 25- hydroxy vit d <4.2, PTH 165.1. Patient received plasmapheresis. Triglycerides improved to 460. Currently off insulin and calcium drip. Repeat CRP increased from 4.4->7.5. Gave lasix for fluid overload RUQ: US no gallstones Repeat ct abd: Pancreatitis with increased pancreatic edema. Persistent small area of hypoattenuation at the neck of the pancreas undetermined significance. Could represent a small area of necrosis. increasing edema extending into the anterior pararenal space. B12 elevated 965, HIV negative, iron normal, TIBC 106, ferritin >1000, HIV negative, Hepatitis panel negative Current: T bili 12.2, Direct bili 9.8, amylase 73, lipase 410, triglycerides 387 -f/u serial cbc, bep, INR -f/u workup : repeat alk phos with 5'NTD, MONIQUE, AMA, A1AT, ceruloplasmin, RBC folate, & MMA. -cont liquid diet, advanced as tolerated -Consider IR needle aspiration of pancreatic necrosis depending on clinical course -Monitor for signs of fluid overload and potential ARDS. giving lasix as needed -cont monitoring lactic acid and triglycerides. -cont monitoring amylase and lipase. -stopped IVF as he is tolerating full liquid -cont IV PPI, fibrate, vit E #hepatitis with fatty liver dz on CT in the setting of etoh abuse, and pancreaitis Ast 112-> 84 -> 50 -> 79 -> 71 ALT 66 -> 36 -> 34 -> 79 -> 42 ALP 881 -> 131 LDH 885 Tbili elevated 12.2, Direct 9.8 -most like due to etoh cholestasis, ?johnathan malinda vs rotor syndrome? -LFTs have normalized with treatment of pancreatitis -HIV and hepatitis negative -cont to monitor and continue work up as stated above Neuro: None Psych: #hx of etoh abuse Utox positive for cannabis -taper libirum 12.5 TID, plan for 12.5BID tomorrow -Continue ativan prn agitation on CIWA -nicotine patch -f/u psych and sw -cont thiamine and folate House keeping: FULL LIQUID DIET FULL CODE PICC LINE, DC'ed BARBARA LINE DVT prophylaxis - holding heparin for low plt and pancytopnia Problem List: 1. Alcoholic hepatitis 2. Hepatitis 3. Necrotizing pancreatitis 4. Hypocalcemia 5. Hyponatremia 6. Anemia 7. Tachycardia 8. Pancytopenia 9. Guaiac positive stools Pain Ratin Tomorrow's Labs & Rationales: cbc bep lft calcium INR Plan DVT/Prophylaxis: mechanical, early ambulation low risk Belkys MARTINEZ,[facility] 03/07/18 1244: Attending MD Review Statement Attending Sign Off Attending Cosign Statement: I have: examined this patient, reviewed aval EMR data, personally reviewd images, discussd w/resident/PA/DIRECTOR CORPORATE, discussed mgmt plan w/shiva, discussed mgmt plan w/CM, discussed mgmt plan w/pt, agreed w/resident/PA/DIRECTOR CORPORATE, amended to note. Other Findings: Seen and examined stable ok to the floor will give one dose of lasix po potassium increase activity will follow if needed Follow all labs and bilirubin
--- NOTE | 2018-03-07 07:29 | PN- Gastroenterology ---
Assessment/Plan GI Assessment/Recommendations: 32 y/o male, non-HTN, non-DM, unaware of prior hx HLD (*subsequent admission 08/10: TG > 10.5K), 15 pk yr cigarette smoker, no illicit drugs or IVDA (except occasional cannabis), with long hx EtOH ("> 6 beers daily & occ shot of whiskey "), last drank 1 a.m. on 03/02/18, without known prior hx pancreatitis, PUD, or GBD (GB intact- no prior abdominal surgery except remote left groin hernia repair as child), who presented to the [place] ER 03/02/18 at 7:46 a.m., c/o diffuse left-sided abdominal pain for 3 days with nausea and vomiting, contents bilious. There was no hematemesis. He had mild GERD, without odynophagia or dysphagia. His stools were dark. He denied any rectal bleeding. There was minimal diarrhea, but no constipation, obstipation, or tenesmus. LBM on day of admission. He reportedly had OB+ stool on digital exam in the ER. Upon arrival, BP 140/91, P126, R 18, T 98.8 (Tm 99.2 in ER), O2 sat RA 95%. There was no positional component to his symptoms. There was perhaps minimal jaundice. His urine was slightly dark. He denied any light stools or pruritus. He had decreased po intake x 2d SHUTTLELESS LOOM WEAVER. He denied any chest pain or shortness of breath. There was some mild WARNER. He denied any history of DTs, seizures, or EtOH withdrawal. He denied any abdominal trauma, rash, or confusion. He denied any FHx GI Ca, GBD, PUD, inherited pancreatitis, additional GI disease, or inherited liver disease. He was not on any ASA, NSAIDS, Sulfa meds or thiazides. He denied any outpt rx meds, herbal meds, or OTC meds. 01/02/18: EGD per Dr. Lea for scant hematemesis- mild gastritis, duodenitis, with bxs: mild CAG/CFG. HP-neg. (The patient denied ever coming to the office for GI follow-up). He had never had a colonoscopy. The patient was given IV NS, MS, Dilaudid, f/b Ringer's Lactate in the ER (exact amount to be calculated-> reportedly + 5-6L overnight). His serum was lipemic. He was initially admitted to telemetry, but in view of multiple metabolic derangements, markedly elevated triglycerides, hypoCa2+, etc. he was transferred to the ICU for insulin drip, calcium gluconate infusion, and closer monitoring. Apparently, GI was called for an elective consult late in the afternoon on 03/02, but the GI service was never notifiied that the patient was transferred to the ICU. The patient was seen by critical care & endocrine. He is awaiting placement of additional lines & probable aphoresis for tx of his marked elevated TG. As of 03/03/18, the patient's abdominal pain was about the same. He had received narcotic analgesics a little over one hour prior to my initial exam. He was essentially NPO xc ice chips. He looked better clinically than his labs did. 03/02/18: 08:52- Admission labs- WBC 7.7 71S/24L/5M), H/H 13.7/37.5, MCV 101.3, RDW 15, PLT 141, glu 107, BUN/Cr 11/0.7, GFR > 60, Na 132, K 4.1, HCO3 18, AG 17 , lactate 3.2-> 2.3, amylase 58, lipase 1184, *Ca 5.7, albumin 2.8, globulin 3.8 , *TG > 10,500, TBil 3.4 (w/o fracs), *alk phos 881, AST 112, ALT 66, *[EtOH] 310 (*unable to do PT/PTT due to gross lipemia). 03/02/18: U/A- hazy, yellow, 1.010, 6.0, rare RBC, rare WBC, 1-3 gran casts, few bact, few epith mod amorph, + icto, 1.0 urobil 1.0, neg nitirite, neg esterase 03/02/18: Utox: + cannabis > 80. 03/02/18: 16:07- glu 76, BUN/Cr 10/0.6, GFR > 60, Na 131, K 4.3, HCO3 19, amylase 64, lipase 1409, *Ca 5.2, TG 8970, *LDH 885, PTH 165.1, Vit D 25OH < 4.2 03/02/18: 21:00- glu 77, BUN/Cr 8/0.5, GFR > 60, Na 133, K 4.0, HCO3 15, AG 18, amylase 633, lipase 1323, Mg 1.1, Ca 5.2, TG 9397 03/03/18: 05:46- WBC 4.2 (70S/13B/14L/3M), H/H 9.9/29.6, MCV 101.2, RDW 15.2, PLT 105, glu 155, BUN/Cr 6/0.5, GFR > 60, Na 127, K 3.6, HCO3 17, AG 13, Mg 1.9, *Ca 5.4, PO4 2.5, alb 2.3, TG 7991, TBil 3.8 (w/o fracs), AST 84, AST 36. 03/02/18: EKG- NSR @ 86, nl axis, nl int, flipped T in V1V2. 03/02/18: XRY-PORTABLE CHEST XRAY- No acute disease. No change. No effusion. Post C-fusion. 03/02/18: CT ABD & PELVIS W IV CONTRAST- 1. Diffuse fatty infiltration of the liver. No focal hepatic defect. No biliary tract disease. Normal GB. 2. Acute pancreatitis associated with pancreatic enzymes/effusions primarily localized to the left anterior pararenal space. Secondary effects of the transverse colon and duodenum are appreciated. 3. Focal 1 cm area of nonenhancement at the junction of the neck and body the pancreas could well represent early pancreatic necrosis. DICTATED BY: Balta Madrigal MD (*I personally reviewed the CT with Dr. Goldman, of [facility], on & a clinical/radiographic decision was made to defer needle aspirate of the focal region by IR for now to rule out infected necrosis, with consideration for repeat CT in short interval follow-up, depending on clinical course). *As of 03/03/18, the patient looked better clinically than his labs did. His pancreatitis was undoubtedly from his markedly elevated TG (> 10.5K on 03/02/18: admission labs), superimposed on EtOH (actively drinking up until admission) & cigarette smoking. His LFTs were somewhat atypical for fatty liver, with a markedly elevated alkaline phosphatase. The gallbladder appeared normal on CT. There was a 1 cm region at the body/neck of pancreas that was suspicious for possible necrosis. He was somewhat malnourished. Although the liver did not look cirrhotic on CT, he had thrombocytopenia and reversal of albumin:globulin ratio, which could imply cirrhosis. His pancytopenia was probably secondary to bone marrow suppression from EtOH. He reportedly had dark, OB positive stool in the ER, it was not actively bleeding. He remotely had HP-negative gastritis on 01/02/10: EGD per Dr. Lea, without any varices or portal gastropathy then. On admission, 1 grave sign by [place] criteria (elevated LDH) & 1 grave sign by BiSAP criteria (+SIRS). There were no pleural effusions. 03/03/18: XRY-PORTABLE CHEST XRAY- Right-sided PICC terminates in the distal SVC in satisfactory position. Spinal fusion hardware in the lower cervical & upper thoracic spine. 03/03/18: ULTRASOUND AND FLUOROSCOPICALLY GUIDED RIGHT INTERNAL JUGULAR VEIN TEMPORARY HEMODIALYSIS CATHETER PLACEMENT- Successful placement of temporary hemodialysis catheter via the right internal jugular vein. Catheter ready to use at this time. 03/04/18: *US-LIMITED (RUQ) ABDOMEN- 1. The pancreas is obscured and not assessed. 2. Stable appearance of hepatic steatosis. No focal hepatic lesion. 3. No cholelithiasis. Normal GB. CBD 3 mm. No free fluid. 03/03/18: 1520: *Hep A Ab, Hep Bs Ag, Hep C Ab, & Hep B core Ab- all neg; *HIV- neg; TBil 4.7, DBil 3.6, alk phos 585, troponin .02, *CRP 4.4, Fe 74, TIBC 106, *Fe sat 69.8%, *ferritin > 1000 (? acute phase rx/EtOH > HHC), B12 965 03/03/18: *MONIQUE, AMA, ceruloplasmin, A1AT, 5'NTD, RBC folate, MMA- all pending. 03/03/18: glu 129, BUN/Cr 3/0.5, GFR > 60, Na 135, K 3.7, HCO3 20, AG 10, Mg 1.7 , Ca 8.0, *PO4 1.8, alb 3.4, TG 394, TBil 2.9, AST 22, ALT 22 03/03/18: PT 11.4, INR 1.05, PTT 63 (*serum still lipemic then) 03/04/18: 0350: WBC 4.9, H/H 8.5/25.4, MCV 102.1, RDW 15.8, PLT 54, glu 120, BUN /Cr < 2/0.5, GFR > 60, Na 135, K 4.0, HCO3 21, AG 8, Mg 1.7, Ca 7.7, PO4 1.5, alb 2.9, *TG 387, TBil 4.4 (*w/o fracs), AST 56, ALT 34, *CRP 7.5 *As of 03/04/18, the patient was seen by numerous consultants, including ICU, nephrology & endocrine. He had an urgent placement of dialysis/pheresis catheter by IR on 03/03/18. *Lipid pheresis was performed 03/03/18, with marked improvement in triglyceride levels, down to 387, from > 10.5K!! The patient remained in the ICU. Right neck Cuong catheter is to be D/C. His calcium, phosphorus, magnesium, insulin drip & glucose were monitored by endocrine & the ICU team. He was rxd Calcitriol. His fluid balance was + > 3L. There was no evidence of hemoconcentration. His anemia was multifactorial & in part, dilutional. His IVF were switched to D5 Lactated Ringers at 75 cc/hr. He did get Lasix prn. The IV banana bag was switched to po folate & thiamine. His insulin drip was DC'd. Toprol was added for tachycardia. He was awaiting an echocardiogram. At present, BP 138/82, P 122, R 20, T 99.3 (Tm 100.3), O2 sat RA 97%. He was mildly jaundiced. His abdominal pain was improved. He denied any nausea or vomiting, and was hungry. He was on ice chips, but was otherwise NPO. He had a BM today. He denied any fevers or chills. He had a mild cough. He denied any CP or SOB, but had mild WARNER. There was no overt GI bleeding, hematemesis, or melena. He noted minimal confusion, but was A & O x 3. 03/04/18: 1620: glu 111, BUN/Cr < 2/0.5, Na 134, K 3.7, HCO3 27, AG 8, Mg 2.2, Ca 7.7, PO4 1.7, albn 2.8, TBil 6.5, AST 80, ALT 34, PT 12.0, INR 1.10, PTT 48, *elevated d-Dimer 2357, fibrinogen 275 (? no FDP sent). 03/05/18: 0405: WBC 6.1, H/H 7.9/23.6, MCV 102.8, RDW 15.4, PLT 42, glu 92, BUN/ Cr < 2/0.5, GFR > 60, Na 132, K 4.1, HCO3 26, AG 7, Mg 2.0, Ca 7.9, PO4 1.9, * TBil 9.5 (w/o fracs), AST 100, ALT 47. *As of 03/05/18, the patient was normotensive, but still somewhat tachycardic, despite Toprol, with Tm 99.8 & O2 sat RA 98%. He was NPO xc ice chips & awaiting a repeat CT AP with pancreatic protocol to follow up on the suspected area of necrosis & to rule out any hemorrhagic component. IVF: D% Lactated Ringers @ 75 cc/hr. He was known to have OB positive stool on admission, but his anemia was multifactorial, including bone marrow suppression from EtOH, with worsening thrombocytopenia & intermittent leukopenia. His LFTs worsened. There was no overt GI bleeding or hematemesis. He had a dark brown, OB+ BM the p.m. of 03/04/18, without fresh blood or melena. His abdominal pain was improving. There was minimal nausea, but no vomiting. He denied any CP or SOB. He denied any chills or sx UTI. He had a minimal dry cough. The elevated d-Dimer from yesterday afternoon, 03/04/18, was noted. CIWA have ranged anywhere from 0-16 over the past 24 hrs, most recently 4. At the conclusion of my note, the 03/05: CT AP with pancreatic protocol report came back (*see below)- slightly worsening pancreatitis, but can try sips of clears, based on his abdominal exam. 03/05/18: *CT ABDOMEN AND PELVIS WITHOUT AND WITH IV CONTRAST- 1. Pancreatitis with increased pancreatic edema. Persistent small area of hypoattenuation at the neck of the pancreas undetermined significance. This could represent a small area of necrosis. Prior trauma is possible. There is increasing edema extending into the anterior pararenal space. Persistent mild edema in the transverse mesocolon. Associated secondary inflammatory changes in the duodenum. No walled off collection. 2. Stable appearance of hepatic steatosis. No focal hepatic defects. No dilated ducts. Normal GB. 3. Small bilateral pleural effusions, L > R, with bibasilar atelectasis. 03/03/18: ECHOCARDIOGRAM- CONCLUSIONS: LVEF > 65%. No significant chamber abnormalities. No significant valve abnormalities. Normal transthoracic echocardiogram. Physiologic valvular regurgitation. Tachycardia noted throughout. Carlo Alcantara M.D. 03/05/18: US TRIPLEX OF LOWER EXTREMITIES, BILATERAL- No evidence of deep vein thrombosis in either lower extremity. 03/03/18: *MONIQUE- neg 1:40. 03/06/18: 0511: WBC 5.8(70S/1B/20L/8M/1Baso), H/H 7.0/20.5 MCV 103.5, RDW 15.8, PLT 54, glu 98, BUN/Cr < 2/0.6, GFR > 60, Na 132, K 3.9, HCO3 26, AG 8, Mg 2.0, Ca 7.8, PO4 2.7, alb 2.7, glob 2.5, TBil 11, DBil 8.9, alk phos 131, AST 79, ALT 45, TG 460. 03/06/18: 1400: WBC 6.5, H/H 9.0/27, PLT 69 (*post 1u PRBC earlier that a.m.) *As of 03/06/18, the patient was hemodynamically stable and only borderline tachycardic, with O2 sat RA 95% & Tm 99.6. IVF: D5NS @ 50cc/hr. He was tolerating full liquids po. He received 1u PRBC on 03/06/18 for jimenez H/H 7.0/ 20.5 (multifactorial anemia, thrombocytopenia, & borderline leukopenia-> EtOH BM suppression, nutritional, dilutional, & OB+ brown stool). Endocrine, ICU, & medical notes appreciated. A CTA chest was deferred per the ICU team, as his elevated d-Dimer was clinically felt to be an acute phase reactant. 03/05/18: * Doppler LE B/L- neg DVT. His electrolytes were being repleted. Corrected serum Ca2+ was 8.64. His abdominal pain was improving. He denied any nausea or vomiting. He had a loose brown BM just now. *Tricor 145 mg po daily was rxd on 03/06/18. His CIWA scores were 0-1 today, but he was sleeping most of the time. He was currently moderately tremulous. He remained yellow. He denied any fevers, chills, or confusion. His Cuong catheter was pulled from his right neck. 03/07/18: WBC 5.9 (no left shift), H/H 8.2/24.2, PLT 79, PT 11.7, INR 1.07, glu 98, BUN/Cr 3/0.6, GFR > 60, K 3.8, HCO3 25, AG 11, Mg 2.2, Ca 7.9, PO4 4.2, alb 2.9 (no TP), TBil 12.2, AST 71, ALT 42. 03/07/18: *[employer] Gr[employer]y discriminant function 11 (negative) regarding EtOH hepatitis. *As of 03/07/18, the patient remained normotensive & mildly tachycardic, with low-grade temp (Tm 99.8), & O2 sat RA 97%. Clinically, the patient looked improved. He was minimally tremulous (on Librium & Ativan prn). He denied any confusion. His abdominal pain was improving. He last received MS at 3:57 a.m. today. He tolerated full liquids po. He denied any nausea, vomiting, chills,CP , or SOB. He remained jaundiced. IVF: D5NS @ 50 cc/hr. His fluid balance past 24 hrs was essentially zero. Vitamin E 800 IU po daily was added to Tricor 145 mg po daily. Nicotine patch & Ergocalciferol were added. *SUGGEST: Full liquids po as tolerated, & if stable, consider low fat diet tomorrow. Follow-up with endocrine, renal (post lipid pheresis) & ICU. Strict I/O's. Ercocalciferol & electrolyte management per endocrine. Replete other lytes (i.e. - Mg/PO4). Current IVF: D5NS @ 50 cc/hr. Echocardiogram without EtOH cardiomyopathy-> Toprol rx for tachycardia. O2 prn. Thiamine 100 mg po daily & folate. CIWA protocol. Watch for impending DTs. Ativan as needed. Tx of hyperTG with Tricor 145 mg daily, per endocrine (post lipid apheresis). Continue Vit E 800 IU po daily. *Depending on clinical course, may need needle aspirate by IR to r/o infxd necrosis, but would defer at present, as pt stable. *Consider outpt EUS x 2 months to recheck 1 cm focal area of necrosis at pancreatic neck/body. Continue DVT prophylaxis with mechanical ALPS. Continue to watch for hemoconcentration (i.e.- rising Hgb or BUN, despite IVF), which would be a poor prognostic sign. The pancytopenia is probably multifactorial (i.e.- EtOH effects on BM, malnutrition, dilutional, etc.), plus probable minor component of OB+ stool. Zofran as needed. *Check FDP (fibin split products), but these can be elevated in liver disease.*Serial CBC, CMP, & PT with INR to calculate Maddrey score/discriminant function, but Prednisolone &/or Trental have fallen out of favor for EtOH hepatitis. *Await 03/05/18: haptoblobin & check peripheral smear. Narcotic analgesics as needed. *Resume Protonix 40 mg IV daily, with the caveat that his low Mg is carefully followed on PPI. No plans for endoscopic workup of OB positive stool at present, unless patient actively bleeds (multifactorial anemia & EtOH BM suppression), but the patient was given my office number for potential outpt EGD & possible colonoscopy. Await 03/03/18: 5'NTD, AMA, A1AT, ceruloplasmin, RBC folate, & MMA. *Elevated Fe sat/ferritin probably acute phase rx, but consider genetic markers for HHC. The patient & his fiancee were told on 03/04/18 that further alcohol abuse could result in his . They were made aware of the fact that he was critically ill. Advise psych & SW input. Further tx per ICU team.The above was again discussed with the medical house staff & previously with Dr. Rizvi. Further GI recommendations to follow, depending on clinical course. Consider transfer out of ICU from GI perspective. Problem List: 1. Acute pancreatitis 2. Hypertriglyceridemia 3. ETOH abuse 4. Hypocalcemia 5. Abnormal LFTs 6. Malnutrition 7. Fatty liver 8. Guaiac positive stools 9. Pancytopenia 10. Alcoholic hepatitis Subjective Subjective: 03/07/18: WBC 5.9 (no left shift), H/H 8.2/24.2, PLT 79, PT 11.7, INR 1.07, glu 98, BUN/Cr 3/0.6, GFR > 60, K 3.8, HCO3 25, AG 11, Mg 2.2, Ca 7.9, PO4 4.2, alb 2.9 (no TP), TBil 12.2, AST 71, ALT 42. 03/07/18: *[facility] discriminant function 11 (negative) regarding EtOH hepatitis. *As of 03/07/18, the patient remained normotensive & mildly tachycardic, with low-grade temp (Tm 99.8), & O2 sat RA 97%. Clinically, the patient looked improved. He was minimally tremulous (on Librium & Ativan prn). He denied any confusion. His abdominal pain was improving. He last received MS at 3:57 a.m. today. He tolerated full liquids po. He denied any nausea, vomiting, chills,CP , or SOB. He remained jaundiced. IVF: D5NS @ 50 cc/hr. His fluid balance past 24 hrs was essentially zero. Vitamin E 800 IU po daily was added to Tricor 145 mg po daily. Nicotine patch & Ergocalciferol were added. Review of Systems: Constitutional: Denies: chills, diaphoresis, fever, malaise, weakness, unexplained weight loss. EENTM: Reports: icterus. Denies: blurred vision, double vision, visual changes, eye pain, eye drainage, eye tearing, ear discharge, ear pain, ear redness, hearing changes, nasal congestion, epistaxis, nasal pain, throat pain, throat swelling, mouth pain, tooth pain. Cardiovascular: Denies: chest pain, edema, orthopena, palpitations, peripheral edema, syncope. Respiratory: Reports: mild dry cough-> better. Denies: SOB, hemoptysis, orthopnea, sputum production, stridor, wheezing. GI: Reports: abdominal pain-> improving, ? melena-> resolved (OB+ in ER), nausea & vomiting-> resolved. Denies: bloating, constipation, diarrhea, distention, bowel incontinence, bloody stool, changes in stool, steatorrhea. Genitourinary: Denies: discharge, dysuria, frequency, hematuria, hesitation, nocturia, pain, urgency. Musculoskeletal: Reports: chronic neck pain (chronic post C-spine fusion). Denies: back pain, gout, joint pain, joint swelling, muscle pain, muscle stiffness. Skin: Reports: jaundice. Denies: cysts, change in skin color, change in hair/nails, dryness, erythema, lesions, lymphangitis, lumps, moles, rash. Neurological/Psychological: Denies: anxiety, ataxia, cognitive dysfunction, confusion, depressed, dementia, emotional problems, headache, numbness, paresthesia, pre-existing deficit, petit mal seizures, tingling, tremors, tonic-clonic seizures, unable to move lower ext , unable to move upper ext, weakness. Hematologic/Endocrine: Denies: bruising, bleeding, polyuria, polydipsia. Immunologic/Allergic: Denies: splenectomy, HIV/AIDS, lymphadenopathy. All Other Systems: Reviewed and Negative Objective Vital Signs and I&Os Vital Signs Date Time Temp Pulse Resp B/P B/P Pulse O2 O2 Flow FiO2 Mean Ox Delivery Rate 03/07 0600 99.8 112 14 112/59 03/07 0400 Room Air 03/07 0400 99.8 96 22 120/74 03/07 0200 98.8 92 13 124/76 03/07 0000 98.8 100 18 130/78 05 0000 98.8 100 18 130/78 97 Room Air 03/07 0000 98 Room Air 03/06 2200 99.4 102 16 100/71 03/06 2108 104 107/63 03/06 2000 Room Air 03/06 2000 99.4 106 24 128/80 / 1800 104 18 110/57 03/06 1600 99.6 102 18 110/70 14 1600 95 Room Air 03/06 1600 99.6 102 18 110/70 95 Room Air 03/06 1400 104 20 126/71 03/06 1200 103 20 102/60 03/06 1200 96 Room Air 03/06 1000 104 16 117/62 03/06 0838 116 128/72 03/06 0800 99.1 114 20 132/76 03/06 0800 93 Room Air 03/06 0800 99.1 114 20 13276 93 Room Air Intake & Output 03/07 1600 03/07 0400 03/06 1600 03/06 0400 03/05 1600 03/05 0400 Intake Total 236 157 3678 720 1384 799 Output Total 488 149 6562 600 2300 600 Balance 113 344 -1420 120 -916 199 Intake, Blood 350 Product Intake, IV 567 647 6477 600 1264 599 Intake, Oral 360 600 400 120 120 200 Number 1 1 1 4 2 Bowel Movements Output, Urine 643 157 4937 600 2300 600 Physical Exam: Well-developed, well-nourished, thin male, in no apparent distress. Sclera * icteric. Conjunctiva less pale, post transfx. Oropharynx clear. No oral thrush. No aphthous ulcers. Mucus membranes less dry. There is no adenopathy, thyromegaly, JVD, or HJR. (Cuong cath-> pulled from right neck on 03/06/18). No peripheral stigmata of inflammatory bowel disease or chronic liver disease on exam. No spiders on the anterior chest wall. No gynecomastia. No CVA tenderness. No spine tenderness, except mild chronic tenderness post C-spine fusion (post scar) Lungs: clear to A&P, with slight decreased BS at the bases B/ L. No wheezing, rales, or rhonchi. Heart exam: regular rate rhythm, S1 and S2, without any murmur. Abdominal exam: slightly hypoactive bowel sounds, mildly distended belly, mild LUQ tenderness, without guarding or rebound. No mass. No organomegaly. No fluid shift. No pulsatile mass. No epigastric bruit. Digital rectal exam: reportedly OB+ in ER 03/02/18(dark brown, OB+ stool on p.m. of 03/04/18). Extremities: without C, C, or E. No palpable cords. Multiple tattoos. No rash. No acute arthropathy. Distal pulses 2+ bilaterally. DTRs 2+ bilaterally. No palmar erythema. No Duuytren's contractures. Alert and oriented x 3. Motor 5/5 B/L. Scant tremor. No asterixis. Current Medications: Current Medications Sig/Madelin Start time Last Medication Dose Route Stop Time Status Admin Calcitriol 0.25 MCG DAILY 03/06 0900 DC 03/06 IV 0839 Chlordiazepoxide HCl 25 MG BID 03/06 0900 AC 03/06 PO 2109 Dextrose/Sodium 1,000 ML Q20H 03/06 1045 AC 03/06 Chloride IV 2223 Dextrose/Sodium 1,000 ML Q13H 03/05 1100 DC 03/06 Chloride IV 0105 Docusate Sodium 100 MG DAILY NEEDED PRN 03/03 1100 AC PO Ergocalciferol 50,000 IU Q168 03/06 1445 AC 03/06 PO 1641 Fenofibrate 145 MG DAILY 03/06 1445 AC 03/06 PO 1641 Fenofibrate 145 MG DAILY 03/06 1015 CAN PO Folic Acid 1 MG DAILY 03/04 1058 AC 03/06 PO 0837 Lorazepam 0 Q1P PRN 03/02 1700 AC 03/06 IV 0304 Magnesium Sulfate 1 GM ONCE ONE 03/06 1045 DC 03/06 Dextrose/Water 100 ML IV 03/06 1444 1315 Metoprolol Tartrate 12.5 MG BID 03/04 1056 AC 03/06 PO 2108 Morphine Sulfate 2 MG ONCE ONE 03/06 2130 DC 03/06 IV 03/06 213 2118 Morphine Sulfate 2 MG Q4P PRN 03/02 1600 AC 03/07 IV 0406 Nicotine 7 MG DAILY 03/07 0900 AC TOP Nicotine 21 MG DAILY 03/04 1845 DC 03/06 TOP 0838 Pantoprazole Sodium 40 MG DAILY 03/05 1815 AC 03/06 IV 0835 Phosphate 250 MG BID 03/05 1059 DC 03/06 PO 03/06 2300 2108 Senna 187 MG AT BEDTIME NEED.. 03/03 1100 AC 03/03 PO 1426 Thiamine HCl 100 MG DAILY 03/04 1058 AC 03/06 PO 0837 Vitamin E 800 IU DAILY 03/06 1910 AC 03/06 PO 2108 Results Pertinent Lab Results: Laboratory Tests 03/07 03/06 0400 1400 Chemistry Sodium (137 - 145 mmol/L) 136 L Potassium (3.5 - 5.1 mmol/L) 3.8 Chloride (98 - 107 mmol/L) 100 Carbon Dioxide (22 - 30 mmol/L) 25 Anion Gap (5 - 16) 11 BUN (9 - 20 mg/dL) 3 L Creatinine (0.7 - 1.2 mg/dL) 0.6 L Estimated GFR (>60 ml/min) > 60 Glucose (65 - 99 mg/dL) 98 Calcium (8.4 - 10.2 mg/dL) 7.9 L Phosphorus (2.5 - 4.5 mg/dL) 4.2 Magnesium (1.6 - 2.3 mg/dL) 2.2 Total Bilirubin (0.2 - 1.3 mg/dL) 12.2 H Direct Bilirubin (< 0.4 mg/dL) Pending AST (17 - 59 U/L) 71 H ALT (21 - 72 U/L) 42 Albumin (3.5 - 5.0 g/dL) 2.9 L Coagulation PT (9.4 - 12.5 SEC) 11.7 INR (0.90 - 1.17) 1.07 D-Dimer High Sensitivty (0 - 243 ng/ml) Pending Hematology CBC w Diff NO MAN DIFF REQ NO MAN DIFF REQ WBC (4.8 - 10.8 /CUMM) 5.9 6.5 RBC (4.70 - 6.10 /CUMM) 2.44 L 2.71 L Hgb (14.0 - 18.0 G/DL) 8.2 L 9.0 L Hct (42 - 52 %) 24.2 L 27.0 L MCV (80.0 - 94.0 FL) 99.2 H 99.4 H MCH (27.0 - 31.0 PG) 33.6 H 33.2 H MCHC (33.0 - 37.0 G/DL) 33.8 33.4 RDW (11.5 - 14.5 %) 20.1 H 19.5 H Plt Count (130 - 400 /CUMM) 79 L 69 L MPV (7.4 - 10.4 FL) 8.8 9.2 Gran % (42.2 - 75.2 %) 64.9 73.1 Lymphocytes % (20.5 - 51.1 %) 20.8 14.0 L Monocytes % (1.7 - 9.3 %) 13.4 H 11.9 H Eosinophils % (0 - 5 %) 0.6 0.9 Basophils % (0.0 - 2.0 %) 0.3 0.1 Absolute Granulocytes (1.4 - 6.5 /CUMM) 3.9 4.7 Absolute Lymphocytes (1.2 - 3.4 /CUMM) 1.2 0.9 L Absolute Monocytes (0.10 - 0.60 /CUMM) 0.8 H 0.8 H Absolute Eosinophils (0.0 - 0.7 /CUMM) 0 0.1 Absolute Basophils (0.0 - 0.2 /CUMM) 0 0 03/06 03/05 0511 0405 Chemistry Sodium (137 - 145 mmol/L) 132 L Potassium (3.5 - 5.1 mmol/L) 3.9 Chloride (98 - 107 mmol/L) 98 Carbon Dioxide (22 - 30 mmol/L) 26 Anion Gap (5 - 16) 8 BUN (9 - 20 mg/dL) < 2 L Creatinine (0.7 - 1.2 mg/dL) 0.6 L Estimated GFR (>60 ml/min) > 60 Glucose (65 - 99 mg/dL) 98 Calcium (8.4 - 10.2 mg/dL) 7.8 L Phosphorus (2.5 - 4.5 mg/dL) 2.7 Magnesium (1.6 - 2.3 mg/dL) 2.0 Total Bilirubin (0.2 - 1.3 mg/dL) 11.0 H Direct Bilirubin (< 0.4 mg/dL) 8.9 H AST (17 - 59 U/L) 79 H ALT (21 - 72 U/L) 45 Alkaline Phosphatase (< 127 U/L) 131 H Total Protein (6.3 - 8.2 g/dL) 5.2 L Albumin (3.5 - 5.0 g/dL) 2.7 L Triglycerides (<150 mg/dL) 460 H Hematology CBC w Diff MAN DIFF ORDERED WBC (4.8 - 10.8 /CUMM) 5.8 RBC (4.70 - 6.10 /CUMM) 1.98 L Hgb (14.0 - 18.0 G/DL) 7.0 *L Hct (42 - 52 %) 20.5 L MCV (80.0 - 94.0 FL) 103.5 H MCH (27.0 - 31.0 PG) 35.2 H MCHC (33.0 - 37.0 G/DL) 34.0 RDW (11.5 - 14.5 %) 15.8 H Plt Count (130 - 400 /CUMM) 54 L MPV (7.4 - 10.4 FL) 8.8 Gran % (42.2 - 75.2 %) 69.4 Lymphocytes % (20.5 - 51.1 %) 20.2 L Monocytes % (1.7 - 9.3 %) 8.9 Eosinophils % (0 - 5 %) 1.1 Basophils % (0.0 - 2.0 %) 0.4 Absolute Granulocytes (1.4 - 6.5 /CUMM) 4.0 Segmented Neutrophils (42.2 - 75.2 %) 70 Band Neutrophils (0.0 - 5.0 %) 1 Absolute Lymphocytes (1.2 - 3.4 /CUMM) 1.2 Lymphocytes (20.5 - 51.1 %) 20 L Monocytes (1.7 - 9.3 %) 8 Absolute Monocytes (0.10 - 0.60 /CUMM) 0.5 Absolute Eosinophils (0.0 - 0.7 /CUMM) 0.1 Basophils (0.0 - 2.0 %) 1 Absolute Basophils (0.0 - 0.2 /CUMM) 0 Platelet Estimate (ADEQUATE) DECREASED Polychromasia 1+ Poikilocytosis 1+ Anisocytosis 1+ Macrocytic Cells 1+ Ovalocytes FEW Stomatocytes 1+ Retic Count (0.5 - 2.0 %) 2.98 H Haptoglobin Pending Other Body Source Fld Total RBCs Counted (%) 100 03/05 03/04 0405 1620 Chemistry Sodium (137 - 145 mmol/L) 132 L 134 L Potassium (3.5 - 5.1 mmol/L) 4.1 3.7 Chloride (98 - 107 mmol/L) 99 99 Carbon Dioxide (22 - 30 mmol/L) 26 27 Anion Gap (5 - 16) 7 8 BUN (9 - 20 mg/dL) < 2 L < 2 L Creatinine (0.7 - 1.2 mg/dL) 0.5 L 0.5 L Estimated GFR (>60 ml/min) > 60 > 60 Glucose (65 - 99 mg/dL) 92 111 H Calcium (8.4 - 10.2 mg/dL) 7.9 L 7.7 L Phosphorus (2.5 - 4.5 mg/dL) 1.9 L 1.7 L Magnesium (1.6 - 2.3 mg/dL) 2.0 2.2 Total Bilirubin (0.2 - 1.3 mg/dL) 9.5 H 6.5 H Direct Bilirubin (< 0.4 mg/dL) 6.9 H AST (17 - 59 U/L) 100 H 80 H ALT (21 - 72 U/L) 47 34 Alkaline Phosphatase (< 127 U/L) 148 H Lactate Dehydrogenase (313 - 618 U/L) 799 H Albumin (3.5 - 5.0 g/dL) 3.0 L 2.8 L Free T4 (0.79 - 2.35 ng/dL) 1.52 Coagulation PT (9.4 - 12.5 SEC) 12.0 INR (0.90 - 1.17) 1.10 APTT (25 - 37 SEC) 48 H Fibrinogen Activity (200 - 393 MG/DL) 275 D-Dimer High Sensitivty (0 - 243 ng/ml) 2357 H Hematology CBC w Diff NO MAN DIFF REQ WBC (4.8 - 10.8 /CUMM) 6.1 RBC (4.70 - 6.10 /CUMM) 2.29 L Hgb (14.0 - 18.0 G/DL) 7.9 L Hct (42 - 52 %) 23.6 L MCV (80.0 - 94.0 FL) 102.8 H MCH (27.0 - 31.0 PG) 34.3 H MCHC (33.0 - 37.0 G/DL) 33.4 RDW (11.5 - 14.5 %) 15.4 H Plt Count (130 - 400 /CUMM) 42 L MPV (7.4 - 10.4 FL) 9.6 Gran % (42.2 - 75.2 %) 76.3 H Lymphocytes % (20.5 - 51.1 %) 19.1 L Monocytes % (1.7 - 9.3 %) 3.4 Eosinophils % (0 - 5 %) 1.1 Basophils % (0.0 - 2.0 %) 0.1 Absolute Granulocytes (1.4 - 6.5 /CUMM) 4.7 Absolute Lymphocytes (1.2 - 3.4 /CUMM) 1.2 Absolute Monocytes (0.10 - 0.60 /CUMM) 0.2 Absolute Eosinophils (0.0 - 0.7 /CUMM) 0.1 Absolute Basophils (0.0 - 0.2 /CUMM) 0 Imaging/Other Studies: 03/02/18: EKG- NSR @ 86, nl axis, nl int, flipped T in V1V2. 03/02/18: XRY-PORTABLE CHEST XRAY- No acute disease. No change. No effusion. Post C-fusion. 03/02/18: CT ABD & PELVIS W IV CONTRAST- 1. Diffuse fatty infiltration of the liver. No focal hepatic defect. No biliary tract disease. Normal GB. 2. Acute pancreatitis associated with pancreatic enzymes/effusions primarily localized to the left anterior pararenal space. Secondary effects of the transverse colon and duodenum are appreciated. 3. Focal 1 cm area of nonenhancement at the junction of the neck and body the pancreas could well represent early pancreatic necrosis. DICTATED BY: Balta Madrigal MD (*I personally reviewed the CT with Dr. Goldman, of [facility], on & a clinical/radiographic decision was made to defer needle aspirate of the focal region by IR for now to rule out infected necrosis, with consideration for repeat CT in short interval follow-up, depending on clinical course). 03/03/18: XRY-PORTABLE CHEST XRAY- Right-sided PICC terminates in the distal SVC in satisfactory position. Spinal fusion hardware in the lower cervical & upper thoracic spine. 03/03/18: ULTRASOUND AND FLUOROSCOPICALLY GUIDED RIGHT INTERNAL JUGULAR VEIN TEMPORARY HEMODIALYSIS CATHETER PLACEMENT- Successful placement of temporary hemodialysis catheter via the right internal jugular vein. Catheter ready to use at this time. 03/04/18: *US-LIMITED (RUQ) ABDOMEN- 1. The pancreas is obscured and not assessed. 2. Stable appearance of hepatic steatosis. No focal hepatic lesion. 3. No cholelithiasis. Normal GB. CBD 3 mm. No free fluid. 03/05/18: CT ABDOMEN AND PELVIS WITHOUT AND WITH IV CONTRAST- 1. Pancreatitis with increased pancreatic edema. Persistent small area of hypoattenuation at the neck of the pancreas undetermined significance. This could represent a small area of necrosis. Prior trauma is possible. There is increasing edema extending into the anterior pararenal space. Persistent mild edema in the transverse mesocolon. Associated secondary inflammatory changes in the duodenum. No walled off collection. 2. Stable appearance of hepatic steatosis. No focal hepatic defects. No dilated ducts. Normal GB. 3. Small bilateral pleural effusions, L > R, with bibasilar atelectasis. 03/03/18: ECHOCARDIOGRAM- CONCLUSIONS: LVEF > 65%. No significant chamber abnormalities. No significant valve abnormalities. Normal transthoracic echocardiogram. Physiologic valvular regurgitation. Tachycardia noted throughout. Carlo Alcantara M.D. 03/05/18: US TRIPLEX OF LOWER EXTREMITIES, BILATERAL- No evidence of deep vein thrombosis in either lower extremity.
--- NOTE | 2018-03-07 08:26 | PN- Endocrinology ---
Assessment/Plan Endoscopy Assessment: 32 y/o male hx of ETOH abuse, poor diet and other substance abuse, presented with abdominal pain x 2 weeks. It was worse x 2 days. His TRIG on admission was > [address]. CT showed necrotizing acute pancreatitis. Blood work showed severe hypocalcemia. He was admitted for severe pancreatitis. He was treated with intravenous insulin and dextrose, calcium drip, intravenous calcitriol and subsequently plasma apheresis. His triglyceride level has been improving and hypocalcemia resolved. He is receiving D5NS at 50 ml/hour. He was put on vitamin D2 50,000 units once every week and fenofibrate 145 mg daily. Calcitriol was discontinued. His repeat calcium 7.9, albumin 2.9. He was started on full liquid diet and he has tolerated it. His FSGs were 90, 125, 114 and 108. Plan: continue the current treatment; monitor FSGs twice a day; monitor electrolytes, LFT and calcium. will follow. Subjective Subjective: He feels better. Objective Last 24 Hrs of Vital Signs/I&O Vital Signs Date Time Temp Pulse Resp B/P B/P Pulse O2 O2 Flow FiO2 Mean Ox Delivery Rate 03/07 0600 99.8 112 14 112/59 03/07 0400 Room Air 03/07 0400 99.8 96 22 120/74 03/07 0200 98.8 92 13 124/76 03/07 0000 98.8 100 18 130/78 05/ 0000 98.8 100 18 130/78 97 Room Air 05/ 0000 98 Room Air 03/06 2200 99.4 102 16 100/71 03/06 2108 104 107/63 03/06 2000 Room Air 03/06 2000 99.4 106 24 128/80 03/06 1800 104 18 110/57 05 1600 99.6 102 18 110/70 05 1600 95 Room Air 03/06 1600 99.6 102 18 110/70 95 Room Air 03/06 1400 104 20 126/71 03/06 1200 103 20 102/60 05 1200 96 Room Air 03/06 1000 104 16 117/62 03/06 0838 116 128/72 Intake & Output 03/07 1600 03/07 0800 03/07 0000 Intake Total 763 994 Output Total 650 650 Balance 113 344 Intake, IV 403 394 Intake, Oral 360 600 Number 1 Bowel Movements Output, Urine 650 650 Results Pertinent Lab/Fransico Results: Laboratory Tests 03/07 03/06 0400 1400 Chemistry Sodium (137 - 145 mmol/L) 136 L Potassium (3.5 - 5.1 mmol/L) 3.8 Chloride (98 - 107 mmol/L) 100 Carbon Dioxide (22 - 30 mmol/L) 25 Anion Gap (5 - 16) 11 BUN (9 - 20 mg/dL) 3 L Creatinine (0.7 - 1.2 mg/dL) 0.6 L Estimated GFR (>60 ml/min) > 60 Glucose (65 - 99 mg/dL) 98 Calcium (8.4 - 10.2 mg/dL) 7.9 L Phosphorus (2.5 - 4.5 mg/dL) 4.2 Magnesium (1.6 - 2.3 mg/dL) 2.2 Total Bilirubin (0.2 - 1.3 mg/dL) 12.2 H Direct Bilirubin (< 0.4 mg/dL) 9.8 H AST (17 - 59 U/L) 71 H ALT (21 - 72 U/L) 42 Albumin (3.5 - 5.0 g/dL) 2.9 L Coagulation PT (9.4 - 12.5 SEC) 11.7 INR (0.90 - 1.17) 1.07 D-Dimer High Sensitivty (0 - 243 ng/ml) Pending Hematology CBC w Diff NO MAN DIFF REQ NO MAN DIFF REQ WBC (4.8 - 10.8 /CUMM) 5.9 6.5 RBC (4.70 - 6.10 /CUMM) 2.44 L 2.71 L Hgb (14.0 - 18.0 G/DL) 8.2 L 9.0 L Hct (42 - 52 %) 24.2 L 27.0 L MCV (80.0 - 94.0 FL) 99.2 H 99.4 H MCH (27.0 - 31.0 PG) 33.6 H 33.2 H MCHC (33.0 - 37.0 G/DL) 33.8 33.4 RDW (11.5 - 14.5 %) 20.1 H 19.5 H Plt Count (130 - 400 /CUMM) 79 L 69 L MPV (7.4 - 10.4 FL) 8.8 9.2 Gran % (42.2 - 75.2 %) 64.9 73.1 Lymphocytes % (20.5 - 51.1 %) 20.8 14.0 L Monocytes % (1.7 - 9.3 %) 13.4 H 11.9 H Eosinophils % (0 - 5 %) 0.6 0.9 Basophils % (0.0 - 2.0 %) 0.3 0.1 Absolute Granulocytes (1.4 - 6.5 /CUMM) 3.9 4.7 Absolute Lymphocytes (1.2 - 3.4 /CUMM) 1.2 0.9 L Absolute Monocytes (0.10 - 0.60 /CUMM) 0.8 H 0.8 H Absolute Eosinophils (0.0 - 0.7 /CUMM) 0 0.1 Absolute Basophils (0.0 - 0.2 /CUMM) 0 0
[2018-03-08 04:00] VITALS: BP 118/70
[2018-03-08 07:00] VITALS: BP 108/64
--- NOTE | 2018-03-08 08:00 | Transfer of Care Summary ---
Hospital Course Course Hospital Course: 1. Reason for transfer to ICU: Patient required IV insulin drip for hypertriglyceredemia and IV calcium for hypocalemia 2.HPI: 32 yo M with a past medical history of alcohol and cannabis abuse presenting to the ED for severe abdominal pain for 2 days found to have questionable necrotizing pancreatitis, hypertriglyceremia >10k and hypocalcemia. 3.Interval events in the Floor: Please see below for problem list. 4.NIPPV: Yes/ No (details if Yes) No 5.Antibiotics: None 6.Catheters/ IV access: PICC LINE, DC'ed BARBARA LINE 7.Things to follow up (Blood Cx, Imaging, ABG etc...) Serial CBC, BEP, INR Recommendations from GI, neprhology, endocrinology GI workup 8.DVT prophylaxis: ALPS for anemia 9.Consultants: GI, neprhology, endocrinology, social work, psych 10.Code status: FULL CODE 11.Family updated: Yes/ No No Assessment: 32 yo M with a past medical history of alcohol and cannabis abuse presenting to the ED for severe abdominal pain for 2 days found to have questionable necrotizing pancreatitis, hypertriglyceremia >10k and hypocalcemia. Problems: #Pancreatitis with ?necrotizing tissues more likley due to hypertriglycedemia vs etoh abuse The patient presented with severe abd pain x [address] abd revealed acute pancreatitis diffuse fatty infiltration of the liver with cocal area of nonenhancement at the junction of the neck and body the possibly representing early pancreatic necrosis. Initial labs revealed triglycerides >10.5k, lactic acid 3.2, calcium 5.7, albumin 2.3, phosphorus 2.5, magnesium 1.1, T bili 3.4, AST 112, ALT 36, ALP 881, LDH 885, albumin 2.8, amylase 58, lipase 1184, 25- hydroxy vit d <4.2, PTH 165.1. He was admitted to the ICU for insulin drip to help control his triglycerides and IV calcium drip. He had a Flakito and PICC line placed on 03/03. The patient received temporary plasmapharesis and his triglycerides improved to 460. His Flakito line was removed on 03/05. He received 2L of NS and 2L of LR before coming to the ICU. He was continued on D5LR and it was discontinued as the patient went from NPO to tolerating a full liquid diet. He was given lasix 10mg IV and then 20mg IV for concerns possible fluid overload as he had abd distension due to the fluids. He was started on a fibrate to help control his triglycerides. He was also started on vitamin E and IV PPI. There were concerns of possible infected necrotic tissue as the patient had intermittent low grade fevers, however he has not had any leukocytosis during this admission. Current work up: amylase 58 -> 633 -> 73, lipase 1184 -> 410, Tbili 3.4 -> 12.2 , Direct bili 3.6 -> 9.8, LDH 885 -> 799, ALP 881 -> 131, Ast 112 -> 71, ALT 66- > 42, RUQ US revaeled no gallstones, repeat ct abd: pancreatitis with increased pancreatic edema with persistent small area of hypoattenuation could represent a small area of necrosis, repeat CRP increased from 4.4 to 7.5, B12 965, HIV negative, iron 74, TIBC 106, ferritin >1000, HIV negative, hepatitis panel negative, -f/u serial cbc, bep, INR -f/u workup : repeat alk phos with 5'NTD, MONIQUE, AMA, A1AT, ceruloplasmin, RBC folate, & MMA. -cont full liquid diet, advanced as tolerated -Consider IR needle aspiration of pancreatic necrosis depending on clinical course -cont IV PPI, fibrate, vit E #Hypocalcemia Initial labs revealed calcium 5.7, vit D <4.2, and PTH elevated at 165.1. He was was started on a calcium drip. As his corrected calcium improved we was started on calcitrol and then transitioned to po ergocalciferol 50kunits weekly once he was able to tolerate a full liquid diet. The hypocalcemia is probably secondary to saponifiaction of pancreatitis and nutrition. -cont endo recommendations #Tachycardia New onset tachycardia. Possibly due to pain or anxiety. Given lopressor 5mg IV before plasmapheresis. Free t4 elevated which returned to normal sponteanously with normal tsh. There were concerns of possible PE but DVT negative and Well's score for PE: 1.5. However, D-Dimer is elevated. Echocardiogram is normal. Anxiety was controlled with ativan and pain was controlled for morphine. Originally started metoprolol 12.5 mg BID and increased to 25mg BID for further control ot tachycardia. Heme onc: #Pancytopenia with ?GI bleed Initial H/H 13.7/37.5 which dropped to 7.0/20.5. Patient is hemooccult + with no acute signs of bleeding. There were concerns for HIT/TTP as patient also has thrombocytopenia but DIC panel revealed PTT 48 and High sensitivity D-dimer 2357 , normal fibrinogen activity. Patient was transfused 1 unit of prbc and responded approriately. MCV>100. Retic count was elevated 2.98. Pancytopenia most likely multifactorial due to dilution 2/2 fluids and possibly alcoholic bone marrow suppression. -f/u haptoglobin, peripheral smear #Lactic acidosis - resolved Initial lactic acid levels remained 2.5 - 3.0 and resolved after fluid resucitation. #Hyponatremia Initial Na 132. Improved with fluids. Currently: 136 #hypomagnesia Initial magnesisum 1.1 Replnished as needed. Currently: 2.2 #hypophosphatemia Initially 2.5 but dropped to 1.8. Replnished with neutraphos. Currently 4.2 #hx of etoh abuse The patient has a hx of etoh abuse and was started on CIWA monitoring with prn ativan. Utox was positive for cannabis. He was started on libirum 25 TID as he started showing signs of possible withdrawal. He was also given thiamine and folate. The librium was tapered down as tolerated. He was started on a nicotine patch which was discontinued. Pyschiatry and SW consults were ordered which are currently pending -f/u psych and sw which are pending -taper libirum -Continue ativan prn agitation on CIWA -nicotine patch House keeping: FULL LIQUID DIET FULL CODE PICC LINE, DC'ed BARBARA LINE DVT prophylaxis - holding heparin for low plt and pancytopnia Assessment/Plan: See hospital course above
--- NOTE | 2018-03-08 08:18 | PN- Housestaff ---
Subjective Follow-up For: pancreatitis hypertriglyceridemia alcohol abuse transaminitis Subjective: Patient continues to have abdominal and back pain. Denies any nausea or vomiting. Is on IV morphine. Full liquid diet tolerating. Continues to have diarrhea, yesterday 4-5 episodes. Review of Systems Constitutional: Reports: no symptoms. Cardiovascular: Reports: no symptoms. Respiratory: Reports: no symptoms. Gastrointestinal: Reports: abdominal pain, diarrhea. Denies: nausea, vomiting. Genitourinary: Reports: no symptoms. Musculoskeletal: Reports: back pain. Objective Last 24 Hrs of Vital Signs/I&O Vital Signs Date Time Temp Pulse Resp B/P B/P Pulse O2 O2 Flow FiO2 Mean Ox Delivery Rate 03/08 1435 98.5 86 18 128/74 94 03/08 1000 92 18 124/68 03/08 0957 92 124/68 03/08 0700 98.0 94 18 108/64 99 03/08 0400 98.1 91 18 118/70 03/07 2221 96 118/70 03/07 2117 98.9 96 18 110/68 99 Room Air Intake & Output 03/08 1600 03/08 0800 03/08 0000 Intake Total 740 560 Output Total Balance 740 560 Intake, IV 20 60 Intake, Oral 720 500 Physical Exam General Appearance: Alert, Oriented X3, Cooperative, No Acute Distress Skin: No Rashes, No Breakdown, No Significant Lesion Cardiovascular: Regular Rate, Normal S1, Normal S2, No Murmurs Lungs: Clear to Auscultation, Normal Air Movement Abdomen: Normal Bowel Sounds, Soft Neurological: Normal Speech Assessment/Plan Assessment: 32 yo M with a past medical history of alcohol and cannabis abuse presenting to the ED for severe abdominal pain for 2 days found to have questionable necrotizing pancreatitis, hypertriglyceremia >10k and hypocalcemia. Problems: #Pancreatitis with ?necrotizing tissues more likley due to hypertriglycedemia vs etoh abuse The patient presented with severe abd pain x [address] abd revealed acute pancreatitis diffuse fatty infiltration of the liver with cocal area of nonenhancement at the junction of the neck and body the possibly representing early pancreatic necrosis. Initial labs revealed triglycerides >10.5k, lactic acid 3.2, calcium 5.7, albumin 2.3, phosphorus 2.5, magnesium 1.1, T bili 3.4, AST 112, ALT 36, ALP 881, LDH 885, albumin 2.8, amylase 58, lipase 1184, 25- hydroxy vit d <4.2, PTH 165.1. He was admitted to the ICU for insulin drip to help control his triglycerides and IV calcium drip. He had a Flakito and PICC line placed on 03/03. The patient received temporary plasmapharesis and his triglycerides improved to 460. His Flakito line was removed on 03/05. He received 2L of NS and 2L of LR before coming to the ICU. He was continued on D5LR and it was discontinued as the patient went from NPO to tolerating a full liquid diet. He was given lasix 10mg IV and then 20mg IV for concerns possible fluid overload as he had abd distension due to the fluids. He was started on a fibrate to help control his triglycerides. He was also started on vitamin E and IV PPI. There were concerns of possible infected necrotic tissue as the patient had intermittent low grade fevers, however he has not had any leukocytosis during this admission. Current work up: amylase 58 -> 633 -> 73, lipase 1184 -> 410, Tbili 3.4 -> 12.2 , Direct bili 3.6 -> 9.8, LDH 885 -> 799, ALP 881 -> 131, Ast 112 -> 71, ALT 66- > 42, RUQ US revaeled no gallstones, repeat ct abd: pancreatitis with increased pancreatic edema with persistent small area of hypoattenuation could represent a small area of necrosis, repeat CRP increased from 4.4 to 7.5, B12 965, HIV negative, iron 74, TIBC 106, ferritin >1000, HIV negative, hepatitis panel negative, -f/u serial cbc, bep, INR -f/u workup : repeat alk phos with 5'NTD, MONIQUE, AMA, A1AT, ceruloplasmin, RBC folate, & MMA. -cont full liquid diet, advanced as tolerated -Consider IR needle aspiration of pancreatic necrosis depending on clinical course -cont IV PPI, fibrate, vit E #Hypocalcemia Initial labs revealed calcium 5.7, vit D <4.2, and PTH elevated at 165.1. He was was started on a calcium drip. As his corrected calcium improved we was started on calcitrol and then transitioned to po ergocalciferol 50kunits weekly once he was able to tolerate a full liquid diet. The hypocalcemia is probably secondary to saponifiaction of pancreatitis and nutrition. -cont endo recommendations #Tachycardia New onset tachycardia. Possibly due to pain or anxiety. Given lopressor 5mg IV before plasmapheresis. Free t4 elevated which returned to normal sponteanously with normal tsh. There were concerns of possible PE but DVT negative and Well's score for PE: 1.5. However, D-Dimer is elevated. Echocardiogram is normal. Anxiety was controlled with ativan and pain was controlled for morphine. Originally started metoprolol 12.5 mg BID and increased to 25mg BID for further control ot tachycardia. Heme onc: #Pancytopenia with ?GI bleed Initial H/H 13.7/37.5 which dropped to 7.0/20.5. Patient is hemooccult + with no acute signs of bleeding. There were concerns for HIT/TTP as patient also has thrombocytopenia but DIC panel revealed PTT 48 and High sensitivity D-dimer 2357 , normal fibrinogen activity. Patient was transfused 1 unit of prbc and responded approriately. MCV>100. Retic count was elevated 2.98. Pancytopenia most likely multifactorial due to dilution 2/2 fluids and possibly alcoholic bone marrow suppression. -f/u haptoglobin, peripheral smear #Lactic acidosis - resolved Initial lactic acid levels remained 2.5 - 3.0 and resolved after fluid resucitation. #Hyponatremia Initial Na 132. Improved with fluids. Currently: 136 #hypomagnesia Initial magnesisum 1.1 Replnished as needed. Currently: 2.2 #hypophosphatemia Initially 2.5 but dropped to 1.8. Replnished with neutraphos. Currently 4.2 #hx of etoh abuse The patient has a hx of etoh abuse and was started on CIWA monitoring with prn ativan. Utox was positive for cannabis. He was started on libirum 25 TID as he started showing signs of possible withdrawal. He was also given thiamine and folate. The librium was tapered down as tolerated. He was started on a nicotine patch which was discontinued. Pyschiatry and SW consults were ordered which are currently pending -f/u psych and sw which are pending -taper libirum -Continue ativan prn agitation on CIWA -nicotine patch House keeping: FULL LIQUID DIET FULL CODE PICC LINE, DC'ed BARBARA LINE DVT prophylaxis - holding heparin for low plt and pancytopnia Problem List: 1. Alcoholic hepatitis 2. Hepatitis 3. Necrotizing pancreatitis 4. Hypocalcemia 5. Hyponatremia Pain Ratin
--- NOTE | 2018-03-08 08:24 | PN- Att Addend ---
Attending Addendum Attending Brief Note Patient seen and examined. Plan of care discussed with the medical team and the patient. Available lab work and radiology test reports were reviewed. Patient complains of left-sided abdominal pain and left lower back pain. He denies any fever chills nausea vomiting. He is hungry and wants to have breakfast. Exam: General: Patient awake alert oriented without any distress CVS: S1 plus S2 without any murmur or gallops Chest: Few scattered crepitation without any wheeze. There is no respiratory distress. 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[employer]: Awake alert oriented without any focal neuro deficit and follows commands appropriately Extremities: No edema; no clubbing or cyanosis noted Assessment * Necrotizing pancreatitis likely due to elevated triglyceride and contributed by alcohol abuse * Lactic acidosis-resolved * Sinus tachycardia-workup be normal * Pancytopenia * Hyponatremia * Hypocalcemia * Hypomagnesemia and hypophosphatemia- improved * Hyperbilirubinemia gradually improving Plan * Discontinue Librium * Out of bed and ambulate * Advance diet * Recheck LFTs and bilirubin tomorrow * Prepare for discharge home tomorrow Current Medications Sig/Madelin Start time Last Medication Dose Route Stop Time Status Admin Chlordiazepoxide HCl 10 MG Q8 03/07 1400 AC 03/08 PO 0602 Chlordiazepoxide HCl 25 MG BID 03/06 0900 DC 03/07 PO 0928 Dextrose/Sodium 1,000 ML Q20H 03/06 1045 DC 03/06 Chloride IV 2223 Docusate Sodium 100 MG DAILY NEEDED PRN 03/03 1100 AC PO Ergocalciferol 50,000 IU Q168 03/06 1445 AC 03/06 PO 1641 Fenofibrate 145 MG DAILY 03/06 1445 AC 03/07 PO 1123 Folic Acid 1 MG DAILY 03/04 1058 AC 03/07 PO 0928 Furosemide 20 MG ONCE ONE 03/07 1015 DC 03/07 PO 03/07 1016 1124 Lorazepam 0 Q1P PRN 03/02 1700 AC 03/06 IV 0304 Metoprolol Tartrate 25 MG BID 03/07 0900 AC 03/07 PO 2221 Metoprolol Tartrate 12.5 MG BID 03/04 1056 DC 03/06 PO 2108 Morphine Sulfate 2 MG Q4P PRN 03/02 1600 AC 03/08 IV 0634 Nicotine 7 MG DAILY 03/07 0900 DC 03/07 TOP 0809 Pantoprazole Sodium 40 MG DAILY 03/05 1815 AC 03/07 IV 0924 Potassium Chloride 40 MEQ ONCE ONE 03/07 1700 DC 03/07 PO 03/07 1701 1753 Potassium Chloride 40 MEQ ONCE ONE 03/07 0830 DC 03/07 PO 03/07 0831 1124 Senna 187 MG AT BEDTIME NEED.. 03/03 1100 AC 03/03 PO 1426 Thiamine HCl 100 MG DAILY 03/04 1058 AC 03/07 PO 0928 Vitamin E 800 IU DAILY 03/06 1910 AC 03/07 PO 1124 Laboratory Tests 03/08/18 0610: Sodium Pending, Potassium Pending, Chloride Pending, Carbon Dioxide Pending, Anion Gap Pending, BUN Pending, Creatinine Pending, BUN/Creatinine Ratio Pending , Calcium Pending, Total Bilirubin Pending, Direct Bilirubin Pending, AST Pending, ALT Pending, Alkaline Phosphatase Pending, Total Protein Pending, Albumin Pending, PT Pending, INR Pending, CBC w Diff Pending, WBC Pending, RBC Pending, Hgb Pending, Hct Pending, MCV Pending, MCH Pending, MCHC Pending, RDW Pending, Plt Count Pending, MPV Pending 03/07/18 0500: [id number] Pending 03/07/18 0400: Anion Gap 11, Estimated GFR > 60, Glucose 98, Calcium 7.9 L, Phosphorus 4.2, Magnesium 2.2, Total Bilirubin 12.2 H, Direct Bilirubin 9.8 H, AST 71 H, ALT 42, Albumin 2.9 L, Amylase 73, Lipase 410 H, PT 11.7, INR 1.07, D-Dimer High Sensitivty 2213 H, CBC w Diff NO MAN DIFF REQ, RBC 2.44 L, MCV 99.2 H, MCH 33.6 H, MCHC 33.8, RDW 20.1 H, MPV 8.8, Gran % 64.9, Lymphocytes % 20.8, Monocytes % 13.4 H, Eosinophils % 0.6, Basophils % 0.3, Absolute Granulocytes 3.9, Absolute Lymphocytes 1.2, Absolute Monocytes 0.8 H, Absolute Eosinophils 0 , Absolute Basophils 0 03/06/18 1400: CBC w Diff NO MAN DIFF REQ, RBC 2.71 L, MCV 99.4 H, MCH 33.2 H, MCHC 33.4, RDW 19.5 H, MPV 9.2, Gran % 73.1, Lymphocytes % 14.0 L, Monocytes % 11.9 H, Eosinophils % 0.9, Basophils % 0.1, Absolute Granulocytes 4.7, Absolute Lymphocytes 0.9 L, Absolute Monocytes 0.8 H, Absolute Eosinophils 0.1, Absolute Basophils 0 03/06/18 0511: Anion Gap 8, Estimated GFR > 60, Glucose 98, Calcium 7.8 L, Phosphorus 2.7, Magnesium 2.0, Total Bilirubin 11.0 H, Direct Bilirubin 8.9 H, AST 79 H, ALT 45, Alkaline Phosphatase 131 H, Total Protein 5.2 L, Albumin 2.7 L, Triglycerides 460 H, CBC w Diff MAN DIFF ORDERED, RBC 1.98 L, MCV 103.5 H, MCH 35.2 H, MCHC 34.0, RDW 15.8 H, MPV 8.8, Gran % 69.4, Lymphocytes % 20.2 L , Monocytes % 8.9, Eosinophils % 1.1, Basophils % 0.4, Absolute Granulocytes 4.0 , Segmented Neutrophils 70, Band Neutrophils 1, Absolute Lymphocytes 1.2, Lymphocytes 20 L, Monocytes 8, Absolute Monocytes 0.5, Absolute Eosinophils 0.1 , Basophils 1, Absolute Basophils 0, Platelet Estimate DECREASED, Polychromasia 1+, Poikilocytosis 1+, Anisocytosis 1+, Macrocytic Cells 1+, Ovalocytes FEW, Stomatocytes 1+, Retic Count 2.98 H, Fld Total RBCs Counted 100 Vital Signs Date Time Temp Pulse Resp B/P B/P Pulse O2 O2 Flow FiO2 Mean Ox Delivery Rate 03/08 0700 98.0 94 18 108/64 99 03/08 0400 98.1 91 18 118/70 03/07 2221 96 118/70 03/07 2117 98.9 96 18 110/68 99 Room Air 03/07 1600 96 18 122/64 03/07 1600 96 Room Air 03/07 1600 98.9 96 20 122/64 96 Room Air 03/07 1400 99 18 93/53 03/07 1200 99.0 98 20 1127/70 03/07 1200 98 Room Air 05/15 1000 99 18 119/62 03/07 0928 104 121/67 Intake & Output 03/08 1600 03/08 0800 03/08 0000 Intake Total 560 Output Total Balance 560 Intake, IV 60 Intake, Oral 500
[2018-03-08 08:54] LABS: ABSOLUTE BASOPHIL COUNT 0.1 /CUMM (0.0-0.2); ABSOLUTE EOSINOPHIL COUNT 0.1 /CUMM (0.0-0.7); ABSOLUTE GRANULOCYTE CT 5.7 /CUMM (1.4-6.5); ABSOLUTE LYMPH COUNT 1.8 /CUMM (1.2-3.4); BASOPHIL % 1.2 % (0.0-2.0); EOSINOPHIL % 0.6 % (0-5); GRANULOCYTE % 65.6 % (42.2-75.2); HEMATOCRIT 24.9 % (42-52); MEAN CORPUSCULAR HGB 34.1 PG (27.0-31.0); MEAN CORPUSCULAR HGB CONC 33.8 G/DL (33.0-37.0); MEAN PLATELET VOLUME 10.2 FL (7.4-10.4); RBC DISTRIBUTION WIDTH 20.2 % (11.5-14.5); RED BLOOD CELL CT 2.46 /CUMM (4.70-6.10); WHITE BLOOD CELL COUNT 8.6 /CUMM (4.8-10.8)
[2018-03-08 09:00] LABS: PT 11.5 SEC (9.4-12.5)
[2018-03-08 10:00] VITALS: BP 124/68
[2018-03-08 10:06] LABS: PLATELET COUNT 121 /CUMM (130-400)
--- NOTE | 2018-03-08 11:25 | PN- Endocrinology ---
Assessment/Plan Endoscopy Assessment: 32 y/o male hx of ETOH abuse, poor diet and other substance abuse, presented with abdominal pain x 2 weeks. His TRIG on admission was > [id number]. CT showed necrotizing acute pancreatitis. Blood work showed severe hypocalcemia. He was admitted for severe pancreatitis. He was treated with intravenous insulin and dextrose, calcium drip, intravenous calcitriol and subsequently plasma apheresis. His triglyceride level was improving and hypocalcemia resolved. Currently he is on vitamin D2 50,000 units once every week and fenofibrate 145 mg daily. Calcitriol was discontinued. His repeat calcium 7.9, albumin 2.9. He was started on full liquid diet and he tolerated it. His FSGs were 101 and 120. Plan: continue the current treatment; monitor lipid panel tomorrow. it is okay to discontinue FSG checking. low fat diet. will follow. Subjective Subjective: He complains of the diet he is on. Objective Last 24 Hrs of Vital Signs/I&O Vital Signs Date Time Temp Pulse Resp B/P B/P Pulse O2 O2 Flow FiO2 Mean Ox Delivery Rate 03/08 0957 92 124/68 03/08 0700 98.0 94 18 108/64 99 03/08 0400 98.1 91 18 118/70 03/07 2221 96 118/70 03/07 2117 98.9 96 18 110/68 99 Room Air 03/07 1600 96 18 122/64 03/07 1600 96 Room Air 03/07 1600 98.9 96 20 122/64 96 Room Air 03/07 1400 99 18 93/53 03/07 1200 99.0 98 20 1127/70 03/07 1200 98 Room Air Intake & Output 03/08 1600 03/08 0800 03/08 0000 Intake Total 560 Output Total Balance 560 Intake, IV 60 Intake, Oral 500 Results Pertinent Lab/Fransico Results: Laboratory Tests 03/08 0610 Chemistry Sodium (137 - 145 mmol/L) 134 L Potassium (3.5 - 5.1 mmol/L) 4.4 Chloride (98 - 107 mmol/L) 97 L Carbon Dioxide (22 - 30 mmol/L) 27 Anion Gap (5 - 16) 10 BUN (9 - 20 mg/dL) 4 L Creatinine (0.7 - 1.2 mg/dL) 0.6 L Estimated GFR (>60 ml/min) > 60 BUN/Creatinine Ratio (7 - 25 %) 6.7 L Calcium (8.4 - 10.2 mg/dL) 8.5 Total Bilirubin (0.2 - 1.3 mg/dL) 8.7 H Direct Bilirubin (< 0.4 mg/dL) 7.2 H AST (17 - 59 U/L) 58 ALT (21 - 72 U/L) 39 Alkaline Phosphatase (< 127 U/L) 182 H Total Protein (6.3 - 8.2 g/dL) 6.2 L Albumin (3.5 - 5.0 g/dL) 3.0 L Coagulation PT (9.4 - 12.5 SEC) 11.5 INR (0.90 - 1.17) 1.05 Hematology CBC w Diff NO MAN DIFF REQ WBC (4.8 - 10.8 /CUMM) 8.6 RBC (4.70 - 6.10 /CUMM) 2.46 L Hgb (14.0 - 18.0 G/DL) 8.4 L Hct (42 - 52 %) 24.9 L MCV (80.0 - 94.0 FL) 101.0 H MCH (27.0 - 31.0 PG) 34.1 H MCHC (33.0 - 37.0 G/DL) 33.8 RDW (11.5 - 14.5 %) 20.2 H Plt Count (130 - 400 /CUMM) 121 L MPV (7.4 - 10.4 FL) 10.2 Gran % (42.2 - 75.2 %) 65.6 Lymphocytes % (20.5 - 51.1 %) 20.6 Monocytes % (1.7 - 9.3 %) 12.0 H Eosinophils % (0 - 5 %) 0.6 Basophils % (0.0 - 2.0 %) 1.2 Absolute Granulocytes (1.4 - 6.5 /CUMM) 5.7 Absolute Lymphocytes (1.2 - 3.4 /CUMM) 1.8 Absolute Monocytes (0.10 - 0.60 /CUMM) 1.0 H Absolute Eosinophils (0.0 - 0.7 /CUMM) 0.1 Absolute Basophils (0.0 - 0.2 /CUMM) 0.1
[2018-03-08 14:35] VITALS: BP 128/74
--- NOTE | 2018-03-08 21:10 | PN- Gastroenterology ---
Assessment/Plan GI Assessment/Recommendations: 32 y/o male, non-HTN, non-DM, unaware of prior hx HLD (*subsequent admission 08/10: TG > 10.5K), 15 pk yr cigarette smoker, no illicit drugs or IVDA (except occasional cannabis), with long hx EtOH ("> 6 beers daily & occ shot of whiskey "), last drank 1 a.m. on 03/02/18, without known prior hx pancreatitis, PUD, or GBD (GB intact- no prior abdominal surgery except remote left groin hernia repair as child), who presented to the [place] ER 03/02/18 at 7:46 a.m., c/o diffuse left-sided abdominal pain for 3 days with nausea and vomiting, contents bilious. There was no hematemesis. He had mild GERD, without odynophagia or dysphagia. His stools were dark. He denied any rectal bleeding. There was minimal diarrhea, but no constipation, obstipation, or tenesmus. LBM on day of admission. He reportedly had OB+ stool on digital exam in the ER. Upon arrival, BP 140/91, P126, R 18, T 98.8 (Tm 99.2 in ER), O2 sat RA 95%. There was no positional component to his symptoms. There was perhaps minimal jaundice. His urine was slightly dark. He denied any light stools or pruritus. 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 He denied any chest pain or shortness of breath. There was some mild WARNER. He denied any history of DTs, seizures, or EtOH withdrawal. He denied any abdominal trauma, rash, or confusion. He denied any FHx GI Ca, GBD, PUD, inherited pancreatitis, additional GI disease, or inherited liver disease. He was not on any ASA, NSAIDS, Sulfa meds or thiazides. He denied any outpt rx meds, herbal meds, or OTC meds. 01/02/18: EGD per Dr. Lea for scant hematemesis- mild gastritis, duodenitis, with bxs: mild CAG/CFG. HP-neg. (The patient denied ever coming to the office for GI follow-up). He had never had a colonoscopy. The patient was given IV NS, MS, Dilaudid, f/b Ringer's Lactate in the ER (exact amount to be calculated-> reportedly + 5-6L overnight). His serum was lipemic. He was initially admitted to telemetry, but in view of multiple metabolic derangements, markedly elevated triglycerides, hypoCa2+, etc. he was transferred to the ICU for insulin drip, calcium gluconate infusion, and closer monitoring. Apparently, GI was called for an elective consult late in the afternoon on 03/02, but the GI service was never notifiied that the patient was transferred to the ICU. The patient was seen by critical care & endocrine. He is awaiting placement of additional lines & probable aphoresis for tx of his marked elevated TG. As of 03/03/18, the patient's abdominal pain was about the same. He had received narcotic analgesics a little over one hour prior to my initial exam. He was essentially NPO xc ice chips. He looked better clinically than his labs did. 03/02/18: 08:52- Admission labs- WBC 7.7 71S/24L/5M), H/H 13.7/37.5, MCV 101.3, RDW 15, PLT 141, glu 107, BUN/Cr 11/0.7, GFR > 60, Na 132, K 4.1, HCO3 18, AG 17 , lactate 3.2-> 2.3, amylase 58, lipase 1184, *Ca 5.7, albumin 2.8, globulin 3.8 , *TG > 10,500, TBil 3.4 (w/o fracs), *alk phos 881, AST 112, ALT 66, *[EtOH] 310 (*unable to do PT/PTT due to gross lipemia). 03/02/18: U/A- hazy, yellow, 1.010, 6.0, rare RBC, rare WBC, 1-3 gran casts, few bact, few epith mod amorph, + icto, 1.0 urobil 1.0, neg nitirite, neg esterase 03/02/18: Utox: + cannabis > 80. 03/02/18: 16:07- glu 76, BUN/Cr 10/0.6, GFR > 60, Na 131, K 4.3, HCO3 19, amylase 64, lipase 1409, *Ca 5.2, TG 8970, *LDH 885, PTH 165.1, Vit D 25OH < 4.2 03/02/18: 21:00- glu 77, BUN/Cr 8/0.5, GFR > 60, Na 133, K 4.0, HCO3 15, AG 18, amylase 633, lipase 1323, Mg 1.1, Ca 5.2, TG 9397 03/03/18: 05:46- WBC 4.2 (70S/13B/14L/3M), H/H 9.9/29.6, MCV 101.2, RDW 15.2, PLT 105, glu 155, BUN/Cr 6/0.5, GFR > 60, Na 127, K 3.6, HCO3 17, AG 13, Mg 1.9, *Ca 5.4, PO4 2.5, alb 2.3, TG 7991, TBil 3.8 (w/o fracs), AST 84, AST 36. 03/02/18: EKG- NSR @ 86, nl axis, nl int, flipped T in V1V2. 03/02/18: XRY-PORTABLE CHEST XRAY- No acute disease. No change. No effusion. Post C-fusion. 03/02/18: CT ABD & PELVIS W IV CONTRAST- 1. Diffuse fatty infiltration of the liver. No focal hepatic defect. No biliary tract disease. Normal GB. 2. Acute pancreatitis associated with pancreatic enzymes/effusions primarily localized to the left anterior pararenal space. Secondary effects of the transverse colon and duodenum are appreciated. 3. Focal 1 cm area of nonenhancement at the junction of the neck and body the pancreas could well represent early pancreatic necrosis. DICTATED BY: Balta Madrigal MD (*I personally reviewed the CT with Dr. Goldman, of [facility], on & a clinical/radiographic decision was made to defer needle aspirate of the focal region by IR for now to rule out infected necrosis, with consideration for repeat CT in short interval follow-up, depending on clinical course). *As of 03/03/18, the patient looked better clinically than his labs did. His pancreatitis was undoubtedly from his markedly elevated TG (> 10.5K on 03/02/18: admission labs), superimposed on EtOH (actively drinking up until admission) & cigarette smoking. His LFTs were somewhat atypical for fatty liver, with a markedly elevated alkaline phosphatase. The gallbladder appeared normal on CT. There was a 1 cm region at the body/neck of pancreas that was suspicious for possible necrosis. He was somewhat malnourished. Although the liver did not look cirrhotic on CT, he had thrombocytopenia and reversal of albumin:globulin ratio, which could imply cirrhosis. His pancytopenia was probably secondary to bone marrow suppression from EtOH. He reportedly had dark, OB positive stool in the ER, it was not actively bleeding. He remotely had HP-negative gastritis on 01/02/10: EGD per Dr. Lea, without any varices or portal gastropathy then. On admission, 1 grave sign by [place] criteria (elevated LDH) & 1 grave sign by BiSAP criteria (+SIRS). There were no pleural effusions. 03/03/18: XRY-PORTABLE CHEST XRAY- Right-sided PICC terminates in the distal SVC in satisfactory position. Spinal fusion hardware in the lower cervical & upper thoracic spine. 03/03/18: ULTRASOUND AND FLUOROSCOPICALLY GUIDED RIGHT INTERNAL JUGULAR VEIN TEMPORARY HEMODIALYSIS CATHETER PLACEMENT- Successful placement of temporary hemodialysis catheter via the right internal jugular vein. Catheter ready to use at this time. 03/04/18: *US-LIMITED (RUQ) ABDOMEN- 1. The pancreas is obscured and not assessed. 2. Stable appearance of hepatic steatosis. No focal hepatic lesion. 3. No cholelithiasis. Normal GB. CBD 3 mm. No free fluid. 03/03/18: 1520: *Hep A Ab, Hep Bs Ag, Hep C Ab, & Hep B core Ab- all neg; *HIV- neg; TBil 4.7, DBil 3.6, alk phos 585, troponin .02, *CRP 4.4, Fe 74, TIBC 106, *Fe sat 69.8%, *ferritin > 1000 (? acute phase rx/EtOH > HHC), B12 965 03/03/18: *MONIQUE, AMA, ceruloplasmin, A1AT, 5'NTD, RBC folate, MMA- all pending. 03/03/18: glu 129, BUN/Cr 3/0.5, GFR > 60, Na 135, K 3.7, HCO3 20, AG 10, Mg 1.7 , Ca 8.0, *PO4 1.8, alb 3.4, TG 394, TBil 2.9, AST 22, ALT 22 03/03/18: PT 11.4, INR 1.05, PTT 63 (*serum still lipemic then) 03/04/18: 0350: WBC 4.9, H/H 8.5/25.4, MCV 102.1, RDW 15.8, PLT 54, glu 120, BUN /Cr < 2/0.5, GFR > 60, Na 135, K 4.0, HCO3 21, AG 8, Mg 1.7, Ca 7.7, PO4 1.5, alb 2.9, *TG 387, TBil 4.4 (*w/o fracs), AST 56, ALT 34, *CRP 7.5 *As of 03/04/18, the patient was seen by numerous consultants, including ICU, nephrology & endocrine. He had an urgent placement of dialysis/pheresis catheter by IR on 03/03/18. *Lipid pheresis was performed 03/03/18, with marked improvement in triglyceride levels, down to 387, from > 10.5K!! The patient remained in the ICU. Right neck Cuong catheter is to be D/C. His calcium, phosphorus, magnesium, insulin drip & glucose were monitored by endocrine & the ICU team. He was rxd Calcitriol. His fluid balance was + > 3L. There was no evidence of hemoconcentration. His anemia was multifactorial & in part, dilutional. His IVF were switched to D5 Lactated Ringers at 75 cc/hr. He did get Lasix prn. The IV banana bag was switched to po folate & thiamine. His insulin drip was DC'd. Toprol was added for tachycardia. He was awaiting an echocardiogram. At present, BP 138/82, P 122, R 20, T 99.3 (Tm 100.3), O2 sat RA 97%. He was mildly jaundiced. His abdominal pain was improved. He denied any nausea or vomiting, and was hungry. He was on ice chips, but was otherwise NPO. He had a BM today. He denied any fevers or chills. He had a mild cough. He denied any CP or SOB, but had mild WARNER. There was no overt GI bleeding, hematemesis, or melena. He noted minimal confusion, but was A & O x 3. 03/04/18: 1620: glu 111, BUN/Cr < 2/0.5, Na 134, K 3.7, HCO3 27, AG 8, Mg 2.2, Ca 7.7, PO4 1.7, albn 2.8, TBil 6.5, AST 80, ALT 34, PT 12.0, INR 1.10, PTT 48, *elevated d-Dimer 2357, fibrinogen 275 (? no FDP sent). 03/05/18: 0405: WBC 6.1, H/H 7.9/23.6, MCV 102.8, RDW 15.4, PLT 42, glu 92, BUN/ Cr < 2/0.5, GFR > 60, Na 132, K 4.1, HCO3 26, AG 7, Mg 2.0, Ca 7.9, PO4 1.9, * TBil 9.5 (w/o fracs), AST 100, ALT 47. *As of 03/05/18, the patient was normotensive, but still somewhat tachycardic, despite Toprol, with Tm 99.8 & O2 sat RA 98%. He was NPO xc ice chips & awaiting a repeat CT AP with pancreatic protocol to follow up on the suspected area of necrosis & to rule out any hemorrhagic component. IVF: D% Lactated Ringers @ 75 cc/hr. He was known to have OB positive stool on admission, but his anemia was multifactorial, including bone marrow suppression from EtOH, with worsening thrombocytopenia & intermittent leukopenia. His LFTs worsened. There was no overt GI bleeding or hematemesis. He had a dark brown, OB+ BM the p.m. of 03/04/18, without fresh blood or melena. His abdominal pain was improving. There was minimal nausea, but no vomiting. He denied any CP or SOB. He denied any chills or sx UTI. He had a minimal dry cough. The elevated d-Dimer from yesterday afternoon, 03/04/18, was noted. CIWA have ranged anywhere from 0-16 over the past 24 hrs, most recently 4. At the conclusion of my note, the 03/05: CT AP with pancreatic protocol report came back (*see below)- slightly worsening pancreatitis, but can try sips of clears, based on his abdominal exam. 03/05/18: *CT ABDOMEN AND PELVIS WITHOUT AND WITH IV CONTRAST- 1. Pancreatitis with increased pancreatic edema. Persistent small area of hypoattenuation at the neck of the pancreas undetermined significance. This could represent a small area of necrosis. Prior trauma is possible. There is increasing edema extending into the anterior pararenal space. Persistent mild edema in the transverse mesocolon. Associated secondary inflammatory changes in the duodenum. No walled off collection. 2. Stable appearance of hepatic steatosis. No focal hepatic defects. No dilated ducts. Normal GB. 3. Small bilateral pleural effusions, L > R, with bibasilar atelectasis. 03/03/18: ECHOCARDIOGRAM- CONCLUSIONS: LVEF > 65%. No significant chamber abnormalities. No significant valve abnormalities. Normal transthoracic echocardiogram. Physiologic valvular regurgitation. Tachycardia noted throughout. Carlo Alcantara M.D. 03/05/18: US TRIPLEX OF LOWER EXTREMITIES, BILATERAL- No evidence of deep vein thrombosis in either lower extremity. 03/03/18: *MONIQUE- neg 1:40. 03/06/18: 0511: WBC 5.8(70S/1B/20L/8M/1Baso), H/H 7.0/20.5 MCV 103.5, RDW 15.8, PLT 54, glu 98, BUN/Cr < 2/0.6, GFR > 60, Na 132, K 3.9, HCO3 26, AG 8, Mg 2.0, Ca 7.8, PO4 2.7, alb 2.7, glob 2.5, TBil 11, DBil 8.9, alk phos 131, AST 79, ALT 45, TG 460. 03/06/18: 1400: WBC 6.5, H/H 9.0/27, PLT 69 (*post 1u PRBC earlier that a.m.) *As of 03/06/18, the patient was hemodynamically stable and only borderline tachycardic, with O2 sat RA 95% & Tm 99.6. IVF: D5NS @ 50cc/hr. He was tolerating full liquids po. He received 1u PRBC on 03/06/18 for jimenez H/H 7.0/ 20.5 (multifactorial anemia, thrombocytopenia, & borderline leukopenia-> EtOH BM suppression, nutritional, dilutional, & OB+ brown stool). Endocrine, ICU, & medical notes appreciated. A CTA chest was deferred per the ICU team, as his elevated d-Dimer was clinically felt to be an acute phase reactant. 03/05/18: * Doppler LE B/L- neg DVT. His electrolytes were being repleted. Corrected serum Ca2+ was 8.64. His abdominal pain was improving. He denied any nausea or vomiting. He had a loose brown BM just now. *Tricor 145 mg po daily was rxd on 03/06/18. His CIWA scores were 0-1 today, but he was sleeping most of the time. He was currently moderately tremulous. He remained yellow. He denied any fevers, chills, or confusion. His Cuong catheter was pulled from his right neck. 03/07/18: WBC 5.9 (no left shift), H/H 8.2/24.2, PLT 79, PT 11.7, INR 1.07, glu 98, BUN/Cr 3/0.6, GFR > 60, K 3.8, HCO3 25, AG 11, Mg 2.2, Ca 7.9, PO4 4.2, alb 2.9 (no TP), TBil 12.2, AST 71, ALT 42. 03/07/18: *QualvuApp[employer] discriminant function 11 (negative) regarding EtOH hepatitis. *As of 03/07/18, the patient remained normotensive & mildly tachycardic, with low-grade temp (Tm 99.8), & O2 sat RA 97%. Clinically, the patient looked improved. He was minimally tremulous (on Librium & Ativan prn). He denied any confusion. His abdominal pain was improving. He last received MS at 3:57 a.m. today. He tolerated full liquids po. He denied any nausea, vomiting, chills,CP , or SOB. He remained jaundiced. IVF: D5NS @ 50 cc/hr. His fluid balance past 24 hrs was essentially zero. Vitamin E 800 IU po daily was added to Tricor 145 mg po daily. Nicotine patch & Ergocalciferol were added. 03/05/18: *elevated haptoglobin, going against hemolysis. 03/06/18: *TG 460 (after IV D5/insulin/lipid apheresis/ Tricor), *TG > 10.5K on admission! 03/08/18: 0610: WBC 8.6, H/H 8.4/24.9, PLT 121, PT 11.5, INR 1.05, BUN/Cr 4/0.6, GFR > 60, na 134, K 4.4, HCO3 27, AG 10, Ca 8.5, alb 3.0, glob 3.2, TBil 8.7, DBil 7.2, alk phos 182, AST 58, ALT 39, *[facility] discriminant function- 6 (* negative). *As of 03/08/18, the patient was transferred out of the ICU to general medicine. He previously had required ICU care IV insulin drip for hyperTG (> 10.5K) & IV calcium for marked hypocalcemia. He was hemodynamically stable & afebrile, with O2 sat RA 94%. CIWA- 0. He was tolerating a low fat diet. His sugars were stable, per endocrine, as was his Ca2+. He denied any nausea or vomiting. His abdominal pain was improved. * According to his RN, he tried to sneak out of the hospital earlier today, but was caught by the elevator. According to Dr. Akins's hospitalist note (he took over the patient's care from Dr. Rizvi, when the patient was transferred out of the ICU), lands were tp discharge the patient to home tomorrow, on 03/09/18. Patient was happy about this. He denied any new complaints. He was less yellow & his TBil was slowly declining. He denied any chills, CP, or SOB. He had a normal bowel movement earlier today. His IV MS had been switched to Oxycodone 5 mg po Q6h prn. His thrombocytopenia was improving off of EtOH. His leukopenia had resolved. He remained anemic from multiple causes. He was off IVF. *SUGGEST: Continue low fat diet. Follow-up with endocrine. Strict I/O's. Ercocalciferol & electrolyte management per endocrine. Replete other lytes (i.e.- Mg/PO4). Echocardiogram without EtOH cardiomyopathy-> Toprol rx for tachycardia. O2 prn. Thiamine 100 mg po daily & folate. CIWA- 0. Taper Ativan. Tx of hyperTG with Tricor 145 mg daily, per endocrine (post IV: insulin/D5 & lipid apheresis). Continue Vit E 800 IU po daily. *Depending on clinical course, may need needle aspirate by IR to r/o infxd necrosis, but would defer at present, as pt stable.* *Consider outpt EUS x 2 months to recheck 1 cm focal area of necrosis at pancreatic neck/body. Continue DVT prophylaxis with mechanical ALPS. Continue to watch for hemoconcentration (i.e.- rising Hgb or BUN, despite IVF), which would be a poor prognostic sign. The pancytopenia is probably multifactorial (i.e.- EtOH effects on BM, malnutrition, dilutional, etc.), plus probable minor component of OB+ stool. Zofran as needed. *Check FDP (fibin split products), but these can be elevated in liver disease.*Serial CBC, CMP, & PT with INR to calculate Maddrey score/discriminant function, but Prednisolone &/or Trental have fallen out of favor for EtOH hepatitis. Narcotic analgesics po as needed. *po PPI, with the caveat that his low Mg is carefully followed on PPI. No plans for inpt endoscopic workup of OB positive stool at present, unless patient actively bleeds (multifactorial anemia & EtOH BM suppression), but *the patient was given my office number for potential outpt EGD & possible colonoscopy. Await 03/03/18: 5'NTD, AMA, A1AT, ceruloplasmin, RBC folate, & MMA. *Elevated Fe sat/ferritin probably acute phase rx, but consider genetic markers for HHC. The patient & his fiancee were told on 03/04/18 that further alcohol abuse could result in his . They were made aware of the fact then that he was critically ill. Advise psych & SW input. The above was previously discussed with the medical house staff. *Further inpt GI follow-up as needed, as he is slated for D/C tomorrow, on 03/09/18. *Hopefully, he will comply with outpt EGD/colonoscopy/eventual EUS, etc. Problem List: 1. Acute pancreatitis 2. Hypertriglyceridemia 3. ETOH abuse 4. Hypocalcemia 5. Abnormal LFTs 6. Malnutrition 7. Fatty liver 8. Guaiac positive stools 9. Pancytopenia 10. Alcoholic hepatitis Subjective Subjective: 03/05/18: *elevated haptoglobin, going against hemolysis. 03/06/18: *TG 460 (after IV D5/insulin/lipid apheresis/ Tricor), *TG > 10.5K on admission! 03/08/18: 0610: WBC 8.6, H/H 8.4/24.9, PLT 121, PT 11.5, INR 1.05, BUN/Cr 4/0.6, GFR > 60, na 134, K 4.4, HCO3 27, AG 10, Ca 8.5, alb 3.0, glob 3.2, TBil 8.7, DBil 7.2, alk phos 182, AST 58, ALT 39, *[facility] discriminant function- 6 (* negative). *As of 03/08/18, the patient was transferred out of the ICU to general medicine. He previously had required ICU care IV insulin drip for hyperTG (> 10.5K) & IV calcium for marked hypocalcemia. He was hemodynamically stable & afebrile, with O2 sat RA 94%. CIWA- 0. He was tolerating a low fat diet. His sugars were stable, per endocrine, as was his Ca2+. He denied any nausea or vomiting. His abdominal pain was improved. * According to his RN, he tried to sneak out of the hospital earlier today, but was caught by the elevator. According to Dr. Akins's hospitalist note (he took over the patient's care from Dr. Rizvi, when the patient was transferred out of the ICU), lands were tp discharge the patient to home tomorrow, on 03/09/18. Patient was happy about this. He denied any new complaints. He was less yellow & his TBil was slowly declining. He denied any chills, CP, or SOB. He had a normal bowel movement earlier today. His IV MS had been switched to Oxycodone 5 mg po Q6h prn. His thrombocytopenia was improving off of EtOH. His leukopenia had resolved. He remained anemic from multiple causes. He was off IVF. Review of Systems: Full 14 point review of systems otherwise noncontributory, and as above. Constitutional: Denies: chills, diaphoresis, fever, malaise, weakness, unexplained weight loss. EENTM: Reports: icterus. Denies: blurred vision, double vision, visual changes, eye pain, eye drainage, eye tearing, ear discharge, ear pain, ear redness, hearing changes, nasal congestion, epistaxis, nasal pain, throat pain, throat swelling, mouth pain, tooth pain. Cardiovascular: Denies: chest pain, edema, orthopena, palpitations, peripheral edema, syncope. Respiratory: Reports: mild dry cough-> resolved. Denies: SOB, hemoptysis, orthopnea, sputum production, stridor, wheezing. GI: Reports: abdominal pain-> improving, ? melena-> resolved (OB+ in ER), nausea & vomiting-> resolved. Denies: bloating, constipation, diarrhea, distention, bowel incontinence, bloody stool, changes in stool, steatorrhea. Genitourinary: Denies: discharge, dysuria, frequency, hematuria, hesitation, nocturia, pain, urgency. Musculoskeletal: Reports: chronic neck pain (chronic post C-spine fusion). Denies: back pain, gout, joint pain, joint swelling, muscle pain, muscle stiffness. Skin: Reports: jaundice. Denies: cysts, change in skin color, change in hair/nails, dryness, erythema, lesions, lymphangitis, lumps, moles, rash. Neurological/Psychological: Denies: anxiety, ataxia, cognitive dysfunction, confusion, depressed, dementia, emotional problems, headache, numbness, paresthesia, pre-existing deficit, petit mal seizures, tingling, tremors, tonic-clonic seizures, unable to move lower ext , unable to move upper ext, weakness. Hematologic/Endocrine: Denies: bruising, bleeding, polyuria, polydipsia. Immunologic/Allergic: Denies: splenectomy, HIV/AIDS, lymphadenopathy. All Other Systems: Reviewed and Negative Objective Vital Signs and I&Os Vital Signs Date Time Temp Pulse Resp B/P B/P Pulse O2 O2 Flow FiO2 Mean Ox Delivery Rate 03/08 2118 96 102/50 03/08 1435 98.5 86 18 128/74 94 03/08 1000 92 18 124/68 03/08 0957 92 124/68 03/08 0700 98.0 94 18 108/64 99 03/08 0400 98.1 91 18 118/70 03/07 2221 96 118/70 Intake & Output 03/08 1600 03/08 0400 03/07 1600 03/07 0400 03/06 1600 03/06 0400 Intake Total 1300 5100 670 7049 720 Output Total 4633 647 1459 600 Balance 1300 -87 344 -1420 120 Intake, Blood 350 Product Intake, IV 80 208 532 9890 600 Intake, Oral 1220 960 600 400 120 Number 2 1 1 Bowel Movements Output, Urine 3354 713 0122 600 Physical Exam: Well-developed, well-nourished, thin male, in no apparent distress. Sclera * slightly less icteric. Conjunctiva pink, post transfx. Oropharynx clear. No oral thrush. No aphthous ulcers. Mucus membranes moist. There is no adenopathy, thyromegaly, JVD, or HJR. (Cuong cath-> pulled from right neck on 03/06/18). No peripheral stigmata of inflammatory bowel disease or chronic liver disease on exam. No spiders on the anterior chest wall. No gynecomastia. No CVA tenderness. No spine tenderness, except mild chronic tenderness post C-spine fusion (post scar) Lungs: clear to A&P, with slight decreased BS at the bases B/ L. No wheezing, rales, or rhonchi. Heart exam: regular rate rhythm, S1 and S2, without any murmur. Abdominal exam: slightly hypoactive bowel sounds, mildly distended belly, minimal LUQ tenderness, without guarding or rebound. No mass. No organomegaly. No fluid shift. No pulsatile mass. No epigastric bruit. Digital rectal exam: reportedly OB+ in ER 03/02/18(dark brown, OB+ stool on p.m. of 03/04/18). Extremities: without C, C, or E. No palpable cords. Multiple tattoos. No rash. No acute arthropathy. Distal pulses 2+ bilaterally. DTRs 2+ bilaterally. No palmar erythema. No Duuytren's contractures. Alert and oriented x 3. Motor 5/5 B/L. No tremor. No asterixis. Current Medications: Current Medications Sig/Madelin Start time Last Medication Dose Route Stop Time Status Admin Chlordiazepoxide HCl 10 MG BID 03/08 0900 DC 03/08 PO 0957 Chlordiazepoxide HCl 10 MG Q8 03/07 1400 DC 03/08 PO 0602 Docusate Sodium 100 MG DAILY NEEDED PRN 03/03 1100 AC PO Ergocalciferol 50,000 IU Q168 03/06 1445 AC 03/06 PO 1641 Fenofibrate 145 MG DAILY 03/06 1445 AC 03/08 PO 0957 Folic Acid 1 MG DAILY 03/04 1058 AC 03/08 PO 0957 Lorazepam 0 Q1P PRN 03/02 1700 AC 03/06 IV 0304 Metoprolol Tartrate 25 MG BID 03/07 0900 AC 03/08 PO 0957 Morphine Sulfate 2 MG Q4P PRN 03/02 1600 DC 03/08 IV 1038 Nicotine 7 MG DAILY 03/08 1550 AC 03/08 TOP 1730 Nicotine 21 MG DAILY 03/08 1440 DC TOP Omeprazole 40 MG DAILY AC 03/08 0924 AC 03/08 PO 1033 Oxycodone HCl 5 MG Q6 PRN 03/08 1445 AC 03/08 PO 1544 Pantoprazole Sodium 40 MG DAILY 03/05 1815 DC 03/07 IV 0924 Patient Medication 1 ED ONE ONE 03/08 1115 MT 03/08 Teaching ED 03/08 1116 1701 Senna 187 MG AT BEDTIME NEED.. 03/03 1100 AC 03/03 PO 1426 Thiamine HCl 100 MG DAILY 03/04 1058 AC 03/08 PO 0957 Vitamin E 800 IU DAILY 03/06 1910 03/08 PO 0957 Results Pertinent Lab Results: Laboratory Tests 03/08 03/07 0610 0500 Chemistry Sodium (137 - 145 mmol/L) 134 L Potassium (3.5 - 5.1 mmol/L) 4.4 Chloride (98 - 107 mmol/L) 97 L Carbon Dioxide (22 - 30 mmol/L) 27 Anion Gap (5 - 16) 10 BUN (9 - 20 mg/dL) 4 L Creatinine (0.7 - 1.2 mg/dL) 0.6 L Estimated GFR (>60 ml/min) > 60 BUN/Creatinine Ratio (7 - 25 %) 6.7 L Calcium (8.4 - 10.2 mg/dL) 8.5 Total Bilirubin (0.2 - 1.3 mg/dL) 8.7 H Direct Bilirubin (< 0.4 mg/dL) 7.2 H AST (17 - 59 U/L) 58 ALT (21 - 72 U/L) 39 Alkaline Phosphatase (< 127 U/L) 182 H Total Protein (6.3 - 8.2 g/dL) 6.2 L Albumin (3.5 - 5.0 g/dL) 3.0 L Uyneb-[id number]-Mnjzaaqxonz Pending Coagulation PT (9.4 - 12.5 SEC) 11.5 INR (0.90 - 1.17) 1.05 Hematology CBC w Diff NO MAN DIFF REQ WBC (4.8 - 10.8 /CUMM) 8.6 RBC (4.70 - 6.10 /CUMM) 2.46 L Hgb (14.0 - 18.0 G/DL) 8.4 L Hct (42 - 52 %) 24.9 L MCV (80.0 - 94.0 FL) 101.0 H MCH (27.0 - 31.0 PG) 34.1 H MCHC (33.0 - 37.0 G/DL) 33.8 RDW (11.5 - 14.5 %) 20.2 H Plt Count (130 - 400 /CUMM) 121 L MPV (7.4 - 10.4 FL) 10.2 Gran % (42.2 - 75.2 %) 65.6 Lymphocytes % (20.5 - 51.1 %) 20.6 Monocytes % (1.7 - 9.3 %) 12.0 H Eosinophils % (0 - 5 %) 0.6 Basophils % (0.0 - 2.0 %) 1.2 Absolute Granulocytes (1.4 - 6.5 /CUMM) 5.7 Absolute Lymphocytes (1.2 - 3.4 /CUMM) 1.8 Absolute Monocytes (0.10 - 0.60 /CUMM) 1.0 H Absolute Eosinophils (0.0 - 0.7 /CUMM) 0.1 Absolute Basophils (0.0 - 0.2 /CUMM) 0.1 03/07 03/06 0400 1400 Chemistry Sodium (137 - 145 mmol/L) 136 L Potassium (3.5 - 5.1 mmol/L) 3.8 Chloride (98 - 107 mmol/L) 100 Carbon Dioxide (22 - 30 mmol/L) 25 Anion Gap (5 - 16) 11 BUN (9 - 20 mg/dL) 3 L Creatinine (0.7 - 1.2 mg/dL) 0.6 L Estimated GFR (>60 ml/min) > 60 Glucose (65 - 99 mg/dL) 98 Calcium (8.4 - 10.2 mg/dL) 7.9 L Phosphorus (2.5 - 4.5 mg/dL) 4.2 Magnesium (1.6 - 2.3 mg/dL) 2.2 Total Bilirubin (0.2 - 1.3 mg/dL) 12.2 H Direct Bilirubin (< 0.4 mg/dL) 9.8 H AST (17 - 59 U/L) 71 H ALT (21 - 72 U/L) 42 Albumin (3.5 - 5.0 g/dL) 2.9 L Amylase (30 - 110 U/L) 73 Lipase (23 - 300 U/L) 410 H Coagulation PT (9.4 - 12.5 SEC) 11.7 INR (0.90 - 1.17) 1.07 D-Dimer High Sensitivty (0 - 243 ng/ml) 2213 H Hematology CBC w Diff NO MAN DIFF REQ NO MAN DIFF REQ WBC (4.8 - 10.8 /CUMM) 5.9 6.5 RBC (4.70 - 6.10 /CUMM) 2.44 L 2.71 L Hgb (14.0 - 18.0 G/DL) 8.2 L 9.0 L Hct (42 - 52 %) 24.2 L 27.0 L MCV (80.0 - 94.0 FL) 99.2 H 99.4 H MCH (27.0 - 31.0 PG) 33.6 H 33.2 H MCHC (33.0 - 37.0 G/DL) 33.8 33.4 RDW (11.5 - 14.5 %) 20.1 H 19.5 H Plt Count (130 - 400 /CUMM) 79 L 69 L MPV (7.4 - 10.4 FL) 8.8 9.2 Gran % (42.2 - 75.2 %) 64.9 73.1 Lymphocytes % (20.5 - 51.1 %) 20.8 14.0 L Monocytes % (1.7 - 9.3 %) 13.4 H 11.9 H Eosinophils % (0 - 5 %) 0.6 0.9 Basophils % (0.0 - 2.0 %) 0.3 0.1 Absolute Granulocytes (1.4 - 6.5 /CUMM) 3.9 4.7 Absolute Lymphocytes (1.2 - 3.4 /CUMM) 1.2 0.9 L Absolute Monocytes (0.10 - 0.60 /CUMM) 0.8 H 0.8 H Absolute Eosinophils (0.0 - 0.7 /CUMM) 0 0.1 Absolute Basophils (0.0 - 0.2 /CUMM) 0 0 05/14 0511 Chemistry Sodium (137 - 145 mmol/L) 132 L Potassium (3.5 - 5.1 mmol/L) 3.9 Chloride (98 - 107 mmol/L) 98 Carbon Dioxide (22 - 30 mmol/L) 26 Anion Gap (5 - 16) 8 BUN (9 - 20 mg/dL) < 2 L Creatinine (0.7 - 1.2 mg/dL) 0.6 L Estimated GFR (>60 ml/min) > 60 Glucose (65 - 99 mg/dL) 98 Calcium (8.4 - 10.2 mg/dL) 7.8 L Phosphorus (2.5 - 4.5 mg/dL) 2.7 Magnesium (1.6 - 2.3 mg/dL) 2.0 Total Bilirubin (0.2 - 1.3 mg/dL) 11.0 H Direct Bilirubin (< 0.4 mg/dL) 8.9 H AST (17 - 59 U/L) 79 H ALT (21 - 72 U/L) 45 Alkaline Phosphatase (< 127 U/L) 131 H Total Protein (6.3 - 8.2 g/dL) 5.2 L Albumin (3.5 - 5.0 g/dL) 2.7 L Triglycerides (<150 mg/dL) 460 H Hematology CBC w Diff MAN DIFF ORDERED WBC (4.8 - 10.8 /CUMM) 5.8 RBC (4.70 - 6.10 /CUMM) 1.98 L Hgb (14.0 - 18.0 G/DL) 7.0 *L Hct (42 - 52 %) 20.5 L MCV (80.0 - 94.0 FL) 103.5 H MCH (27.0 - 31.0 PG) 35.2 H MCHC (33.0 - 37.0 G/DL) 34.0 RDW (11.5 - 14.5 %) 15.8 H Plt Count (130 - 400 /CUMM) 54 L MPV (7.4 - 10.4 FL) 8.8 Gran % (42.2 - 75.2 %) 69.4 Lymphocytes % (20.5 - 51.1 %) 20.2 L Monocytes % (1.7 - 9.3 %) 8.9 Eosinophils % (0 - 5 %) 1.1 Basophils % (0.0 - 2.0 %) 0.4 Absolute Granulocytes (1.4 - 6.5 /CUMM) 4.0 Segmented Neutrophils (42.2 - 75.2 %) 70 Band Neutrophils (0.0 - 5.0 %) 1 Absolute Lymphocytes (1.2 - 3.4 /CUMM) 1.2 Lymphocytes (20.5 - 51.1 %) 20 L Monocytes (1.7 - 9.3 %) 8 Absolute Monocytes (0.10 - 0.60 /CUMM) 0.5 Absolute Eosinophils (0.0 - 0.7 /CUMM) 0.1 Basophils (0.0 - 2.0 %) 1 Absolute Basophils (0.0 - 0.2 /CUMM) 0 Platelet Estimate (ADEQUATE) DECREASED Polychromasia 1+ Poikilocytosis 1+ Anisocytosis 1+ Macrocytic Cells 1+ Ovalocytes FEW Stomatocytes 1+ Retic Count (0.5 - 2.0 %) 2.98 H Other Body Source Fld Total RBCs Counted (%) 100 Imaging/Other Studies: 03/02/18: EKG- NSR @ 86, nl axis, nl int, flipped T in V1V2. 03/02/18: XRY-PORTABLE CHEST XRAY- No acute disease. No change. No effusion. Post C-fusion. 03/02/18: CT ABD & PELVIS W IV CONTRAST- 1. Diffuse fatty infiltration of the liver. No focal hepatic defect. No biliary tract disease. Normal GB. 2. Acute pancreatitis associated with pancreatic enzymes/effusions primarily localized to the left anterior pararenal space. Secondary effects of the transverse colon and duodenum are appreciated. 3. Focal 1 cm area of nonenhancement at the junction of the neck and body the pancreas could well represent early pancreatic necrosis. DICTATED BY: Balta Madrigal MD (*I personally reviewed the CT with Dr. Goldman, of [facility], on & a clinical/radiographic decision was made to defer needle aspirate of the focal region by IR for now to rule out infected necrosis, with consideration for repeat CT in short interval follow-up, depending on clinical course). 03/03/18: XRY-PORTABLE CHEST XRAY- Right-sided PICC terminates in the distal SVC in satisfactory position. Spinal fusion hardware in the lower cervical & upper thoracic spine. 03/03/18: ULTRASOUND AND FLUOROSCOPICALLY GUIDED RIGHT INTERNAL JUGULAR VEIN TEMPORARY HEMODIALYSIS CATHETER PLACEMENT- Successful placement of temporary hemodialysis catheter via the right internal jugular vein. Catheter ready to use at this time. 03/04/18: *US-LIMITED (RUQ) ABDOMEN- 1. The pancreas is obscured and not assessed. 2. Stable appearance of hepatic steatosis. No focal hepatic lesion. 3. No cholelithiasis. Normal GB. CBD 3 mm. No free fluid. 03/05/18: CT ABDOMEN AND PELVIS WITHOUT AND WITH IV CONTRAST- 1. Pancreatitis with increased pancreatic edema. Persistent small area of hypoattenuation at the neck of the pancreas undetermined significance. This could represent a small area of necrosis. Prior trauma is possible. There is increasing edema extending into the anterior pararenal space. Persistent mild edema in the transverse mesocolon. Associated secondary inflammatory changes in the duodenum. No walled off collection. 2. Stable appearance of hepatic steatosis. No focal hepatic defects. No dilated ducts. Normal GB. 3. Small bilateral pleural effusions, L > R, with bibasilar atelectasis. 03/03/18: ECHOCARDIOGRAM- CONCLUSIONS: LVEF > 65%. No significant chamber abnormalities. No significant valve abnormalities. Normal transthoracic echocardiogram. Physiologic valvular regurgitation. Tachycardia noted throughout. Carlo Alcantara M.D. 03/05/18: US TRIPLEX OF LOWER EXTREMITIES, BILATERAL- No evidence of deep vein thrombosis in either lower extremity.
[2018-03-08 21:49] VITALS: BP 102/56
[2018-03-08 22:00] VITALS: BP 102/56
[2018-03-09] VITALS: BP 102/56
[2018-03-09 05:49] VITALS: BP 106/60
[2018-03-09 06:00] VITALS: BP 106/60
--- NOTE | 2018-03-09 07:53 | Patient Discharge Instructions ---
Discharge Instructions General Discharge Information You were seen/treated for: pancreatitis Special Instructions: 1. follow up with PCP in one week 2. follow up with dish cloth inspector in one week 3. follow up with corn cutter operator in one week 4. take all medications as directed Diet Continue normal diet: No Recommended Diet: Low Fat Activity Full Activity/No Limits: Yes Acute Coronary Syndrome Inclusion Criteria At DC or during hospital stay patient has or had the following: ACS DIAGNOSIS No Discharge Core Measures Meds if any: Prescribed or Continued at Discharge Meds if any: NOT Prescribed or Continued at Discharge Congestive Heart Failure Inclusion Criteria At DC or during hospital stay patient has or had the following: CHF DIAGNOSIS No Discharge Core Measures Meds if any: Prescribed or Continued at Discharge Meds if any: NOT Prescribed or Continued at Discharge Cerebrovascular accident Inclusion Criteria At DC or during hospital stay patient has or had the following: CVA/TIA Diagnosis No Discharge Core Measures Meds if any: Prescribed or Continued at Discharge Meds if any: NOT Prescribed or Continued at Discharge Venous thromboembolism Inclusion Criteria VTE Diagnosis No VTE Type NONE VTE Confirmed by (Test) NONE Discharge Core Measures - Per Current guidelines, there needs to be overlap - treatment for the first 5 days of Warfarin therapy. - If discharged on Warfarin prior to 5 days of - overlap therapy, the patient will need to be - assessed for post discharge needs including - *Post discharge parental anticoagulation - *Warfarin and/or parental anticoagulation education - *Follow up date to check INR post discharge At least 5 days overlap therapy as Inpatient No Meds if any: Prescribed or Continued at Discharge Note: Overlap Therapy is Warfarin and Anticoagulant Meds if any: NOT Prescribed or Continued at Discharge
[2018-03-09] MEDS ORDERED: TRICOR145 M1 PO ×2 (07:58→10:18)
[2018-03-09] MEDS ORDERED: VITAMIN B-1100 MG PO ×2 (07:58→10:18)
[2018-03-09] MEDS ORDERED: VITAMIN D250000 UNIT PO ×2 (07:58→10:18)
[2018-03-09] MEDS ORDERED: NICOTINE PATCH1 EAC1 TOP ×2 (07:58→10:18)
[2018-03-09] MEDS ORDERED: OMEPRAZOLE20 M2 PO ×2 (07:58→10:18)
[2018-03-09] MEDS ORDERED: VITAMIN E400 UNI1 PO ×2 (07:58→10:18)
[2018-03-09] MEDS ORDERED: FOLIC ACID1 M1 PO ×2 (07:58→10:18)
[2018-03-09] MEDS ORDERED: OXYCODONE HCL5 M1 PO ×2 (08:13→09:10)
--- NOTE | 2018-03-09 09:06 | PN- Endocrinology ---
Assessment/Plan Endoscopy Assessment: 32 y/o male hx of ETOH abuse, poor diet and other substance abuse, presented with abdominal pain x 2 weeks. His TRIG on admission was > [id number]. CT showed necrotizing acute pancreatitis. Blood work showed severe hypocalcemia. He was admitted for severe pancreatitis. He was treated with intravenous insulin and dextrose, calcium drip, intravenous calcitriol and subsequently plasma apheresis. His triglyceride level was improving and hypocalcemia resolved. Currently he is on vitamin D2 50,000 units once every week and fenofibrate 145 mg daily. Calcitriol was discontinued. His diet has been advanced. He stated that he feels okay. But he appears strange this morning. Plan: continue the current treatment; low fat diet; follow repeat lipid panel; recommend psychiatric consult; if he is medically stable for discharge, the discharge plan --- continue vitamin d2 50,000 units once a week; --- continue fenofibrate 145 mg daily; ---low fat diet; --- f/u in office after discharge. Subjective Subjective: He stated that he feels okay. Objective Last 24 Hrs of Vital Signs/I&O Vital Signs Date Time Temp Pulse Resp B/P B/P Pulse O2 O2 Flow FiO2 Mean Ox Delivery Rate 03/09 0600 98.8 92 20 106/60 03/09 0549 98.8 92 22 106/60 94 Room Air 03/09 0000 99.2 96 18 102/56 03/08 2200 96 102/56 03/08 2149 99.2 96 18 102/56 93 Room Air 03/08 2118 96 102/50 03/08 1435 98.5 86 18 128/74 94 03/08 1000 92 18 124/68 03/08 0957 92 124/68 Intake & Output 03/09 1600 03/09 0800 03/09 0000 Intake Total 120 480 Output Total Balance 120 480 Intake, Oral 120 480 Number 1 Bowel Movements Results Pertinent Lab/Fransico Results: Laboratory Tests 03/09 0548 Chemistry Total Bilirubin Pending Direct Bilirubin Pending AST Pending ALT Pending Alkaline Phosphatase Pending Total Protein Pending Albumin Pending Triglycerides Pending Cholesterol Pending LDL Cholesterol, Calc Pending HDL Cholesterol Pending Cholesterol/HDL Ratio Pending
[2018-03-09 09:15] VITALS: BP 106/60
[2018-03-09] MEDS ORDERED: ULTRAM50 M1 PO (10:18)
--- NOTE | 2018-03-09 10:28 | PN- Att Addend ---
Attending Addendum Attending Brief Note Patient seen and examined. Plan of care discussed with the medical team and the patient. Available lab work and radiology test reports were reviewed. Patient complains of left-sided lower back pain. He denies any fever chills nausea vomiting. He is hungry and wants to have breakfast. Apparently last night he was found near an elevator and it is suspected that he may have been trying to elope. He appears distracted and preoccupied this morning and does not appear to be interested in his care or discussion with the care providers. Exam: General: Patient awake alert oriented without any distress CVS: S1 plus S2 without any murmur or gallops Chest: Few scattered crepitation without any wheeze. There is no respiratory distress. Abdomen: Soft non-tender, abdomen is nondistended, bowel sound present, no guarding or rebound EVALUATION ANALYST: Awake alert oriented without any focal neuro deficit and follows commands appropriately Extremities: No edema; no clubbing or cyanosis noted Assessment * Necrotizing pancreatitis likely due to elevated triglyceride and contributed by alcohol abuse * Lactic acidosis-resolved * Sinus tachycardia-workup be normal * Pancytopenia * Hyponatremia * Hypocalcemia * Hypomagnesemia and hypophosphatemia- improved * Hyperbilirubinemia gradually improving * Alcohol abuse- patient was seen by criminal justice social worker. Case was discussed criminal justice social worker. Apparently patient is not interested in pursuing alcohol rehabilitation. He also wants to continue smoking and is not interested in discussing smoking cessation. Patient states that he will just quit drinking. Plan * Stop Lopressor * Continue TriCor and vitamin E * Patient will need a recheck of LFTs and bilirubin in 1 week; he should have a lipid panel and triglycerides check in about 2 weeks * Prepare for discharge home today * Follow with PCP Dr. Smith * No narcotics upon discharge; patient can use Motrin when necessary or oral Ultram for pain control. Avoid Tylenol use Current Medications Sig/Madelin Start time Last Medication Dose Route Stop Time Status Admin Chlordiazepoxide HCl 10 MG BID 03/08 0900 DC 03/08 PO 0957 Docusate Sodium 100 MG DAILY NEEDED PRN 03/03 1100 AC PO Ergocalciferol 50,000 IU Q168 03/06 1445 AC 03/06 PO 1641 Fenofibrate 145 MG DAILY 03/06 1445 AC 03/09 PO 0915 Folic Acid 1 MG DAILY 03/04 1058 AC 03/09 PO 0915 Lorazepam 0 Q1P PRN 03/02 1700 AC 03/06 IV 0304 Melatonin 5 MG AT BEDTIME 03/09 0300 03/09 PO 0256 Metoprolol Tartrate 25 MG BID 03/07 0900 03/09 PO 0915 Morphine Sulfate 2 MG Q4P PRN 03/02 1600 PA 03/08 IV 1038 Nicotine 7 MG DAILY 03/08 1550 03/09 TOP 0915 Nicotine 21 MG DAILY 03/08 1440 PA TOP Omeprazole 40 MG DAILY 03/08 0924 03/09 PO 0533 Oxycodone HCl 5 MG ONCE ONE 03/09 0600 DC 03/09 PO 03/09 0601 0552 Oxycodone HCl 5 MG Q6 PRN 03/08 1445 03/09 PO 0302 Patient Medication 1 ED ONE ONE 03/08 1115 DC 03/08 Teaching ED 03/08 1116 1701 Senna 187 MG AT BEDTIME NEED.. 03/03 1100 03/03 PO 1426 Thiamine HCl 100 MG DAILY 03/04 1058 03/09 PO 0915 Vitamin E 800 IU DAILY 03/06 1910 03/09 PO 0915 Laboratory Tests 03/09/18 0548: Total Bilirubin 6.2 H, Direct Bilirubin 4.9 H, AST 48, ALT 38, Alkaline Phosphatase 192 H, Total Protein 6.5, Albumin 3.3 L, Triglycerides 508 H, Cholesterol 272 H, LDL Cholesterol Direct 182.91 H, LDL Cholesterol, Calc ND, HDL Cholesterol 16 L, Cholesterol/HDL Ratio 17 H 03/08/18 0610: Anion Gap 10, Estimated GFR > 60, BUN/Creatinine Ratio 6.7 L, Calcium 8.5, Total Bilirubin 8.7 H, Direct Bilirubin 7.2 H, AST 58, ALT 39, Alkaline Phosphatase 182 H, Total Protein 6.2 L, Albumin 3.0 L, PT 11.5, INR 1.05, CBC w Diff NO MAN DIFF REQ, RBC 2.46 L, MCV 101.0 H, MCH 34.1 H, MCHC 33.8, RDW 20.2 H, MPV 10.2, Gran % 65.6, Lymphocytes % 20.6, Monocytes % 12.0 H, Eosinophils % 0.6, Basophils % 1.2, Absolute Granulocytes 5.7, Absolute Lymphocytes 1.8, Absolute Monocytes 1.0 H, Absolute Eosinophils 0.1, Absolute Basophils 0.1 03/07/18 0500: [id number] Pending 03/07/18 0400: Anion Gap 11, Estimated GFR > 60, Glucose 98, Calcium 7.9 L, Phosphorus 4.2, Magnesium 2.2, Total Bilirubin 12.2 H, Direct Bilirubin 9.8 H, AST 71 H, ALT 42, Albumin 2.9 L, Amylase 73, Lipase 410 H, PT 11.7, INR 1.07, D-Dimer High Sensitivty 2213 H, CBC w Diff NO MAN DIFF REQ, RBC 2.44 L, MCV 99.2 H, MCH 33.6 H, MCHC 33.8, RDW 20.1 H, MPV 8.8, Gran % 64.9, Lymphocytes % 20.8, Monocytes % 13.4 H, Eosinophils % 0.6, Basophils % 0.3, Absolute Granulocytes 3.9, Absolute Lymphocytes 1.2, Absolute Monocytes 0.8 H, Absolute Eosinophils 0 , Absolute Basophils 0 03/06/18 1400: CBC w Diff NO MAN DIFF REQ, RBC 2.71 L, MCV 99.4 H, MCH 33.2 H, MCHC 33.4, RDW 19.5 H, MPV 9.2, Gran % 73.1, Lymphocytes % 14.0 L, Monocytes % 11.9 H, Eosinophils % 0.9, Basophils % 0.1, Absolute Granulocytes 4.7, Absolute Lymphocytes 0.9 L, Absolute Monocytes 0.8 H, Absolute Eosinophils 0.1, Absolute Basophils 0 Vital Signs Date Time Temp Pulse Resp B/P B/P Pulse O2 O2 Flow FiO2 Mean Ox Delivery Rate 03/09 0915 92 106/60 03/09 0600 98.8 92 20 106/60 03/09 0549 98.8 92 22 106/60 94 Room Air 03/09 0000 99.2 96 18 102/56 03/08 2200 96 102/56 03/08 2149 99.2 96 18 102/56 93 Room Air 03/088 96 102/50 03/08 1435 98.5 86 18 128/74 94 Intake & Output 03/09 1600 03/09 0800 03/09 0000 Intake Total 120 480 Output Total Balance 120 480 Intake, Oral 120 480 Number 1 Bowel Movements Total time spent in preparation for discharge plan, patient education, and CMR preparation was 35 minutes.
--- NOTE | 2018-03-09 11:19 | PN- Housestaff ---
Subjective Follow-up For: pancreatitis hypertriglyceridemia alcohol abuse transaminitis Subjective: patient is eager to leave and seems distracted and with depressed mood, moreso than normal. Review of Systems Constitutional: Reports: no symptoms. Objective Last 24 Hrs of Vital Signs/I&O Vital Signs Date Time Temp Pulse Resp B/P B/P Pulse O2 O2 Flow FiO2 Mean Ox Delivery Rate 03/09 0915 92 106/60 03/09 0600 98.8 92 20 106/60 03/09 0549 98.8 92 22 106/60 94 Room Air 03/09 0000 99.2 96 18 102/56 03/08 2200 96 102/56 03/08 2149 99.2 96 18 102/56 93 Room Air 03/08 2118 96 102/50 Intake & Output 03/09 1600 03/09 0800 03/09 0000 Intake Total 120 480 Output Total Balance 120 480 Intake, Oral 120 480 Number 1 Bowel Movements Physical Exam General Appearance: Alert, Oriented X3, Cooperative, No Acute Distress Assessment/Plan Assessment: 32 yo M with a past medical history of alcohol and cannabis abuse presenting to the ED for severe abdominal pain for 2 days found to have questionable necrotizing pancreatitis, hypertriglyceremia >10k and hypocalcemia. Problems: #Pancreatitis with ?necrotizing tissues more likley due to hypertriglycedemia vs etoh abuse The patient presented with severe abd pain x [address] abd revealed acute pancreatitis diffuse fatty infiltration of the liver with cocal area of nonenhancement at the junction of the neck and body the possibly representing early pancreatic necrosis. Initial labs revealed triglycerides >10.5k, lactic acid 3.2, calcium 5.7, albumin 2.3, phosphorus 2.5, magnesium 1.1, T bili 3.4, AST 112, ALT 36, ALP 881, LDH 885, albumin 2.8, amylase 58, lipase 1184, 25- hydroxy vit d <4.2, PTH 165.1. He was admitted to the ICU for insulin drip to help control his triglycerides and IV calcium drip. He had a Flakito and PICC line placed on 03/03. The patient received temporary plasmapharesis and his triglycerides improved to 460. His Flakito line was removed on 03/05. He received 2L of NS and 2L of LR before coming to the ICU. He was continued on D5LR and it was discontinued as the patient went from NPO to tolerating a full liquid diet. He was given lasix 10mg IV and then 20mg IV for concerns possible fluid overload as he had abd distension due to the fluids. He was started on a fibrate to help control his triglycerides. He was also started on vitamin E and IV PPI. There were concerns of possible infected necrotic tissue as the patient had intermittent low grade fevers, however he has not had any leukocytosis during this admission. Current work up: amylase 58 -> 633 -> 73, lipase 1184 -> 410, Tbili 3.4 -> 12.2 , Direct bili 3.6 -> 9.8, LDH 885 -> 799, ALP 881 -> 131, Ast 112 -> 71, ALT 66- > 42, RUQ US revaeled no gallstones, repeat ct abd: pancreatitis with increased pancreatic edema with persistent small area of hypoattenuation could represent a small area of necrosis, repeat CRP increased from 4.4 to 7.5, B12 965, HIV negative, iron 74, TIBC 106, ferritin >1000, HIV negative, hepatitis panel negative, -f/u serial cbc, bep, INR -f/u workup : repeat alk phos with 5'NTD, MONIQUE, AMA, A1AT, ceruloplasmin, RBC folate, & MMA. -cont full liquid diet, advanced as tolerated -Consider IR needle aspiration of pancreatic necrosis depending on clinical course -cont IV PPI, fibrate, vit E #Hypocalcemia Initial labs revealed calcium 5.7, vit D <4.2, and PTH elevated at 165.1. He was was started on a calcium drip. As his corrected calcium improved we was started on calcitrol and then transitioned to po ergocalciferol 50kunits weekly once he was able to tolerate a full liquid diet. The hypocalcemia is probably secondary to saponifiaction of pancreatitis and nutrition. -cont endo recommendations #Tachycardia New onset tachycardia. Possibly due to pain or anxiety. Given lopressor 5mg IV before plasmapheresis. Free t4 elevated which returned to normal sponteanously with normal tsh. There were concerns of possible PE but DVT negative and Well's score for PE: 1.5. However, D-Dimer is elevated. Echocardiogram is normal. Anxiety was controlled with ativan and pain was controlled for morphine. Originally started metoprolol 12.5 mg BID and increased to 25mg BID for further control ot tachycardia. Heme onc: #Pancytopenia with ?GI bleed Initial H/H 13.7/37.5 which dropped to 7.0/20.5. Patient is hemooccult + with no acute signs of bleeding. There were concerns for HIT/TTP as patient also has thrombocytopenia but DIC panel revealed PTT 48 and High sensitivity D-dimer 2357 , normal fibrinogen activity. Patient was transfused 1 unit of prbc and responded approriately. MCV>100. Retic count was elevated 2.98. Pancytopenia most likely multifactorial due to dilution 2/2 fluids and possibly alcoholic bone marrow suppression. -f/u haptoglobin, peripheral smear #Lactic acidosis - resolved Initial lactic acid levels remained 2.5 - 3.0 and resolved after fluid resucitation. #Hyponatremia Initial Na 132. Improved with fluids. Currently: 136 #hypomagnesia Initial magnesisum 1.1 Replnished as needed. Currently: 2.2 #hypophosphatemia Initially 2.5 but dropped to 1.8. Replnished with neutraphos. Currently 4.2 #hx of etoh abuse The patient has a hx of etoh abuse and was started on CIWA monitoring with prn ativan. Utox was positive for cannabis. He was started on libirum 25 TID as he started showing signs of possible withdrawal. He was also given thiamine and folate. The librium was tapered down as tolerated. He was started on a nicotine patch which was discontinued. Pyschiatry and SW consults were ordered which are currently pending -f/u psych and sw which are pending -taper libirum -Continue ativan prn agitation on CIWA -nicotine patch House keeping: FULL LIQUID DIET FULL CODE PICC LINE, DC'ed BARBARA LINE DVT prophylaxis - holding heparin for low plt and pancytopnia Problem List: 1. Hepatitis 2. Necrotizing pancreatitis 3. Hypocalcemia 4. Hyponatremia Pain Ratin Pain Location: abdmonen and back Pain Goal: Pain 4 or less
== END 2018-03-09 11:19 | DRG 282 ==
LOC: ERH 07:46 → CRI 12:48 → ERHI 12:48 → ENRESERV 14:11 → CANRESERV 14:15 → ENRESERV 14:15 → EDBEDREQ 14:23 → ENRESERV 15:38 → ENTRNSPT 16:41 → EDTRNSPT 16:45 → EDTRNSPTSTS 16:45 → 1NO 16:54 → CMPTRNSPT 17:02 → ENTRNSPT 17:07 → CMPTRNSPT 17:26 → CRI 03-03 00:11 → ENTRNSPT 03-07 19:38 → EDTRNSPT 03-07 19:59 → EDTRNSPTSTS 03-07 19:59 → 2NB 03-07 20:10 → CMPTRNSPT 03-07 20:17 → 2NB 03-08 07:53 → ENPENDDIS 03-09 10:31 → 2NB 03-09 11:19
PROVIDERS: Internal Medicine; Physician Assistant Medical; Student in an Organized Health Care Education/Training Program
PROC: 02H633Z Insertion of Infusion Device into Right Atrium, Percutaneous Approach (ICD-10-PCS; principal; 2018-03-03)
PROC: 6A550Z3 Pheresis of Plasma, Single (ICD-10-PCS; 2018-03-03)
DX: K85.21 Alcohol induced acute pancreatitis with uninfected necrosis (principal); D61.818 Other pancytopenia; E46 Unspecified protein-calorie malnutrition; E83.51 Hypocalcemia; E83.42 Hypomagnesemia; E87.2 Acidosis; E83.39 Other disorders of phosphorus metabolism; K70.0 Alcoholic fatty liver; E87.1 Hypo-osmolality and hyponatremia; K70.10 Alcoholic hepatitis without ascites; F10.239 Alcohol dependence with withdrawal, unspecified; E78.1 Pure hyperglyceridemia; G89.29 Other chronic pain; D75.89 Other specified diseases of blood and blood-forming organs; F12.90 Cannabis use, unspecified, uncomplicated; M54.2 Cervicalgia; R00.0 Tachycardia, unspecified; E55.9 Vitamin D deficiency, unspecified; F17.210 Nicotine dependence, cigarettes, uncomplicated; Z98.1 Arthrodesis status
CPT/HCPCS: 1NSP; 2NBSP; 82103; 83520; 83921; CCU; 36415; 36592; 71045; 74177; 77001; 80307; 81001; 82436; 83010; 86920; 87147; 87389; 93005; 93010; 93306; 93970; 96361; 96374; 96375; C1769; G0480; J0610; J0636; J1644; J1815; J1940; J2001; J2405; J3490; J7040; J7042; J7060; J7120; P9016; P9041

== ENCOUNTER 2018-03-10 18:03 | Emergency (ER) | payer OTHER ==
[~2018-03-10] VITALS: Ht 165.1 cm; Wt 66.2 kg
[~2018-03-10 18:03] MED LIST: FOLIC ACID1 M1 PO; NICOTINE PATCH1 EAC1 TOP; OMEPRAZOLE20 M2 PO; OXYCODONE HCL5 M1 PO; TRICOR145 M1 PO; ULTRAM50 M1 PO; VITAMIN B-1100 MG PO; VITAMIN D250000 UNIT PO; VITAMIN E400 UNI1 PO
[2018-03-10 18:06] VITALS: BP 126/83
[2018-03-10 18:42] LABS: ABSOLUTE BASOPHIL COUNT 0.1 /CUMM (0.0-0.2); ABSOLUTE EOSINOPHIL COUNT 0.1 /CUMM (0.0-0.7); ABSOLUTE GRANULOCYTE CT 11.5 /CUMM (1.4-6.5); ABSOLUTE MONOCYTE COUNT 0.9 /CUMM (0.10-0.60); BASOPHIL % 0.5 % (0.0-2.0); EOSINOPHIL % 0.4 % (0-5); GRANULOCYTE % 79.2 % (42.2-75.2); HEMATOCRIT 27.6 % (42-52); MEAN CORPUSCULAR HGB 33.9 PG (27.0-31.0); MEAN CORPUSCULAR HGB CONC 33.5 G/DL (33.0-37.0); MEAN CORPUSCULAR VOLUME 101.3 FL (80.0-94.0); MEAN PLATELET VOLUME 9.3 FL (7.4-10.4); RED BLOOD CELL CT 2.72 /CUMM (4.70-6.10)
[2018-03-10 18:58] LABS: PLATELET COUNT 424 /CUMM (130-400); WHITE BLOOD CELL COUNT 14.5 /CUMM (4.8-10.8)
[2018-03-10 19:00] LABS: PT 11.7 SEC (9.4-12.5); PTT 34 SEC (25-37)
--- NOTE | 2018-03-10 19:47 | ED GI/GU/ABDOMINAL COMPLAINT ---
History of Present Illness General Chief Complaint: General Adult Stated Complaint: "I THINK I HAVE JAUNDICE.JUST RELEASED YESTERDAY" Source: patient, family, old records Exam Limitations: no limitations Allergies Coded Allergies: NO KNOWN ALLERGIES (NONE 03/06/18) Reconcile Medications Ergocalciferol (Vitamin D2) (Vitamin D2) 50,000 UNIT CAPSULE 50,000 IU PO Q168 VITAMIN Fenofibrate Nanocrystallized (Tricor) 145 MG TABLET 145 MG PO DAILY HYPERTRIGLYCERIDEMIA . Folic Acid 1 MG TABLET 1 MG PO DAILY VITAMIN . Nicotine (Nicotine Patch) 7 MG/24 HOUR PATCH.TD24 7 MG TOP DAILY SMOKING CESSATION . Omeprazole 20 MG CAPSULE.DR 40 MG PO DAILY GASTRIC PROTECTION . Thiamine HCl (Vitamin B-1) 100 MG TABLET 100 MG PO DAILY VITAMIN . Tramadol HCl (Ultram) 50 MG TABLET 1 TAB PO Q8P PRN PAIN Vitamin E (Dl,Tocopheryl Acet) (Vitamin E) 400 UNIT CAPSULE 800 IU PO DAILY VITAMIN . Triage Note: PT TO ED "I THINK I'M JAUNDICE". PT DC HOME FOR THE SAME YESTERDAY, "MY EYES WERE WORSE YESTERDAY". PT SKIN AND SCLERA YELLOW, AND C/O LOW BACK PAIN, DIARRHEA TODAY. Triage Nurses Notes Reviewed? yes HPI: 32M recently discharged from [place] after being treated for acute pancreatitis secondary to EtOH and hypertriglyceridemia complicated by pancreatic necrosis, with history of opioid abuse, presenting with lower back pain and jaundice since discharge. He actually reports that his jaundice has improved since disharge, as has his scleral icterus. He denies abdominal pain, has been eating well without pain, and with normal BM. He describes lower back pain since discharge, which is constant and not exacerbated by movement. No trauma or inciting event. No sciatic pain. He does reports some abdominal cramping and mildly loose stools. No alcohol or drug intake since discharge. He denies fever, chills, sore throat, headache, chest pain, SOB, constipation, dysuria. (Marlys MARTINEZ,[facility] [place]) Vital Signs & Intake/Output Vital Signs & Intake/Output Vital Signs Date Time Temp Pulse Resp B/P B/P Pulse O2 O2 Flow FiO2 Mean Ox Delivery Rate 03/10 1806 99.2 114 18 126/83 100 Room Air Room Air ED Intake and Output 03/11 0000 03/10 1200 Intake Total Output Total Balance Patient 66.224 kg Weight Weight Reported by Patient Measurement Method (Michelle MARTINEZ,Vinnie Jackson) Past History Travel History Traveled to [place] past 21 day No Medical History Any Pertinent Medical History? see below for history Neurological: NONE EENT: NONE Cardiovascular: NONE Respiratory: NONE Gastrointestinal: pancreatitis, 01/02/10: EGD per Dr. Lea- HP-neg gastritis. Hepatic: jaundice, fatty liver Renal: NONE Musculoskeletal: chronic neck pain post C-spine fusion Psychiatric: alcohol dependence Endocrine: NONE Blood Disorders: NONE Cancer(s): NONE ROAD WORKER/Reproductive: NONE History of MRSA: No History of VRE: No History of CDIFF: No Surgical History Surgical History: C-spine fusion ; left groin hernia repair as child Psychosocial History Who do you live with Patient/Self Services at Home None What is your primary language Vincentian Tobacco Use: Current Daily Use Daily Tobacco Use Amount/Type: => 5 Cigarettes daily ETOH Use: denies use, (CLEAN X 1 WEEK) Illicit Drug Use: denies illicit drug use Family History Family History, If Any: FATHER (HLD). Age 54. MOTHER, , Age 50-60; Cause: Breast CA. Relation not specified for: FH: hyperlipidemia Hx Contributory? No (Drea Frankel MD) Review of Systems Review of Systems Constitutional: Reports: no symptoms. EENTM: Reports: no symptoms. Respiratory: Reports: no symptoms. Cardiovascular: Reports: no symptoms. GI: Reports: no symptoms. Genitourinary: Reports: no symptoms. Musculoskeletal: Reports: no symptoms. Skin: Reports: no symptoms. Neurological/Psychological: Reports: no symptoms. Hematologic/Endocrine: Reports: no symptoms. Immunologic/Allergic: Reports: no symptoms. All Other Systems: Reviewed and Negative (Drea Frankel MD) Physical Exam Physical Exam General Appearance: well developed/nourished, no apparent distress Head: atraumatic, normal appearance Eyes: Bilateral: normal appearance, other (mild icterus). Ears, Nose, Throat, Mouth: hearing grossly normal, moist mucous membrane Neck: normal inspection, supple, full range of motion Respiratory: normal breath sounds, chest non-tender, no respiratory distress Cardiovascular: regular rate/rhythm Gastrointestinal: soft, non-tender Rectal: deferred Back: normal inspection, normal range of motion, mild bilateral paraspinal tenderness Extremities: normal range of motion Neurologic/Psych: no motor/sensory deficits, awake, alert, oriented x 3, normal mood/affect Skin: intact, normal color, warm/dry Core Measures ACS in differential dx? No Sepsis Present: No Sepsis Focused Exam Completed? No (Drea Frankel MD) Progress Differential Diagnosis: AAA, AMI, appendicitis, biliary colic, bowel obstruction , colon cancer, cholecystitis, diverticulitis, epididymitis, esophageal varices, gastritis, hepatitis, hernia, hemorrhoids, ischemic bowel, inflamm bowel dis, Yodit-Lucinda tear, orchitis, pancreatitis, prostatitis, peptic ulcer, PUD/GERD, perforated viscous, pyelonephritis, SBO, STD, testicular torsion, ureterolithiasis, urinary retention, urethritis, UTI/pyelo Initial ED EKG: none (Drea Frankel MD) Plan of Care: Orders Procedure Date/time Status LIPID PANEL 03/10 182 Complete LACTIC ACID 03/10 182 Complete ETHANOL 03/10 182 Complete DIRECT LDL 03/10 1820 Complete PARTIAL THROMBOPLASTIN TIME 03/10 181 Complete PROTHROMBIN TIME 03/10 181 Complete LIPASE 03/10 181 Complete COMPREHENSIVE METABOLIC PANEL 03/10 181 Complete CBC WITHOUT DIFFERENTIAL 03/10 1813 Complete AMYLASE 03/10 181 Complete Laboratory Tests 03/10/18 2117: Lactic Acid Cancelled 03/10/18 1820: Anion Gap 15, Estimated GFR > 60, BUN/Creatinine Ratio 11.3, Glucose 128 H, Lactic Acid 2.8 H, Calcium 9.3, Total Bilirubin 3.7 H, AST 108 H, ALT 50, Alkaline Phosphatase 269 H, Total Protein 7.4, Albumin 4.0, Globulin 3.4, Albumin/Globulin Ratio 1.2, Triglycerides 449 H, Cholesterol 354 H, LDL Cholesterol Direct 284.90 H, LDL Cholesterol, Calc ND, HDL Cholesterol 21 L, Cholesterol/HDL Ratio 16.9 H, Amylase 91, Lipase 586 H, PT 11.7, INR 1.07, APTT 34, CBC w Diff NO MAN DIFF REQ, RBC 2.72 L, MCV 101.3 H, MCH 33.9 H, MCHC 33.5, RDW 18.0 H, MPV 9.3, Gran % 79.2 H, Lymphocytes % 13.5 L, Monocytes % 6.4, Eosinophils % 0.4, Basophils % 0.5, Absolute Granulocytes 11.5 H, Absolute Lymphocytes 2.0, Absolute Monocytes 0.9 H, Absolute Eosinophils 0.1 , Absolute Basophils 0.1, Serum Alcohol < 10.0 03/10/181816: Serum Alcohol Cancelled 03/10/181816: Lactic Acid Cancelled, Triglycerides Cancelled, Cholesterol Cancelled, LDL Cholesterol, Calc Cancelled, HDL Cholesterol Cancelled, Cholesterol/HDL Ratio Cancelled, Methadone Screen Cancelled, Barbiturate Screen Cancelled, Ur Phencyclidine Scrn Cancelled, Amphetamines Screen Cancelled, U Benzodiazepines Scrn Cancelled, Urine Cocaine Screen Cancelled, Urine Cannabis Screen Cancelled 03/10/181812: Urine Color Cancelled, Urine Clarity Cancelled, Urine pH Cancelled, Ur Specific [place] Cancelled, Urine Protein Cancelled, Urine Ketones Cancelled, Urine Nitrite Cancelled, Urine Bilirubin Cancelled, Urine Urobilinogen Cancelled, Ur Leukocyte Esterase Cancelled, Ur Microscopic Cancelled, Urine Hemoglobin Cancelled, Urine Glucose Cancelled No evidence of worsening liver function or pancreatitis. Appears mildly dehydrated, explaining slight elevation in WBC and LFTs. Symptoms are more consistent with opioid withdrawal, likely from medications received during inpatient stay. He will be discharged home with instructions to return to ER if symptoms worsen. (Marlys MARTINEZ,Drea) Comments: 03/10/2018 8:30:04 PM just called by the lab regarding a lactic acid level of 2.8. This patient was cared for by Dr. Frankel. I have notified him of this elevated lactic acid level but he feels that it is of no consequence. (Michelle MARTINEZ,Vinnie Jackson) Departure Departure Disposition: HOME OR SELF CARE Condition: Stable Clinical Impression Primary Impression: Opioid withdrawal Secondary Impressions: Dehydration, Obstructive jaundice Referrals: Mike Smith DO (PCP/Family) Additional Instructions: Follow up with your PCP. Drink plenty of water. Loperamide (Immodium will help with the diarrhea and abdominal cramps). Do not take more than 300mg of the Tramadol in one day, as it may increase your risk of seizure. You can take up to 1000mg of Tylenol a day for pain. Your jaundice and yellow eyes should continue to improve. If you feel worse or have any new or worsening symptoms, return to ER. Departure Forms: Customer Survey General Discharge Information (Marlys MARTINEZ,Drea)
== END 2018-03-10 20:04 ==
LOC: ERH 18:03
PROVIDERS: Emergency Medicine; Internal Medicine
DX: F11.23 Opioid dependence with withdrawal (principal); E86.0 Dehydration; K83.1 Obstruction of bile duct
CPT/HCPCS: 80307; G0480